=== PATIENT | female | born 1950 | race Caucasian/White ===

== ENCOUNTER → 2016-07-12 | Outpatient (CLI) | payer MEDICARE ==
[2016-07-12 12:37] LABS: ALT 36 U/L (9-52); AST 19 U/L (14-36); Alkaline Phosphatase 87 U/L (38-126); Anion Gap 11 mmol/L; Blood Urea Nitrogen 24 mg/dL (7-17); Calcium 9.7 mg/dL (8.4-10.2); Carbon Dioxide 28 mmol/L (22-30); Chloride 102 mmol/L (98-107); Cholesterol 119 mg/dL (<200); Glucose 227 mg/dL (74-99); HDL Cholesterol 49 mg/dL (40-60); Non-African American GFR(MDRD) >60 (>60 ml/min/1.73 sqM); Potassium 4.7 mmol/L (3.5-5.1); Sodium 141 mmol/L (137-145); Total Bilirubin 0.7 mg/dL (0.2-1.3); Total Protein 6.7 g/dL (6.3-8.2); Triglycerides 141 mg/dL (<150)
== END | disposition home or self-care (01) ==
LOC: LABWHC1 11:48
PROVIDERS: ATTEND Internal Medicine Endocrinology, Diabetes & Metabolism
DX: E11.65 Type 2 diabetes mellitus with hyperglycemia (principal)
CPT/HCPCS: 36415; 80053; 80061; 82043

== ENCOUNTER → 2016-10-17 | Outpatient (CLI) | payer MEDICARE ==
[2016-10-17 11:10] LABS: ALT 31 U/L (9-52); AST 18 U/L (14-36); Alkaline Phosphatase 76 U/L (38-126); Anion Gap 9 mmol/L; Blood Urea Nitrogen 26 mg/dL (7-17); Calcium 9.3 mg/dL (8.4-10.2); Carbon Dioxide 26 mmol/L (22-30); Chloride 108 mmol/L (98-107); Cholesterol 110 mg/dL (<200); Glucose 103 mg/dL (74-99); HDL Cholesterol 51 mg/dL (40-60); Non-African American GFR(MDRD) >60 (>60 ml/min/1.73 sqM); Potassium 4.4 mmol/L (3.5-5.1); Sodium 143 mmol/L (137-145); Total Bilirubin 0.5 mg/dL (0.2-1.3); Triglycerides 74 mg/dL (<150)
== END | disposition home or self-care (01) ==
LOC: LABWHC1 08:30
PROVIDERS: ATTEND Internal Medicine Endocrinology, Diabetes & Metabolism
DX: E11.65 Type 2 diabetes mellitus with hyperglycemia (principal); I10 Essential (primary) hypertension; E04.2 Nontoxic multinodular goiter
CPT/HCPCS: 36415; 80053; 80061; 82043; 84443

== ENCOUNTER → 2017-08-21 | Outpatient (CLI) | payer MEDICARE ==
[2017-08-21 10:21] LABS: Albumin 3.9 g/dL (3.5-5.0); Calcium 9.8 mg/dL (8.4-10.2); Potassium 4.4 mmol/L (3.5-5.1); Total Bilirubin 0.4 mg/dL (0.2-1.3); Total Protein 6.7 g/dL (6.3-8.2)
--- NOTE | 2017-08-21 11:06 | US ---
EXAMINATION TYPE: US thyroid st tissue head/neck DATE OF EXAM: 08/21/2017 COMPARISON: NONE CLINICAL HISTORY: E04.2 MULTINODULAR GOITER. Large body habitus GLAND SIZE: Right Lobe: 5.4 x 1.7 x 2.1 cm Overall Parenchyma: heterogenous Left Lobe: 5.1 x 1.5 x 2.2 cm Overall Parenchyma: heterogeneous Isthmus Thickness: 0.5 cm NODULES RIGHT: # of nodules measured on right: 1 1. 1.8 X 0.8 x 1.3 cm echogenic solid nodule at the lower pole with well-defined margins. This nod ule is wider than tall and shows intranodular vascularity. Prior size: not available LEFT: # of nodules measured on left: 2 1. 1.2 X 0.8 x 0.6 cm echogenic solid nodule at the lower pole with poorly defined margins. This n odule is wider than tall and shows intranodular vascularity. Prior size: not available 2. 0.8 X 0.6 x 0.5 cm echogenic solid nodule at the upper/isthmus pole with well-defined margins. T his nodule is wider than tall and shows no intranodular vascularity. Prior size: not available ISTHMUS: # of nodules measured in the isthmus: 0 Bilateral neck scanned, no evidence of lymphadenopathy. IMPRESSION: Bilateral thyroid lobe nodules. This could be correlated with nuclear medicine scan.
== END | disposition home or self-care (01) ==
LOC: RADUSWWP 09:27
PROVIDERS: ATTEND Internal Medicine Endocrinology, Diabetes & Metabolism
DX: E04.2 Nontoxic multinodular goiter (principal); E11.65 Type 2 diabetes mellitus with hyperglycemia
CPT/HCPCS: 36415; 76536; 80053; 80061; 82043; 82570; 83036

== ENCOUNTER → 2017-09-03 | Outpatient (CLI) | payer MEDICARE ==
[2017-09-03 13:41] LABS: T4, Free (Free Thyroxine) 0.84 ng/dL (0.78-2.19)
== END | disposition home or self-care (01) ==
LOC: LABWHC1 12:32
PROVIDERS: ATTEND Internal Medicine Endocrinology, Diabetes & Metabolism
DX: E11.65 Type 2 diabetes mellitus with hyperglycemia (principal)
CPT/HCPCS: 36415; 82533; 82607; 84439; 84443

== ENCOUNTER → 2017-11-17 | Outpatient (CLI) | payer MEDICARE ==
[2017-11-17 14:34] LABS: Calcium 9.4 mg/dL (8.4-10.2); Magnesium 1.9 mg/dL (1.6-2.3); Potassium 4.9 mmol/L (3.5-5.1)
== END | disposition home or self-care (01) ==
LOC: LABWHC1 13:43
PROVIDERS: ATTEND Nurse Practitioner Adult Health
DX: I10 Essential (primary) hypertension (principal)
CPT/HCPCS: 36415; 80048; 83735

== ENCOUNTER → 2018-04-20 | Outpatient (CLI) | payer MEDICARE ==
[2018-04-20 18:09] LABS: Albumin 4.1 g/dL (3.80-4.90); Albumin/Globulin Ratio 2.05 (1.20-2.10); Anion Gap 7.6 mmol/L (4.00-12.00); Calcium 9.9 mg/dL (8.7-10.3); Carbon Dioxide 26.4 mmol/L (21.6-31.8); LDL Cholesterol,Calculated 46.4 mg/dL (0.0-131.0); Potassium 5.2 mmol/L (3.5-5.5); Total Bilirubin 0.5 mg/dL (0.3-1.2); Total Protein 6.1 g/dL (6.2-8.2); VLDL Calculation 21.6 mg/dL (5.00-40.00)
[2018-04-20 18:57] LABS: Hemoglobin A1C 7.2 % (4.0-6.0)
== END ==
LOC: LABWHC1 10:21
PROVIDERS: ATTEND Internal Medicine Endocrinology, Diabetes & Metabolism
DX: E11.65 Type 2 diabetes mellitus with hyperglycemia (principal)
CPT/HCPCS: 36415; 80053; 80061; 83036; 84443

== ENCOUNTER → 2018-05-06 | Outpatient (CLI) | payer MEDICARE ==
[2018-05-06 09:15] VITALS: BP 138/61; PULSE 94; TEMP 97.2; BMI 41.4
--- NOTE | 2018-05-06 10:47 | P.HPOB ---
History of Present Illness H&P Date: 05/06/18 Chief Complaint: The patient is here for her routine gynecologic exam. This is a 67-year-old G0 with an LMP of 1993 who is status post endometrial ablation in 1993. She is here to establish with this office. She believes she went through the menopausal change at approximately age 50 when she had hot flashes. She has been amenorrheic since her endometrial ablation. She has been experiencing soreness in the area of the perineum. There is also some pruritus , but is not very severe. This is been going on for a long time. She states it has also made sexual intercourse very uncomfortable, so she has not been sexually active for quite some time. She had a pelvic exam about 13 months ago , but she does not believe the Pap smear was done. She is otherwise without gynecologic complaints. She denies any postmenopausal bleeding. Review of Systems She has lost about 10 pounds over the last year and this has been intentional. She denies respiratory or G.I. problems. Cardiac: she has occasional palpitations. She is seen by Dr. Owens for any regular heartbeat. She denies maltreatment or problems with falling. : she denies any significant problems with urinary leakage. Past Medical History Past Medical History: Cancer (Left breast cancer 2017 status post lumpectomy and radiation.), Diabetes Mellitus (Type I diabetes since her 20s.), Hyperlipidemia, Hypertension, Sleep Apnea/CPAP/BIPAP, Thyroid Disorder Additional Past Medical History / Comment(s): heart murmur, occasional irregular heart rate. lt breast cancer 2017, thyroid goiter, diabetic retinopathy. Ulcerative colitis. Elevated white blood cell count undergoing workup by Dr. Penaloza. 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 She had an endometrial ablation for menorrhagia. History of Any Multi-Drug Resistant Organisms: None Reported Past Surgical History: Breast Surgery (Left breast lumpectomy 2016), Uterine Ablation (1993) Additional Past Surgical History / Comment(s): 2 lt breast lumpectomies mar,apr 2017, cyst removed lt foot, vitrectomy annette cataract, ganglion cyst lt wrist. Colonoscopy 2018. Past Anesthesia/Blood Transfusion Reactions: No Reported Reaction Past Psychological History: No Psychological Hx Reported Additional Psychological History / Comment(s): claustrophobic Smoking Status: Former smoker (Quit in her 30s.) Past Alcohol Use History: Rare (One or 2 per month.) Past Drug Use History: None Reported Additional History: She has been since 1983. 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 - Past Family History Father Family Medical History: Cancer (Prostate and pancreatic cancer) Additional Family Medical History / Comment(s): She has several cousins read various types of cancer. Mother Family Medical History: Diabetes Mellitus, Myocardial Infarction ([place]) Medications and Allergies Home Medications Medication Instructions Recorded Confirmed Type Aspirin [Adult Low Dose Aspirin EC] 81 mg PO DAILY 04/20/18 05/06/18 History Benazepril HCl 40 mg PO DAILY 04/20/18 05/06/18 History Hardik-Plex 1 tab PO DAILY 04/20/18 05/06/18 History Insulin Aspart (For Pump) [NovoLOG 0.01 unit SQ-PUMP CONTINUOUS 04/20/18 History (For Pump)] L.acidoph,Paracasei, B.lactis 1 each PO DAILY 04/20/18 05/06/18 History [Probiotic] Mesalamine [Canasa] 1,000 mg RECTAL DAILY 04/20/18 05/06/18 History Simvastatin [Zocor] 20 mg PO HS 04/20/18 05/06/18 History Triamterene-Hctz 37.5-25Mg 1 tab PO DAILY 04/20/18 04/22/18 History [Maxzide 37.5-25] amLODIPine BESYLATE 5 mg PO DAILY 04/20/18 05/06/18 History hydrALAZINE HCL [Apresoline] 50 mg PO BID 04/20/18 05/06/18 History Loperamide HCl [Imodium A-D] 2 mg PO BID 05/06/18 05/06/18 History Allergies Allergy/AdvReac Type Severity Reaction Status Date / Time No Known Allergies Allergy Verified 05/06/18 09:05 Exam Vital Signs Temp Pulse BP 05/06/18 09:09 97.2 F L 94 138/61 Intake and Output 05/05/18 05/06/18 05/06/18 22:59 06:59 14:59 Other: Weight 106.141 kg Height 5'3", weight 234 pounds, BMI 41.5. This is a well-developed well-nourished obese white female who is alert and oriented times 3 in no acute distress. HEENT: Within normal limits. NECK: Supple without mass or thyromegaly. CHEST AND LUNGS: Clear to auscultation. HEART: intermittent irregular rhythm possibly consistent with PVCs. BREASTS: Left breast is consistent with the lumpectomy and radiation. The left breast is generally firmer than the right breast. There is a mass measuring approximately 5 x 5 cm at 12 o'clock position that the patient states has been there for quite some time and is known to her breast surgeon, Dr. Goldy Stevens. She states this is a fluid collection. She states she had a recent MRI on the breasts and she will continue to follow-up with Dr. Goldy Stevens for this. The right breast is without mass or discharge. AXILLARY EXAM: Negative for adenopathy. BACK: Negative for CVA tenderness. ABDOMEN: Soft, obese, nontender, without palpable masses. PELVIC EXAM: external genitalia reveals generalized pallor and mild inflammation consistent with lichen sclerosis. This extends to the perineum. There is a more discreet lesion of leukoplakia on the inner aspect of the left labia minora at the Vulvo-vaginal junction. This lesion measures approximately 1.5 x 1.0 cm and is slightly raised. This appears different than the generalized pallor with the rest of the vulva. Cervix and vagina appear normal with mild atrophy. There is no unusual discharge. There is no evidence of prolapse. The uterus is midposition, nongravid size and nontender. There are no palpable adnexal masses or tenderness. Bimanual examination is somewhat limited secondary to her size. RECTAL EXAM: rectovaginal exam is negative for mass or tenderness and is negative for occult blood. EXTREMITIES: Nontender. IMPRESSION: 1. 67-year-old menopausal female with a suspicious left vulvo-vaginal leukoplakia lesion approximate 1.5 x 1.0 cm. Differential diagnosis will include lichen sclerosis, vulvar hyperplasia, vulvar intraepithelial neoplasia and vulvar malignancy. 2. Generalized vulvar pallor and inflammation consistent with lichen sclerosis. I doubt this is secondary to candidiasis since there is no discharge in the vagina. 3. Left breast mass with history of left breast cancer status post lumpectomy and radiation therapy in 2017. She states her best surgeon is aware of the mass and has called this a fluid collection per the patient. Her breast imaging has included an MRI done recently per the patient and she is also going to have a mammogram is ordered per her breast surgeon. 4. Multiple medical problems. 5. Irregular heart rhythm which is followed by her manager it security. PLAN: 1. Pap smear was performed. 2. Self breast awareness was discussed with the patient. She will continue to follow-up with her breast surgeon regarding the breast testing and for follow- up with the left breast mass. 3. An appointment will be made for a vulvar biopsy of the suspicious area of leukoplakia in the area of the left vulvovaginal junction. 4. She did receive flu shot this fall. 5. She will follow-up with Dr. Owens, her manager it security for her irregular heartbeat. 6. She will also return in one year and PRN.
== END ==
LOC: WWCWWP 08:48
PROVIDERS: ATTEND Obstetrics & Gynecology
DX: Z53.9 Procedure and treatment not carried out, unspecified reason (principal)

== ENCOUNTER → 2018-05-20 | Day surgery (SDC) | payer MEDICARE ==
[2018-05-20 12:33] VITALS: BP 120/53; PULSE 64; TEMP 97.6; BMI 42.0
--- NOTE | 2018-05-20 13:46 | P.PCN ---
Date of Procedure: 05/20/18 Preoperative Diagnosis: Vulvar lesion with leukoplakia Postoperative Diagnosis: Same Procedure(s) Performed: Vulvar biopsy Anesthesia: local Surgeon: Gibran Pelletier Estimated Blood Loss (ml): 2 Condition: stable Disposition: same day Indications for Procedure: This was a 67-year-old menopausal female who was complaining of chronic vulvar and perineal irritation. Her exam revealed generalized vulvar and perineal pallor consistent with lichen sclerosis. There was a whiter raised area measuring approximately 1 x 1.5 cm on the inner aspect of the left labia minora that appeared different than the surrounding vulvar tissue. The patient presented for a biopsy of this lesion. Operative Findings: Generalized vulvar and perineal pallor consistent with lichen sclerosis. There is mild to moderate atrophy also noted. There is a 1.5 x 1.0 cm slightly raised area of leukoplakia on the inner aspect of the left labia minora. Description of Procedure: Preprocedure vital signs are as follows: blood pressure 120/53, height 5'3", weight 237 pounds, temperature 97.6, pulse 64. The procedure was explained to the patient and possible risks and complications were also discussed with the patient including the possibility of bleeding, infection and abscess formation. The patient was placed at the lithotomy position. Betadine was used to prep the area. Approximately 1.5 mL of 1% lidocaine was used for local anesthesia. Following determination of adequate anesthesia the left inner labia minora lesion was biopsied with a biopsy instrument. A silver nitrate stick and pressure were used to obtain hemostasis. An antibiotic ointment was applied. A piece of telfa was then placed between the labia. The patient tolerated the procedure well. The post procedure blood pressure was 122/56 with a pulse of 67. Post procedure instructions were given to the patient. She will apply a small amount of Neosporin to the area BID until the area is healed. If she notices bleeding, she is to hold pressure to the area for several minutes. She was instructed to call if she is having persistent bleeding, heavy bleeding, unusual pain or problems. She is to avoid running and all sexual activity. She will return in one week for a recheck. We will await the pathology on the vulvar biopsy specimen.
--- NOTE | 2018-05-21 10:33 | P.PN ---
Progress Note - Text Progress Note Date: 05/21/18 Post procedure Follow up call. Vulvar biopsy done yesterday. Pt states it was very sore yesterday and is feeling less sore today. She had a small amount of bleeding yesterday and is minimal today. She has been applying Neosporin as directed. Pt instructed to call if problems. Await biopsy pathology.
== END ==
LOC: WWCWWP 11:48
PROVIDERS: ATTEND Obstetrics & Gynecology
DX: N90.4 Leukoplakia of vulva (principal)
CPT/HCPCS: 88305

== ENCOUNTER → 2018-05-27 | Outpatient (CLI) | payer MEDICARE ==
[2018-05-27 12:01] VITALS: BP 119/65; PULSE 77; TEMP 97.1; BMI 41.6
--- NOTE | 2018-05-27 13:17 | P.PN ---
Progress Note - Text Progress Note Date: 05/27/18 The patient is here for follow-up on her vulvar biopsy. Vulvar biopsy was done on 05/20/2018 for leukoplakia on the inner aspect of the left labia minora. She states she is not having any bleeding and the soreness has resolved. O: blood pressure 119/65, height 5'3", weight 235 pounds, temperature 97.1, pulse 77. The patient is alert and oriented times 3 in no acute distress. External genitalia: there is generalized pallor noticed on both labia majora and minora and this extends to the perineum and minimally to the perianal area. The vulvar biopsy site is well-healed with no erythema. The biopsy pathology report reveals lichen sclerosis et atrophicus. Impression: 1. Lichen sclerosis of the vulva and perineum. 2. Dyspareunia secondary to atrophy and vulvar lichen sclerosis. 3. History of breast cancer. Plan: 1. Temovate 0.05% ointment applied nightly x4wks, then every other night x4wks , then2x/wk x 4wks. the electronic prescription will be sent to [facility] pharmacy on [address]. 2. Information on lichen sclerosis was given to the patient. 3. The patient was relieved to hear that it is not considered a cancerous condition. She does understand it can be a chronic condition. 4. We discussed how lichen sclerosis is typically seen in menopausal women and is generally considered an atrophic condition. With this condition, I would generally consider using estrogen vaginal cream to help with the atrophy and dyspareunia associated with it, however, because of her history of recent breast cancer, I do not feel she is a candidate for estrogen use. 5. She will call if she is having any problems with the prescription ointment or after 1 to 2 months for follow-up. 6. She states she is due for her mammogram on both sides and is requesting in order for this. The order for bilateral diagnostic mammogram was given to the patient. She will also follow up with her breast surgeon as directed.
== END ==
LOC: WWCWWP 11:40
PROVIDERS: ATTEND Obstetrics & Gynecology
DX: Z53.9 Procedure and treatment not carried out, unspecified reason (principal)

== ENCOUNTER 2018-06-24 19:06 | Observation (INO) | payer MEDICARE ==
[2018-06-24 21:04] LABS: Anisocytosis Slight; Basophils # (A) 0.1 k/uL (0-0.2); Basophils % (A) 1 %; Eosinophils # (A) 0.6 k/uL (0-0.7); Eosinophils % (A) 6 %; HCT 36.5 % (34.0-46.0); HGB 11.2 gm/dL (11.4-16.0); Lymphocytes # (A) 0.8 k/uL (1.0-4.8); Lymphocytes % (A) 7 %; MCH 28.4 pg (25.0-35.0); MCHC 30.6 g/dL (31.0-37.0); MCV 92.6 fL (80.0-100.0); Mean Platelet Volume 7.3; Monocytes # (A) 0.4 k/uL (0-1.0); Monocytes % (A) 4 %; Neutrophils # (A) 8.6 k/uL (1.3-7.7); Neutrophils % (A) 81 %; Platelet Count 404 k/uL (150-450); RBC 3.94 m/uL (3.80-5.40); RDW 18.1 % (11.5-15.5); WBC 10.6 k/uL (3.8-10.6)
[2018-06-24 21:15] LABS: Albumin 3.8 g/dL (3.5-5.0); Potassium 4.3 mmol/L (3.5-5.1); Total Protein 6.3 g/dL (6.3-8.2)
--- NOTE | 2018-06-24 21:15 | XR ---
EXAMINATION TYPE: XR KUB DATE OF EXAM: 06/24/2018 COMPARISON: NONE HISTORY: Abdominal pain TECHNIQUE: 2 views upright FINDINGS: There is no sign of intestinal obstruction or pneumoperitoneum. Fecal pattern is normal. Th ere is blunting of costophrenic angles. Heart appears enlarged. There are no pathologic calcification s over the kidneys. IMPRESSION: Bilateral pleural effusions. Nonacute abdomen.
[2018-06-24 21:16] LABS: Calcium 9.2 mg/dL (8.4-10.2); Magnesium 2.5 mg/dL (1.6-2.3); Total Bilirubin 1.6 mg/dL (0.2-1.3)
--- NOTE | 2018-06-24 21:16 | XR ---
EXAMINATION TYPE: XR chest 2V DATE OF EXAM: 06/24/2018 COMPARISON: NONE HISTORY: Difficulty breathing. TECHNIQUE: Frontal and lateral views of the chest are obtained. FINDINGS: Heart appears slightly enlarged. There is blunting of the costophrenic angles. There is no gross heart failure. There are chest leads. Bony thorax is intact. IMPRESSION: Small pleural effusions. Mild cardiomegaly.
[2018-06-24 21:21] LABS: D-Dimer 0.49 mg/L FEU (<0.60); Partial Thromboplastin Time 26.3 sec (22.0-30.0); Prothrombin Time 10.3 sec (9.0-12.0)
[2018-06-24 21:22] LABS: Creatine Kinase 70 U/L (30-135)
--- NOTE | 2018-06-24 21:25 | ED ---
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 Patient denies any chest pain. Patient additionally complains of some abdominal distention without any abdominal pain. Patient states that she has been having regular bowel movements, has not had a bowel movement today, however has passed flatus at baseline. Patient denies any fevers, nausea vomiting or diabetes. Patient states that the shortness of breath that she experiences is worse with exertion , this is new for patient. Patient is a patient of Dr. Shelby. Pt denies any other complaints. Systemic: Pt denies fatigue, myalgia, fever/chills, rash. Pt denies weakness, night sweats, weight loss. Neuro: Pt denies headache, visual disturbances, syncope or pre-syncope. HEENT: Pt denies ocular discharge or irritation, otalgia, rhinorrhea, pharyngitis or notable lymphadenopathy. Cardiopulmonary: Pt denies chest pain, heart palpitations, dyspnea on exertion. Abdominal/GI: Pt denies abdominal pain, n/v/d. : Pt denies dysuria, burning w/ urination, frequency/urgency. Denies new onset urinary or bowel incontinence. MSK: Pt denies myalgia, loss of strength or function in extremities. Neuro: Pt denies new onset weakness, paresthesias. - Related Data Home Medications Medication Instructions Recorded Confirmed Aspirin [Adult Low Dose Aspirin EC] 81 mg PO DAILY 04/20/18 06/25/18 Benazepril HCl 40 mg PO DAILY 04/20/18 06/25/18 Insulin Aspart (For Pump) [NovoLOG 0.01 unit SQ-PUMP CONTINUOUS 04/20/18 (For Pump)] L.acidoph,Paracasei, B.lactis 1 cap PO DAILY 04/20/18 06/24/18 [Probiotic] Mesalamine [Canasa] 1,000 mg RECTAL DAILY PRN 04/20/18 06/25/18 Simvastatin [Zocor] 20 mg PO HS 04/20/18 06/25/18 amLODIPine BESYLATE 5 mg PO DAILY 04/20/18 06/25/18 hydrALAZINE HCL [Apresoline] 50 mg PO BID 04/20/18 06/25/18 Loperamide HCl [Imodium A-D] 2 mg PO BID 05/06/18 06/24/18 Clobetasol Propionate [Temovate 1 applic TOPICAL BID 06/24/18 06/24/18 0.05% Oint] Metoprolol Tartrate [Lopressor] 12.5 mg PO BID 06/24/18 06/25/18 Nilotinib HCl [Tasigna] 300 mg PO BID 06/24/18 06/25/18 Triamterene-Hctz 37.5-25Mg 1 cap PO DAILY 06/24/18 06/25/18 [Dyazide 37.5-25 Capsule] Furosemide [Lasix] 20 mg PO DAILY PRN 06/25/18 06/25/18 Allergies Allergy/AdvReac Type Severity Reaction Status Date / Time No Known Allergies Allergy Verified 06/24/18 19:52 Review of Systems ROS Statement: Those systems with pertinent positive or pertinent negative responses have been documented in the HPI. ROS Other: All systems not noted in ROS Statement are negative. Past Medical History Past Medical History: Cancer, Hypertension, Sleep Apnea/CPAP/BIPAP, Thyroid Disorder Additional Past Medical History / Comment(s): heart murmur, occasional irregular heart rate. lt breast cancer 2017, thyroid goiter, diabetic retinopathy, leukemia History of Any Multi-Drug Resistant Organisms: None Reported Past Surgical History: Uterine Ablation Additional Past Surgical History / Comment(s): 2 lt breast lumpectomies mar,apr 2017, cyst removed lt foot, vitrectomy annette cataract, ganglion cyst lt wrist Past Anesthesia/Blood Transfusion Reactions: No Reported Reaction Past Psychological History: No Psychological Hx Reported Smoking Status: Former smoker Past Alcohol Use History: Rare Past Drug Use History: None Reported - Past Family History Father Family Medical History: Cancer Additional Family Medical History / Comment(s): prostate, pancreatic Mother Family Medical History: Diabetes Mellitus, Myocardial Infarction ([place]) General Exam - General Exam Comments Initial Comments: Constitutional: NAD, AOX3, Pt has pleasant affect. HEENT: NC/AT, trachea midline, neck supple, no lymphadenopathy. Posterior pharynx non erythematous, without exudates. External ears appear normal, without discharge. Mucous membranes moist. Eyes PERRLA, EOM intact. There is no scleral icterus. No pallor noted. Cardiopulmonary: RRR, no murmurs, rubs or gallops, no JVD noted. Lungs CTAB in anterior and posterior paul. +3 pitting edema bilaterally. Abdominal exam: Abdomen soft and non-distended. Abdomen non-tender to palpation in all 4 quadrants. Bowel sounds active in LLQ. No hepatosplenomegaly. No ecchymosis Neuro: CN II-XII grossly intact. No nuchal rigidity. MSK: No posterior calf tenderness bilaterally, homans sign negative bilaterally. Posterior tibialis and radial pulse +2 bilaterally. Sensation intact in upper and lower extremities. Full active ROM in upper and lower extremities, 5/5 stregnth. Course Vital Signs 06/24/18 06/24/18 06/24/18 19:25 21:30 22:00 Temperature 97.8 F Pulse Rate 64 64 65 Respiratory 20 12 10 L Rate Blood Pressure 131/75 145/56 158/64 O2 Sat by Pulse 98 97 96 Oximetry 06/24/18 06/24/18 06/24/18 22:30 23:00 23:30 Temperature Pulse Rate 78 Respiratory 17 45 H 22 Rate Blood Pressure 137/56 158/57 148/53 O2 Sat by Pulse 97 96 92 L Oximetry 06/25/18 06/25/18 06/25/18 00:00 00:30 01:00 Temperature Pulse Rate 63 66 63 Respiratory 20 13 15 Rate Blood Pressure 135/48 129/52 127/52 O2 Sat by Pulse 93 L 95 96 Oximetry Medical Decision Making - Medical Decision Making 67-year-old female patient with past medical history of hypertension, diabetes, breast cancer s/p lumpectomy, CML currently on Tasigna presents to ED w/ 3 days of bilateral lower extremity edema and sob with exertion. Patient denies any chest pain. Patient additionally complains of some abdominal distention without any abdominal pain. Patient states that she has been having regular bowel movements, has not had a bowel movement today, however has passed flatus at baseline. Physical exam displayed +3 pitting edema bilaterally. No other pathologic findings. Laboratory investigations revealed non-impressive CBC. Cardiac patient states the normal limits. D-dimer negative. CMP revealed mildly increased creatinine, other increased magnesium, other increased bilirubin, mildly increased ALT alk phos. CK-MB within normal limits. Troponin negative. BNP within normal limits. UA non-impressive. KUB revealed bilateral pleural effusions. Nonacute abdomen. Chest exam revealed small pleural effusions. EKG not concerning for acute ischemia. Pt to be admitted for further evaluation of dyspnea and pleural effusions. Case discussed at length with Dr. Baker. - Lab Data Result diagrams: 06/25/18 07:03 06/25/18 07:03 Lab Results 06/24/18 06/24/18 06/24/18 Range/Units 20:39 20:39 20:39 WBC 10.6 (3.8-10.6) k/uL RBC 3.94 (3.80-5.40) m/uL Hgb 11.2 L (11.4-16.0) gm/dL Hct 36.5 (34.0-46.0) % MCV 92.6 (80.0-100.0) fL MCH 28.4 (25.0-35.0) pg MCHC 30.6 L (31.0-37.0) g/dL RDW 18.1 H (11.5-15.5) % Plt Count 404 (150-450) k/uL Neutrophils % 81 % Lymphocytes % 7 % Monocytes % 4 % Eosinophils % 6 % Basophils % 1 % Neutrophils # 8.6 H (1.3-7.7) k/uL Lymphocytes # 0.8 L (1.0-4.8) k/uL Monocytes # 0.4 (0-1.0) k/uL Eosinophils # 0.6 (0-0.7) k/uL Basophils # 0.1 (0-0.2) k/uL Anisocytosis Slight PT (9.0-12.0) sec INR (<1.2) APTT (22.0-30.0) sec D-Dimer (<0.60) mg/L FEU Sodium 139 (137-145) mmol/L Potassium 4.3 (3.5-5.1) mmol/L Chloride 108 H (98-107) mmol/L Carbon Dioxide 23 (22-30) mmol/L Anion Gap 8 mmol/L BUN 31 H (7-17) mg/dL Creatinine 1.14 H (0.52-1.04) mg/dL Est GFR (CKD-EPI)AfAm 58 (>60 ml/min/1.73 sqM) Est GFR (CKD-EPI)NonAf 50 (>60 ml/min/1.73 sqM) Glucose 65 L (74-99) mg/dL Calcium 9.2 (8.4-10.2) mg/dL Magnesium 2.5 H (1.6-2.3) mg/dL Total Bilirubin 1.6 H (0.2-1.3) mg/dL AST 25 (14-36) U/L ALT 54 H (9-52) U/L Alkaline Phosphatase 133 H (38-126) U/L Total Creatine Kinase 70 (30-135) U/L CK-MB (CK-2) 0.9 (0.0-2.4) ng/mL CK-MB (CK-2) Rel Index 1.3 Troponin I <0.012 (0.000-0.034) ng/mL NT-Pro-B Natriuret Pep pg/mL Total Protein 6.3 (6.3-8.2) g/dL Albumin 3.8 (3.5-5.0) g/dL Urine Color Urine Appearance (Clear) Urine pH (5.0-8.0) Ur Specific [place] (1.001-1.035) Urine Protein (Negative) Urine Glucose (UA) (Negative) Urine Ketones (Negative) Urine Blood (Negative) Urine Nitrite (Negative) Urine Bilirubin (Negative) Urine Urobilinogen (<2.0) mg/dL Ur Leukocyte Esterase (Negative) 06/24/18 06/24/18 06/24/18 Range/Units 20:39 20:39 21:10 WBC (3.8-10.6) k/uL RBC (3.80-5.40) m/uL Hgb (11.4-16.0) gm/dL Hct (34.0-46.0) % MCV (80.0-100.0) fL MCH (25.0-35.0) pg MCHC (31.0-37.0) g/dL RDW (11.5-15.5) % Plt Count (150-450) k/uL Neutrophils % % Lymphocytes % % Monocytes % % Eosinophils % % Basophils % % Neutrophils # (1.3-7.7) k/uL Lymphocytes # (1.0-4.8) k/uL Monocytes # (0-1.0) k/uL Eosinophils # (0-0.7) k/uL Basophils # (0-0.2) k/uL Anisocytosis PT 10.3 (9.0-12.0) sec INR 1.0 (<1.2) APTT 26.3 (22.0-30.0) sec D-Dimer 0.49 (<0.60) mg/L FEU Sodium (137-145) mmol/L Potassium (3.5-5.1) mmol/L Chloride (98-107) mmol/L Carbon Dioxide (22-30) mmol/L Anion Gap mmol/L BUN (7-17) mg/dL Creatinine (0.52-1.04) mg/dL Est GFR (CKD-EPI)AfAm (>60 ml/min/1.73 sqM) Est GFR (CKD-EPI)NonAf (>60 ml/min/1.73 sqM) Glucose (74-99) mg/dL Calcium (8.4-10.2) mg/dL Magnesium (1.6-2.3) mg/dL Total Bilirubin (0.2-1.3) mg/dL AST (14-36) U/L ALT (9-52) U/L Alkaline Phosphatase (38-126) U/L Total Creatine Kinase (30-135) U/L CK-MB (CK-2) (0.0-2.4) ng/mL CK-MB (CK-2) Rel Index Troponin I (0.000-0.034) ng/mL NT-Pro-B Natriuret Pep 651 pg/mL Total Protein (6.3-8.2) g/dL Albumin (3.5-5.0) g/dL Urine Color Colorless Urine Appearance Clear (Clear) Urine pH 5.0 (5.0-8.0) Ur Specific [place] 1.002 (1.001-1.035) Urine Protein Negative (Negative) Urine Glucose (UA) Negative (Negative) Urine Ketones Negative (Negative) Urine Blood Negative (Negative) Urine Nitrite Negative (Negative) Urine Bilirubin Negative (Negative) Urine Urobilinogen <2.0 (<2.0) mg/dL Ur Leukocyte Esterase Negative (Negative) - EKG Data -: EKG Interpreted by Me (and dr baker) EKG Comments: Ventricular rate 67,. And for 142, QRS 86, QT/QTc 440/464. Sinus rhythm with premature atrial complex. Low voltage QRS. No concerns for acute ischemia. Disposition Clinical Impression: Dyspnea, Pleural effusion Disposition: ADMITTED IP TO THIS HOSP Condition: Serious Is patient prescribed a controlled substance at d/c from ED?: No
[2018-06-24 21:27] LABS: Appearance,Urine Clear (Clear); Bilirubin,Urine Negative (Negative); Blood,Urine Negative (Negative); Color,Urine Colorless; Glucose,Urine (UA) Negative (Negative); Ketones,Urine Negative (Negative); Leukocyte Esterase,Urine Negative (Negative); Nitrite,Urine Negative (Negative); Protein,Urine Negative (Negative); Specific Gravity,Urine 1.002 (1.001-1.035); Urobilinogen,Urine <2.0 mg/dL (<2.0)
[2018-06-24 21:34] LABS: Creatine Kinase MB 0.9 ng/mL (0.0-2.4); Troponin I <0.012 ng/mL (0.000-0.034)
[2018-06-24] MEDS ORDERED: SODIUM CHLORIDE 0.9% 500 ML 500 ML IV STA (21:54)
[2018-06-24] MEDS ORDERED: NALOXONE 0.4 MG/ML 1 ML VIAL IV PRN (22:39)
[2018-06-25 01:35] LABS: Glucose,Whole Blood 80 mg/dL (75-99)
[2018-06-25 02:04] VITALS: BMI 42.5
[2018-06-25 06:37] LABS: Glucose,Whole Blood 64 mg/dL (75-99)
[2018-06-25 07:01] LABS: Glucose,Whole Blood 102 mg/dL (75-99)
[2018-06-25 07:22] LABS: Anisocytosis Slight; Basophils # (A) 0.1 k/uL (0-0.2); Basophils % (A) 1 %; Eosinophils # (A) 0.8 k/uL (0-0.7); Eosinophils % (A) 8 %; HCT 35.8 % (34.0-46.0); HGB 10.6 gm/dL (11.4-16.0); Hypochromasia Slight; Lymphocytes # (A) 0.7 k/uL (1.0-4.8); Lymphocytes % (A) 7 %; MCHC 29.6 g/dL (31.0-37.0); MCV 94.5 fL (80.0-100.0); Mean Platelet Volume 7.2; Monocytes # (A) 0.4 k/uL (0-1.0); Monocytes % (A) 4 %; Neutrophils # (A) 7.8 k/uL (1.3-7.7); Neutrophils % (A) 79 %; Platelet Count 394 k/uL (150-450); RBC 3.79 m/uL (3.80-5.40); RDW 18.2 % (11.5-15.5); WBC 9.9 k/uL (3.8-10.6)
[2018-06-25 07:33] LABS: Albumin 3.4 g/dL (3.5-5.0); Magnesium 2.5 mg/dL (1.6-2.3); Phosphorus 3.5 mg/dL (2.5-4.5); Potassium 4.7 mmol/L (3.5-5.1); Total Bilirubin 1.2 mg/dL (0.2-1.3); Total Protein 5.9 g/dL (6.3-8.2)
[2018-06-25] MEDS ORDERED: MESALAMINE 1,000 MG SUPP RECTAL PRN (10:40)
[2018-06-25] MEDS ORDERED: FUROSEMIDE 20 MG TAB PO PRN (10:40)
--- NOTE | 2018-06-25 10:58 | P.HPIM ---
History of Present Illness H&P Date: 06/25/18 This is a 67-year-old female patient of Dr. Gutierrez. Patient presented to the emergency room with complaints of increased shortness of breath. Patient has a past medical history of CML in which she is currently on chemotherapy. Patient does feel that with the chemotherapy her shortness of breath does increase. Patient does follow with Dr. Penaloza. Patient does have a past medical history of diabetes mellitus which she has an insulin pump, hypertension, sleep apnea and hypothyroidism. Shortness of breath patient denies any cough or sputum production. Patient denies chest pain. Chest x-ray completed showing small pleural effusions. Mild cardiomegaly. KUB x-ray completed showing bilateral pleural effusions. Nonacute abdomen. EKG completed showing sinus rhythm with premature atrial complexes, low voltage QRS. ST abnormality, possible digitalis effect. D-dimer 0.49. Troponin negative. BNP level 651. Patient also complains of increased peripheral edema. At this time patient denies chest pain or shortness breath. Patient denies nausea vomiting or diarrhea. Patient denies any urinary burning or frequency. Review of Systems Head normocephalic Neck supple Lungs clear to auscultation bilaterally no wheezing or crackles Heart regular rate and rhythm S1-S2, no rub or gallop Abdomen is soft nontender nondistended positive bowel sounds no hepatosplenomegaly Extremities +2 pitting edema to lower extremities Neuro alert and orientated to 3 Past Medical History Past Medical History: Cancer, Diabetes Mellitus, Hypertension, Sleep Apnea/CPAP/ BIPAP, Thyroid Disorder Additional Past Medical History / Comment(s): heart murmur, PAC. occasional irregular heart rate. lt breast cancer 2017, thyroid goiter, diabetic retinopathy, leukemia, ulcerative colitis History of Any Multi-Drug Resistant Organisms: None Reported Past Surgical History: Uterine Ablation Additional Past Surgical History / Comment(s): 2 lt breast lumpectomies mar,apr 2017, cyst removed lt foot, vitrectomy annette cataract, ganglion cyst lt wrist Past Anesthesia/Blood Transfusion Reactions: No Reported Reaction Past Psychological History: No Psychological Hx Reported Additional Psychological History / Comment(s): claustrophobic Smoking Status: Former smoker Past Alcohol Use History: Rare Past Drug Use History: None Reported - Past Family History Father Family Medical History: Cancer Additional Family Medical History / Comment(s): prostate, pancreatic Mother Family Medical History: Diabetes Mellitus, Myocardial Infarction ([place]) Medications and Allergies Home Medications Medication Instructions Recorded Confirmed Type Aspirin [Adult Low Dose Aspirin EC] 81 mg PO DAILY 04/20/18 06/25/18 History Benazepril HCl 40 mg PO DAILY 04/20/18 06/25/18 History Insulin Aspart (For Pump) [NovoLOG 0.01 unit SQ-PUMP CONTINUOUS 04/20/18 History (For Pump)] L.acidoph,Paracasei, B.lactis 1 cap PO DAILY 04/20/18 06/24/18 History [Probiotic] Mesalamine [Canasa] 1,000 mg RECTAL DAILY PRN 04/20/18 06/25/18 History Simvastatin [Zocor] 20 mg PO HS 04/20/18 06/25/18 History amLODIPine BESYLATE 5 mg PO DAILY 04/20/18 06/25/18 History hydrALAZINE HCL [Apresoline] 50 mg PO BID 04/20/18 06/25/18 History Loperamide HCl [Imodium A-D] 2 mg PO BID 05/06/18 06/24/18 History Clobetasol Propionate [Temovate 1 applic TOPICAL BID 06/24/18 06/24/18 History 0.05% Oint] Metoprolol Tartrate [Lopressor] 12.5 mg PO BID 06/24/18 06/25/18 History Nilotinib HCl [Tasigna] 300 mg PO BID 06/24/18 06/25/18 History Triamterene-Hctz 37.5-25Mg 1 cap PO DAILY 06/24/18 06/25/18 History [Dyazide 37.5-25 Capsule] Furosemide [Lasix] 20 mg PO DAILY PRN 06/25/18 06/25/18 History Allergies Allergy/AdvReac Type Severity Reaction Status Date / Time No Known Allergies Allergy Verified 06/24/18 19:52 Physical Exam Vitals: Vital Signs Temp Pulse Pulse Resp BP BP Pulse Ox 06/25/18 05:00 98.3 F 64 20 128/64 96 06/25/18 01:40 97.5 F L 70 16 147/68 96 06/25/18 01:00 63 15 127/52 96 06/25/18 00:30 66 13 129/52 95 06/25/18 00:00 63 20 135/48 93 L 06/24/18 23:30 78 22 148/53 92 L 06/24/18 23:00 45 H 158/57 96 06/24/18 22:30 17 137/56 97 06/24/18 22:00 65 10 L 158/64 96 06/24/18 21:30 64 12 145/56 97 06/24/18 19:25 97.8 F 64 20 131/75 98 Intake and Output 06/24/18 06/25/18 06/25/18 22:59 06:59 14:59 Intake Total 150 Balance 150 Intake: Oral 150 Other: # Voids 2 Weight 108.862 kg 108.862 kg 108.862 kg Results CBC & Chem 7: 06/25/18 07:03 06/25/18 07:03 Labs: Abnormal Lab Results - Last 24 Hours (Table) 06/24/18 06/24/18 06/25/18 Range/Units 20:39 20:39 06:35 RBC (3.80-5.40) m/uL Hgb 11.2 L (11.4-16.0) gm/dL MCHC 30.6 L (31.0-37.0) g/dL RDW 18.1 H (11.5-15.5) % Neutrophils # 8.6 H (1.3-7.7) k/uL Lymphocytes # 0.8 L (1.0-4.8) k/uL Eosinophils # (0-0.7) k/uL Chloride 108 H (98-107) mmol/L BUN 31 H (7-17) mg/dL Creatinine 1.14 H (0.52-1.04) mg/dL Glucose 65 L (74-99) mg/dL POC Glucose (mg/dL) 64 L (75-99) mg/dL Magnesium 2.5 H (1.6-2.3) mg/dL Total Bilirubin 1.6 H (0.2-1.3) mg/dL ALT 54 H (9-52) U/L Alkaline Phosphatase 133 H (38-126) U/L Total Protein (6.3-8.2) g/dL Albumin (3.5-5.0) g/dL 06/25/18 06/25/18 06/25/18 Range/Units 07:00 07:03 07:03 RBC 3.79 L (3.80-5.40) m/uL Hgb 10.6 L (11.4-16.0) gm/dL MCHC 29.6 L (31.0-37.0) g/dL RDW 18.2 H (11.5-15.5) % Neutrophils # 7.8 H (1.3-7.7) k/uL Lymphocytes # 0.7 L (1.0-4.8) k/uL Eosinophils # 0.8 H (0-0.7) k/uL Chloride 110 H (98-107) mmol/L BUN 28 H (7-17) mg/dL Creatinine 1.07 H (0.52-1.04) mg/dL Glucose 100 H (74-99) mg/dL POC Glucose (mg/dL) 102 H (75-99) mg/dL Magnesium 2.5 H (1.6-2.3) mg/dL Total Bilirubin (0.2-1.3) mg/dL ALT (9-52) U/L Alkaline Phosphatase (38-126) U/L Total Protein 5.9 L (6.3-8.2) g/dL Albumin 3.4 L (3.5-5.0) g/dL Thrombosis Risk Factor Assmnt - Choose All That Apply Any of the Below Risk Factors Present?: Yes Each Factor Represents 1 point: Obesity (BMI >25), Swollen legs (current) Other Risk Factors: Yes Each Risk Factor Represents 2 Points: Age 61-74 years, Malignancy Other congenital or acquired thrombophilia - If yes, enter type in comment: No Thrombosis Risk Factor Assessment Total Risk Factor Score: 6 Thrombosis Risk Factor Assessment Level: High Risk Assessment and Plan Assessment: 1. Dyspnea with increased lower extremity edema. BNP 651. Chest x-ray completed showing small pleural effusions. Mild cardiomegaly. Patient does follow with cardiology services and has had a recent 2-D echo completed. 2. Increased abdominal distention. KUB x-ray completed showing bilateral pleural effusions. Nonacute abdomen 3. Chronic myeloid leukemia patient is currently on chemotherapy Tasigna. Patient follows with Dr. Penaloza. Oncology services have been consulted 4. History of breast cancer 5. Diabetes mellitus patient has insulin pump is currently leaning managing blood sugars and insulin through pump 6. Essential hypertension 7. Sleep apnea 8. Ulcerative colitis 9. Acute kidney injury. Initial creatinine 1.14 and bun 31. Creatinine improving to 1.07 DVT prophylaxis Lovenox. GI prophylaxis Protonix. Time with Patient: Greater than 30 (Greater than 60% of the total time spent in counseling and coordination of care. I performed an examination of the patient and discussed their management with the Nurse Practitioner. I have reviewed the Nurse Practitioner's notes and agree with the documented findings and plan of care)
[2018-06-25 11:12] LABS: Glucose,Whole Blood 89 mg/dL (75-99)
[2018-06-25] MEDS: METOPROLOL TARTRATE 12.5 MG TAB PO SCH ×2 (12:48→22:47)
[2018-06-25] MEDS: TRIAMTERENE-HCTZ 37.5-25MG 1 EACH CAP PO SCH (12:48)
[2018-06-25] MEDS: Insulin Aspart (For Pump) 100 UNIT/ML VIAL SQ-PUMP SCH (12:49)
--- NOTE | 2018-06-25 14:31 | P.CRDCN ---
History of Present Illness History of present illness: This is a pleasant 67-year-old female past medical history significant for chronic myelocytic leukemia diagnosed Fall 2017, hypertension, diabetes mellitus, obstructive sleep apnea, dyslipidemia and frequent palpitations. She follows in the office with Dr. Owens. We have been asked to see her in consultation secondary to shortness of breath and lower extremity edema. Her shortness of breath has been going on since approximately mid May since she started Tasigna per oncology. 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 She saw Dr. Owens in the office earlier this month and underwent an echocardiogram that revealed preserved LV systolic function with EF 55%, mild mitral regurgitation and pulmonary hypertension with RVSP 60 mmHg. Echo obtained the year prior shows RVSP of 36. She states she has not been wearing her CPAP due to claustrophobia. She also wore a Holter monitor which indicated primarily sinus mechanism with less than 1% incidence of ectopy. In the previous 3 days she feels as though her breathing has been worse as well as the swelling. EKG reveals sinus mechanism with PACs and nonspecific ST abnormalities. No acute changes. QTC is 464. Chest x-ray reveals small pleural effusions, mild cardiomegaly with no gross heart failure. X-ray of the abdomen reveals no obstruction or pneumoperitoneum. Laboratory data reviewed, WBC 9.9, hemoglobin 10.6, platelets 394, sodium 140, potassium 4.7, creatinine 1.07, magnesium 2.5, cardiac enzymes negative 1, NT proBNP 651. Current cardiac medications include Lopressor 12.5 mg twice a day, hydralazine 50 mg twice a day, aspirin 81 mg daily, benazepril 40 mg daily, simvastatin 20 mg daily, Dyazide 37.5/25 mg daily, amlodipine 5 mg daily and Lasix 20 mg daily when necessary. Most recent stress test performed in the office January 2017 was a Lexiscan stress test negative for reversible cardiac ischemia. At the time of my exam: CONSTITUTIONAL: Denies fever. Denies chills. EYES: Denies blurred vision. Denies vision changes. Denies eye pain. EARS, NOSE, MOUTH & THROAT: Denies headache. Denies sore throat. Denies ear pain. CARDIOVASCULAR: Denies chest pain. Denies shortness of breath. Denies orthopnea. Denies PND. Denies palpitations. RESPIRATORY: Denies cough. GASTROINTESTINAL: Denies abdominal pain. Denies diarrhea. Denies constipation. Denies nausea. Denies vomiting. MUSCULOSKELETAL: Denies myalgias. INTEGUMENTARY: Denies pruitis. Denies rash. NEUROLOGIC: Denies numbness. Denies tingling. Denies weakness. PSYCHIATRIC: Denies anxiety. Denies depression. ENDOCRINE: Denies fatigue. Denies weight change. Denies polydipsia. Denies polyurina. GENITOURINARY: Denies burning, hematuria or urgency with micturation. HEMATOLOGIC: Denies history of anemia. Denies bleeding. Blood pressure 128/64 heart rate 64 afebrile maintaining oxygen saturation on room air GENERAL: This is a 67-year-old occasion female in no apparent distress at the time of my examination. HEENT: Head is atraumatic, normocephalic. Pupils are equal, round. Sclerae anicteric. Conjunctivae are clear. Mucous membranes of the mouth are moist. Neck is supple. There is no jugular venous distention. No carotid bruit is heard. LUNGS: Clear to auscultation no wheezes, rales or rhonchi. No chest wall tenderness is noted on palpation or with deep breathing. HEART: Regular rate and rhythm with systolic ejection murmur at the left sternal border, no rubs or gallops. S1 and S2 heard. ABDOMEN: Soft, nontender. Bowel sounds are heard. No organomegaly noted. EXTREMITIES: 2+ pitting bilateral lower extremity edema, left greater than right and no calf tenderness noted. VASCULAR: Radial and dorsalis pedis pulses palpated, no evidence of clubbing. NEUROLOGIC: Patient is awake, alert and oriented x3. ASSESSMENT Fluid overload, component of right sided heart failure Chronic myelocytic leukemia on Tasigna Hypertension Dyslipidemia Pulmonary hypertension, RVSP 60 mmHg. Mitral regurgitation Diabetes mellitus Sleep apnea, non-compliant with CPAP History of breast cancer PLAN Discontinue amlodipine for the possibility of causing some of her lower extremity swelling. Increase hydralazine to 50 mg TID. Initiate on small dose of lasix IV 20 mg BID to decrease lower extremity swelling. Thank you kindly for this consultation. Nurse Practitioner note has been reviewed, I agree with a documented findings and plan of care. Patient was seen and examined. Past Medical History Past Medical History: Cancer, Diabetes Mellitus, Hypertension, Sleep Apnea/CPAP/ BIPAP, Thyroid Disorder Additional Past Medical History / Comment(s): heart murmur, PAC. occasional irregular heart rate. lt breast cancer 2017, thyroid goiter, diabetic retinopathy, leukemia, ulcerative colitis History of Any Multi-Drug Resistant Organisms: None Reported Past Surgical History: Uterine Ablation Additional Past Surgical History / Comment(s): 2 lt breast lumpectomies mar,apr 2017, cyst removed lt foot, vitrectomy annette cataract, ganglion cyst lt wrist Past Anesthesia/Blood Transfusion Reactions: No Reported Reaction Past Psychological History: No Psychological Hx Reported Additional Psychological History / Comment(s): claustrophobic Smoking Status: Former smoker Past Alcohol Use History: Rare Past Drug Use History: None Reported - Past Family History Father Family Medical History: Cancer Additional Family Medical History / Comment(s): prostate, pancreatic Mother Family Medical History: Diabetes Mellitus, Myocardial Infarction ([place]) Medications and Allergies Home Medications Medication Instructions Recorded Confirmed Type Aspirin [Adult Low Dose Aspirin EC] 81 mg PO DAILY 04/20/18 06/25/18 History Benazepril HCl 40 mg PO DAILY 04/20/18 06/25/18 History Insulin Aspart (For Pump) [NovoLOG 0.01 unit SQ-PUMP CONTINUOUS 04/20/18 History (For Pump)] L.acidoph,Paracasei, B.lactis 1 cap PO DAILY 04/20/18 06/24/18 History [Probiotic] Mesalamine [Canasa] 1,000 mg RECTAL DAILY PRN 04/20/18 06/25/18 History Simvastatin [Zocor] 20 mg PO HS 04/20/18 06/25/18 History amLODIPine BESYLATE 5 mg PO DAILY 04/20/18 06/25/18 History hydrALAZINE HCL [Apresoline] 50 mg PO BID 04/20/18 06/25/18 History Loperamide HCl [Imodium A-D] 2 mg PO BID 05/06/18 06/24/18 History Clobetasol Propionate [Temovate 1 applic TOPICAL BID 06/24/18 06/24/18 History 0.05% Oint] Metoprolol Tartrate [Lopressor] 12.5 mg PO BID 06/24/18 06/25/18 History Nilotinib HCl [Tasigna] 300 mg PO BID 06/24/18 06/25/18 History Triamterene-Hctz 37.5-25Mg 1 cap PO DAILY 06/24/18 06/25/18 History [Dyazide 37.5-25 Capsule] Furosemide [Lasix] 20 mg PO DAILY PRN 06/25/18 06/25/18 History Allergies Allergy/AdvReac Type Severity Reaction Status Date / Time No Known Allergies Allergy Verified 06/24/18 19:52 Physical Exam Vitals: Vital Signs Temp Pulse Pulse Resp BP BP Pulse Ox 06/25/18 05:00 98.3 F 64 20 128/64 96 06/25/18 01:40 97.5 F L 70 16 147/68 96 06/25/18 01:00 63 15 127/52 96 06/25/18 00:30 66 13 129/52 95 06/25/18 00:00 63 20 135/48 93 L 06/24/18 23:30 78 22 148/53 92 L 06/24/18 23:00 45 H 158/57 96 06/24/18 22:30 17 137/56 97 06/24/18 22:00 65 10 L 158/64 96 06/24/18 21:30 64 12 145/56 97 06/24/18 19:25 97.8 F 64 20 131/75 98 Intake and Output 06/24/18 06/25/18 06/25/18 22:59 06:59 14:59 Intake Total 150 Balance 150 Intake: Oral 150 Other: # Voids 2 Weight 108.862 kg 108.862 kg 108.862 kg Results 06/25/18 07:03 06/25/18 07:03 Cardiac Enzymes 06/24/18 06/24/18 06/25/18 Range/Units 20:39 20:39 07:03 AST 25 21 (14-36) U/L CK-MB (CK-2) 0.9 (0.0-2.4) ng/mL Troponin I <0.012 (0.000-0.034) ng/mL Coagulation 06/24/18 Range/Units 20:39 PT 10.3 (9.0-12.0) sec APTT 26.3 (22.0-30.0) sec CBC 01/16/19 01/17/19 Range/Units 20:39 07:03 WBC 10.6 9.9 (3.8-10.6) k/uL RBC 3.94 3.79 L (3.80-5.40) m/uL Hgb 11.2 L 10.6 L (11.4-16.0) gm/dL Hct 36.5 35.8 (34.0-46.0) % Plt Count 404 394 (150-450) k/uL Comprehensive Metabolic Panel 06/24/18 06/25/18 Range/Units 20:39 07:03 Sodium 139 140 (137-145) mmol/L Potassium 4.3 4.7 (3.5-5.1) mmol/L Chloride 108 H 110 H (98-107) mmol/L Carbon Dioxide 23 22 (22-30) mmol/L BUN 31 H 28 H (7-17) mg/dL Creatinine 1.14 H 1.07 H (0.52-1.04) mg/dL Glucose 65 L 100 H (74-99) mg/dL Calcium 9.2 9.0 (8.4-10.2) mg/dL AST 25 21 (14-36) U/L ALT 54 H 44 (9-52) U/L Alkaline Phosphatase 133 H 114 (38-126) U/L Total Protein 6.3 5.9 L (6.3-8.2) g/dL Albumin 3.8 3.4 L (3.5-5.0) g/dL Current Medications Generic Name Dose Route Start Last Admin Trade Name Freq PRN Reason Stop Dose Admin Amlodipine Besylate 5 mg 06/26/18 09:00 Norvasc PO DAILY [facility] Aspirin 81 mg 06/26/18 09:00 Aspirin PO DAILY [facility] Atorvastatin Calcium 10 mg 06/25/18 21:00 Lipitor PO HS [facility] Clobetasol Propionate 1 applic 06/25/18 21:00 Temovate TOPICAL BID [facility] Enoxaparin Sodium 40 mg 06/26/18 09:00 Lovenox SQ DAILY [facility] Furosemide 20 mg 06/25/18 10:40 Lasix PO DAILY PRN fluid Hydralazine HCl 50 mg 06/25/18 21:00 Apresoline PO BID [facility] Insulin Aspart 0.01 unit 06/25/18 10:45 Novolog (For Pump) SQ-PUMP CONTINUOUS [facility] Lactobacillus Acidoph/Bulgaricus 1 each 06/26/18 09:00 Lactinex PO DAILY [facility] Lisinopril 40 mg 06/26/18 09:00 Zestril PO DAILY [facility] Loperamide HCl 2 mg 06/25/18 21:00 Imodium PO BID [facility] Mesalamine 1,000 mg 06/25/18 10:40 Canasa RECTAL DAILY PRN ulcerative colitis Metoprolol Tartrate 12.5 mg 06/25/18 10:45 Lopressor PO BID [facility] Naloxone HCl 0.2 mg 06/24/18 22:39 Narcan IV Q2M PRN Opioid Reversal Non-Formulary Medication 300 mg 06/25/18 21:00 Nilotinib Hcl [Tasigna] PO BID [facility] Pantoprazole Sodium 40 mg 06/26/18 07:30 Protonix PO AC-BRKFST [facility] Triamterene/HCTZ 1 each 06/25/18 10:45 Dyazide PO DAILY [facility] Intake and Output 06/24/18 06/25/18 06/25/18 22:59 06:59 14:59 Intake Total 150 Balance 150 Intake: Oral 150 Other: # Voids 2 Weight 108.862 kg 108.862 kg 108.862 kg Patient Weight 06/26/18 06:59 Weight 108.862 kg 06/25/18 07:03 06/25/18 07:03
[2018-06-25] MEDS: FUROSEMIDE 10 MG/ML 2 ML VIAL IV SCH ×2 (16:22→21:14)
[2018-06-25] MEDS: hydrALAZINE HCL 50 MG TAB PO SCH ×2 (16:26→22:47)
--- NOTE | 2018-06-25 17:11 | P.CONS ---
History of Present Illness - Reason for Consult Consult date: 06/25/18 CML Requesting physician: Angelica Narayan - Chief Complaint Swelling - History of Present Illness Roxanna is a pleasant female recently diagnosed with CML, primary oncologist Dr. Penaloza. She has recently started Tasigna for CML. She has other co- morbities including obesity and diabetes. She has been tolerating medication well although the past three days she has been having increased swelling despite lasix, and associated SOB and advised to be further evaluated in Emergency. Review of Systems A 14 point review of systems assessed and completed and all negative except HPI Past Medical History Past Medical History: Cancer, Diabetes Mellitus, Hypertension, Sleep Apnea/CPAP/ BIPAP, Thyroid Disorder Additional Past Medical History / Comment(s): heart murmur, PAC. occasional irregular heart rate. lt breast cancer 2017, thyroid goiter, diabetic retinopathy, leukemia, ulcerative colitis History of Any Multi-Drug Resistant Organisms: None Reported Past Surgical History: Uterine Ablation Additional Past Surgical History / Comment(s): 2 lt breast lumpectomies mar,apr 2017, cyst removed lt foot, vitrectomy annette cataract, ganglion cyst lt wrist Past Anesthesia/Blood Transfusion Reactions: No Reported Reaction Past Psychological History: No Psychological Hx Reported Additional Psychological History / Comment(s): claustrophobic Smoking Status: Former smoker Past Alcohol Use History: Rare Past Drug Use History: None Reported - Past Family History Father Family Medical History: Cancer Additional Family Medical History / Comment(s): prostate, pancreatic Mother Family Medical History: Diabetes Mellitus, Myocardial Infarction ([place]) Medications and Allergies Home Medications Medication Instructions Recorded Confirmed Type Aspirin [Adult Low Dose Aspirin EC] 81 mg PO DAILY 04/20/18 06/25/18 History Benazepril HCl 40 mg PO DAILY 04/20/18 06/25/18 History Insulin Aspart (For Pump) [NovoLOG 0.01 unit SQ-PUMP CONTINUOUS 04/20/18 History (For Pump)] L.acidoph,Paracasei, B.lactis 1 cap PO DAILY 04/20/18 06/24/18 History [Probiotic] Mesalamine [Canasa] 1,000 mg RECTAL DAILY PRN 04/20/18 06/25/18 History Simvastatin [Zocor] 20 mg PO HS 04/20/18 06/25/18 History amLODIPine BESYLATE 5 mg PO DAILY 04/20/18 06/25/18 History hydrALAZINE HCL [Apresoline] 50 mg PO BID 04/20/18 06/25/18 History Loperamide HCl [Imodium A-D] 2 mg PO BID 05/06/18 06/24/18 History Clobetasol Propionate [Temovate 1 applic TOPICAL BID 06/24/18 06/24/18 History 0.05% Oint] Metoprolol Tartrate [Lopressor] 12.5 mg PO BID 06/24/18 06/25/18 History Nilotinib HCl [Tasigna] 300 mg PO BID 06/24/18 06/25/18 History Triamterene-Hctz 37.5-25Mg 1 cap PO DAILY 06/24/18 06/25/18 History [Dyazide 37.5-25 Capsule] Furosemide [Lasix] 20 mg PO DAILY PRN 06/25/18 06/25/18 History Allergies Allergy/AdvReac Type Severity Reaction Status Date / Time No Known Allergies Allergy Verified 06/24/18 19:52 Physical Exam Vitals: Vital Signs Temp Pulse Pulse Resp BP BP Pulse Ox 06/25/18 12:37 98.1 F 65 16 137/64 96 06/25/18 08:00 65 16 06/25/18 05:00 98.3 F 64 20 128/64 96 06/25/18 01:40 97.5 F L 70 16 147/68 96 06/25/18 01:00 63 15 127/52 96 06/25/18 00:30 66 13 129/52 95 06/25/18 00:00 63 20 135/48 93 L 06/24/18 23:30 78 22 148/53 92 L 06/24/18 23:00 45 H 158/57 96 06/24/18 22:30 17 137/56 97 06/24/18 22:00 65 10 L 158/64 96 06/24/18 21:30 64 12 145/56 97 06/24/18 19:25 97.8 F 64 20 131/75 98 Intake and Output 06/25/18 06/25/18 06/25/18 06:59 14:59 22:59 Intake Total 150 Balance 150 Intake: Oral 150 Other: Voiding Method Toilet Toilet # Voids 2 3 Weight 108.862 kg 108.862 kg - Constitutional General appearance: cooperative, morbidly obese - EENT Eyes: EOMI, PERRLA, dentition normal ENT: NA/AT, normal oropharynx - Neck Neck: normal ROM - Respiratory Respiratory: bilateral: CTA (no increased effort) - Cardiovascular Rhythm: regular Heart sounds: normal: S1, S2 leg Peripheral Edema: bilateral: 2+ - Gastrointestinal General gastrointestinal: distended, soft, tenderness - Integumentary Integumentary: pale - Neurologic Neurologic: CNII-XII intact - Musculoskeletal Musculoskeletal: gait normal, generalized weakness, strength equal bilaterally - Psychiatric Psychiatric: A&O x's 3, appropriate affect, intact judgment & insight Results CBC & Chem 7: 06/25/18 07:03 06/25/18 07:03 Labs: Abnormal Lab Results - Last 24 Hours (Table) 06/24/18 06/24/18 06/25/18 Range/Units 20:39 20:39 06:35 RBC (3.80-5.40) m/uL Hgb 11.2 L (11.4-16.0) gm/dL MCHC 30.6 L (31.0-37.0) g/dL RDW 18.1 H (11.5-15.5) % Neutrophils # 8.6 H (1.3-7.7) k/uL Lymphocytes # 0.8 L (1.0-4.8) k/uL Eosinophils # (0-0.7) k/uL Chloride 108 H (98-107) mmol/L BUN 31 H (7-17) mg/dL Creatinine 1.14 H (0.52-1.04) mg/dL Glucose 65 L (74-99) mg/dL POC Glucose (mg/dL) 64 L (75-99) mg/dL Magnesium 2.5 H (1.6-2.3) mg/dL Total Bilirubin 1.6 H (0.2-1.3) mg/dL ALT 54 H (9-52) U/L Alkaline Phosphatase 133 H (38-126) U/L Total Protein (6.3-8.2) g/dL Albumin (3.5-5.0) g/dL 06/25/18 06/25/18 06/25/18 Range/Units 07:00 07:03 07:03 RBC 3.79 L (3.80-5.40) m/uL Hgb 10.6 L (11.4-16.0) gm/dL MCHC 29.6 L (31.0-37.0) g/dL RDW 18.2 H (11.5-15.5) % Neutrophils # 7.8 H (1.3-7.7) k/uL Lymphocytes # 0.7 L (1.0-4.8) k/uL Eosinophils # 0.8 H (0-0.7) k/uL Chloride 110 H (98-107) mmol/L BUN 28 H (7-17) mg/dL Creatinine 1.07 H (0.52-1.04) mg/dL Glucose 100 H (74-99) mg/dL POC Glucose (mg/dL) 102 H (75-99) mg/dL Magnesium 2.5 H (1.6-2.3) mg/dL Total Bilirubin (0.2-1.3) mg/dL ALT (9-52) U/L Alkaline Phosphatase (38-126) U/L Total Protein 5.9 L (6.3-8.2) g/dL Albumin 3.4 L (3.5-5.0) g/dL Assessment and Plan Plan: Assessment and recommendations: 1. CML: She was recently started on Tasigna, because the complete etiology of her presentation is not fully known we will hold this until after Echo and cardiology consult. - Tasigna can be associated with underlying cardiovascular issues, although she has other known o-morbidities that may also. 2. Increased Shortness of breath, worse exertion: - Cardiology following 3. BLE Edema: Diuresis and monitoring - Repeat Echo 4. Morbid Obesity 5. Diabetes 6. SLeep Apnea. Physician Attestation: I have completed the full history and physical of this patient and agree with above dictation, dictated as a scribe
[2018-06-25 17:34] LABS: Glucose,Whole Blood 130 mg/dL (75-99)
[2018-06-25] MEDS ORDERED: hydrALAZINE HCL 50 MG TAB PO SCH (21:00)
[2018-06-25] MEDS ORDERED: ATORVASTATIN 10 MG TAB PO SCH (21:00)
[2018-06-25 21:07] LABS: Glucose,Whole Blood 70 mg/dL (75-99)
[2018-06-25] MEDS: NILOTINIB HCL 300 MG PO SCH (21:12)
[2018-06-25] MEDS: CLOBETASOL PROP 0.05% OINT 15GM TOPICAL SCH (21:13)
[2018-06-25] MEDS: LOPERAMIDE 2 MG CAP PO SCH (21:14)
[2018-06-26 01:31] LABS: Glucose,Whole Blood 96 mg/dL (75-99)
[2018-06-26 06:01] LABS: Glucose,Whole Blood 55 mg/dL (75-99)
[2018-06-26 06:19] LABS: Glucose,Whole Blood 68 mg/dL (75-99)
[2018-06-26 07:02] LABS: Glucose,Whole Blood 117 mg/dL (75-99)
[2018-06-26] MEDS ORDERED: PANTOPRAZOLE 40 MG TABLET PO SCH (07:30)
[2018-06-26] MEDS: NILOTINIB HCL 300 MG PO SCH (08:25)
[2018-06-26] MEDS: CLOBETASOL PROP 0.05% OINT 15GM TOPICAL SCH (08:27)
[2018-06-26] MEDS: hydrALAZINE HCL 50 MG TAB PO SCH (08:28)
[2018-06-26] MEDS: METOPROLOL TARTRATE 12.5 MG TAB PO SCH (08:31)
[2018-06-26] MEDS: FUROSEMIDE 10 MG/ML 2 ML VIAL IV SCH (08:31)
[2018-06-26] MEDS: LOPERAMIDE 2 MG CAP PO SCH ×2 (08:32→09:14)
[2018-06-26] MEDS: TRIAMTERENE-HCTZ 37.5-25MG 1 EACH CAP PO SCH (08:32)
[2018-06-26] MEDS ORDERED: ASPIRIN 81 MG PO SCH (09:00)
[2018-06-26] MEDS ORDERED: LACTOBACILLUS ACIDOPH & BULGAR 1 EACH PACKET PO SCH (09:00)
[2018-06-26] MEDS ORDERED: amLODIPine 5 MG TAB PO SCH (09:00)
[2018-06-26] MEDS ORDERED: ENOXAPARIN 40 MG/0.4 ML SYRINGE SQ SCH (09:00)
[2018-06-26] MEDS ORDERED: LISINOPRIL 20 MG TAB PO SCH (09:00)
[2018-06-26 09:14] LABS: Anisocytosis Slight; Basophils # (A) 0.1 k/uL (0-0.2); Basophils % (A) 1 %; Eosinophils # (A) 0.7 k/uL (0-0.7); Eosinophils % (A) 7 %; HCT 37.6 % (34.0-46.0); HGB 11.8 gm/dL (11.4-16.0); Hypochromasia Slight; Lymphocytes # (A) 0.7 k/uL (1.0-4.8); Lymphocytes % (A) 8 %; MCH 29.6 pg (25.0-35.0); MCHC 31.3 g/dL (31.0-37.0); MCV 94.6 fL (80.0-100.0); Monocytes # (A) 0.4 k/uL (0-1.0); Monocytes % (A) 5 %; Neutrophils # (A) 7.2 k/uL (1.3-7.7); Neutrophils % (A) 78 %; Platelet Count 381 k/uL (150-450); RBC 3.98 m/uL (3.80-5.40); RDW 17.7 % (11.5-15.5); WBC 9.3 k/uL (3.8-10.6)
[2018-06-26 09:51] LABS: Albumin 3.7 g/dL (3.5-5.0); Calcium 9.6 mg/dL (8.4-10.2); Potassium 4.7 mmol/L (3.5-5.1); Total Bilirubin 1.2 mg/dL (0.2-1.3); Total Protein 6.3 g/dL (6.3-8.2)
--- NOTE | 2018-06-26 11:26 | ECHOF ---
Referral Reason:re-eval ef after two weeks on tasigna MEASUREMENTS -------- HEIGHT: 160.0 cm WEIGHT: 108.9 kg BP: 115/51 RVIDd: 3.3 cm (< 3.3) IVSd: 1.1 cm (0.6 - 1.1) LVIDd: 4.6 cm (3.9 - 5.3) LVPWd: 1.2 cm (0.6 - 1.1) IVSs: 1.7 cm LVIDs: 3.1 cm LVPWs: 1.6 cm LA Diam: 3.4 cm (2.7 - 3.8) LAESV Index (A-L): 20.98 ml/m Ao Diam: 3.0 cm (2.0 - 3.7) AV Cusp: 2.1 cm (1.5 - 2.6) MV EXCURSION: 13.883 mm (> 18.000) MV EF SLOPE: 146 mm/s (70 - 150) EPSS: 0.8 cm MV E Roel: 1.35 m/s MV DecT: 323 ms MV A Roel: 1.11 m/s MV E/A Ratio: 1.21 RAP: 5.00 mmHg RVSP: 27.27 mmHg FINDINGS -------- Sinus rhythm. This was a technically adequate study. The left ventricular size is normal. There is borderline concentric left ventricular hypertrophy. Overall left ventricular systolic function is normal with, an EF between 55 - 60 %. The right ventricle is mildly enlarged. Normal LA size by volume 22+/-6 ml/m2. The right atrium is normal in size. The aortic valve is trileaflet, and appears structurally normal. No aortic stenosis or regurgitation. Mild mitral annular calcification present. There is trace mitral regurgitation. Mild tricuspid regurgitation present. Right ventricular systolic pressure is normal at < 35 mmHg. The right ventricular systolic pressure, as measured by Doppler, is 27.27mmHg. Trace/mild (physiologic) pulmonic regurgitation. The aortic root size is normal. Normal inferior vena cava with normal inspiratory collapse consistent with estimated right atrial pre ssure of 5 mmHg. The inferior vena cava is mildly dilated. There is no pericardial effusion. CONCLUSIONS -------- 1. Sinus rhythm. 2. This was a technically adequate study. 3. The left ventricular size is normal. 4. There is borderline concentric left ventricular hypertrophy. 5. Overall left ventricular systolic function is normal with, an EF between 55 - 60 %. 6. The right ventricle is mildly enlarged. 7. Normal LA size by volume 22+/-6 ml/m2. 8. The aortic valve is trileaflet, and appears structurally normal. No aortic stenosis or regurgitati on. 9. Mild mitral annular calcification present. 10. There is trace mitral regurgitation. 11. Mild tricuspid regurgitation present. 12. Right ventricular systolic pressure is normal at < 35 mmHg. 13. Trace/mild (physiologic) pulmonic regurgitation. 14. The aortic root size is normal. 15. Normal inferior vena cava with normal inspiratory collapse consistent with estimated right atrial pressure of 5 mmHg. 16. The inferior vena cava is mildly dilated. 17. There is no pericardial effusion. MAG[employer]IC [employer]ONANCE TECHNOLOGIST: Aissatou Giles RDCS
[2018-06-26 11:27] LABS: Glucose,Whole Blood 88 mg/dL (75-99)
[2018-06-26] MEDS: Insulin Aspart (For Pump) 100 UNIT/ML VIAL SQ-PUMP SCH (12:27)
[2018-06-26 12:43] VITALS: BP 124/72; PULSE 63; RESP 15; TEMP 97.9
--- NOTE | 2018-06-26 12:44 | P.PN ---
Subjective This is a pleasant 67-year-old female past medical history significant for chronic myelocytic leukemia diagnosed Fall 2017, hypertension, diabetes mellitus, obstructive sleep apnea, dyslipidemia and frequent palpitations. She follows in the office with Dr. Owens. We are following her during this hospitalization for shortness of breath and lower extremity edema. We started her on IV lasix yesterday and her edema has improved. She states her breathing has improved as well. She denies chest pain, palpitations or dizziness. Blood pressure 115/51 heart rate 67 afebrile and maintaining oxygen saturation on room. Laboratory data reviewed, WBC 9.3, hgb 11.8, plt 381, sodium 140, potassium 4.7, creatinine 1.11. GENERAL: This is a 67-year-old occasion female in no apparent distress at the time of my examination. HEENT: Head is atraumatic, normocephalic. Pupils are equal, round. Sclerae anicteric. Conjunctivae are clear. Mucous membranes of the mouth are moist. Neck is supple. There is no jugular venous distention. No carotid bruit is heard. LUNGS: Clear to auscultation no wheezes, rales or rhonchi. No chest wall tenderness is noted on palpation or with deep breathing. HEART: Regular rate and rhythm with systolic ejection murmur at the left sternal border, no rubs or gallops. S1 and S2 heard. EXTREMITIES: 1+ pitting bilateral lower extremity edema, left greater than right and no calf tenderness noted. ASSESSMENT Fluid overload, component of right sided heart failure Chronic myelocytic leukemia on Tasigna Hypertension Dyslipidemia Pulmonary hypertension, RVSP 60 mmHg. Mitral regurgitation Diabetes mellitus Sleep apnea, non-compliant with CPAP History of breast cancer PLAN Edema improved with IV diuresis. Transition to PO lasix 20 mg daily for the next 7 days, then she can go back to her PRN dosing. We will continue to follow as needed, please feel free to call with questions or concerns. Follow up with Dr. Owens upon discharge. Nurse Practitioner note has been reviewed, I agree with a documented findings and plan of care. Patient was seen and examined. Objective - Vital Signs Vital signs: Vital Signs Temp 98.4 F 06/26/18 04:42 Pulse 67 06/26/18 04:42 Resp 18 06/26/18 04:42 BP 115/51 01/18/19 04:42 Pulse Ox 94 L 06/26/18 04:42 Intake & Output 06/25/18 06/26/18 06/26/18 18:59 06:59 18:59 Intake Total 150 Balance 150 Weight 108.862 kg Intake: Oral 150 Other: Voiding Method Toilet Toilet # Voids 3 2 - Labs CBC & Chem 7: 06/26/18 08:50 06/26/18 08:50 Labs: Abnormal Lab Results - Last 24 Hours (Table) 06/25/18 06/25/18 06/26/18 Range/Units 17:33 21:06 05:57 RDW (11.5-15.5) % Lymphocytes # (1.0-4.8) k/uL Chloride (98-107) mmol/L BUN (7-17) mg/dL Creatinine (0.52-1.04) mg/dL POC Glucose (mg/dL) 130 H 70 L 55 L (75-99) mg/dL 06/26/18 06/26/18 06/26/18 Range/Units 06:18 07:01 08:50 RDW 17.7 H (11.5-15.5) % Lymphocytes # 0.7 L (1.0-4.8) k/uL Chloride (98-107) mmol/L BUN (7-17) mg/dL Creatinine (0.52-1.04) mg/dL POC Glucose (mg/dL) 68 L 117 H (75-99) mg/dL 06/26/18 Range/Units 08:50 RDW (11.5-15.5) % Lymphocytes # (1.0-4.8) k/uL Chloride 108 H (98-107) mmol/L BUN 32 H (7-17) mg/dL Creatinine 1.11 H (0.52-1.04) mg/dL POC Glucose (mg/dL) (75-99) mg/dL
[2018-06-26] MEDS ORDERED: guaiFENesin 600 MG TABLET.ER PO SCH (13:00)
--- NOTE | 2018-06-26 13:58 | P.DS ---
Providers Date of admission: 06/25/18 00:41 Expected date of discharge: 06/26/18 Attending physician: Navdeep Fields Consults: 06/24/18 22:39 Consult Physician Stat Consulting Provider: Adam Penaloza Consult Reason/Comments: CML on chemotherapy, dyspnea, bilateral pleural effusions Do you want consulting provider notified?: Yes 06/25/18 10:56 Consult Physician Routine Consulting Provider: Gordy Owens Consult Reason/Comments: recent 2decho. increased peripheral edema Do you want consulting provider notified?: Yes Primary care physician: Tila Gutierrez Hospital Course: Discharge diagnosis 1. Acute diastolic CHF exacerbation with right-sided heart failure. Dyspnea with increased lower extremity edema present on admission. BNP 651. Chest x- ray completed showing small pleural effusions. Mild cardiomegaly. 2-D echo showed an EF of 55-60%. Improved with IV Lasix. Cardiology recommending Lasix 20 mg by mouth daily for 7 days and then she can go back to taking it as needed 2. Increased abdominal distention. Likely related to fluid overload has improved. KUB x-ray completed showing bilateral pleural effusions. Nonacute abdomen 3. Chronic myeloid leukemia patient is currently on chemotherapy Tasigna. Patient follows with Dr. Penaloza. Seen by oncology. 4. History of breast cancer 5. Diabetes mellitus patient has insulin pump is currently leaning managing blood sugars and insulin through pump 6. Essential hypertension 7. Sleep apnea 8. Ulcerative colitis 9. Acute kidney injury. Initial creatinine 1.14 and bun 31. Creatinine at discharge 1.11 Hospital course This is a 67-year-old female patient of Dr. Gutierrez. Patient presented to the emergency room with complaints of increased shortness of breath. Patient has a past medical history of CML in which she is currently on chemotherapy. Patient does feel that with the chemotherapy her shortness of breath does increase. Patient does follow with Dr. Penaloza. Patient does have a past medical history of diabetes mellitus which she has an insulin pump, hypertension, sleep apnea and hypothyroidism. Shortness of breath patient denies any cough or sputum production. Patient denies chest pain. Chest x-ray completed showing small pleural effusions. Mild cardiomegaly. KUB x-ray completed showing bilateral pleural effusions. Nonacute abdomen. EKG completed showing sinus rhythm with premature atrial complexes, low voltage QRS. ST abnormality, possible digitalis effect. D-dimer 0.49. Troponin negative. BNP level 651. Patient also complains of increased peripheral edema. At this time patient denies chest pain or shortness breath. Patient denies nausea vomiting or diarrhea. Patient denies any urinary burning or frequency. Patient shortness of breath improved with the IV Lasix. She was treated as CHF exacerbation right-sided heart failure. Seen evaluated by cardiology. He has switched her IV Lasix to oral Lasix 20 mg by mouth daily. The recommending to continue this for 7 days and then to switch back to her Lasix 20 mg daily as needed for fluid retention. Patient's creatinine at discharge is 1.11 possibly related to the diuretics. Recommend repeating a BMP in 3 days to monitor kidney functions closely. Norvasc was also discontinued during this admission due to its side effect of lower extremity edema. They've increased the hydralazine 50 mg 3 times a day to help with blood pressure control. Patient will follow-up with both cardiology in 1 week and oncology in 1 week. Over follow up with Dr. Gutierrez in 3 days to check on BMP and monitor blood pressures. Patient is medically stable for discharge. Please refer to chart for any further details I performed an examination of the patient and discussed their management with the physician Registration Scheduling Specialist. I have reviewed the Physician Registration Scheduling Specialist's notes and agree with the documented findings and plan of care Patient Condition at Discharge: Stable Plan - Discharge Summary New Discharge Prescriptions: New Furosemide [Lasix] 20 mg PO DAILY #30 tab hydrALAZINE HCL [Apresoline] 50 mg PO TID #90 tab Continue L.acidoph,Paracasei, B.lactis [Probiotic] 1 cap PO DAILY Simvastatin [Zocor] 20 mg PO HS Insulin Aspart (For Pump) [NovoLOG (For Pump)] 0.01 unit SQ-PUMP CONTINUOUS Benazepril HCl 40 mg PO DAILY Mesalamine [Canasa] 1,000 mg RECTAL DAILY PRN PRN Reason: ulcerative colitis Aspirin [Adult Low Dose Aspirin EC] 81 mg PO DAILY Loperamide HCl [Imodium A-D] 2 mg PO BID Nilotinib HCl [Tasigna] 300 mg PO BID Clobetasol Propionate [Temovate 0.05% Oint] 1 applic TOPICAL BID Triamterene-Hctz 37.5-25Mg [Dyazide 37.5-25 Capsule] 1 cap PO DAILY Metoprolol Tartrate [Lopressor] 12.5 mg PO BID Discontinued amLODIPine BESYLATE 5 mg PO DAILY hydrALAZINE HCL [Apresoline] 50 mg PO BID Furosemide [Lasix] 20 mg PO DAILY PRN PRN Reason: fluid Discharge Medication List Aspirin [Adult Low Dose Aspirin EC] 81 mg PO DAILY 04/20/18 [History] Benazepril HCl 40 mg PO DAILY 04/20/18 [History] Insulin Aspart (For Pump) [NovoLOG (For Pump)] 0.01 unit SQ-PUMP CONTINUOUS 05/26 [History] L.acidoph,Paracasei, B.lactis [Probiotic] 1 cap PO DAILY 04/20/18 [History] Mesalamine [Canasa] 1,000 mg RECTAL DAILY PRN 04/20/18 [History] Simvastatin [Zocor] 20 mg PO HS 04/20/18 [History] Loperamide HCl [Imodium A-D] 2 mg PO BID 05/06/18 [History] Clobetasol Propionate [Temovate 0.05% Oint] 1 applic TOPICAL BID 06/24/18 [ History] Metoprolol Tartrate [Lopressor] 12.5 mg PO BID 06/24/18 [History] Nilotinib HCl [Tasigna] 300 mg PO BID 06/24/18 [History] Triamterene-Hctz 37.5-25Mg [Dyazide 37.5-25 Capsule] 1 cap PO DAILY 06/24/18 [ History] Furosemide [Lasix] 20 mg PO DAILY #30 tab 06/26/18 [Rx] hydrALAZINE HCL [Apresoline] 50 mg PO TID #90 tab 06/26/18 [Rx] Follow up Appointment(s)/Referral(s): Gordy Owens MD [STAFF PHYSICIAN] - 2 Weeks Adam Penaloza MD [STAFF PHYSICIAN] - 1 Week Tila Gutierrez MD [Primary Care Provider] - 3 Days Ambulatory/Diagnostic Orders: Basic Metabolic Panel [LAB.AMB] Time Frame: 3 Days, Location: None Selected Activity/Diet/Wound Care/Special Instructions: Diet: cardiac, diabetic Activity: as tolerated Discharge Disposition: HOME SELF-CARE
[2018-06-27] MEDS ORDERED: FUROSEMIDE 20 MG TAB PO SCH (09:00)
== END 2018-06-26 15:15 | disposition home or self-care (01) ==
LOC: EC 19:06 → 3NMEDONC 06-25 00:41
PROVIDERS: ADMIT Internal Medicine; ATTEND Internal Medicine
DX: I11.0 Hypertensive heart disease with heart failure (principal); I50.31 Acute diastolic (congestive) heart failure; K31.9 Disease of stomach and duodenum, unspecified; C92.10 Chronic myeloid leukemia, BCR/ABL-positive, not having achieved remission; N17.9 Acute kidney failure, unspecified; E11.319 Type 2 diabetes mellitus with unspecified diabetic retinopathy without macular edema; E78.5 Hyperlipidemia, unspecified; G47.33 Obstructive sleep apnea (adult) (pediatric); K51.90 Ulcerative colitis, unspecified, without complications; E04.9 Nontoxic goiter, unspecified; E66.01 Morbid (severe) obesity due to excess calories; I27.20 Pulmonary hypertension, unspecified; E03.9 Hypothyroidism, unspecified; I34.0 Nonrheumatic mitral (valve) insufficiency; F40.240 Claustrophobia; Z68.41 Body mass index [BMI] 40.0-44.9, adult; Z96.41 Presence of insulin pump (external) (internal); Z79.82 Long term (current) use of aspirin; Z79.899 Other long term (current) drug therapy; Z79.4 Long term (current) use of insulin; Z85.3 Personal history of malignant neoplasm of breast; Z87.891 Personal history of nicotine dependence; Z91.19 Patient's noncompliance with other medical treatment and regimen; Z92.21 Personal history of antineoplastic chemotherapy; Z80.0 Family history of malignant neoplasm of digestive organs; Z80.42 Family history of malignant neoplasm of prostate
CPT/HCPCS: 96376 ×2; 96372; 96374; 99285; 36415; 93005; 93306; 85379; 83880; 80053 ×3; 82550; 82553; 83735 ×2; 84100; 84484; 85025 ×3; 85610; 85730; 81003; 71046; 74018; G0378 ×2; J1940 ×2; J1650

== ENCOUNTER → 2018-07-29 | Outpatient (CLI) | payer MEDICARE ==
--- NOTE | 2018-07-29 11:19 | MM ---
Reason for exam: additional evaluation requested from prior study. Last mammogram was performed 1 year and 5 months ago. History: Patient has history of other cancer at age 67, has history of breast cancer at age 66, and is nulliparous. Family history of breast cancer in paternal cousin at age 40. Lumpectomy of the left breast, 2017. Radiation therapy of the left breast, 2017. Physical Findings: Nurse Summary: 13cm nodule in the left breast at 12 o'clock, patient states has had lump since lumpectomy, Dr. Saavedra and Rodney told her it was fluid (nurse mj). MG 3D Diag Mammo W/Cad OSVALDO Bilateral CC and MLO view(s) were taken. Prior study comparison: February 27, 2017, mammogram. February 01, 2016, mammogram. The breast tissue is heterogeneously dense. This may lower the sensitivity of mammography. Post lumpectomy changes in the left breast. No significant new findings when compared with previous films. These results were verbally communicated with the patient and result sheet given to the patient on 07/29/18. ASSESSMENT: Benign, BI-RAD 2 RECOMMENDATION: Follow-up diagnostic mammogram of both breasts in 1 year. Manage on a clinical basis with regard to post therapy changes in the left breast.
== END | disposition home or self-care (01) ==
LOC: RADMAMWWP 09:55
PROVIDERS: ATTEND Obstetrics & Gynecology
DX: Z08 Encounter for follow-up examination after completed treatment for malignant neoplasm (principal); Z85.3 Personal history of malignant neoplasm of breast
CPT/HCPCS: 77066; G0279; 77062

== ENCOUNTER → 2018-10-02 | Outpatient (CLI) | payer MEDICARE ==
[2018-10-02 16:47] LABS: Albumin 4.1 g/dL (3.80-4.90); Albumin/Globulin Ratio 2.05 (1.60-3.17); Anion Gap 8.6 mmol/L (4.00-12.00); Calcium 9.6 mg/dL (8.7-10.3); Carbon Dioxide 26.4 mmol/L (21.6-31.8); LDL Cholesterol,Calculated 80.2 mg/dL (0.0-131.0); Potassium 4.6 mmol/L (3.5-5.5); Total Protein 6.1 g/dL (6.2-8.2); VLDL Calculation 21.8 mg/dL (5.00-40.00)
[2018-10-02 18:21] LABS: Hemoglobin A1C 9.2 % (4.0-6.0)
== END | disposition home or self-care (01) ==
LOC: LABWHC1 09:10
PROVIDERS: ATTEND Internal Medicine Endocrinology, Diabetes & Metabolism
DX: E11.65 Type 2 diabetes mellitus with hyperglycemia (principal)
CPT/HCPCS: 36415; 80053; 80061; 82043; 82570; 83036; 84443

== ENCOUNTER → 2018-12-24 | Outpatient (CLI) | payer MEDICARE | END | disposition home or self-care (01) | LOC: LABWHC1 11:33 | PROVIDERS: ATTEND Orthopaedic Surgery | DX: Z01.812 Encounter for preprocedural laboratory examination (principal); M16.12 Unilateral primary osteoarthritis, left hip | CPT/HCPCS: 87070 ==

== ENCOUNTER 2019-01-04 08:46 | Inpatient (IN) | payer MEDICARE ==
--- NOTE | 2019-01-03 12:12 | HP ---
HISTORY AND PHYSICAL REASON FOR ADMISSION: Surgery is scheduled for 01/04/2019 Roxanna Ortiz is a 68-year-old patient seen with symptomatic left hip osteoarthritis. We discussed treatment options with her. She elected to proceed with direct anterior left total hip arthroplasty. Consent was obtained. Preoperative clearance was provided by Dr. Gutierrez and cardiac clearance was provided by Dr. Owens. PAST MEDICAL HISTORY: Breast cancer, hyperlipidemia, hypertension. PAST SURGICAL HISTORY: Breast biopsy, cataract surgery, wrist surgery. MEDICATIONS: Benazepril, aspirin, alprazolam, NovoLog, simvastatin. ALLERGIES: None. SOCIAL HISTORY: She denies current tobacco use. PHYSICAL EXAMINATION: Evaluation of her left hip: There is a diffuse tenderness, very limited range of motion with significant pain. Positive hip impingement sign. Straight leg raise negative. Distal neurovascular exam is intact. RADIOGRAPHS: Radiographs of the left hip revealed moderate to severe osteoarthritic changes. IMPRESSION: 1. Symptomatic left hip osteoarthritis. 2. Hypertension. 3. Hyperlipidemia. 4. Insulin-dependent diabetes. PLAN: Direct anterior left total hip arthroplasty. Surgery scheduled for 01/04/2019. MMODL / IJN: [id number] /
[~2019-01-04 08:46] MED LIST: DEXAMETHASONE SOD PHOSPHATE 10 MG/ML 1 ML VIAL IV ONE; LIDOCAINE 1% 20 ML VIAL (10MG/ML) FOR IV START INTRADERMA PRN; MIDAZOLAM 2 MG/2 ML VIAL IV PRN; TRANEXAMIC ACID 1,000 MG in SODIUM CHLORIDE 0.9% 100 ML IVPB ONE; fentaNYL (PF) 50 MCG/ML 2 ML AMP IV PRN
[2019-01-04] MEDS: LACTATED RINGERS 1,000 ML IV SCH ×6 (09:28→23:11)
[2019-01-04 09:31] LABS: Glucose,Whole Blood 153 mg/dL (75-99)
[2019-01-04] MEDS ORDERED: ROPIVACAINE 246.25 MG, EPINEPHrine 0.5 MG, KETOROLAC 30 MG, cloNIDine HCL/PF 80 MCG, WA... MISCELLANE ONE ×5 (09:33)
[2019-01-04] MEDS: ACETAMINOPHEN TAB 500 MG TAB PO ONE ×2 (09:36→13:48)
[2019-01-04] MEDS: MELOXICAM 7.5 MG TAB PO ONE ×2 (09:36→13:49)
[2019-01-04] MEDS ORDERED: ONDANSETRON 4 MG/2 ML VIAL IVP ONE (09:37)
[2019-01-04] MEDS ORDERED: DEXAMETHASONE SOD PHOSPHATE 10 MG/ML 1 ML VIAL IV ONE (09:37)
[2019-01-04] MEDS ORDERED: PROPOFOL 10 MG/ML 20 ML VIAL IV ONE (09:59)
[2019-01-04] MEDS ORDERED: MIDAZOLAM 2 MG/2 ML VIAL ONE (09:59)
[2019-01-04] MEDS ORDERED: fentaNYL (PF) 50 MCG/ML 2 ML AMP ONE (09:59)
[2019-01-04] MEDS ORDERED: SODIUM CHLORIDE 0.9% 100 ML BAG ONE (09:59)
[2019-01-04] MEDS ORDERED: HYDROmorphone (PF) 1 MG/ML ONE (09:59)
[2019-01-04] MEDS ORDERED: TRANEXAMIC ACID 1,000 MG/10 ML VIAL ONE (09:59)
[2019-01-04] MEDS ORDERED: ceFAZolin 3,000 MG in SODIUM CHLORIDE 0.9% IRRIGATIO 3,000 ML IRRIGATION ONE (10:02)
[2019-01-04] MEDS ORDERED: LACTATED RINGERS 1,000 ML IV ONE (12:00)
--- NOTE | 2019-01-04 12:04 | P.OP ---
Date of Procedure: 01/04/19 Preoperative Diagnosis: Left hip osteoarthritis Postoperative Diagnosis: Left hip osteoarthritis Procedure(s) Performed: Direct anterior left total hip arthroplasty Implants: 1. Depuy Corail KA size 12 standard collar press-fit femoral stem 2. Depuy pinnacle 52 mm multi hole press-fit acetabular shell 3. Depuy pinnacle polyethylene acetabular liner neutral 36 mm ID 52 mm OD 4. Depuy metallic femoral head 36 mm -2 Anesthesia: local, spinal Surgeon: Demar Richards Teacher Selection Specialist #1: Fabian Morin Estimated Blood Loss (ml): 350 Pathology: other (Femoral head) Condition: stable Disposition: PACU Indications for Procedure: 68-year-old patient seen with symptomatic left hip osteoarthritis. After treatment options were discussed with her, she elected to proceed with total hip arthroplasty. Operative Findings: see description of procedure Description of Procedure: The patient was taken to the operative suite. Patient underwent a spinal anesthetic by the department of anesthesia. Patient was then transferred to the [place] table. Patient was given preoperative IV antibiotics and TXA. Both lower extremities were placed in standard leg spars. The hip was then prepped and draped in the normal sterile orthopedic fashion. A standard anterior incision was made beginning 3 cm lateral and 1 cm distal to the ASIS extending 10 cm. Dissection was then carried down through the subcutaneous soft tissues down to the fascia overlying the tensor fascia caty. An incision was now made through the fascia. Careful dissection was taken down exposing the tensor fascia caty muscle. A Cobra retractor was now placed along the medial femoral neck and a second one along the lateral femoral neck. The venous circumflex vessels were now identified, cauterized and clipped. We identified the anterior hip capsule. An incision was made through the hip capsule along the lateral border. I performed a partial anterior capsulectomy. Retractors were now placed around the femoral neck itself. A femoral neck cut was now made with a sagittal saw. It was completed with an osteotome at the lateral neck area. The femoral head was now removed without difficulty. The extremity was now rotated to 45 of external rotation. It was locked in position. Residual labrum was now debrided out. Serial reaming was performed of the acetabulum while Haris PAUL assisted holding an anterior retractor for exposure. Once we reached the appropriate size and a trial was position and fit nicely. The appropriate size was now chosen opened and made available. It was introduced into the acetabulum without difficulty. The C-arm/fluoroscopy was now brought into the operative field. We made sure we had a true AP pelvic view. We now under direct C- arm/fluoroscopy introduced into the acetabular component with appropriate version and inclination. I held the cup in appropriate position well Haris PAUL used a mallet to seat the acetabular component. I noted the component now to be well seated and stable. Acetabular cup introduce her was removed. The C-arm was pulled back. An appropriate liner was introduced and clicked into position. It was felt to be stable. At this point retractors were removed. The extremity was now placed into 120 external rotation with no traction. The leg was now dropped to the ground and adducted. Appropriate retractors were now positioned along the proximal femur. We also placed our femoral look into position. Additional capsular releasing was performed to gain access to the proximal femur. We now used a box osteotome. A canal finder was now utilized. Serial broaching was now performed with the assistance of Haris PAUL tapping the broaches down with a mallet while held the broach in appropriate rotation and position. This was done until we reached the appropriate size with good overall rotational stability. Appropriate calcar planing was performed. A trial head/neck was placed into position. The hip was now reduced. The C- arm/fluoroscopy was brought back into the operative field. A spot film was obtained of the nonoperative hip. A spot film was obtained of the trial components. Overlays were performed, we noted good overall alignment and positioning for determining leg length. The C-arm/fluoroscopy was pulled back. Retractors were repositioned and the hip was dislocated. The leg was again taken down to the ground and adducted. Appropriate retractors were repositioned as well as the femoral hook. All trial components were removed. The femoral implant was opened along with the femoral head. The femoral implant was introduced on the appropriate handle into our pre-broached area. I held the component position well Haris PAUL used a mallet to seat the femoral component. The femoral component was now noted to be well seated and stable.. The femoral head was introduced with good positioning and fixation noted. Retractors were now removed. The hip was now reduced. There appeared be good positioning of the hip confirmed on intraoperative fluoroscopy. Spot films were obtained to document this. A second gram of TXA was given. The deep and superficial soft tissues were infiltrated with local analgesic. Bipolar cautery had been utilized intermittently through the procedure for hemostasis. The wound was irrigated copiously with pulse lavage mechanical irrigation. The fascia was repaired with Vicryl suture. The subcutaneous soft tissues were repaired in layers with Vicryl suture. The skin was approximated with pernio/Dermabond. Sterile dressings were applied. Patient was then awakened, transferred to a bed and taken to recovery in stable condition. Haris PAUL assisted with the complex procedure.
[2019-01-04] MEDS ORDERED: ONDANSETRON 4 MG/2 ML VIAL IVP PRN (12:05)
[2019-01-04] MEDS ORDERED: NALOXONE 0.4 MG/ML 1 ML VIAL IV PRN (12:05)
[2019-01-04] MEDS ORDERED: HYDROmorphone 0.5 MG/0.5 ML SYRINGE IVP PRN ×3 (12:05)
[2019-01-04] MEDS: HYDROmorphone 1 MG/ML 1 ML SYRINGE IVP ONE ×2 (12:34→12:54)
[2019-01-04] MEDS ORDERED: diphenhydrAMINE 50 MG/ML 1 ML VIAL IVP ONE (12:35)
[2019-01-04 12:43] LABS: Glucose,Whole Blood 151 mg/dL (75-99)
--- NOTE | 2019-01-04 13:41 | FL ---
EXAMINATION TYPE: FL guidance operating room, XR Hip Limited LT DATE OF EXAM: 01/04/2019 COMPARISON: NONE HISTORY: 68-year-old female injured left hip replacement FINDINGS: Flipped image during left hip total arthroplasty. Only one fluoroscopic image is submitted. There is limitation due to overlying artifact. FLUOROSCOPY Fluoroscopy time of 25 seconds was used during left hip replacement. 1 image/s document/s the proced ure. IMPRESSION: Intraoperative fluoroscopy as above.
[2019-01-04] MEDS: traMADol 50 MG TAB PO PRN (13:52)
[2019-01-04 14:01] VITALS: BMI 38.9
[2019-01-04] MEDS ORDERED: ALPRAZolam 0.25 MG TAB PO PRN (14:08)
[2019-01-04] MEDS ORDERED: FUROSEMIDE 20 MG TAB PO PRN (14:08)
--- NOTE | 2019-01-04 14:23 | P.CONS ---
History of Present Illness - Reason for Consult Consult date: 01/04/19 Medical management Requesting physician: Demar Richards - Chief Complaint Status post left total hip arthroplasty - History of Present Illness This is a 68-year-old female, patient of Dr. Gutierrez . She has a known past medical history of insulin-dependent diabetes mellitus requiring insulin pump, hypertension, hyperlipidemia, breast cancer status post lumpectomy, chronic myeloid leukemia, SVT, ulcerative colitis and a remote history of smoking. Patient presented to the hospital for her left hip arthritis and underwent left total hip arthroplasty with Dr. Richards. Patient tolerated surgery well medications estimated blood loss 350 mL. We've been consulted for medical management. At this time patient denies any chest pain or shortness of breath, nausea or vomiting, Nana changes or urinary symptoms. Denies any fever, chills or sweats. She is complaining of hip pain and just received Ultram. Review of Systems Please refer to HPI otherwise unremarkable Past Medical History Past Medical History: Cancer, Diabetes Mellitus, Hypertension, Sleep Apnea/CPAP/BIPAP, Thyroid Disorder Additional Past Medical History / Comment(s): heart murmur, PAC. occasional irregular heart rate. lt breast cancer 2017, thyroid goiter, diabetic retinopathy, leukemia, ulcerative colitis History of Any Multi-Drug Resistant Organisms: None Reported Past Surgical History: Uterine Ablation Additional Past Surgical History / Comment(s): 2 lt breast lumpectomies mar,apr 2017, cyst removed lt foot, vitrectomy annette cataract, ganglion cyst lt wrist Past Anesthesia/Blood Transfusion Reactions: No Reported Reaction Past Psychological History: No Psychological Hx Reported Additional Psychological History / Comment(s): claustrophobic Smoking Status: Former smoker Past Alcohol Use History: Rare Additional Past Alcohol Use History / Comment(s): quit smoking 1981, smoked in college Past Drug Use History: None Reported - Past Family History Father Family Medical History: Cancer Additional Family Medical History / Comment(s): prostate, pancreatic Mother Family Medical History: Diabetes Mellitus, Myocardial Infarction ([place]) Medications and Allergies Home Medications Medication Instructions Recorded Confirmed Type Aspirin [Adult Low Dose Aspirin EC] 81 mg PO DAILY 04/20/18 01/04/19 History Benazepril HCl 40 mg PO DAILY 04/20/18 01/04/19 History Insulin Aspart (For Pump) [NovoLOG 0.01 unit SQ-PUMP CONTINUOUS 04/20/18 01/04/19 History (For Pump)] Simvastatin [Zocor] 20 mg PO HS 04/20/18 01/04/19 History Metoprolol Tartrate [Lopressor] 12.5 mg PO BID 06/24/18 01/04/19 History Nilotinib HCl [Tasigna] 300 mg PO BID 06/24/18 01/04/19 History Triamterene-Hctz 37.5-25Mg 1 cap PO DAILY 06/24/18 01/04/19 History [Dyazide 37.5-25 Capsule] hydrALAZINE HCL [Apresoline] 50 mg PO TID #90 tab 06/26/18 01/04/19 Rx ALPRAZolam [Xanax] 0.25 mg PO BID PRN 12/29/18 01/04/19 History Furosemide [Lasix] 20 mg PO DAILY PRN 12/29/18 01/04/19 History Vit C/E/Zn/Coppr/Lutein/Zeaxan 1 each PO DAILY 12/29/18 01/04/19 History [Preservision Areds 2 Softgel] traMADol HCL [Ultram] 50 mg PO Q6HR PRN 12/29/18 01/04/19 History Allergies Allergy/AdvReac Type Severity Reaction Status Date / Time hydrocodone [From [place]] AdvReac affects Verified 01/04/19 13:05 breathing Physical Exam Vitals: Vital Signs Temp Pulse Resp BP Pulse Ox 01/04/19 13:01 57 L 14 156/67 100 01/04/19 12:51 141/60 01/04/19 12:47 67 16 155/111 100 01/04/19 12:30 65 16 148/66 96 01/04/19 12:21 96.9 F L 63 18 155/67 97 01/04/19 09:30 98.8 F 65 158/69 97 Intake and Output 01/03/19 01/04/19 01/04/19 22:59 06:59 14:59 Intake Total 1651 Output Total 350 Balance 1301 Intake: IV 1651 Output: Estimated Blood Loss 350 Head normocephalic Neck supple Lungs clear to auscultation bilaterally no wheezing or crackles Heart regular rate and rhythm S1-S2, no rub or gallop Abdomen is soft nontender nondistended positive bowel sounds no hepatosplenomegaly Extremities no edema. Left hip dressing clean dry and intact in place Neuro alert and orientated to 3 Results Labs: Abnormal Lab Results - Last 24 Hours (Table) 01/04/19 01/04/19 Range/Units 09:19 12:38 POC Glucose (mg/dL) 153 H 151 H (75-99) mg/dL Assessment and Plan Assessment: 1. Left hip osteoarthritis: status post direct anterior left total hip arthroplasty, postoperative day #0. Continue with pain control per orthopedic protocol. Continue with the Lovenox for DVT prophylaxis 2. Insulin dependent diabetes mellitus: Patient on insulin pump. Followed by accountant certified public, Dr. Irvin. We'll continue to monitor blood sugars, check a hemoglobin A1c. Okay for patient to use insulin pump during hospitalization 3. Essential hypertension: Continue Dyazide, hydralazine and metoprolol 4. Hyperlipidemia continue statin 5. History of SVT and PACs. Stable. Was seen by cardiology for clearance prior to surgery. Continue metoprolol 6. History of breast cancer status post lumpectomy 7. Chronic myeloid leukemia: On Tasigna. Follows with Dr. Penaloza. Next appt 01/26 8. Prior history of smoking GI prophylaxis Pepcid and DVT prophylaxis Lovenox Thank you for this consultation. We will continue to follow along with patient during her hospitalization. Time with Patient: Greater than 30 (Greater than 50% of the total time spent in counseling and coordination of care.I performed an examination of the patient and discussed their management with the physician Solar Consultant. I have reviewed the Physician Solar Consultant's notes and agree with the documented findings and plan of care)
[2019-01-04] MEDS: Insulin Aspart (For Pump) 100 UNIT/ML VIAL SQ-PUMP SCH (15:58)
[2019-01-04] MEDS: hydrALAZINE HCL 50 MG TAB PO SCH ×2 (15:59→20:12)
[2019-01-04] MEDS: Acetaminophen-Codeine 300-30mg TAB PO PRN ×2 (16:05→23:55)
[2019-01-04] MEDS: hydrOXYzine PAMOATE 25 MG CAP PO PRN (16:05)
[2019-01-04 16:54] LABS: Glucose,Whole Blood 187 mg/dL (75-99)
[2019-01-04 20:10] LABS: Glucose,Whole Blood 168 mg/dL (75-99)
[2019-01-04] MEDS: METOPROLOL TARTRATE 12.5 MG TAB PO SCH (20:12)
[2019-01-04] MEDS: ATORVASTATIN 10 MG TAB PO SCH (20:12)
[2019-01-04] MEDS: SENNOSIDES-DOCUSATE SODIUM 1 EACH TAB PO SCH (20:12)
[2019-01-04] MEDS: NILOTINIB HCL PO SCH (20:17)
[2019-01-05] MEDS: Acetaminophen-Codeine 300-30mg TAB PO PRN ×4 (06:01→21:53)
[2019-01-05] MEDS: INSULIN PUMP MEAL BOLUS 1 UNIT MISC MISCELLANE SCH ×4 (07:05→22:00)
[2019-01-05] MEDS: hydrOXYzine PAMOATE 25 MG CAP PO PRN (07:11)
[2019-01-05] MEDS: METOPROLOL TARTRATE 12.5 MG TAB PO SCH ×2 (07:11→21:36)
[2019-01-05] MEDS: traMADol 50 MG TAB PO PRN (07:11)
[2019-01-05] MEDS: LISINOPRIL 20 MG TAB PO SCH (07:11)
[2019-01-05] MEDS: VIT A,C & E-LUTEIN-MINERALS 1 EACH TAB PO SCH (07:12)
[2019-01-05] MEDS: hydrALAZINE HCL 50 MG TAB PO SCH ×3 (07:12→21:41)
[2019-01-05] MEDS: FAMOTIDINE 20 MG TAB PO SCH (07:12)
[2019-01-05] MEDS: ENOXAPARIN 40 MG/0.4 ML SYRINGE SQ SCH (07:13)
[2019-01-05] MEDS: NILOTINIB HCL PO SCH ×2 (07:13→21:59)
[2019-01-05 07:17] LABS: Glucose,Whole Blood 207 mg/dL (75-99)
[2019-01-05 08:50] LABS: Albumin 3.5 g/dL (3.5-5.0); Calcium 9.3 mg/dL (8.4-10.2); Potassium 4.9 mmol/L (3.5-5.1); Total Bilirubin 0.5 mg/dL (0.2-1.3)
[2019-01-05 08:57] LABS: Basophils % (A) 0 %; Eosinophils % (A) 0 %; HCT 34.6 % (34.0-46.0); HGB 10.8 gm/dL (11.4-16.0); Hypochromasia Slight; Lymphocytes % (A) 4 %; MCH 28.8 pg (25.0-35.0); MCHC 31.1 g/dL (31.0-37.0); MCV 92.5 fL (80.0-100.0); Mean Platelet Volume 9.8; Monocytes # (A) 1.2 k/uL (0-1.0); Monocytes % (A) 5 %; Neutrophils # (A) 21.2 k/uL (1.3-7.7); Neutrophils % (A) 90 %; Platelet Count 254 k/uL (150-450); RBC 3.74 m/uL (3.80-5.40); RDW 15.5 % (11.5-15.5); WBC 23.6 k/uL (3.8-10.6)
[2019-01-05] MEDS ORDERED: MELOXICAM 7.5 MG TAB PO SCH (09:00)
[2019-01-05] MEDS ORDERED: TRIAMTERENE-HCTZ 37.5-25MG 1 EACH CAP PO SCH (09:00)
[2019-01-05] MEDS: LACTATED RINGERS 1,000 ML IV SCH (11:41)
[2019-01-05] MEDS: Insulin Aspart (For Pump) 100 UNIT/ML VIAL SQ-PUMP SCH (11:42)
[2019-01-05 11:47] LABS: Glucose,Whole Blood 187 mg/dL (75-99)
[2019-01-05] MEDS ORDERED: INSULIN PUMP TARGET GLUCOSE 1 EACH MISC MISCELLANE PRN (12:12)
[2019-01-05] MEDS ORDERED: INSPUCOR MISCELLANE PRN (12:12)
[2019-01-05] MEDS ORDERED: INSULIN PUMP ACTIVE INSULIN 1 EACH MISC MISCELLANE PRN (12:12)
[2019-01-05] MEDS ORDERED: INSULIN ASPART (NovoLOG) 100 UNIT/ML VIAL SQ PRN (12:12)
[2019-01-05] MEDS ORDERED: INSULIN PUMP BASAL RATES 1 EACH MISC MISCELLANE PRN (12:12)
--- NOTE | 2019-01-05 12:41 | P.PN ---
Subjective Progress Note Date: 01/05/19 This is a 68-year-old female, patient of Dr. Gutierrez . She has a known past medical history of insulin-dependent diabetes mellitus requiring insulin pump, hypertension, hyperlipidemia, breast cancer status post lumpectomy, chronic myeloid leukemia, SVT, ulcerative colitis and a remote history of smoking. Patient presented to the hospital for her left hip arthritis and underwent left total hip arthroplasty with Dr. Richards. Patient tolerated surgery well medications estimated blood loss 350 mL. We've been consulted for medical management. At this time patient denies any chest pain or shortness of breath, nausea or vomiting, Anna changes or urinary symptoms. Denies any fever, chills or sweats. She is complaining of hip pain and just received Ultram. 01/05/19 patient sitting up in bedside chair. She is reporting that the pain to her left hip is tolerable. She denies any chest pain or shortness of breath. She is passing gas no bowel movement yet. Denies any burning with urination. White count is up at 23.6. She does have a history of chronic myeloid leukemia she sees Dr. Ginny Patterson the office and earlier in December she had a white count of 11. She did receive Decadron in the OR and that may be also contributing to her elevated white count. We will still check urinalysis. Encourage patient to use incentive spirometer. Creatinine is 1.16 we'll discontinue the Dyazide. Hem oglobin 10.8 start patient on ferrous sulfate 325 twice a day Objective - Vital Signs Vital signs: Vital Signs Temp 98.1 F 01/05/19 07:00 Pulse 65 01/05/19 07:00 Resp 12 01/05/19 07:00 BP 114/57 01/05/19 07:00 Pulse Ox 96 01/05/19 07:00 Intake & Output 01/04/19 01/05/19 01/05/19 18:59 06:59 18:59 Intake Total 1811 1580 Output Total 350 Balance 1461 1580 Intake: IV 1651 Intake, IV Titration 160 800 Amount Lactated Ringers 1,000 ml 160 800 @ 80 mls/hr IV .[id number] MICHELE Rx#:[id number] Oral 780 Output: Estimated Blood Loss 350 Other: # Voids 2 - Exam Head normocephalic Neck supple Lungs clear to auscultation bilaterally no wheezing or crackles Heart regular rate and rhythm S1-S2, no rub or gallop Abdomen is soft nontender nondistended positive bowel sounds no hep atosplenomegaly Extremities no edema. Left hip incision site clean dry and intact Neuro alert and orientated to 3 - Labs CBC & Chem 7: 01/05/19 07:54 01/05/19 07:54 Labs: Abnormal Lab Results - Last 24 Hours (Table) 01/04/19 01/04/19 01/04/19 Range/Units 12:38 16:52 20:05 WBC (3.8-10.6) k/uL RBC (3.80-5.40) m/uL Hgb (11.4-16.0) gm/dL Neutrophils # (1.3-7.7) k/uL Monocytes # (0-1.0) k/uL BUN (7-17) mg/dL Creatinine (0.52-1.04) mg/dL Glucose (74-99) mg/dL POC Glucose (mg/dL) 151 H 187 H 168 H (75-99) mg/dL AST (14-36) U/L Total Protein (6.3-8.2) g/dL 01/05/19 01/05/19 01/05/19 Range/Units 07:04 07:54 07:54 WBC 23.6 H (3.8-10.6) k/uL RBC 3.74 L (3.80-5.40) m/uL Hgb 10.8 L (11.4-16.0) gm/dL Neutrophils # 21.2 H (1.3-7.7) k/uL Monocytes # 1.2 H (0-1.0) k/uL BUN 30 H (7-17) mg/dL Creatinine 1.16 H (0.52-1.04) mg/dL Glucose 164 H (74-99) mg/dL POC Glucose (mg/dL) 207 H (75-99) mg/dL AST 37 H (14-36) U/L Total Protein 6.0 L (6.3-8.2) g/dL 01/05/19 Range/Units 11:40 WBC (3.8-10.6) k/uL RBC (3.80-5.40) m/uL Hgb (11.4-16.0) gm/dL Neutrophils # (1.3-7.7) k/uL Monocytes # (0-1.0) k/uL BUN (7-17) mg/dL Creatinine (0.52-1.04) mg/dL Glucose (74-99) mg/dL POC Glucose (mg/dL) 187 H (75-99) mg/dL AST (14-36) U/L Total Protein (6.3-8.2) g/dL Assessment and Plan Assessment: 1. Left hip osteoarthritis: status post direct anterior left total hip arthroplasty, postoperative day #1. Continue with pain control per orthopedic protocol. Continue with the Lovenox for DVT prophylaxis 2. Insulin dependent diabetes mellitus: Patient on insulin pump. Followed by network support specialist, Dr. Irvin. We'll continue to monitor blood sugars, check a hemoglobin A1c. Okay for patient to use insulin pump during hospitalization 3. Essential hypertension: Blood pressures have been on the lower side. Last blood pressure was 114/57. We'll place parameters around the hydralazine and lisinopril. Dyazide discontinued 4. Hyperlipidemia continue statin 5. History of SVT and PACs. Stable. Was seen by cardiology for clearance prior to surgery. Continue metoprolol 6. History of breast cancer status post lumpectomy 7. Chronic myeloid leukemia: On Tasigna at home. This medication will be on hold during her hospitalization. Follows with Dr. Penaloza. Next appt 01/26 8. Prior history of smoking 9. Acute kidney injury. Creatinine 1.16 we'll discontinue the Dyazide and Mobic. Encourage patient to drink fluids. Kidney factors continue to worsen will need to discontinue the MAKEDA inhibitor 10. Leukocytosis likely related to patient's leukemia as well as the Decadron. We'll check urinalysis with culture. Encourage incentive spirometer use 11. Expected acute blood loss anemia secondary to surgery. hemoglobin 10.8. Start ferrous sulfate 325 mg twice a day 12. History of chronic diastolic CHF. No evidence of exacerbation. EF 55-60 noted on last echo June 2018 GI prophylaxis Pepcid and DVT prophylaxis Lovenox I performed an examination of the patient and discussed their management with the physician Sports Photographer. I have reviewed the Physician Sports Photographer's notes and agree with the documented findings and plan of care
--- NOTE | 2019-01-05 13:09 | P.PN ---
Subjective Progress Note Date: 01/05/19 Principal diagnosis: Status post right anterior total hip arthroplasty Patient evaluated at bedside today, she is resting in her hospital chair. She admits to pain when ambulating. Denies any chest pain or shortness of breath at this time. Objective - Vital Signs Vital signs: Vital Signs Temp 98.1 F 01/05/19 07:00 Pulse 65 01/05/19 07:00 Resp 12 01/05/19 07:00 BP 114/57 01/05/19 07:00 Pulse Ox 96 01/05/19 07:00 Intake & Output 01/04/19 01/05/19 01/05/19 18:59 06:59 18:59 Intake Total 1811 1580 Output Total 350 Balance 1461 1580 Intake: IV 1651 Intake, IV Titration 160 800 Amount Lactated Ringers 1,000 ml 160 800 @ 80 mls/hr IV .[id number] MICHELE Rx#:[id number] Oral 780 Output: Estimated Blood Loss 350 Other: # Voids 2 - Exam Left lower extremity: Incision is clean, dry, and intact. The exofin fusion tape is in good condition. There is minimal soft tissue swelling and ecchymosis surrounding the medial and lateral aspects of the incision. Calf is soft, no tenderness with palpation. Plantar flexion, dorsiflexion, EHL, FHL are intact. Sensory exam to light touch throughout the extremity is intact, dorsal pedis pulses 2+. - Labs CBC & Chem 7: 01/05/19 07:54 01/05/19 07:54 Labs: Abnormal Lab Results - Last 24 Hours (Table) 01/04/19 01/04/19 01/05/19 Range/Units 16:52 20:05 07:04 WBC (3.8-10.6) k/uL RBC (3.80-5.40) m/uL Hgb (11.4-16.0) gm/dL Neutrophils # (1.3-7.7) k/uL Monocytes # (0-1.0) k/uL BUN (7-17) mg/dL Creatinine (0.52-1.04) mg/dL Glucose (74-99) mg/dL POC Glucose (mg/dL) 187 H 168 H 207 H (75-99) mg/dL AST (14-36) U/L Total Protein (6.3-8.2) g/dL 01/05/19 01/05/19 01/05/19 Range/Units 07:54 07:54 11:40 WBC 23.6 H (3.8-10.6) k/uL RBC 3.74 L (3.80-5.40) m/uL Hgb 10.8 L (11.4-16.0) gm/dL Neutrophils # 21.2 H (1.3-7.7) k/uL Monocytes # 1.2 H (0-1.0) k/uL BUN 30 H (7-17) mg/dL Creatinine 1.16 H (0.52-1.04) mg/dL Glucose 164 H (74-99) mg/dL POC Glucose (mg/dL) 187 H (75-99) mg/dL AST 37 H (14-36) U/L Total Protein 6.0 L (6.3-8.2) g/dL Assessment and Plan Plan: Assessment: 1. Postop day #1 status post direct anterior left total hip arthroplasty 2. Acute blood loss anemia, expected surgical outcome Plan: Pain control, continue current medication GI and DVT prophylaxis, continue current medication Encourage incentive spirometer Daily dressing changes/ice and elevate Continue work physical therapy Medical recommendations Discharge planning: Hopeful discharged home tomorrow Time with Patient: Less than 30
[2019-01-05 17:09] LABS: Glucose,Whole Blood 171 mg/dL (75-99)
[2019-01-05 18:56] LABS: Appearance,Urine Clear (Clear); Bilirubin,Urine Negative (Negative); Blood,Urine Negative (Negative); Color,Urine Yellow; Glucose,Urine (UA) Negative (Negative); Ketones,Urine Negative (Negative); Leukocyte Esterase,Urine Negative (Negative); Nitrite,Urine Negative (Negative); PH, Urine 5.5 (5.0-8.0); Protein,Urine Negative (Negative); Specific Gravity,Urine 1.016 (1.001-1.035); Urobilinogen,Urine <2.0 mg/dL (<2.0)
[2019-01-05 18:59] LABS: Hemoglobin A1C 7.5 % (4.0-6.0)
[2019-01-05 20:21] LABS: Glucose,Whole Blood 129 mg/dL (75-99)
[2019-01-05] MEDS: FERROUS SULFATE 325 MG TAB PO SCH (21:36)
[2019-01-05] MEDS: SENNOSIDES-DOCUSATE SODIUM 1 EACH TAB PO SCH (21:36)
[2019-01-05] MEDS: ATORVASTATIN 10 MG TAB PO SCH (21:36)
[2019-01-06] MEDS: LACTATED RINGERS 1,000 ML IV SCH (03:08)
[2019-01-06] MEDS: Acetaminophen-Codeine 300-30mg TAB PO PRN ×3 (04:21→12:09)
[2019-01-06 07:04] LABS: Glucose,Whole Blood 106 mg/dL (75-99)
[2019-01-06 07:14] VITALS: BP 115/66; PULSE 66; RESP 16; TEMP 98.4
[2019-01-06] MEDS: INSULIN PUMP MEAL BOLUS 1 UNIT MISC MISCELLANE SCH (07:31)
[2019-01-06] MEDS: FAMOTIDINE 20 MG TAB PO SCH (07:32)
[2019-01-06] MEDS: ENOXAPARIN 40 MG/0.4 ML SYRINGE SQ SCH (07:32)
[2019-01-06] MEDS: FERROUS SULFATE 325 MG TAB PO SCH (07:32)
[2019-01-06] MEDS: hydrALAZINE HCL 50 MG TAB PO SCH (07:32)
[2019-01-06] MEDS: VIT A,C & E-LUTEIN-MINERALS 1 EACH TAB PO SCH (07:33)
[2019-01-06] MEDS: LISINOPRIL 20 MG TAB PO SCH (07:33)
[2019-01-06] MEDS: METOPROLOL TARTRATE 12.5 MG TAB PO SCH (07:33)
[2019-01-06 08:34] LABS: Basophils % (A) 0 %; Eosinophils # (A) 0.1 k/uL (0-0.7); Eosinophils % (A) 1 %; HCT 29.5 % (34.0-46.0); HGB 9.4 gm/dL (11.4-16.0); Lymphocytes # (A) 1.2 k/uL (1.0-4.8); Lymphocytes % (A) 12 %; MCH 28.5 pg (25.0-35.0); MCHC 31.9 g/dL (31.0-37.0); MCV 89.2 fL (80.0-100.0); Mean Platelet Volume 8.8; Monocytes # (A) 0.6 k/uL (0-1.0); Monocytes % (A) 6 %; Neutrophils # (A) 8.1 k/uL (1.3-7.7); Neutrophils % (A) 80 %; Platelet Count 172 k/uL (150-450); RDW 15.2 % (11.5-15.5); WBC 10.2 k/uL (3.8-10.6)
[2019-01-06 08:40] LABS: Albumin 3.4 g/dL (3.5-5.0); Calcium 9.4 mg/dL (8.4-10.2); Potassium 4.7 mmol/L (3.5-5.1); Total Bilirubin 0.4 mg/dL (0.2-1.3)
--- NOTE | 2019-01-06 10:25 | P.PN ---
Subjective Progress Note Date: 01/06/19 Principal diagnosis: Status post right anterior total hip arthroplasty Patient evaluated at bedside today, she is resting in her hospital chair. She admits to pain when ambulating. Denies any chest pain or shortness of breath at this time. Objective - Vital Signs Vital signs: Vital Signs Temp 98.4 F 01/06/19 07:00 Pulse 66 01/06/19 08:00 Resp 16 01/06/19 08:00 BP 115/66 01/06/19 07:00 Pulse Ox 99 01/06/19 07:00 Intake & Output 01/05/19 01/06/19 01/06/19 18:59 06:59 18:59 Intake Total 160 10 Output Total 450 Balance 160 -440 Intake: Intake, IV Titration 160 Amount Lactated Ringers 1,000 ml 160 @ 80 mls/hr IV .[id number] MICHELE Rx#:[id number] Oral 10 Output: Urine 450 Other: # Voids 3 - Exam Left lower extremity: Incision is clean, dry, and intact. The exofin fusion tape is in good condition. There is minimal soft tissue swelling and ecchymosis surrounding the medial and lateral aspects of the incision. Calf is soft, no tenderness with palpation. Plantar flexion, dorsiflexion, EHL, FHL are intact. Sensory exam to light touch throughout the extremity is intact, dorsal pedis pulses 2+. - Labs CBC & Chem 7: 01/06/19 07:41 01/06/19 07:41 Labs: Abnormal Lab Results - Last 24 Hours (Table) 01/05/19 01/05/19 01/05/19 Range/Units 07:54 11:40 17:07 RBC (3.80-5.40) m/uL Hgb (11.4-16.0) gm/dL Hct (34.0-46.0) % Neutrophils # (1.3-7.7) k/uL BUN (7-17) mg/dL Creatinine (0.52-1.04) mg/dL POC Glucose (mg/dL) 187 H 171 H (75-99) mg/dL Hemoglobin A1c 7.5 H (4.0-6.0) % Total Protein (6.3-8.2) g/dL Albumin (3.5-5.0) g/dL 07/01/06/19 01/06/19 Range/Units 20:19 07:00 07:41 RBC (3.80-5.40) m/uL Hgb (11.4-16.0) gm/dL Hct (34.0-46.0) % Neutrophils # (1.3-7.7) k/uL BUN 33 H (7-17) mg/dL Creatinine 1.14 H (0.52-1.04) mg/dL POC Glucose (mg/dL) 129 H 106 H (75-99) mg/dL Hemoglobin A1c (4.0-6.0) % Total Protein 6.0 L (6.3-8.2) g/dL Albumin 3.4 L (3.5-5.0) g/dL 01/06/19 Range/Units 07:41 RBC 3.30 L (3.80-5.40) m/uL Hgb 9.4 L (11.4-16.0) gm/dL Hct 29.5 L (34.0-46.0) % Neutrophils # 8.1 H (1.3-7.7) k/uL BUN (7-17) mg/dL Creatinine (0.52-1.04) mg/dL POC Glucose (mg/dL) (75-99) mg/dL Hemoglobin A1c (4.0-6.0) % Total Protein (6.3-8.2) g/dL Albumin (3.5-5.0) g/dL Assessment and Plan Plan: Assessment: 1. Postop day #2 status post direct anterior left total hip arthroplasty 2. Acute blood loss anemia, expected surgical outcome Plan: Pain control, continue current medication GI and DVT prophylaxis, continue current medication Encourage incentive spirometer Daily dressing changes/ice and elevate Continue work physical therapy Medical recommendations Discharge planning: Plan discharge home today Time with Patient: Less than 30
--- NOTE | 2019-01-06 10:51 | P.PN ---
Subjective Progress Note Date: 01/06/19 This is a 68-year-old female, patient of Dr. Gutierrez . She has a known past medical history of insulin-dependent diabetes mellitus requiring insulin pump, hypertension, hyperlipidemia, breast cancer status post lumpectomy, chronic myeloid leukemia, SVT, ulcerative colitis and a remote history of smoking. Patient presented to the hospital for her left hip arthritis and underwent left total hip arthroplasty with Dr. Richards. Patient tolerated surgery well medications estimated blood loss 350 mL. We've been consulted for medical management. At this time patient denies any chest pain or shortness of breath, nausea or vomiting, Anna changes or urinary symptoms. Denies any fever, chills or sweats. She is complaining of hip pain and just received Ultram. 01/05/19 patient sitting up in bedside chair. She is reporting that the pain to her left hip is tolerable. She denies any chest pain or shortness of breath. She is passing gas no bowel movement yet. Denies any burning with urination. White count is up at 23.6. She does have a history of chronic myeloid leukemia she sees Dr. Ginny Patterson the office and earlier in December she had a white count of 11. She did receive Decadron in the OR and that may be also contributing to her elevated white count. We will still check urinalysis. Encourage patient to use incentive spirometer. Creatinine is 1.16 we'll discontinue the Dyazide. He moglobin 10.8 start patient on ferrous sulfate 325 twice a day On 01/06/2019 patient alert and oriented 3 currently sitting up in chair appetite. Patient is reporting increased pain to left hip. Blood cell count has normalized. Patient denies chest pain or shortness of breath. Patient denies nausea vomiting or diarrhea. Patient denies any urinary burning or frequency. Possible discharge home later today per orthopedic services Objective - Vital Signs Vital signs: Vital Signs Temp 98.4 F 01/06/19 07:00 Pulse 66 01/06/19 08:00 Resp 16 01/06/19 08:00 BP 115/66 01/06/19 07:00 Pulse Ox 99 01/06/19 07:00 Intake & Output 01/05/19 01/06/19 01/06/19 18:59 06:59 18:59 Intake Total 160 10 Output Total 450 Balance 160 -440 Intake: Intake, IV Titration 160 Amount Lactated Ringers 1,000 ml 160 @ 80 mls/hr IV .[id number] MICHELE Rx#:[id number] Oral 10 Output: Urine 450 Other: # Voids 3 - Exam Head normocephalic Neck supple Lungs clear to auscultation bilaterally no wheezing or crackles Heart regular rate and rhythm S1-S2, no rub or gallop Abdomen is soft nontender nondistended positive bowel sounds no hepatosplenomegaly Extremities no edema. Left hip incision site clean dry and intact Neuro alert and orientated to 3 - Labs CBC & Chem 7: 01/06/19 07:41 01/06/19 07:41 Labs: Abnormal Lab Results - Last 24 Hours (Table) 01/05/19 01/05/19 01/05/19 Range/Units 07:54 11:40 17:07 RBC (3.80-5.40) m/uL Hgb (11.4-16.0) gm/dL Hct (34.0-46.0) % Neutrophils # (1.3-7.7) k/uL BUN (7-17) mg/dL Creatinine (0.52-1.04) mg/dL POC Glucose (mg/dL) 187 H 171 H (75-99) mg/dL Hemoglobin A1c 7.5 H (4.0-6.0) % Total Protein (6.3-8.2) g/dL Albumin (3.5-5.0) g/dL 01/05/19 01/06/19 01/06/19 Range/Units 20:19 07:00 07:41 RBC (3.80-5.40) m/uL Hgb (11.4-16.0) gm/dL Hct (34.0-46.0) % Neutrophils # (1.3-7.7) k/uL BUN 33 H (7-17) mg/dL Creatinine 1.14 H (0.52-1.04) mg/dL POC Glucose (mg/dL) 129 H 106 H (75-99) mg/dL Hemoglobin A1c (4.0-6.0) % Total Protein 6.0 L (6.3-8.2) g/dL Albumin 3.4 L (3.5-5.0) g/dL 01/06/19 Range/Units 07:41 RBC 3.30 L (3.80-5.40) m/uL Hgb 9.4 L (11.4-16.0) gm/dL Hct 29.5 L (34.0-46.0) % Neutrophils # 8.1 H (1.3-7.7) k/uL BUN (7-17) mg/dL Creatinine (0.52-1.04) mg/dL POC Glucose (mg/dL) (75-99) mg/dL Hemoglobin A1c (4.0-6.0) % Total Protein (6.3-8.2) g/dL Albumin (3.5-5.0) g/dL Assessment and Plan Assessment: 1. Left hip osteoarthritis: status post direct anterior left total hip arthroplasty, postoperative day #1. Continue with pain control per orthopedic protocol. Continue with the Lovenox for DVT prophylaxis 2. Insulin dependent diabetes mellitus: Patient on insulin pump. Followed by skull chopper, Dr. Irvin. We'll continue to monitor blood sugars, check a hemoglobin A1c. Okay for patient to use insulin pump during hospitalization. Hemoglobin A1c 7.5 3. Essential hypertension: Blood pressures have been on the lower side. Last blood pressure was 114/57. We'll place parameters around the hydralazine and lisinopril. Dyazide discontinued 4. Hyperlipidemia continue statin 5. History of SVT and PACs. Stable. Was seen by cardiology for clearance prior to surgery. Continue metoprolol 6. History of breast cancer status post lumpectomy 7. Chronic myeloid leukemia: On Tasigna at home. This medication will be on hold during her hospitalization. Follows with Dr. Penaloza. Next appt 01/26 8. Prior history of smoking 9. Acute kidney injury. Creatinine 1.16 we'll discontinue the Dyazide and Mobic. Encourage patient to drink fluids. Kidney factors continue to worsen wi ll need to discontinue the MAKEDA inhibitor. Creatinine improving to 1.14 10. Leukocytosis likely related to patient's leukemia as well as the Decadron. We'll check urinalysis with culture. Encourage incentive spirometer use. WBC improving to 10.2 11. Expected acute blood loss anemia secondary to surgery. hemoglobin 10.8. Start ferrous sulfate 325 mg twice a day 12. History of chronic diastolic CHF. No evidence of exacerbation. EF 55-60 noted on last echo June 2018 GI prophylaxis Pepcid and DVT prophylaxis Lovenox I performed an examination of the patient and discussed their management with the Nurse Practitioner. I have reviewed the Nurse Practitioner's notes and agree with the documented findings and plan of care Anticipate discharge in the next 24-48 hours
[2019-01-06] MEDS: NILOTINIB HCL PO SCH (11:28)
[2019-01-06 11:31] LABS: Glucose,Whole Blood 119 mg/dL (75-99)
--- NOTE | 2019-01-06 11:39 | P.DS ---
Providers Date of admission: 01/04/19 08:46 Expected date of discharge: 01/06/19 Attending physician: Demar Richards Primary care physician: Tila Gutierrez Hospital Course: Date of admission: 01/04/2019 Date of discharge: 01/06/2019 Admission diagnosis: Status post direct anterior left total hip arthroplasty Discharge diagnosis: Same Attending physician: Dr. Richards Surgical procedures: Direct anterior left total hip arthroplasty Brief history: Patient is a 68-year-old female with a history of with progressive primary left hip osteoarthritis. At this point patient has failed conservative treatment measures and has opted to proceed with a elective direct anterior left total hip arthroplasty. Hospital course: Details of patient's surgery can be found in operative report. Patient tolerated the procedure well and was subsequently transported to orthopedic floor. Patient's orthopeidc and medical care was provided daily. Patient had daily laboratory tests performed for evaluation of overall blood counts. Patient had daily physical therapy to include strengthening range of motion as well as education with walker ambulation. Patient was treated with Lovenox for their postoperative DVT prophylaxis during their inpatient stay. Patient was noted to have a relatively uneventful postoperative course. Patient reported satisfactory pain control with oral pain medications by postoperative day 0. Patient showed satisfactory progress with physical therapy. Patient moved steadily through the program and had no difficulty meeting the goals by postoperative day 2. Given patient's otherwise satisfactory course and having met physical therapy goals, plan is to discharge patient home on postoperative day 2. Discharge condition/disposition: Patient will be discharged home in stable condition. Discharge medications: Instructions are given on resumption of patient's normal daily medications per primary care recommendation, in addition patient will be prescribed Tylenol 3, Colace 100 mg. Discharge instructions: 1. Wound care and infection precautions, keep incision dry and covered while showering, no lotions, creams, moisturizers. No soaking, tubs, pools, hottubs. Do not scrub over the incision. 2. Weight-bear as tolerated with walker / cane until follow-up. 3. Ice and elevate when necessary. Do not exceed 20 minutes per hour with ice pack. 4. Utilize compression sleeve until seen at first follow up appointment. 5. Visiting nursing care. 6. Home physical therapy. 7. Pain meds and anticoagulants per prescription. 8. Pain medication has potential to cause constipation. Increase oral fluid and fiber intake. Contact primary care provider if you have not had a bowel movement within 48 hours after discharge 9. No anti-inflammatory medication until discussed at first post operative visit, this including Motrin, Aleve, Mobic, Diclofenac. 10. Follow up in office at 2 weeks postop with Haris Morin PA-C 11. Follow up with your primary care doctor 7-10 days after discharge. 12. Contact [facility] with any questions, . Procedures: Direct anterior left total hip arthroplasty Patient Condition at Discharge: Good Plan - Discharge Summary Discharge Rx Participant: Yes New Discharge Prescriptions: New Aspirin [Adult Low Dose Aspirin EC] 81 mg PO BID #60 tablet. Docusate [Colace] 100 mg PO DAILY #30 capsule Acetaminophen-Codeine 300-30mg [Tylenol w/codeine #3] 1 - 2 tab PO Q6H PRN #40 tablet PRN Reason: Pain No Action Simvastatin [Zocor] 20 mg PO HS Insulin Aspart (For Pump) [NovoLOG (For Pump)] 0.01 unit SQ-PUMP CONTINUOUS Benazepril HCl 40 mg PO DAILY Nilotinib HCl [Tasigna] 300 mg PO BID Triamterene-Hctz 37.5-25Mg [Dyazide 37.5-25 Capsule] 1 cap PO DAILY Metoprolol Tartrate [Lopressor] 12.5 mg PO BID hydrALAZINE HCL [Apresoline] 50 mg PO TID #90 tab Furosemide [Lasix] 20 mg PO DAILY PRN PRN Reason: Edema traMADol HCL [Ultram] 50 mg PO Q6HR PRN PRN Reason: Pain ALPRAZolam [Xanax] 0.25 mg PO BID PRN PRN Reason: Anxiety Vit C/E/Zn/Coppr/Lutein/Zeaxan [Preservision Areds 2 Softgel] 1 each PO DAILY Discharge Medication List Benazepril HCl 40 mg PO DAILY 04/20/18 [History] Insulin Aspart (For Pump) [NovoLOG (For Pump)] 0.01 unit SQ-PUMP CONTINUOUS 04/20/18 [History] Simvastatin [Zocor] 20 mg PO HS 04/20/18 [History] Metoprolol Tartrate [Lopressor] 12.5 mg PO BID 06/24/18 [History] Nilotinib HCl [Tasigna] 300 mg PO BID 06/24/18 [History] Triamterene-Hctz 37.5-25Mg [Dyazide 37.5-25 Capsule] 1 cap PO DAILY 06/24/18 [History] hydrALAZINE HCL [Apresoline] 50 mg PO TID #90 tab 06/26/18 [Rx] ALPRAZolam [Xanax] 0.25 mg PO BID PRN 12/29/18 [History] Furosemide [Lasix] 20 mg PO DAILY PRN 12/29/18 [History] Vit C/E/Zn/Coppr/Lutein/Zeaxan [Preservision Areds 2 Softgel] 1 each PO DAILY 12/29/18 [History] traMADol HCL [Ultram] 50 mg PO Q6HR PRN 12/29/18 [History] Acetaminophen-Codeine 300-30mg [Tylenol w/codeine #3] 1 - 2 tab PO Q6H PRN #40 tablet 01/06/19 [Rx] Aspirin [Adult Low Dose Aspirin EC] 81 mg PO BID #60 tablet. 01/06/19 [Rx] Docusate [Colace] 100 mg PO DAILY #30 capsule 01/06/19 [Rx] Follow up Appointment(s)/Referral(s): Tila Gutierrez MD [Primary Care Provider] - 1 Week [facility], [NON-STAFF] - As Needed Fabian Morin PAC [PHYSICIAN PROJECTION ENGINEER] - 01/20/19 1:50 pm Activity/Diet/Wound Care/Special Instructions: Orthopedic discharge instructions: 1. Wound care infection precautions [keep incision dry and covered while showering], no lotions, creams, moisturizers. No soaking, pools, hot tubs. Do not scrub over incision. 2. Weight-bear [as tolerated] with walker/cane until follow-up 3. Ice and elevate when necessary. Do not exceed 20 minutes per hour with ice pack. 4. Utilize compression sleeve until seen at first follow-up appointment. 5. Pain meds and anticoagulation per prescription. 6. Pain medication is potential to cause constipation. Increase oral fluids and fiber. Contact primary care provider. Has not had a bowel movement within 48 hours of discharge. 7. No anti-inflammatory medication and discussed at first postop visit, this includes Motrin, Aleve, Mobic, diclofenac, . 8. Follow up in office at 2 weeks postoperatively with Haris Morin PA-C 9. Follow-up with primary care doctor within 7-10 days after discharge. 10. Contact [facility] with any questions, Discharge Disposition: HOME WITH HOME HEALTH SERVICES
== END 2019-01-06 14:15 | disposition home health service (06) | DRG 470 ==
LOC: 2ORMAIN 08:46 → 4SSUR 12:18
PROVIDERS: ADMIT Orthopaedic Surgery; ATTEND Orthopaedic Surgery
PROC: 0SRB02A Replacement of Left Hip Joint with Metal on Polyethylene Synthetic Substitute, Uncemented, Open Approach (ICD-10-PCS; principal; 2019-01-04 10:10)
DX: M16.12 Unilateral primary osteoarthritis, left hip (principal); C92.10 Chronic myeloid leukemia, BCR/ABL-positive, not having achieved remission; D62 Acute posthemorrhagic anemia; I50.32 Chronic diastolic (congestive) heart failure; K51.90 Ulcerative colitis, unspecified, without complications; N17.9 Acute kidney failure, unspecified; I47.1 Supraventricular tachycardia; I11.0 Hypertensive heart disease with heart failure; I27.20 Pulmonary hypertension, unspecified; E11.319 Type 2 diabetes mellitus with unspecified diabetic retinopathy without macular edema; E78.5 Hyperlipidemia, unspecified; F40.240 Claustrophobia; E04.9 Nontoxic goiter, unspecified; R01.1 Cardiac murmur, unspecified; I49.1 Atrial premature depolarization; G47.33 Obstructive sleep apnea (adult) (pediatric); F41.9 Anxiety disorder, unspecified; G47.00 Insomnia, unspecified; K21.9 Gastro-esophageal reflux disease without esophagitis; E78.00 Pure hypercholesterolemia, unspecified; E66.3 Overweight; Z68.38 Body mass index [BMI] 38.0-38.9, adult; Z79.4 Long term (current) use of insulin; Z79.82 Long term (current) use of aspirin; Z79.899 Other long term (current) drug therapy; Z96.41 Presence of insulin pump (external) (internal); Z87.891 Personal history of nicotine dependence; Z85.3 Personal history of malignant neoplasm of breast; Z98.42 Cataract extraction status, left eye; Z98.41 Cataract extraction status, right eye; Z96.1 Presence of intraocular lens; Z82.49 Family history of ischemic heart disease and other diseases of the circulatory system; Z83.3 Family history of diabetes mellitus
CPT/HCPCS: 73501; 80053; 81003; 83036; 85025; 86850; 86900; 86901; 88300

== ENCOUNTER → 2019-04-21 | Outpatient (CLI) | payer MEDICARE ==
[2019-04-21 18:13] LABS: African American GFR (CKD) 59.7 (60.0-200.0); Albumin 4.1 g/dL (3.80-4.90); Albumin/Globulin Ratio 1.95 (1.60-3.17); Anion Gap 8.4 mmol/L (4.00-12.00); BUN/Creat Ratio 17.27 Ratio (12.00-20.00); Calcium 8.7 mg/dL (8.7-10.3); Carbon Dioxide 23.6 mmol/L (21.6-31.8); Chol/HDL Ratio 2.53; Globulin 2.1 g/dL (1.6-3.3); LDL Cholesterol,Calculated 48.4 mg/dL (0.0-131.0); Potassium 4.3 mmol/L (3.5-5.5); Total Bilirubin 1.1 mg/dL (0.3-1.2); Total Protein 6.2 g/dL (6.2-8.2); VLDL Calculation 17.6 mg/dL (5.00-40.00)
[2019-04-21 18:21] LABS: Hemoglobin A1C 7.4 % (4.0-6.0)
== END | disposition home or self-care (01) ==
LOC: LABWHC1 08:59
PROVIDERS: ATTEND Internal Medicine Endocrinology, Diabetes & Metabolism
DX: E11.65 Type 2 diabetes mellitus with hyperglycemia (principal)
CPT/HCPCS: 36415; 80053; 80061; 82043; 82570; 83036; 84443

== ENCOUNTER → 2019-05-04 | Outpatient (CLI) | payer MEDICARE ==
--- NOTE | 2019-05-04 10:29 | XR ---
EXAMINATION TYPE: XR chest 2V DATE OF EXAM: 05/04/2019 COMPARISON: 06/24/2018 HISTORY: 68-year-old female R07.1, N64.4. Right breast pain since . TECHNIQUE: Frontal and lateral views FINDINGS: Heart mildly enlarged. Persistent or recurrent small bilateral pleural effusions and bibasilar opacit y. Stable bone island right humeral head. IMPRESSION: 1. Stable mild cardiomegaly. 2. Persistent versus recurrent small bilateral pleural effusions with adjacent atelectasis and/or con solidation. Clinically correlate.
== END | disposition home or self-care (01) ==
LOC: LABWHC1 09:02
PROVIDERS: ATTEND Nurse Practitioner
DX: I51.7 Cardiomegaly (principal); N64.4 Mastodynia; R07.1 Chest pain on breathing
CPT/HCPCS: 71046

== ENCOUNTER → 2019-06-16 | Outpatient (CLI) | payer MEDICARE ==
--- NOTE | 2019-06-16 16:15 | XR ---
EXAMINATION TYPE: XR chest 2V DATE OF EXAM: 06/16/2019 COMPARISON: 05/04/2019 HISTORY: 68-year-old female C92.10, D05.12, D47.3, Z71.3. Sleep apnea and breast cancer. TECHNIQUE: Frontal and lateral views FINDINGS: Heart remains borderline enlarged. Increasing now small to moderate right pleural effusion. Stable sc lerotic focus right humeral head may represent a bone island. IMPRESSION: 1. Stable borderline heart size. 2. Increasing, now small to moderate right pleural effusion with adjacent atelectasis and/or consolid ation.
== END | disposition home or self-care (01) ==
LOC: RADXRMAIN 15:53
PROVIDERS: ATTEND Internal Medicine Hematology & Oncology
DX: J90 Pleural effusion, not elsewhere classified (principal); C92.10 Chronic myeloid leukemia, BCR/ABL-positive, not having achieved remission; D05.12 Intraductal carcinoma in situ of left breast; Z71.3 Dietary counseling and surveillance
CPT/HCPCS: 71046

== ENCOUNTER → 2019-08-05 | Outpatient (CLI) | payer MEDICARE ==
--- NOTE | 2019-08-06 09:04 | MM ---
Reason for exam: additional evaluation requested from prior study. Last mammogram was performed 1 year ago. History: Patient has history of other cancer at age 67, has history of breast cancer at age 66, and is nulliparous. Family history of breast cancer in paternal uncle at age 27 and breast cancer in paternal cousin at age 40. Lumpectomy of the left breast, 2017. Radiation therapy of the left breast, 2017. Physical Findings: Nurse Summary: 2.5cm nodule in the left breast at 1 o'clock (nurse dw). MG 3D Diag Mammo W/Cad OSVALDO Bilateral CC and MLO view(s) were taken. XCCL view(s) were taken of the left breast. Prior study comparison: July 29, 2018, bilateral MG 3d diag mammo w/cad OSVALDO. February 27, 2017, mammogram. The breast tissue is heterogeneously dense. This may lower the sensitivity of mammography. Finding: There are new fine, round, grouped/clustered calcifications in the upper outer quadrant, middle position of the right breast, 5 cm from the nipple. New finding since July 29, 2018 and February 27, 2017. These results were verbally communicated with the patient and result sheet given to the patient on 08/05/19. ASSESSMENT: Suspicious, BI-RAD 4 RECOMMENDATION: Stereotactic core biopsy of the right breast. Called Dr. Stevens's office with mammographic findings. Biopsy scheduled for 08/20/19 at 9:20. PRELIMINARY REPORT CALLED AND FAXED TO DR. STEVENS ON 08/05/19.
== END | disposition home or self-care (01) ==
LOC: RADMAMWWP 10:21
PROVIDERS: ATTEND Surgery
DX: Z08 Encounter for follow-up examination after completed treatment for malignant neoplasm (principal); Z85.3 Personal history of malignant neoplasm of breast; Z98.890 Other specified postprocedural states
CPT/HCPCS: 77066; G0279; 77062

== ENCOUNTER → 2019-08-20 | Day surgery (SDC) | payer MEDICARE ==
[2019-08-20 09:28] VITALS: RESP 16
[2019-08-20 11:15] VITALS: BP 138/67; PULSE 71; TEMP 97.9
--- NOTE | 2019-08-20 12:03 | MM ---
EXAMINATION TYPE: MG stereo VAD BX RT DATE OF EXAM: 08/20/2019 COMPARISON: Right breast mammogram dated 08/05/2019 CLINICAL HISTORY: 1.5 cm group of calcifications in the upper outer quadrant of the right breast for which dedicated guided biopsy was recommended. TECHNIQUE: Stereotactic guided core biopsy of right breast. FINDINGS: The procedure of stereotactic guided core biopsy was explained to the patient. Benefits, alternatives, and risks were discussed. An informed consent was then obtained. Preprocedural timeout was performed. The shortness pathway for biopsy was chosen. Shortness pathway was CC from above approach. Preprocedural localization images were obtained and a 1.5 cm group of calcifications in the upper outer quadrant of the right breast was demonstrated. Coordinates were calculated. Subsequently 10 cc of lidocaine without epinephrine was utilized to anesthetize the skin and deeper subcutaneous soft tissues. The needle was advanced to the appropriate depth. Prefire images were obtained ensuring appropriate location. Postfire injection of 10 cc of lidocaine with epinephrine was utilized to anesthetize the site of biopsy. A vacuum assisted biopsy gun was used to obtain 8 core samples. The patient tolerated the procedure well without any immediate complication. The patient was kept in the radiology department for short stay after the procedure and then discharged home in stable condition. Targeted calcifications are identified in specimen mammogram. Post biopsy mammogram shows the T-shaped biopsy marker to appear in satisfactory position relative to the targeted area of concern on the preprocedure images without migration. IMPRESSION: SUCCESSFUL, UNCOMPLICATED STEREOTACTIC GUIDED CORE BIOPSY OF A NEW INTERMEDIATE SUSPICION A 1.5 CM GROUP OF CALCIFICATIONS IN THE UPPER OUTER QUADRANT OF THE RIGHT BREAST, FULL PATHOLOGY RESULTS TO FOLLOW. 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 See note. Appropriately controlled immunohistochemical studies for Calponin, p63 and [facility] document myoepithelial cells adjacent to or surrounding in situ carcinoma Recommendation Surgical consult of the right breast. EJD
== END ==
LOC: RADMAMWWP 09:07
PROVIDERS: ATTEND Surgery
DX: D05.11 Intraductal carcinoma in situ of right breast (principal)
CPT/HCPCS: 88305; 88342; 88341; 19081; A4648; J2001

== ENCOUNTER → 2020-02-24 | Outpatient (CLI) | payer MEDICARE ==
[2020-02-24 16:47] LABS: African American GFR (CKD) 66.6 (60.0-200.0); Albumin 4.1 g/dL (3.80-4.90); Albumin/Globulin Ratio 2.16 (1.60-3.17); Anion Gap 8.3 mmol/L (4.00-12.00); Calcium 9.3 mg/dL (8.7-10.3); Carbon Dioxide 23.7 mmol/L (21.6-31.8); Chol/HDL Ratio 2.75; Globulin 1.9 g/dL (1.6-3.3); LDL Cholesterol,Calculated 67.6 mg/dL (0.0-131.0); Non-African American GFR(CKD) 57.4 (60.0-200.0); Potassium 4.3 mmol/L (3.5-5.5); Total Bilirubin 0.8 mg/dL (0.2-1.2); VLDL Calculation 16.4 mg/dL (5.00-40.00)
[2020-02-24 18:22] LABS: Urine Creatinine 45.2 mg/dL
== END | disposition home or self-care (01) ==
LOC: LABWHC1 08:07
PROVIDERS: ATTEND Internal Medicine Endocrinology, Diabetes & Metabolism
DX: E11.65 Type 2 diabetes mellitus with hyperglycemia (principal); E78.2 Mixed hyperlipidemia; E04.2 Nontoxic multinodular goiter; I10 Essential (primary) hypertension
CPT/HCPCS: 36415; 80053; 80061; 82043; 82570; 83036; 84443; 86850; 86900; 86901

== ENCOUNTER → 2020-02-29 | Outpatient (CLI) | payer MEDICARE ==
[2020-02-29 14:44] VITALS: BP 137/63; PULSE 66; RESP 20; TEMP 98.3
--- NOTE | 2020-02-29 16:52 | P.HPOB ---
History of Present Illness H&P Date: 02/29/20 Chief Complaint: The patient is here for her routine gynecologic exam. This is a 69-year-old G0 with an LMP of 1993. She is status post endometrial ablation in 1993 and has been amenorrheic since then. She went through a menopausal change around 2000. She has a history of lichen sclerosus of the vulva confirmed by vulvar biopsy. She continues to have intermittent pruritus and has used Temovate ointment for this as needed. The patient is otherwise without gynecologic complaints. Review of Systems She has lost about 6 pounds over the past year. She denies respiratory, cardiac and G.I. problems. She denies maltreatment or problems with falling. : Occasional urinary leakage when she coughs. Past Medical History Past Medical History: Cancer, Diabetes Mellitus, Hypertension, Thyroid Disorder Additional Past Medical History / Comment(s): heart murmur, Intermittent PAC. 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 History of Any Multi-Drug Resistant Organisms: None Reported Past Surgical History: Ablation, Orthopedic Surgery, Uterine Ablation Additional Past Surgical History / Comment(s): 2 lt breast lumpectomies mar,apr 2017, right breast lumpectomy 2019, cyst removed from toe lt foot 1997, bilat eye vitrectomy and annette cataract 1991, ganglion cyst lt wrist 1968, endometrial ablation 1993, Left hip replacement 2018. Colonoscopy 2017. Past Anesthesia/Blood Transfusion Reactions: No Reported Reaction Past Psychological History: No Psychological Hx Reported Additional Psychological History / Comment(s): claustrophobic Smoking Status: Former smoker Past Alcohol Use History: Rare (1 every 2 months.) Additional Past Alcohol Use History / Comment(s): quit smoking 1981, smoked in college Past Drug Use History: None Reported Additional History: She has been since 1983 and is not sexually active. 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 - Past Family History Father Family Medical History: Cancer Additional Family Medical History / Comment(s): prostate, pancreatic Mother Family Medical History: Diabetes Mellitus, Myocardial Infarction (CA) Medications and Allergies Home Medications Medication Instructions Recorded Confirmed Type Benazepril HCl 40 mg PO DAILY 04/20/18 02/29/20 History Simvastatin [Zocor] 20 mg PO HS 04/20/18 02/29/20 History Metoprolol Tartrate [Lopressor] 12.5 mg PO BID 06/24/18 02/29/20 History Nilotinib HCl [Tasigna] 300 mg PO BID 06/24/18 02/29/20 History Triamterene-Hctz 37.5-25Mg 1 cap PO DAILY 06/24/18 02/29/20 History [Dyazide 37.5-25 Capsule] hydrALAZINE HCL [Apresoline] 50 mg PO TID #90 tab 06/26/18 02/29/20 Rx ALPRAZolam [Xanax] 0.25 mg PO BID PRN 12/29/18 02/29/20 History Furosemide [Lasix] 20 mg PO DAILY PRN 12/29/18 02/29/20 History Aspirin [Adult Low Dose Aspirin EC] 81 mg PO BID #60 tablet. 01/06/19 02/29/20 Rx Ascorbic Acid [Vitamin C] 500 mg PO DAILY 02/29/20 02/29/20 History Cholecalciferol [Vitamin D3 (25 2,000 unit PO DAILY 02/29/20 02/29/20 History Mcg = 1000 Iu)] Insulin Aspart (For Pump) [NovoLOG 0.01 unit SQ-PUMP CONTINUOUS 02/29/20 02/29/20 History (For Pump)] Letrozole 2.5 mg PO DAILY 02/29/20 02/29/20 History Vitamin E 400 unit PO DAILY 02/29/20 02/29/20 History Zinc 50 mg PO DAILY 02/29/20 02/29/20 History Allergies Allergy/AdvReac Type Severity Reaction Status Date / Time hydrocodone [From [facility]] AdvReac affects Verified 02/29/20 14:36 breathing Exam Vital Signs Temp Pulse Resp BP Pulse Ox 02/29/20 14:38 98.3 F 66 20 137/63 97 Intake and Output 02/29/20 02/29/20 02/29/20 06:59 14:59 22:59 Other: Weight 103.419 kg Height 5 feet 3-1/2 inches, weight 228 pounds, BMI 39.8. This is a well-developed well-nourished heavyset white female who is alert and oriented times 3 in no acute distress. HEENT: Within normal limits. NECK: Supple without mass or thyromegaly. CHEST AND LUNGS: Clear to auscultation. HEART: Regular rate and rhythm. BREASTS: Are consistent with bilateral lumpectomies. Each breast has a scar from approximately the 10:00 to 1 o'clock position with firmness surrounding the scar. There are no discrete masses. There is no nipple discharge. AXILLARY EXAM: Negative for adenopathy. BACK: Negative for CVA tenderness. ABDOMEN: Soft, nontender, without palpable masses. PELVIC EXAM: External genitalia reveals mild to moderate atrophy with pallor noticed most in the periclitoral area, posterior fourchette and along the 3 o'clock position of the inner labia majora where she previously had a biopsy. This is consistent with lichen sclerosus. Cervix and vagina appear normal with mild to moderate atrophy. There is no unusual discharge. There is no evidence of prolapse. The uterus is midposition, nongravid size and nontender. There are no palpable adnexal masses or tenderness. Bimanual examination is somewhat limited secondary to her size. RECTAL EXAM: Rectovaginal exam is negative for mass or tenderness and is negative for occult blood. EXTREMITIES: Nontender. IMPRESSION: 1. 69-year-old menopausal female with lichen sclerosus of the vulva 2. History of bilateral breast cancer status post lumpectomy is at separate occasions with no evidence of recurrence at this time. PLAN: 1. Pap smear was deferred since she had a normal one on 04/28/2018. 2. Self breast awareness was discussed with the patient. 3. Mammograms will be ordered by her breast surgeon, Dr. Stevens. 4. Temovate ointment 0.05% twice a day when necessary for vulvar symptoms associated with lichen sclerosus. The electronic prescription will be sent to [facility] in [place]. 5. She was advised to return in one year for her annual well woman exam and as needed.
== END | disposition home or self-care (01) ==
LOC: WWCWWP 14:23
PROVIDERS: ATTEND Obstetrics & Gynecology
DX: Z53.9 Procedure and treatment not carried out, unspecified reason (principal)

== ENCOUNTER → 2020-03-06 | Outpatient (CLI) | payer MEDICARE ==
--- NOTE | 2020-03-06 14:22 | BD ---
EXAMINATION TYPE: Axial Bone Density DATE OF EXAM: 03/06/2020 COMPARISON: NONE CLINICAL HISTORY: 69 YR OLD FEMALE.....ICD-10 CODE: M81.0 OSTEOPOROSIS Height: 62.4 Weight: 228 FRAX RISK QUESTIONS: Secondary Osteoporosis: YES 1. Type 1 Diabetes: YES 3. Menopause before 45: YES RISK FACTORS HISTORY OF: LT ARM A CHILD History of Wrist Fracture: LT, CHILD Surgery to LT HIP REPLACEMENT, 2018 Family History of Osteoporosis: YES, GRANDMOTHER WITH FX Postmenopausal woman: YES, ABLATION AT 45YRS OLD, AND MARY MAYBE FOLLOWED Take estrogen and/or progesterone medications: FOR ONLY SHORT TIME Lost more than 2 inches in height since high school: YES Hyperparathyroidism: NO Adrenal Insufficiency: NO MEDICATIONS: STEROIDAL CREAM ECZEMA Additional Medications: VIT D AND CALCIUM, FEMARA, INSULIN PUMP, HX OF RADIATION, REFLUX, CHOLESTEROL MEDS, BP MEDS, Additional History: LT BREAST CA AND LEUKEMIA, AND RT BREAST CANCER, DIABETIC, REFLUX, CHOLESTEROL, A RTHRITIS EXAM MEASUREMENTS: Bone mineral densitometry was performed using the [employer] System. Bone mineral density as measured about the Lumbar spine is: ----- L1-L4(G/cm2): 1.073 T Score Values are as follows: ----- L1: 0.1 ----- L2: -1.2 ----- L3: -0.5 ----- L4: -1.8 ----- L1-L4: -0.9 Bone mineral density THIS IS HER FIRST BONE DENSITY AT [facility] Bone mineral density about the R hip (g/cm2): 0.990 T Score values are as follows: -----R Neck: -0.9 -----R Total: -0.1 Bone mineral density FIRST AT [facility] FRAX%S: THERE IS A 12.2% CHANCE FOR A MAJOR OSTEOPOROTIC FX AND A 1.2% FOR HIP.....PROBABILITY FOR FX IN 10 YRS TIME IMPRESSION: Normal (Values between +1 and -1 indicate normal bone mass). Consider repeating this study in 5 year s or sooner if there is some new clinical indication. NOTE: T-SCORE=SD OF THE YOUNG ADULT MEAN.
== END | disposition home or self-care (01) ==
LOC: RADBDWWP 09:08
PROVIDERS: ATTEND Internal Medicine Hematology & Oncology
DX: C82.10 Follicular lymphoma grade II, unspecified site (principal); M81.0 Age-related osteoporosis without current pathological fracture; Z88.5 Allergy status to narcotic agent
CPT/HCPCS: 77080

== ENCOUNTER → 2020-03-20 | Outpatient (CLI) | payer MEDICARE ==
--- NOTE | 2020-03-20 19:04 | US ---
EXAMINATION TYPE: US thyroid st tissue head/neck DATE OF EXAM: 03/20/2020 COMPARISON: 08/21/2017 CLINICAL HISTORY: 69-year-old female E04.2 Nontoxic multinodular goiter. Goiter, F/U TECHNIQUE: Multiple sonographic images of the thyroid gland are obtained. FINDINGS: Factory Expert notes:Large pt body habitus, difficult scan GLAND SIZE: Right Lobe: 5.2 x 1.9 x 1.9 cm Overall Parenchyma: heterogenous Left Lobe: 5.2 x 1.6 x 1.7 cm Overall Parenchyma: heterogeneous Isthmus Thickness: 0.6 cm NODULES RIGHT: # of nodules measured on right: 1 1. 1.4 X 1.2 x 1.2 cm isoechoic solid nodule at the lower pole with poorly defined margins; This n odule is wider than tall and shows intranodular vascularity. Prior size: 1.8 x 0.8 x 1.3 cm LEFT: # of nodules measured on left: 2 1. 1.0 X 0.9 x 0.9 cm isoechoic solid nodule at the lower pole with poorly defined margins; This no dule is wider than tall and shows intranodular vascularity. Prior size: 1.2 x 0.8 x 0.6 cm 2. 0.7 X 0.6 x 0.6 cm hypoechoic solid nodule at the lower pole with well-defined margins; This nod ule is wider than tall and shows intranodular vascularity. Prior size: 0.8 x 0.6 x 0.5 cm Bilateral neck scanned, no evidence of lymphadenopathy. Essentially stable nodules bilaterally. IMPRESSION: Thyromegaly with stable to slightly smaller nodules measuring up to 1.4 cm on the right and 1.0 cm on the left. Findings likely reflect multinodular goiter.
== END | disposition home or self-care (01) ==
LOC: RADUSWWP 14:55
PROVIDERS: ATTEND Internal Medicine Endocrinology, Diabetes & Metabolism
DX: E01.0 Iodine-deficiency related diffuse (endemic) goiter (principal)
CPT/HCPCS: 76536

== ENCOUNTER → 2020-05-16 | Outpatient (CLI) | payer MEDICARE ==
--- NOTE | 2020-05-16 15:06 | CT ---
EXAMINATION TYPE: CT abdomen pelvis wo con DATE OF EXAM: 05/16/2020 HISTORY: Hx of breast CA, leukemia CT DLP: 1014.4 mGycm. Automated Exposure Control for Dose Reduction was Utilized. TECHNIQUE: CT scan of the abdomen and pelvis is performed with oral but without IV contrast. IV cont rast could not be given due to diminished renal function COMPARISON: NONE FINDINGS: Within the limitations of a non-contrast study, the following observations are made. LUNG BASES: Mild left basilar linear scarring. LIVER/GB: Liver normal in size. Liver diffusely low dense relative to spleen consistent with mild dif fuse fatty infiltration. PANCREAS: Moderate generalized fat replaced atrophy. SPLEEN: Spleen normal in size. Nonspecific 7 mm hypodense lesion in the periphery image 19. ADRENALS: No significant abnormality is seen. KIDNEYS: Mild nonspecific perinephric fat stranding bilaterally. BOWEL: Oral contrast reaches level of the proximal sigmoid colon. No suspicious small or large bowel dilatation. Normal contrast-filled appendix from cecum. GENITAL ORGANS: Slightly retroflexed uterus with lobulations suggesting underlying fibroids. Few scat tered bilateral tiny pelvic phleboliths. LYMPH NODES: No greater than 1cm groin, abdominal, or pelvic lymph nodes are appreciated. OSSEOUS STRUCTURES: Metallic hardware from total left hip arthroplasty causes streak artifact limitin g evaluation of pelvic structures. OTHER: Moderate-sized fat-containing umbilical hernia axial image 54. IMPRESSION: No obvious suspicious mass or adenopathy. Normal sized liver and spleen noted. Single non specific Subcentimeter splenic lesion is favored benign.
== END | disposition home or self-care (01) ==
LOC: RADCTMAIN 12:10
PROVIDERS: ATTEND Internal Medicine Hematology & Oncology
DX: Z03.89 Encounter for observation for other suspected diseases and conditions ruled out (principal); C92.10 Chronic myeloid leukemia, BCR/ABL-positive, not having achieved remission; D73.89 Other diseases of spleen; Z88.5 Allergy status to narcotic agent
CPT/HCPCS: 36415; 74176; 82565; 84520

== ENCOUNTER → 2020-08-25 | Outpatient (CLI) | payer MEDICARE ==
--- NOTE | 2020-08-28 14:16 | MM ---
Reason for exam: additional evaluation requested from prior study. Last mammogram was performed 1 year and 1 month ago. History: Patient has history of breast cancer at age 68, has history of other cancer at age 67, and is nulliparous. Family history of breast cancer in paternal uncle at age 27 and breast cancer in paternal cousin at age 40. Malignant MG stereo VAD BX RT of the right breast, August 20, 2019. Lumpectomy of the left breast, 2017. Radiation therapy of the left breast, 2017. Taking antineoplastic beginning at age 68. Physical Findings: Nurse Summary: 3cm nodule in the right breast at 12 o'clock and a 2cm nodule in the left breast at 1 o'clock (nurse dw). MG 3D Diag Mammo W/Cad OSVALDO Bilateral CC and MLO view(s) were taken. Prior study comparison: August 05, 2019, bilateral MG 3d diag mammo w/cad OSVALDO. July 29, 2018, bilateral MG 3d diag mammo w/cad OSVALDO. The breast tissue is heterogeneously dense. This may lower the sensitivity of mammography. Finding: There is skin thickening and benign oil cyst architectural distortion in the anterior position of both breasts, old post treament changes stable. Right vascular calcification cips and distortion changes centrally presumed recent treament changes. These results were verbally communicated with the patient and result sheet given to the patient on 08/25/20. ASSESSMENT: Benign, BI-RAD 2 RECOMMENDATION: Follow-up diagnostic mammogram of both breasts in 1 year.
== END | disposition home or self-care (01) ==
LOC: RADMAMWWP 14:53
PROVIDERS: ATTEND Surgery
DX: R92.1 Mammographic calcification found on diagnostic imaging of breast (principal); N60.01 Solitary cyst of right breast; N60.02 Solitary cyst of left breast; Z85.3 Personal history of malignant neoplasm of breast; Z80.3 Family history of malignant neoplasm of breast
CPT/HCPCS: 77066; G0279; 77062

== ENCOUNTER → 2020-09-28 | Outpatient (CLI) | payer MEDICARE ==
[2020-09-28 22:57] LABS: African American GFR (CKD) 37.7 (60.0-200.0); Albumin 4.7 g/dL (3.80-4.90); Albumin/Globulin Ratio 2.14 (1.60-3.17); Anion Gap 11.8 mmol/L (4.00-12.00); BUN/Creat Ratio 26.25 Ratio (12.00-20.00); Calcium 10.3 mg/dL (8.7-10.3); Carbon Dioxide 20.2 mmol/L (21.6-31.8); Chol/HDL Ratio 3.08; Globulin 2.2 g/dL (1.6-3.3); LDL Cholesterol,Calculated 72.6 mg/dL (0.0-131.0); Non-African American GFR(CKD) 32.5 (60.0-200.0); Potassium 4.6 mmol/L (3.5-5.5); Total Bilirubin 1.1 mg/dL (0.3-1.2); Total Protein 6.9 g/dL (6.2-8.2); VLDL Calculation 27.4 mg/dL (5.00-40.00)
[2020-09-29 22:19] LABS: Urine Creatinine 72.1 mg/dL
== END | disposition home or self-care (01) ==
LOC: LABWHC1 08:47
PROVIDERS: ATTEND Internal Medicine Endocrinology, Diabetes & Metabolism
DX: E11.65 Type 2 diabetes mellitus with hyperglycemia (principal); E03.8 Other specified hypothyroidism
CPT/HCPCS: 36415; 80053; 80061; 82043; 82570; 83036; 84443

== ENCOUNTER → 2020-10-12 | Outpatient (CLI) | payer MEDICARE ==
--- NOTE | 2020-10-12 19:09 | CT ---
EXAMINATION TYPE: CT chest wo con DATE OF EXAM: 10/12/2020 COMPARISON: None HISTORY: SOB CT DLP: 477.80 mGycm Automated exposure control for dose reduction was used. Images were obtained from the thoracic inlet to the diaphragm without contrast. The lungs are clear of consolidation. There is no evidence of a pulmonary mass. There is no mediastin al adenopathy. There are no hilar masses. There is small pericardial effusion. Heart appears slightly enlarged. There is no pleural effusion. Upper abdominal soft tissues are intact. There is oval-shape d mass in the left breast that measures 4.5 x 2.7 cm. This has density also solid component. Solid co mponent measures 2.7 cm. There are surgical clips around the mass. Thoracic vertebra appear intact. There is no compression fracture. Sternum is intact. IMPRESSION: Small pericardial effusion. This appears increased compared to 05/16/2020 CT scan of the abdomen. No suspicious pulmonary mass. Left breast mass also evident on the mammogram of 08/05/2019.
== END | disposition home or self-care (01) ==
LOC: RADCTMAIN 16:01
PROVIDERS: ATTEND Internal Medicine Hematology & Oncology
DX: I31.3 Pericardial effusion (noninflammatory) (principal); N63.20 Unspecified lump in the left breast, unspecified quadrant
CPT/HCPCS: 36415; 71250; 82565; 84520

== ENCOUNTER 2021-02-12 10:31 | Emergency (ER) | payer MEDICARE ==
[2021-02-12 10:35] VITALS: TEMP 98.4
[2021-02-12] MEDS ORDERED: ONDANSETRON 4 MG/2 ML VIAL IVP STA (10:51)
[2021-02-12] MEDS ORDERED: MORPHINE SULFATE 4 MG/ML SYRINGE IVP STA (10:51)
[2021-02-12] MEDS ORDERED: SODIUM CHLORIDE 0.9% 500 ML 500 ML IV STA (10:51)
--- NOTE | 2021-02-12 10:54 | ED ---
General Adult HPI - General Chief complaint: Abdominal Pain Stated complaint: Abd Pain Time Seen by Provider: 02/12/21 10:36 Source: patient, RN notes reviewed Mode of arrival: ambulatory Limitations: no limitations - History of Present Illness Initial comments: 70-year-old female with a past medical history of leukemia on oral chemo, diabetes mellitus, hypertension presents to the emergency room for a chief complaint of abdominal pain. Patient states for the past 3 days she has had left lower quadrant abdominal pain. Patient initially thought it was a kidney stone he was trying to drink a lot of fluids to flush it through but kept vomiting up the fluid. Patient states it now feels different than a kidney stone. Patient states she has not had a bowel movement in about 3 days.Patient has no other complaints at this time including shortness of breath, chest pain, headache, or visual changes. - Related Data Home Medications Medication Instructions Recorded Confirmed Benazepril HCl 40 mg PO DAILY 04/20/18 02/12/21 Simvastatin [Zocor] 20 mg PO HS 04/20/18 02/12/21 Metoprolol Tartrate [Lopressor] 12.5 mg PO BID 06/24/18 02/12/21 Nilotinib HCl [Tasigna] 300 mg PO BID 06/24/18 02/12/21 Triamterene-Hctz 37.5-25Mg 1 cap PO DAILY 06/24/18 02/12/21 [Dyazide 37.5-25 Capsule] ALPRAZolam [Xanax] 0.25 mg PO BID PRN 12/29/18 02/12/21 Furosemide [Lasix] 20 mg PO DAILY PRN 12/29/18 02/12/21 Ascorbic Acid [Vitamin C] 500 mg PO DAILY 02/29/20 02/12/21 Cholecalciferol [Vitamin D3 (25 1,000 unit PO DAILY 02/29/20 02/12/21 Mcg = 1000 Iu)] Insulin Aspart (For Pump) [NovoLOG 0.01 unit SQ-PUMP CONTINUOUS 02/29/20 02/12/21 (For Pump)] Letrozole 2.5 mg PO DAILY 02/29/20 02/12/21 Vitamin E 400 unit PO DAILY 02/29/20 02/12/21 Aspirin [Adult Low Dose Aspirin EC] 81 mg PO DAILY 02/12/21 02/12/21 Biotin 5 mg PO DAILY 02/12/21 02/12/21 Folic Acid 0.4 mg PO DAILY 02/12/21 02/12/21 hydrALAZINE HCL [Apresoline] 50 mg PO BID 02/12/21 02/12/21 Previous Rx's Medication Instructions Recorded Dicyclomine [Bentyl] 20 mg PO TID PRN #20 tablet 02/12/21 Ondansetron [Zofran ODT] 4 mg PO Q8HR PRN #15 tab 02/12/21 Allergies Allergy/AdvReac Type Severity Reaction Status Date / Time hydrocodone [From [facility]] AdvReac affects Verified 02/12/21 12:10 breathing Review of Systems ROS Statement: Those systems with pertinent positive or pertinent negative responses have been documented in the HPI. ROS Other: All systems not noted in ROS Statement are negative. Past Medical History Past Medical History: Cancer, Diabetes Mellitus, Hypertension, Thyroid Disorder Additional Past Medical History / Comment(s): heart murmur, Intermittent PAC. 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 History of Any Multi-Drug Resistant Organisms: None Reported Past Surgical History: Ablation, Orthopedic Surgery, Uterine Ablation Additional Past Surgical History / Comment(s): 2 lt breast lumpectomies mar,apr 2017, right breast lumpectomy 2019, cyst removed from toe lt foot 1997, bilat eye vitrectomy and annette cataract 1991, ganglion cyst lt wrist 1968, endometrial ablation 1993, Left hip replacement 2018. Colonoscopy 2017. Past Anesthesia/Blood Transfusion Reactions: No Reported Reaction Past Psychological History: No Psychological Hx Reported Smoking Status: Former smoker Past Alcohol Use History: Rare Past Drug Use History: None Reported - Past Family History Father Family Medical History: Cancer Additional Family Medical History / Comment(s): prostate, pancreatic Mother Family Medical History: Diabetes Mellitus, Myocardial Infarction ([place]) General Exam Limitations: no limitations General appearance: alert, in no apparent distress Head exam: Present: atraumatic Eye exam: Present: normal appearance, PERRL, EOMI. Absent: scleral icterus, conjunctival injection ENT exam: Present: normal exam, mucous membranes moist Neck exam: Present: normal inspection, full ROM. Absent: tenderness Respiratory exam: Present: normal lung sounds bilaterally. Absent: respiratory distress, wheezes Cardiovascular Exam: Present: regular rate, normal rhythm, normal heart sounds GI/Abdominal exam: Present: soft, tenderness (Left lower quadrant tenderness), normal bowel sounds. Absent: distended Neurological exam: Present: alert Course Vital Signs 02/12/21 10:33 Temperature 98.4 F Pulse Rate 68 Respiratory 20 Rate Blood Pressure 152/66 O2 Sat by Pulse 96 Oximetry Medical Decision Making - Medical Decision Making Vitals are stable. Mild left-sided abdominal tenderness is noted on physical exam. Laboratory evaluation reveals a mild cytosis at 13.8. CMP is unremarkable. Creatinine of 1.[address] abdomen and pelvis shows no acute process to account for patient's symptoms. Patient was given pain medication. She did have improvement in pain. At this time there is not an emergent cause of abdominal pain identified. Patient is stable for discharge home. However I did discuss strict return parameters and close follow-up with her doctor. She has an appointment with her oncologist in 2 days that she will review the CAT scan results with. She will return here for worsening symptoms. - Lab Data Result diagrams: 02/12/21 11:01 02/12/21 11:01 Lab Results 02/12/21 02/12/21 02/12/21 Range/Units 11:01 11:01 11:01 WBC 13.8 H (3.8-10.6) k/uL RBC 4.54 (3.80-5.40) m/uL Hgb 13.4 (11.4-16.0) gm/dL Hct 41.3 (34.0-46.0) % MCV 91.1 (80.0-100.0) fL MCH 29.6 (25.0-35.0) pg MCHC 32.5 (31.0-37.0) g/dL RDW 14.4 (11.5-15.5) % Plt Count 241 (150-450) k/uL MPV 8.4 Neutrophils % 88 % Lymphocytes % 6 % Monocytes % 4 % Eosinophils % 1 % Basophils % 0 % Neutrophils # 12.1 H (1.3-7.7) k/uL Lymphocytes # 0.9 L (1.0-4.8) k/uL Monocytes # 0.5 (0-1.0) k/uL Eosinophils # 0.1 (0-0.7) k/uL Basophils # 0.0 (0-0.2) k/uL Sodium 134 L (137-145) mmol/L Potassium 5.0 (3.5-5.1) mmol/L Chloride 105 (98-107) mmol/L Carbon Dioxide 19 L (22-30) mmol/L Anion Gap 10 mmol/L BUN 27 H (7-17) mg/dL Creatinine 1.22 H (0.52-1.04) mg/dL Est GFR (CKD-EPI)AfAm 52 (>60 ml/min/1.73 sqM) Est GFR (CKD-EPI)NonAf 45 (>60 ml/min/1.73 sqM) Glucose 191 H (74-99) mg/dL Plasma Lactic Acid Farhan (0.7-2.0) mmol/L Calcium 9.8 (8.4-10.2) mg/dL Total Bilirubin 1.7 H (0.2-1.3) mg/dL AST 33 (14-36) U/L ALT 26 (4-34) U/L Alkaline Phosphatase 92 (38-126) U/L Total Protein 7.1 (6.3-8.2) g/dL Albumin 4.3 (3.5-5.0) g/dL Amylase 32 (30-110) U/L Lipase 11 L (23-300) U/L Urine Color Yellow Urine Appearance Cloudy H (Clear) Urine pH 5.0 (5.0-8.0) Ur Specific [place] 1.017 (1.001-1.035) Urine Protein Negative (Negative) Urine Glucose (UA) Negative (Negative) Urine Ketones Negative (Negative) Urine Blood Negative (Negative) Urine Nitrite Negative (Negative) Urine Bilirubin Negative (Negative) Urine Urobilinogen <2.0 (<2.0) mg/dL Ur Leukocyte Esterase Trace H (Negative) Urine RBC <1 (0-5) /hpf Urine WBC 5 (0-5) /hpf Ur Squamous Epith Cells 2 (0-4) /hpf Urine Bacteria Many H (None) /hpf Hyaline Casts 1 (0-2) /lpf Urine Mucus Rare H (None) /hpf 02/12/21 Range/Units 11:01 WBC (3.8-10.6) k/uL RBC (3.80-5.40) m/uL Hgb (11.4-16.0) gm/dL Hct (34.0-46.0) % MCV (80.0-100.0) fL MCH (25.0-35.0) pg MCHC (31.0-37.0) g/dL RDW (11.5-15.5) % Plt Count (150-450) k/uL MPV Neutrophils % % Lymphocytes % % Monocytes % % Eosinophils % % Basophils % % Neutrophils # (1.3-7.7) k/uL Lymphocytes # (1.0-4.8) k/uL Monocytes # (0-1.0) k/uL Eosinophils # (0-0.7) k/uL Basophils # (0-0.2) k/uL Sodium (137-145) mmol/L Potassium (3.5-5.1) mmol/L Chloride (98-107) mmol/L Carbon Dioxide (22-30) mmol/L Anion Gap mmol/L BUN (7-17) mg/dL Creatinine (0.52-1.04) mg/dL Est GFR (CKD-EPI)AfAm (>60 ml/min/1.73 sqM) Est GFR (CKD-EPI)NonAf (>60 ml/min/1.73 sqM) Glucose (74-99) mg/dL Plasma Lactic Acid Farhan 1.4 (0.7-2.0) mmol/L Calcium (8.4-10.2) mg/dL Total Bilirubin (0.2-1.3) mg/dL AST (14-36) U/L ALT (4-34) U/L Alkaline Phosphatase (38-126) U/L Total Protein (6.3-8.2) g/dL Albumin (3.5-5.0) g/dL Amylase (30-110) U/L Lipase (23-300) U/L Urine Color Urine Appearance (Clear) Urine pH (5.0-8.0) Ur Specific [place] (1.001-1.035) Urine Protein (Negative) Urine Glucose (UA) (Negative) Urine Ketones (Negative) Urine Blood (Negative) Urine Nitrite (Negative) Urine Bilirubin (Negative) Urine Urobilinogen (<2.0) mg/dL Ur Leukocyte Esterase (Negative) Urine RBC (0-5) /hpf Urine WBC (0-5) /hpf Ur Squamous Epith Cells (0-4) /hpf Urine Bacteria (None) /hpf Hyaline Casts (0-2) /lpf Urine Mucus (None) /hpf Disposition Clinical Impression: Abdominal pain Disposition: HOME SELF-CARE Condition: Good Instructions (If sedation given, give patient instructions): Abdominal Pain (ED) Additional Instructions: Please take Tylenol for pain. Take Bentyl as directed. Take Zofran for nausea. Follow-up with your doctor in one to 2 days. Return to the emergency room for any worsening symptoms. Prescriptions: Dicyclomine [Bentyl] 20 mg PO TID PRN #20 tablet PRN Reason: abdominal pain Ondansetron [Zofran ODT] 4 mg PO Q8HR PRN #15 tab PRN Reason: Nausea Is patient prescribed a controlled substance at d/c from ED?: No Referrals: Tila Gutierrez MD [Primary Care Provider] - 1-2 days Time of Disposition: 13:23
[2021-02-12 11:14] LABS: Basophils % (A) 0 %; Eosinophils # (A) 0.1 k/uL (0-0.7); Eosinophils % (A) 1 %; HCT 41.3 % (34.0-46.0); HGB 13.4 gm/dL (11.4-16.0); Lymphocytes # (A) 0.9 k/uL (1.0-4.8); Lymphocytes % (A) 6 %; MCH 29.6 pg (25.0-35.0); MCHC 32.5 g/dL (31.0-37.0); MCV 91.1 fL (80.0-100.0); Mean Platelet Volume 8.4; Monocytes # (A) 0.5 k/uL (0-1.0); Monocytes % (A) 4 %; Neutrophils # (A) 12.1 k/uL (1.3-7.7); Neutrophils % (A) 88 %; Platelet Count 241 k/uL (150-450); RBC 4.54 m/uL (3.80-5.40); RDW 14.4 % (11.5-15.5); WBC 13.8 k/uL (3.8-10.6)
[2021-02-12 11:23] LABS: Albumin 4.3 g/dL (3.5-5.0); Calcium 9.8 mg/dL (8.4-10.2); Total Bilirubin 1.7 mg/dL (0.2-1.3); Total Protein 7.1 g/dL (6.3-8.2)
[2021-02-12 11:33] LABS: Appearance,Urine Cloudy (Clear); Bacteria,Urine Many /hpf; Bilirubin,Urine Negative (Negative); Blood,Urine Negative (Negative); Color,Urine Yellow; Glucose,Urine (UA) Negative (Negative); Hyaline Casts,Urine 1 /lpf (0-2); Ketones,Urine Negative (Negative); Leukocyte Esterase,Urine Trace (Negative); Mucus,Urine Rare /hpf; Nitrite,Urine Negative (Negative); Protein,Urine Negative (Negative); RBC,Urine <1 /hpf (0-5); Specific Gravity,Urine 1.017 (1.001-1.035); Squamous Epithelial Cell,Urine 2 /hpf (0-4); Urobilinogen,Urine <2.0 mg/dL (<2.0); WBC,Urine 5 /hpf (0-5)
[2021-02-12] MEDS ORDERED: METOCLOPRAMIDE 5 MG/ML 2 ML VIAL IVP STA (11:51)
[2021-02-12] MEDS ORDERED: HYDROmorphone 0.5 MG/0.5 ML SYRINGE IVP STA (11:51)
--- NOTE | 2021-02-12 12:31 | CT ---
EXAMINATION TYPE: CT abdomen pelvis wo con DATE OF EXAM: 02/12/2021 COMPARISON: 05/16/2020 HISTORY: LLQ Pain CT DLP: 1114.4 mGycm Examination of the solid and hollow viscera is limited given the lack of contrast. FINDINGS: LUNG BASES: No evidence for nodule. No evidence for infiltrate. Small left pericardial effusion. LIVER/GB: The gallbladder is unremarkable. No space-occupying hepatic lesion. PANCREAS: Small pancreatic hypoattenuating lesion redemonstrated without significant change. No infla mmatory process seen. SPLEEN: No evidence for splenomegaly. No intrasplenic lesions seen. ADRENALS: No adrenal nodules identified. No evidence for thickening. KIDNEYS: No evidence for renal mass. No nephrolithiasis. No hydronephrosis. BOWEL: Appendix has a normal appearance. No evidence of bowel obstruction. No inflammatory process. Lymph nodes: No evidence for adenopathy greater than 1 cm. Abdominal aorta: Atheromatous changes seen. No evidence for aneurysm. Genital organs: Small uterine calcifications may reflect small leiomyomatous change. No uterine mass is identified. Other: Small umbilical hernia noted. Left hip prosthesis. IMPRESSION: 1. No acute process identified to account for the patient's symptoms. 2. Additional findings as noted above.
[2021-02-12] MEDS ORDERED: KETOROLAC 15 MG/ML 1 ML VIAL IVP STA (13:03)
[2021-02-12] MEDS ORDERED: DICYCLOMINE 10 MG/ML 2 ML AMP IM STA (13:03)
[2021-02-12 14:06] VITALS: BP 178/69; PULSE 55; RESP 18
== END 2021-02-12 14:05 | disposition home or self-care (01) ==
LOC: EC 10:31
DX: R10.32 Left lower quadrant pain (principal); I10 Essential (primary) hypertension; E11.319 Type 2 diabetes mellitus with unspecified diabetic retinopathy without macular edema; E11.36 Type 2 diabetes mellitus with diabetic cataract; E07.9 Disorder of thyroid, unspecified; Z79.4 Long term (current) use of insulin; Z85.3 Personal history of malignant neoplasm of breast; Z87.891 Personal history of nicotine dependence; Z79.82 Long term (current) use of aspirin; Z88.5 Allergy status to narcotic agent; Z96.642 Presence of left artificial hip joint
CPT/HCPCS: 99284; 96374; 96375 ×4; 96372; 36415; 80053; 82150; 83605; 83690; 85025; 81001; 74176; J2270; J0500; J2765; J2405; J1885; J1170

== ENCOUNTER 2021-02-17 13:47 | Inpatient (IN) | payer MEDICARE ==
[2021-02-17] MEDS ORDERED: MORPHINE SULFATE 4 MG/ML SYRINGE IM STA (13:51)
[2021-02-17 14:02] LABS: Glucose,Whole Blood 92 mg/dL (75-99)
[2021-02-17] MEDS ORDERED: HALOPERIDOL LACTATE 5 MG/ML 1 ML VIAL IVP STA (14:17)
[2021-02-17 14:22] LABS: Glucose,Whole Blood 77 mg/dL (75-99)
[2021-02-17 14:23] LABS: Basophils % (A) 0 %; Eosinophils # (A) 0.1 k/uL (0-0.7); Eosinophils % (A) 0 %; HCT 41.5 % (34.0-46.0); HGB 13.8 gm/dL (11.4-16.0); Lymphocytes # (A) 0.6 k/uL (1.0-4.8); Lymphocytes % (A) 4 %; MCH 29.7 pg (25.0-35.0); MCHC 33.3 g/dL (31.0-37.0); MCV 89.3 fL (80.0-100.0); Mean Platelet Volume 8.5; Monocytes # (A) 0.8 k/uL (0-1.0); Monocytes % (A) 5 %; Neutrophils # (A) 15.2 k/uL (1.3-7.7); Neutrophils % (A) 90 %; Platelet Count 237 k/uL (150-450); RBC 4.65 m/uL (3.80-5.40); WBC 16.8 k/uL (3.8-10.6)
[2021-02-17] MEDS ORDERED: DEXTROSE 50% SYRINGE 50 ML IVP STA (14:23)
[2021-02-17 14:40] LABS: Lactic Acid, Venous 1.2 mmol/L (0.7-2.0)
[2021-02-17 14:41] LABS: Prothrombin Time 10.4 sec (9.0-12.0)
[2021-02-17] MEDS ORDERED: MIDAZOLAM 1 MG/ML 5 ML VIAL IV STA ×2 (14:41→14:45)
[2021-02-17 14:45] LABS: African American GFR (CKD) 63 (>60 ml/min/1.73 sqM); Albumin 3.9 g/dL (3.5-5.0); Anion Gap 10 mmol/L; Blood Urea Nitrogen 27 mg/dL (7-17); Calcium 10.1 mg/dL (8.4-10.2); Carbon Dioxide 22 mmol/L (22-30); Chloride 107 mmol/L (98-107); Glucose 96 mg/dL (74-99); Non-African American GFR(CKD) 55 (>60 ml/min/1.73 sqM); Potassium 4.2 mmol/L (3.5-5.1); Sodium 139 mmol/L (137-145); Total Protein 6.8 g/dL (6.3-8.2)
[2021-02-17 14:46] LABS: ALT 28 U/L (4-34); AST 28 U/L (14-36); Acetaminophen <10.0 ug/mL; Alcohol <10 mg/dL; Alkaline Phosphatase 99 U/L (38-126); Creatine Kinase 80 U/L (30-135); Salicylate <1.0 mg/dL; Total Bilirubin 0.7 mg/dL (0.2-1.3)
[2021-02-17 14:49] LABS: Appearance,Urine Cloudy (Clear); Bacteria,Urine Moderate /hpf; Bilirubin,Urine Negative (Negative); Blood,Urine Negative (Negative); Color,Urine Yellow; Glucose,Urine (UA) Negative (Negative); Ketones,Urine Negative (Negative); Leukocyte Esterase,Urine Negative (Negative); Mucus,Urine Rare /hpf; Nitrite,Urine Negative (Negative); Protein,Urine Negative (Negative); Specific Gravity,Urine 1.013 (1.001-1.035); Urobilinogen,Urine <2.0 mg/dL (<2.0); WBC,Urine <1 /hpf (0-5)
[2021-02-17 14:51] LABS: Partial Thromboplastin Time 20.1 sec (22.0-30.0)
[2021-02-17 14:55] LABS: Amphetamine Screen,Urine Not Detected (NotDetected); Barbiturate Screen,Urine Not Detected (NotDetected); Benzodiazepines Screen,Urine Not Detected (NotDetected); Cocaine Screen,Urine Not Detected (NotDetected); Methadone Screen, Urine Not Detected (NotDetected); Opiate Screen,Urine Not Detected (NotDetected); Oxycodone Screen, Urine Not Detected (NotDetected); Phencyclidine Screen,Urine Not Detected (NotDetected); Tricyclic Antidepressant,Urine Not Detected (NotDetected); Urn Cannabinoid Scrn Not Detected (NotDetected)
--- NOTE | 2021-02-17 15:13 | XR ---
EXAMINATION TYPE: XR chest 2V DATE OF EXAM: 02/17/2021 CLINICAL HISTORY: Fall with mid back pain. COMPARISON: Chest radiograph 06/16/2019 TECHNIQUE: Frontal and lateral views of the chest FINDINGS: Cardiomediastinal silhouette appears within normal limits. Subluxation, pleural effusion, or pneumoth orax. Visualized osseous structures appear intact. Limited views of the upper abdomen appear unremark able. IMPRESSION: No acute cardiopulmonary process.
--- NOTE | 2021-02-17 15:16 | CT ---
EXAMINATION TYPE: CT brain wo con DATE OF EXAM: 02/17/2021 COMPARISON: None available HISTORY: altered mental status CT DLP: 1099.4 mGycm. Automated Exposure Control for Dose Reduction was Utilized. TECHNIQUE: Multiple contiguous axial CT images of the head were performed from the skull base through the vertex without the administration of intravenous contrast. 2-D sagittal and coronal reformats we re obtained. FINDINGS: No acute intracranial hemorrhage, mass effect, or midline shift. The ventricles and sulci are within normal limits in size. Andrade-white differentiation is preserved. Mild burden of decreased attenuation within the periventricular white matter likely chronic small vessel ischemic change. No C T evidence of acute large vessel territorial ischemia. Calvarium appears intact. The globes are intac t and the visualized sinuses are clear. IMPRESSION: No acute intracranial process.
[2021-02-17 15:29] LABS: Glucose,Whole Blood 187 mg/dL (75-99)
[2021-02-17] MEDS ORDERED: LORazepam 2 MG/ML INJ IV STA (15:44)
[2021-02-17] MEDS ORDERED: NALOXONE 0.4 MG/ML 1 ML VIAL IV PRN (16:28)
--- NOTE | 2021-02-17 16:28 | ED ---
Altered Mental Status HPI - General Chief Complaint: Altered Mental Status Stated Complaint: UNRESPONSIVE Time Seen by Provider: 02/17/21 13:50 Source: EMS Mode of arrival: EMS Limitations: altered mental status - History of Present Illness Initial Comments: Patient is a 70-year-old female with past history of diabetes mellitus with an insulin pump, leukemia, thyroid disorder who presents emergency Department with altered mental status. EMS and provide the history. states the patient was having some weakness generalized last night for which she had to assist her to the bathroom. He laid her down in her recliner which is where she occasionally sleeps at night. He went to bed around midnight. He woke up this morning at 7. kept saying that she was cold. He covered her with a couple of blankets and she fell back asleep. He states that around noon he tried to arouse the patient couldn't. He attempted to check her glucose and said that it read "s2". He stated that she would open her eyes however he was nonverbal. He called EMS at this time and they did arrive to the scene and found the patient's glucose to be 29. They inserted an IV and gave her an amp of dextrose. She became arousable in the ambulance however was anxious and yelling. She arrives to our facility and is able to answer questions appropriately. She denies having any pain. She keeps repeating that "she is cold". denies any recent illnesses. States her glucoses normally well-controlled. She denies any chest pain or shortness of breath. No abdominal pain. No recent medication changes. Denies previous history of cardiac disease. No other alleviating, precipitating or modifying factors - Related Data Home Medications Medication Instructions Recorded Confirmed Benazepril HCl 40 mg PO DAILY 04/20/18 02/17/21 Simvastatin [Zocor] 20 mg PO HS 04/20/18 02/17/21 Metoprolol Tartrate [Lopressor] 12.5 mg PO BID 06/24/18 02/17/21 Nilotinib HCl [Tasigna] 300 mg PO BID 06/24/18 02/17/21 Triamterene-Hctz 37.5-25Mg 1 cap PO DAILY 06/24/18 02/17/21 [Dyazide 37.5-25 Capsule] ALPRAZolam [Xanax] 0.25 mg PO BID PRN 12/29/18 02/17/21 Furosemide [Lasix] 20 mg PO DAILY PRN 12/29/18 02/17/21 Ascorbic Acid [Vitamin C] 500 mg PO DAILY 02/29/20 02/17/21 Insulin Aspart (For Pump) [NovoLOG 0.01 unit SQ-PUMP CONTINUOUS 02/29/20 02/17/21 (For Pump)] Letrozole 2.5 mg PO DAILY 02/29/20 02/17/21 Vitamin E 400 unit PO DAILY 02/29/20 02/17/21 Aspirin [Adult Low Dose Aspirin EC] 81 mg PO DAILY 02/12/21 02/17/21 Biotin 5 mg PO DAILY 02/12/21 02/17/21 Folic Acid 0.4 mg PO DAILY 02/12/21 02/17/21 hydrALAZINE HCL [Apresoline] 50 mg PO BID 02/12/21 02/17/21 Cholecalciferol [Vitamin D3 (25 25 mcg PO DAILY 02/17/21 02/17/21 Mcg = 1000 Iu)] Ondansetron HCl [Zofran] 4 mg PO Q8H PRN 02/17/21 02/17/21 traMADol HCL 50 mg PO BID PRN 02/17/21 02/17/21 Previous Rx's Medication Instructions Recorded Dicyclomine [Bentyl] 20 mg PO TID PRN #20 tablet 02/12/21 Prochlorperazine [Compazine] 10 mg PO Q8H PRN #20 tab 02/12/21 Allergies Allergy/AdvReac Type Severity Reaction Status Date / Time hydrocodone [From [place]] AdvReac affects Verified 02/12/21 12:10 breathing Review of Systems ROS Statement: Those systems with pertinent positive or pertinent negative responses have been documented in the HPI. ROS Other: All systems not noted in ROS Statement are negative. Past Medical History Past Medical History: Cancer, Diabetes Mellitus, Hypertension, Thyroid Disorder Additional Past Medical History / Comment(s): heart murmur, Intermittent PAC. 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 Past [employer]TI[employer] F[employer]ITURE [employer]ER history: Genital HSV. History of Any Multi-Drug Resistant Organisms: None Reported Past Surgical History: Ablation, Orthopedic Surgery, Uterine Ablation Additional Past Surgical History / Comment(s): 2 lt breast lumpectomies mar,apr 2017, right breast lumpectomy 2019, cyst removed from toe lt foot 1997, bilat eye vitrectomy and annette cataract 1991, ganglion cyst lt wrist 1968, endometrial ablation 1993, Left hip replacement 2018. Colonoscopy 2017. Past Anesthesia/Blood Transfusion Reactions: No Reported Reaction Past Psychological History: No Psychological Hx Reported Smoking Status: Former smoker Past Alcohol Use History: Rare Past Drug Use History: None Reported - Past Family History Father Family Medical History: Cancer Additional Family Medical History / Comment(s): prostate, pancreatic Mother Family Medical History: Diabetes Mellitus, Myocardial Infarction ([place]) General Exam Limitations: altered mental status Course Vital Signs 02/17/21 13:51 Temperature 98.2 F Pulse Rate 79 Respiratory 20 Rate Blood Pressure 158/65 O2 Sat by Pulse 96 Oximetry Medical Decision Making - Medical Decision Making Upon arrival patient is placed into room 6. A thorough history and physical exam was performed. Patient is anxious and wailing in the room. We did recheck the patient's glucose and it is 92. She is given a dose of pain medications as she does appear to be uncomfortable. Laboratory studies are obtained. White blood cell count is 16.8. She does have a history of leukemia and therefore WBCs are usually high. Repeat glucose is 77 there for the patient is given a set an amp of dextrose. Insulin pump had been removed by EMS and remains off. Troponin is mildly elevated at 0.057. She is not having any chest pain or short of breath. Urine demonstrates moderate bacteria. This is a cath specimen therefore I do cover the patient with some antibiotics after obtain blood cultures. Due to the elevated troponin I did recommend trending them as well as the patient's glucose every 2 hours. I did call and speak with Dr. Fields who agreed to admit the patient. She was in agreement. Plan and is awaiting a bed on the floor - Lab Data Result diagrams: 02/17/21 13:57 02/17/21 13:57 Lab Results 02/17/21 02/17/21 02/17/21 Range/Units 13:51 13:57 13:57 WBC 16.8 H (3.8-10.6) k/uL RBC 4.65 (3.80-5.40) m/uL Hgb 13.8 (11.4-16.0) gm/dL Hct 41.5 (34.0-46.0) % MCV 89.3 (80.0-100.0) fL MCH 29.7 (25.0-35.0) pg MCHC 33.3 (31.0-37.0) g/dL RDW 14.0 (11.5-15.5) % Plt Count 237 (150-450) k/uL MPV 8.5 Neutrophils % 90 % Lymphocytes % 4 % Monocytes % 5 % Eosinophils % 0 % Basophils % 0 % Neutrophils # 15.2 H (1.3-7.7) k/uL Lymphocytes # 0.6 L (1.0-4.8) k/uL Monocytes # 0.8 (0-1.0) k/uL Eosinophils # 0.1 (0-0.7) k/uL Basophils # 0.0 (0-0.2) k/uL PT 10.4 (9.0-12.0) sec INR 1.0 (<1.2) APTT 20.1 L (22.0-30.0) sec Sodium (137-145) mmol/L Potassium (3.5-5.1) mmol/L Chloride (98-107) mmol/L Carbon Dioxide (22-30) mmol/L Anion Gap mmol/L BUN (7-17) mg/dL Creatinine (0.52-1.04) mg/dL Est GFR (CKD-EPI)AfAm (>60 ml/min/1.73 sqM) Est GFR (CKD-EPI)NonAf (>60 ml/min/1.73 sqM) Glucose (74-99) mg/dL POC Glucose (mg/dL) 92 (75-99) mg/dL POC Glu New Home Sales Consultant ID Kat Wood Plasma Lactic Acid Farhan (0.7-2.0) mmol/L Calcium (8.4-10.2) mg/dL Total Bilirubin (0.2-1.3) mg/dL AST (14-36) U/L ALT (4-34) U/L Alkaline Phosphatase (38-126) U/L Ammonia (<30) umol/L Creatine Kinase (30-135) U/L Troponin I (0.000-0.034) ng/mL Total Protein (6.3-8.2) g/dL Albumin (3.5-5.0) g/dL Urine Color Urine Appearance (Clear) Urine pH (5.0-8.0) Ur Specific [place] (1.001-1.035) Urine Protein (Negative) Urine Glucose (UA) (Negative) Urine Ketones (Negative) Urine Blood (Negative) Urine Nitrite (Negative) Urine Bilirubin (Negative) Urine Urobilinogen (<2.0) mg/dL Ur Leukocyte Esterase (Negative) Urine WBC (0-5) /hpf Urine Bacteria (None) /hpf Urine Mucus (None) /hpf Salicylates mg/dL Urine Opiates Screen (NotDetected) Ur Oxycodone Screen (NotDetected) Urine Methadone Screen (NotDetected) Ur Propoxyphene Screen (NotDetected) Acetaminophen ug/mL Ur Barbiturates Screen (NotDetected) U Tricyclic Antidepress (NotDetected) Ur Phencyclidine Scrn (NotDetected) Ur Amphetamines Screen (NotDetected) U Methamphetamines Scrn (NotDetected) U Benzodiazepines Scrn (NotDetected) Urine Cocaine Screen (NotDetected) U Marijuana (THC) Screen (NotDetected) Serum Alcohol mg/dL 02/17/21 02/17/21 02/17/21 Range/Units 13:57 13:57 13:57 WBC (3.8-10.6) k/uL RBC (3.80-5.40) m/uL Hgb (11.4-16.0) gm/dL Hct (34.0-46.0) % MCV (80.0-100.0) fL MCH (25.0-35.0) pg MCHC (31.0-37.0) g/dL RDW (11.5-15.5) % Plt Count (150-450) k/uL MPV Neutrophils % % Lymphocytes % % Monocytes % % Eosinophils % % Basophils % % Neutrophils # (1.3-7.7) k/uL Lymphocytes # (1.0-4.8) k/uL Monocytes # (0-1.0) k/uL Eosinophils # (0-0.7) k/uL Basophils # (0-0.2) k/uL PT (9.0-12.0) sec INR (<1.2) APTT (22.0-30.0) sec Sodium 139 (137-145) mmol/L Potassium 4.2 (3.5-5.1) mmol/L Chloride 107 (98-107) mmol/L Carbon Dioxide 22 (22-30) mmol/L Anion Gap 10 mmol/L BUN 27 H (7-17) mg/dL Creatinine 1.04 (0.52-1.04) mg/dL Est GFR (CKD-EPI)AfAm 63 (>60 ml/min/1.73 sqM) Est GFR (CKD-EPI)NonAf 55 (>60 ml/min/1.73 sqM) Glucose 96 (74-99) mg/dL POC Glucose (mg/dL) (75-99) mg/dL POC Glu New Home Sales Consultant ID Plasma Lactic Acid Farhan 1.2 (0.7-2.0) mmol/L Calcium 10.1 (8.4-10.2) mg/dL Total Bilirubin 0.7 (0.2-1.3) mg/dL AST 28 (14-36) U/L ALT 28 (4-34) U/L Alkaline Phosphatase 99 (38-126) U/L Ammonia 10 (<30) umol/L Creatine Kinase 80 (30-135) U/L Troponin I (0.000-0.034) ng/mL Total Protein 6.8 (6.3-8.2) g/dL Albumin 3.9 (3.5-5.0) g/dL Urine Color Yellow Urine Appearance Cloudy H (Clear) Urine pH 6.0 (5.0-8.0) Ur Specific [place] 1.013 (1.001-1.035) Urine Protein Negative (Negative) Urine Glucose (UA) Negative (Negative) Urine Ketones Negative (Negative) Urine Blood Negative (Negative) Urine Nitrite Negative (Negative) Urine Bilirubin Negative (Negative) Urine Urobilinogen <2.0 (<2.0) mg/dL Ur Leukocyte Esterase Negative (Negative) Urine WBC <1 (0-5) /hpf Urine Bacteria Moderate H (None) /hpf Urine Mucus Rare H (None) /hpf Salicylates <1.0 mg/dL Urine Opiates Screen Not Detected (NotDetected) Ur Oxycodone Screen Not Detected (NotDetected) Urine Methadone Screen Not Detected (NotDetected) Ur Propoxyphene Screen Not Detected (NotDetected) Acetaminophen <10.0 ug/mL Ur Barbiturates Screen Not Detected (NotDetected) U Tricyclic Antidepress Not Detected (NotDetected) Ur Phencyclidine Scrn Not Detected (NotDetected) Ur Amphetamines Screen Not Detected (NotDetected) U Methamphetamines Scrn Not Detected (NotDetected) U Benzodiazepines Scrn Not Detected (NotDetected) Urine Cocaine Screen Not Detected (NotDetected) U Marijuana (THC) Screen Not Detected (NotDetected) Serum Alcohol <10 mg/dL 02/17/21 02/17/21 02/17/21 Range/Units 13:57 14:20 15:27 WBC (3.8-10.6) k/uL RBC (3.80-5.40) m/uL Hgb (11.4-16.0) gm/dL Hct (34.0-46.0) % MCV (80.0-100.0) fL MCH (25.0-35.0) pg MCHC (31.0-37.0) g/dL RDW (11.5-15.5) % Plt Count (150-450) k/uL MPV Neutrophils % % Lymphocytes % % Monocytes % % Eosinophils % % Basophils % % Neutrophils # (1.3-7.7) k/uL Lymphocytes # (1.0-4.8) k/uL Monocytes # (0-1.0) k/uL Eosinophils # (0-0.7) k/uL Basophils # (0-0.2) k/uL PT (9.0-12.0) sec INR (<1.2) APTT (22.0-30.0) sec Sodium (137-145) mmol/L Potassium (3.5-5.1) mmol/L Chloride (98-107) mmol/L Carbon Dioxide (22-30) mmol/L Anion Gap mmol/L BUN (7-17) mg/dL Creatinine (0.52-1.04) mg/dL Est GFR (CKD-EPI)AfAm (>60 ml/min/1.73 sqM) Est GFR (CKD-EPI)NonAf (>60 ml/min/1.73 sqM) Glucose (74-99) mg/dL POC Glucose (mg/dL) 77 187 H (75-99) mg/dL POC Glu New Home Sales Consultant Delma Cisneros Teresita Plasma Lactic Acid Farhan (0.7-2.0) mmol/L Calcium (8.4-10.2) mg/dL Total Bilirubin (0.2-1.3) mg/dL AST (14-36) U/L ALT (4-34) U/L Alkaline Phosphatase (38-126) U/L Ammonia (<30) umol/L Creatine Kinase (30-135) U/L Troponin I 0.057 H* (0.000-0.034) ng/mL Total Protein (6.3-8.2) g/dL Albumin (3.5-5.0) g/dL Urine Color Urine Appearance (Clear) Urine pH (5.0-8.0) Ur Specific [place] (1.001-1.035) Urine Protein (Negative) Urine Glucose (UA) (Negative) Urine Ketones (Negative) Urine Blood (Negative) Urine Nitrite (Negative) Urine Bilirubin (Negative) Urine Urobilinogen (<2.0) mg/dL Ur Leukocyte Esterase (Negative) Urine WBC (0-5) /hpf Urine Bacteria (None) /hpf Urine Mucus (None) /hpf Salicylates mg/dL Urine Opiates Screen (NotDetected) Ur Oxycodone Screen (NotDetected) Urine Methadone Screen (NotDetected) Ur Propoxyphene Screen (NotDetected) Acetaminophen ug/mL Ur Barbiturates Screen (NotDetected) U Tricyclic Antidepress (NotDetected) Ur Phencyclidine Scrn (NotDetected) Ur Amphetamines Screen (NotDetected) U Methamphetamines Scrn (NotDetected) U Benzodiazepines Scrn (NotDetected) Urine Cocaine Screen (NotDetected) U Marijuana (THC) Screen (NotDetected) Serum Alcohol mg/dL - EKG Data EKG Comments: EKG demonstrates a normal sinus rhythm with a ventricular rate of 78. MT interval 146. QRS 80. QTC of 481. No acute ST segment elevations or depressions concerning for ischemic changes Disposition Clinical Impression: Acute metabolic encephalopathy due to hypoglycemia, Elevated troponin Disposition: ADMITTED IP TO THIS HOSP Condition: Stable Is patient prescribed a controlled substance at d/c from ED?: No Decision to Admit Reason: Admit from EC Decision Date: 02/17/21 Decision Time: 16:28
[2021-02-17] MEDS ORDERED: cefTRIAXone IN SWFI 1,000 MG/10 ML SYRINGE IVP STA (17:02)
[2021-02-17 17:46] LABS: Glucose,Whole Blood 223 mg/dL (75-99)
[2021-02-17 20:05] LABS: Glucose,Whole Blood 272 mg/dL (75-99)
[2021-02-17 22:15] LABS: Glucose,Whole Blood 315 mg/dL (75-99)
[2021-02-17] MEDS: INSULIN ASPART (NovoLOG) 100 UNIT/ML VIAL SQ SCH (22:19)
[2021-02-18 00:08] LABS: Glucose,Whole Blood 236 mg/dL (75-99)
[2021-02-18 02:10] LABS: Glucose,Whole Blood 227 mg/dL (75-99)
[2021-02-18 04:18] LABS: Glucose,Whole Blood 275 mg/dL (75-99)
[2021-02-18 06:10] LABS: Glucose,Whole Blood 284 mg/dL (75-99)
[2021-02-18] MEDS: INSULIN ASPART (NovoLOG) 100 UNIT/ML VIAL SQ SCH ×4 (06:23→20:43)
[2021-02-18 08:05] LABS: Glucose,Whole Blood 270 mg/dL (75-99)
[2021-02-18 10:06] LABS: Glucose,Whole Blood 250 mg/dL (75-99)
[2021-02-18 10:14] LABS: Basophils % (A) 0 %; Eosinophils % (A) 0 %; HCT 39.8 % (34.0-46.0); HGB 13.4 gm/dL (11.4-16.0); Lymphocytes # (A) 0.8 k/uL (1.0-4.8); Lymphocytes % (A) 7 %; MCH 30.1 pg (25.0-35.0); MCHC 33.6 g/dL (31.0-37.0); MCV 89.7 fL (80.0-100.0); Mean Platelet Volume 8.8; Monocytes # (A) 0.7 k/uL (0-1.0); Monocytes % (A) 6 %; Neutrophils % (A) 87 %; Platelet Count 224 k/uL (150-450); RBC 4.44 m/uL (3.80-5.40); RDW 14.1 % (11.5-15.5); WBC 12.7 k/uL (3.8-10.6)
[2021-02-18 10:23] LABS: Potassium 4.2 mmol/L (3.5-5.1)
[2021-02-18 11:47] LABS: Glucose,Whole Blood 286 mg/dL (75-99)
[2021-02-18] MEDS: lisinopriL 20 MG TAB PO SCH (11:50)
[2021-02-18] MEDS: METOPROLOL TARTRATE 12.5 MG TAB PO SCH ×2 (11:50→20:42)
[2021-02-18] MEDS: hydrALAZINE HCL 50 MG TAB PO SCH ×2 (11:50→20:42)
[2021-02-18] MEDS: ATORVASTATIN 10 MG TAB PO SCH (11:50)
[2021-02-18] MEDS: TRIAMTERENE-HCTZ 37.5-25MG 1 EACH CAP PO SCH (12:02)
[2021-02-18] MEDS ORDERED: SODIUM CHLORIDE 0.9% 1,000 ML IV STA (12:28)
[2021-02-18] MEDS ORDERED: DICYCLOMINE 20 MG TAB PO PRN (12:38)
[2021-02-18] MEDS ORDERED: FUROSEMIDE 20 MG TAB PO PRN (12:38)
[2021-02-18] MEDS ORDERED: ALPRAZolam 0.25 MG TAB PO PRN (12:38)
--- NOTE | 2021-02-18 12:38 | CONS ---
CONSULTATION Mrs. Ortiz is a 70-year-old female who presented to the emergency room with unresponsiveness. She was noted to be severely hypoglycemic and was treated. She is awake, alert at this time, kind of feeling tired. She is followed by Dr. Owens on a regular basis and apparently had a prior history of atrial fibrillation, but she is in sinus mechanism at this time. She also has a history of chronic myelocytic leukemia, hypertension, diabetes mellitus and hyperlipidemia. According to her, she has no documented history of obstructive coronary artery disease. In the past her echocardiogram showed a preserved left ventricular systolic function. She is feeling better today, anxious to go home. She denies any chest pain. She denies any dizziness. She is not quite sure what happened yesterday. Her was available and apparently she was unresponsive. He checked her blood sugar; it was very low. In the emergency room that was documented as well. She had mild troponin elevation after admission. Her coronary risk factors are positive for history of hyperlipidemia, diabetes and hypertension. She is a nonsmoker. MEDICATIONS: Her medications include benazepril 40 mg daily, biotin, folic acid, furosemide as needed, insulin, metoprolol tartrate 12.5 mg twice a day, triamterene hydrochlorothiazide once a day, hydralazine 50 mg twice a day, simvastatin 20 mg daily, tramadol as needed, vitamin D. REVIEW OF SYSTEMS: RESPIRATORY SYSTEM: She has no recent wheezing or cough. No history of documented obstructive lung disease. GI SYSTEM: No recent GI bleeding. No peptic ulcer disease. SYSTEM: No dysuria or hematuria. NERVOUS SYSTEM: No history of stroke or seizure. PHYSICAL EXAMINATION: This is a 70-year-old female, alert, with some issues remembering some of the answers. Blood pressure running in the 170s to 150s with a heart rate in the 80s. HEAD: Normocephalic. Eyes: Sclerae anicteric. NECK: Good carotid upstroke. No bruit. No jugular venous distention. LUNGS: Clear to auscultation. HEART: Regular rate and rhythm. S1, S2. No S3, with systolic murmur 2/6 heard at the base. No diastolic murmur. No rub. ABDOMEN: Soft, nontender. Positive bowel sounds. No organomegaly. EXTREMITIES: No edema. LAB DATA: Lab data revealed BUN and creatinine of 27 and 1.04, hemoglobin of 13.8. Her troponin is 0.057, 0.091 and 0.075. COVID-19 PCR is negative. Her EKG showed a sinus mechanism, rate of 78, normal axis and intervals with nonspecific ST-T wave changes. Her chest x-ray shows no acute infiltrate. Her brain CT shows no acute changes. IMPRESSION: 1. Unresponsiveness related to hypoglycemia. 2. Mild troponin elevation, most likely related to hypoglycemia and type 2 event. There is no evidence suggesting acute ischemic event. 3. Questionable history of atrial fibrillation, according to the patient, although no documentation of atrial fibrillation since admission. 4. History of hypertension. 5. Hyperlipidemia. RECOMMENDATIONS: From the cardiac standpoint, I will re-initiate her home regimen. Will obtain echocardiogram with Doppler and, depending on that, if there is no evidence of significant segmental wall motion abnormality, then no further cardiac workup will be needed. Thank you for this consult. Will follow with you. SHAKIRA / RONNY: [id number] / MILLER
--- NOTE | 2021-02-18 12:44 | P.HPIM ---
History of Present Illness H&P Date: 02/18/21 Roxanna Ortiz, is a 70-year-old female who presented to [facility] emergency room with a chief complaint of generalized weakness, chills, and mental status changes. She was evaluated in the emergency room vital examination on presentation revealed a temperature of 98.2 pulse 79 respiration 20 blood pressure 158/65 pulse ox 96% on room air Laboratory data revealed a white blood count of 16.8 hemoglobin 13.8 platelet count 237 sodium 139 potassium 4.2 chloride 107 CO2 22 BUN 27 creatinine 1.04 troponin level was elevated at 0.075 urine was cloudy with moderate bacteria, ot herwise no signs of infection, urine toxicology screen was negative, Walker virus PCR was negative. Patient had low glucose level, at home and in the EMS, she has a known history of insulin-dependent diabetes mellitus and has an insulin pump, her insulin pump was disconnected in the EMS, and patient was given an amp of dextrose. Testing in the emergency room chest x-ray done in the emergency room revealed no acute cardiopulmonary abnormality, computed tomography scan of the brain without contrast done in the emergency room revealed no acute intracranial process, due to leukocytosis patient was given 1 dose of IV Rocephin in the emergency room. Patient was admitted to telemetry floor for further evaluation and treatment, cardiology consult was requested due to elevated troponin level. Past medical history is significant for chronic myelocytic leukemia followed by Dr. Penaloza, patient stated that she has not had any chemotherapy in the past, she also has a history of left breast cancer treated with lumpectomy and radiation therapy in 2016, and the right breast cancer treated with lumpectomy in 2019, patient also has a history of insulin-dependent diabetes mellitus maintained on insulin pump, history of thyroid goiter, history of diabetic retinopathy, history of morbid obesity, history of hypertension, and history of hyperlipidemia. On review of systems at this time patient is alert and oriented 3, she is still feeling weak and cold, otherwise she denies any specific complaints there is no fever or chills no headache or dizziness no chest pain no shortness of breath no cough no nausea or vomiting no abdominal pain no diarrhea no blood in the stools no burning with urination no frequency or urgency and no hematuria. Past Medical History Past Medical History: Cancer, Diabetes Mellitus, Hypertension, Thyroid Disorder Additional Past Medical History / Comment(s): heart murmur, Intermittent PAC. 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 History of Any Multi-Drug Resistant Organisms: None Reported Past Surgical History: Ablation, Orthopedic Surgery, Uterine Ablation Additional Past Surgical History / Comment(s): 2 lt breast lumpectomies mar,apr 2017, right breast lumpectomy 2019, cyst removed from toe lt foot 1997, bilat eye vitrectomy and annette cataract 1991, ganglion cyst lt wrist 1968, endometrial ablation 1993, Left hip replacement 2018. Colonoscopy 2017. Past Anesthesia/Blood Transfusion Reactions: No Reported Reaction Past Psychological History: No Psychological Hx Reported Additional Psychological History / Comment(s): claustrophobic Smoking Status: Former smoker, Never smoker Past Alcohol Use History: Rare Additional Past Alcohol Use History / Comment(s): quit smoking 1981, smoked in college Past Drug Use History: None Reported - Past Family History Father Family Medical History: Cancer Additional Family Medical History / Comment(s): prostate, pancreatic Mother Family Medical History: Diabetes Mellitus, Myocardial Infarction ([place]) Medications and Allergies Home Medications Medication Instructions Recorded Confirmed Type Benazepril HCl 40 mg PO DAILY 04/20/18 02/17/21 History Simvastatin [Zocor] 20 mg PO HS 04/20/18 02/17/21 History Metoprolol Tartrate [Lopressor] 12.5 mg PO BID 06/24/18 02/17/21 History Nilotinib HCl [Tasigna] 300 mg PO BID 06/24/18 02/17/21 History Triamterene-Hctz 37.5-25Mg 1 cap PO DAILY 06/24/18 02/17/21 History [Dyazide 37.5-25 Capsule] ALPRAZolam [Xanax] 0.25 mg PO BID PRN 12/29/18 02/17/21 History Furosemide [Lasix] 20 mg PO DAILY PRN 12/29/18 02/17/21 History Ascorbic Acid [Vitamin C] 500 mg PO DAILY 02/29/20 02/17/21 History Insulin Aspart (For Pump) [NovoLOG 0.01 unit SQ-PUMP CONTINUOUS 02/29/20 02/17/21 History (For Pump)] Letrozole 2.5 mg PO DAILY 02/29/20 02/17/21 History Vitamin E 400 unit PO DAILY 02/29/20 02/17/21 History Aspirin [Adult Low Dose Aspirin EC] 81 mg PO DAILY 02/12/21 02/17/21 History Biotin 5 mg PO DAILY 02/12/21 02/17/21 History Dicyclomine [Bentyl] 20 mg PO TID PRN #20 tablet 02/12/21 02/17/21 Rx Folic Acid 0.4 mg PO DAILY 02/12/21 02/17/21 History Prochlorperazine [Compazine] 10 mg PO Q8H PRN #20 tab 02/12/21 02/17/21 Rx hydrALAZINE HCL [Apresoline] 50 mg PO BID 02/12/21 02/17/21 History Cholecalciferol [Vitamin D3 (25 25 mcg PO DAILY 02/17/21 02/17/21 History Mcg = 1000 Iu)] Ondansetron HCl [Zofran] 4 mg PO Q8H PRN 02/17/21 02/17/21 History traMADol HCL 50 mg PO BID PRN 02/17/21 02/17/21 History Allergies Allergy/AdvReac Type Severity Reaction Status Date / Time hydrocodone [From [place]] AdvReac affects Verified 02/12/21 12:10 breathing Physical Exam Vitals: Vital Signs Temp Pulse Pulse Resp BP BP Pulse Ox 02/18/21 07:30 98.1 F 78 16 172/77 96 02/18/21 04:00 98.4 F 80 16 154/64 02/17/21 23:45 98.1 F 85 18 159/66 95 02/17/21 20:00 98.3 F 82 18 176/69 95 02/17/21 18:51 98.1 F 68 18 142/61 97 02/17/21 13:51 98.2 F 79 20 158/65 96 Intake and Output 02/17/21 02/18/21 02/18/21 22:59 06:59 14:59 Intake Total 10 10 Balance 10 10 Intake: IV 10 10 Invasive Line 1 10 10 Other: # Voids 2 1 Weight 95.254 kg 98.5 kg In general patient is alert and oriented x 3 in no distress HEENT head normocephalic and atraumatic Neck is supple no JVD no goiter no lymphadenopathy no carotid bruit Chest examination is clear to auscultation no crackles no wheezing Cardiac exam reveals regular heart sounds S1 and S2 no gallops no murmurs Abdomen is soft nontender no organomegaly with normal bowel sounds Extremity exam reveals no edema no cyanosis or clubbing, there is extensive onychomycosis on all 10 toenails, no open ulcers or evidence of infection Neurological examination reveals no gross focal deficits Results CBC & Chem 7: 02/18/21 09:12 02/18/21 09:12 Labs: Abnormal Lab Results - Last 24 Hours (Table) 02/17/21 02/17/21 02/17/21 Range/Units 13:57 13:57 13:57 WBC 16.8 H (3.8-10.6) k/uL Neutrophils # 15.2 H (1.3-7.7) k/uL Lymphocytes # 0.6 L (1.0-4.8) k/uL APTT 20.1 L (22.0-30.0) sec Carbon Dioxide (22-30) mmol/L BUN (7-17) mg/dL Creatinine (0.52-1.04) mg/dL Glucose (74-99) mg/dL POC Glucose (mg/dL) (75-99) mg/dL Troponin I (0.000-0.034) ng/mL Urine Appearance Cloudy H (Clear) Urine Bacteria Moderate H (None) /hpf Urine Mucus Rare H (None) /hpf 02/17/21 02/17/21 02/17/21 Range/Units 13:57 13:57 15:27 WBC (3.8-10.6) k/uL Neutrophils # (1.3-7.7) k/uL Lymphocytes # (1.0-4.8) k/uL APTT (22.0-30.0) sec Carbon Dioxide (22-30) mmol/L BUN 27 H (7-17) mg/dL Creatinine (0.52-1.04) mg/dL Glucose (74-99) mg/dL POC Glucose (mg/dL) 187 H (75-99) mg/dL Troponin I 0.057 H* (0.000-0.034) ng/mL Urine Appearance (Clear) Urine Bacteria (None) /hpf Urine Mucus (None) /hpf 02/17/21 02/17/21 02/17/21 Range/Units 17:44 19:51 20:04 WBC (3.8-10.6) k/uL Neutrophils # (1.3-7.7) k/uL Lymphocytes # (1.0-4.8) k/uL APTT (22.0-30.0) sec Carbon Dioxide (22-30) mmol/L BUN (7-17) mg/dL Creatinine (0.52-1.04) mg/dL Glucose (74-99) mg/dL POC Glucose (mg/dL) 223 H 272 H (75-99) mg/dL Troponin I 0.091 H* (0.000-0.034) ng/mL Urine Appearance (Clear) Urine Bacteria (None) /hpf Urine Mucus (None) /hpf 02/17/21 02/17/21 02/18/21 Range/Units 22:13 22:23 00:06 WBC (3.8-10.6) k/uL Neutrophils # (1.3-7.7) k/uL Lymphocytes # (1.0-4.8) k/uL APTT (22.0-30.0) sec Carbon Dioxide (22-30) mmol/L BUN (7-17) mg/dL Creatinine (0.52-1.04) mg/dL Glucose (74-99) mg/dL POC Glucose (mg/dL) 315 H 236 H (75-99) mg/dL Troponin I 0.075 H* (0.000-0.034) ng/mL Urine Appearance (Clear) Urine Bacteria (None) /hpf Urine Mucus (None) /hpf 02/18/21 02/18/21 02/18/21 Range/Units 02:05 04:16 06:08 WBC (3.8-10.6) k/uL Neutrophils # (1.3-7.7) k/uL Lymphocytes # (1.0-4.8) k/uL APTT (22.0-30.0) sec Carbon Dioxide (22-30) mmol/L BUN (7-17) mg/dL Creatinine (0.52-1.04) mg/dL Glucose (74-99) mg/dL POC Glucose (mg/dL) 227 H 275 H 284 H (75-99) mg/dL Troponin I (0.000-0.034) ng/mL Urine Appearance (Clear) Urine Bacteria (None) /hpf Urine Mucus (None) /hpf 02/18/21 02/18/21 02/18/21 Range/Units 08:03 09:12 09:12 WBC 12.7 H (3.8-10.6) k/uL Neutrophils # 11.0 H (1.3-7.7) k/uL Lymphocytes # 0.8 L (1.0-4.8) k/uL APTT (22.0-30.0) sec Carbon Dioxide 21 L (22-30) mmol/L BUN 34 H (7-17) mg/dL Creatinine 1.29 H (0.52-1.04) mg/dL Glucose 271 H (74-99) mg/dL POC Glucose (mg/dL) 270 H (75-99) mg/dL Troponin I (0.000-0.034) ng/mL Urine Appearance (Clear) Urine Bacteria (None) /hpf Urine Mucus (None) /hpf 02/18/21 Range/Units 10:03 WBC (3.8-10.6) k/uL Neutrophils # (1.3-7.7) k/uL Lymphocytes # (1.0-4.8) k/uL APTT (22.0-30.0) sec Carbon Dioxide (22-30) mmol/L BUN (7-17) mg/dL Creatinine (0.52-1.04) mg/dL Glucose (74-99) mg/dL POC Glucose (mg/dL) 250 H (75-99) mg/dL Troponin I (0.000-0.034) ng/mL Urine Appearance (Clear) Urine Bacteria (None) /hpf Urine Mucus (None) /hpf Thrombosis Risk Factor Assmnt - Choose All That Apply Each Factor Represents 1 point: Obesity (BMI >25) Each Risk Factor Represents 2 Points: Age 61-74 years Thrombosis Risk Factor Assessment Total Risk Factor Score: 3 Thrombosis Risk Factor Assessment Level: Moderate Risk Assessment and Plan Plan: 1. Hypoglycemia, at this time, insulin pump has been disconnected, patient is receiving insulin per sliding scale 2. Leukocytosis, cause is unclear, white blood count was 16.8 in the emergency room, patient received 1 g of IV Rocephin, today white blood count is 12.7, there is no clear site of infection, urine is cloudy and has many bacteria however, leukocyte esterase and nitrates are negative, chest x-ray is negative, and there is no evidence of any skin infection on exam, no open ulcers on bilateral lower extremities, at this time blood culture are still pending, will continue with IV Rocephin and monitor closely. 3. Generalized weakness, could be related to hypoglycemia, however patient is feeling cold and having some chills, she improved since admission, we are awaiting blood culture results, will check TSH 4. Mental status changes, improved significantly since admission 5. Underlying history of leukemia, patient has chronic myelocytic leukemia, followed by Dr. Penaloza no treatment has been given in the past. Patient is maintained on Tasigna 300 mg by mouth twice a day, will consult oncology for follow-up 6. Underlying history of breast cancer, as above 7. Underlying history of insulin-dependent diabetes mellitus, maintained on insulin pump at home for many years now, and followed by Dr. Briseida Irvin, at this time insulin pump is disconnected and patient is receiving insulin per sliding scale. Will check hemoglobin A1c to assess glucose control. 8. Dehydration was elevated BUN at 34 and creatinine 1.29, patient started on IV fluid normal saline at 50 mL/h 9. Mild elevation in troponin level, cardiology consultation was requested 10. Underlying history of hyperlipidemia 11. Underlying history of hypertension 12. For DVT prophylaxis will give Lovenox 13. Patient is feeling cold, she has a history of goiter, will check TSH level Will recheck labs and follow-up in a.m.
[2021-02-18] MEDS ORDERED: NON FORMULARY DRUG (Nilotinib Hcl [Tasigna] 150 MG Capsule) PO SCH (12:45)
--- NOTE | 2021-02-18 14:58 | P.CONS ---
History of Present Illness - Reason for Consult Consult date: 02/18/21 CML, and breast cancer currently on treatment. Mental status changes - History of Present Illness The patient is a 70-year-old white female with multiple medical problems well known to our service. She is followed by Dr. kam in the outpatient setting. The patient was diagnosed with CML in 04/26. She has since been on Tasigna, with ongoing remission. The patient was also diagnosed with right-sided breast cancer with pathology available in the EMR showing DCIS, ER positive. She had lumpectomy, and is currently on Femara. Additional details of her treatment are not available at the time of initial consult. The patient had come into the emergency room because of mental status changes specifically confusion. She was found to have evidence of hypoglycemia. She is improving though she still has some memory deficits. Her CBC showed some mild leukocytosis with predominant neutrophilia. Hemoglobin and platelets were normal. Consult was therefore placed for further evaluation and recommendations Review of Systems Constitutional: Reports weakness Eyes: denies blurred vision, denies pain Ears: deny: decreased hearing, ear discharge, earache, tinnitus Ears, nose, mouth and throat: Denies headache, Denies sore throat Cardiovascular: Denies chest pain, Denies shortness of breath Respiratory: Denies cough Gastrointestinal: Denies abdominal pain, Denies diarrhea, Denies nausea, Denies vomiting Genitourinary: Denies dysuria, Denies hematuria Menstruation: Reports postmenopausal Musculoskeletal: Reports muscle weakness Integumentary: Denies pruritus, Denies rash Neurological: Reports change in mentation, Reports confusion Psychiatric: Reports confusion Endocrine: Reports fatigue, Reports low blood sugars Hematologic/Lymphatic: Reports as per HPI Past Medical History Past Medical History: Cancer, Diabetes Mellitus, Hypertension, Thyroid Disorder Additional Past Medical History / Comment(s): heart murmur, Intermittent PAC. 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 History of Any Multi-Drug Resistant Organisms: None Reported Past Surgical History: Ablation, Orthopedic Surgery, Uterine Ablation Additional Past Surgical History / Comment(s): 2 lt breast lumpectomies mar,apr 2017, right breast lumpectomy 2019, cyst removed from toe lt foot 1997, bilat eye vitrectomy and annette cataract 1991, ganglion cyst lt wrist 1968, endometrial ablation 1993, Left hip replacement 2018. Colonoscopy 2018. Past Anesthesia/Blood Transfusion Reactions: No Reported Reaction Past Psychological History: No Psychological Hx Reported Additional Psychological History / Comment(s): claustrophobic Smoking Status: Former smoker, Never smoker Past Alcohol Use History: Rare Additional Past Alcohol Use History / Comment(s): quit smoking 1981, smoked in college Past Drug Use History: None Reported - Past Family History Father Family Medical History: Cancer Additional Family Medical History / Comment(s): prostate, pancreatic Mother Family Medical History: Diabetes Mellitus, Myocardial Infarction ([place]) Medications and Allergies Home Medications Medication Instructions Recorded Confirmed Type Benazepril HCl 40 mg PO DAILY 04/20/18 02/17/21 History Simvastatin [Zocor] 20 mg PO HS 04/20/18 02/17/21 History Metoprolol Tartrate [Lopressor] 12.5 mg PO BID 06/24/18 02/17/21 History Nilotinib HCl [Tasigna] 300 mg PO BID 06/24/18 02/17/21 History Triamterene-Hctz 37.5-25Mg 1 cap PO DAILY 06/24/18 02/17/21 History [Dyazide 37.5-25 Capsule] ALPRAZolam [Xanax] 0.25 mg PO BID PRN 12/29/18 02/17/21 History Furosemide [Lasix] 20 mg PO DAILY PRN 12/29/18 02/17/21 History Ascorbic Acid [Vitamin C] 500 mg PO DAILY 02/29/20 02/17/21 History Insulin Aspart (For Pump) [NovoLOG 0.01 unit SQ-PUMP CONTINUOUS 02/29/20 02/17/21 History (For Pump)] Letrozole 2.5 mg PO DAILY 02/29/20 02/17/21 History Vitamin E 400 unit PO DAILY 02/29/20 02/17/21 History Aspirin [Adult Low Dose Aspirin EC] 81 mg PO DAILY 02/12/21 02/17/21 History Biotin 5 mg PO DAILY 02/12/21 02/17/21 History Dicyclomine [Bentyl] 20 mg PO TID PRN #20 tablet 02/12/21 02/17/21 Rx Folic Acid 0.4 mg PO DAILY 02/12/21 02/17/21 History Prochlorperazine [Compazine] 10 mg PO Q8H PRN #20 tab 02/12/21 02/17/21 Rx hydrALAZINE HCL [Apresoline] 50 mg PO BID 02/12/21 02/17/21 History Cholecalciferol [Vitamin D3 (25 25 mcg PO DAILY 02/17/21 02/17/21 History Mcg = 1000 Iu)] Ondansetron HCl [Zofran] 4 mg PO Q8H PRN 02/17/21 02/17/21 History traMADol HCL 50 mg PO BID PRN 02/17/21 02/17/21 History Allergies Allergy/AdvReac Type Severity Reaction Status Date / Time hydrocodone [From [place]] AdvReac affects Verified 02/12/21 12:10 breathing Physical Exam Vitals: Vital Signs Temp Pulse Pulse Resp BP BP Pulse Ox 02/18/21 11:52 98.2 F 82 16 159/102 98 02/18/21 07:30 98.1 F 78 16 172/77 96 02/18/21 04:00 98.4 F 80 16 154/64 02/17/21 23:45 98.1 F 85 18 159/66 95 02/17/21 20:00 98.3 F 82 18 176/69 95 02/17/21 18:51 98.1 F 68 18 142/61 97 Intake and Output 02/17/21 02/18/21 02/18/21 22:59 06:59 14:59 Intake Total 10 10 280 Balance 10 10 280 Intake: IV 10 10 20 Invasive Line 1 10 10 20 Oral 260 Other: # Voids 2 1 Weight 95.254 kg 98.5 kg - Constitutional General appearance: no acute distress - EENT Eyes: EOMI, PERRLA ENT: hearing grossly normal, normal oropharynx - Neck Neck: no lymphadenopathy Thyroid: bilateral: normal size - Respiratory Respiratory: bilateral: CTA - Cardiovascular Rhythm: regular Heart sounds: normal: S1, S2 - Gastrointestinal General gastrointestinal: normal bowel sounds, soft - Integumentary Integumentary: normal - Neurologic Neurologic: CNII-XII intact - Musculoskeletal Musculoskeletal: generalized weakness, strength equal bilaterally - Psychiatric The patient was oriented to place, and to person with some effort. She could not give me the exact date. She was not definite as to which day she came into the hospital though she felt it was the last couple of days. Results CBC & Chem 7: 02/18/21 09:12 02/18/21 09:12 Labs: Abnormal Lab Results - Last 24 Hours (Table) 02/17/21 02/17/21 02/17/21 Range/Units 13:57 13:57 13:57 WBC (3.8-10.6) k/uL Neutrophils # (1.3-7.7) k/uL Lymphocytes # (1.0-4.8) k/uL APTT 20.1 L (22.0-30.0) sec Carbon Dioxide (22-30) mmol/L BUN (7-17) mg/dL Creatinine (0.52-1.04) mg/dL Glucose (74-99) mg/dL POC Glucose (mg/dL) (75-99) mg/dL Troponin I 0.057 H* (0.000-0.034) ng/mL Urine Appearance Cloudy H (Clear) Urine Bacteria Moderate H (None) /hpf Urine Mucus Rare H (None) /hpf 02/17/21 02/17/21 02/17/21 Range/Units 15:27 17:44 19:51 WBC (3.8-10.6) k/uL Neutrophils # (1.3-7.7) k/uL Lymphocytes # (1.0-4.8) k/uL APTT (22.0-30.0) sec Carbon Dioxide (22-30) mmol/L BUN (7-17) mg/dL Creatinine (0.52-1.04) mg/dL Glucose (74-99) mg/dL POC Glucose (mg/dL) 187 H 223 H (75-99) mg/dL Troponin I 0.091 H* (0.000-0.034) ng/mL Urine Appearance (Clear) Urine Bacteria (None) /hpf Urine Mucus (None) /hpf 02/17/21 02/17/21 02/17/21 Range/Units 20:04 22:13 22:23 WBC (3.8-10.6) k/uL Neutrophils # (1.3-7.7) k/uL Lymphocytes # (1.0-4.8) k/uL APTT (22.0-30.0) sec Carbon Dioxide (22-30) mmol/L BUN (7-17) mg/dL Creatinine (0.52-1.04) mg/dL Glucose (74-99) mg/dL POC Glucose (mg/dL) 272 H 315 H (75-99) mg/dL Troponin I 0.075 H* (0.000-0.034) ng/mL Urine Appearance (Clear) Urine Bacteria (None) /hpf Urine Mucus (None) /hpf 02/18/21 02/18/21 02/18/21 Range/Units 00:06 02:05 04:16 WBC (3.8-10.6) k/uL Neutrophils # (1.3-7.7) k/uL Lymphocytes # (1.0-4.8) k/uL APTT (22.0-30.0) sec Carbon Dioxide (22-30) mmol/L BUN (7-17) mg/dL Creatinine (0.52-1.04) mg/dL Glucose (74-99) mg/dL POC Glucose (mg/dL) 236 H 227 H 275 H (75-99) mg/dL Troponin I (0.000-0.034) ng/mL Urine Appearance (Clear) Urine Bacteria (None) /hpf Urine Mucus (None) /hpf 02/18/21 02/18/21 02/18/21 Range/Units 06:08 08:03 09:12 WBC 12.7 H (3.8-10.6) k/uL Neutrophils # 11.0 H (1.3-7.7) k/uL Lymphocytes # 0.8 L (1.0-4.8) k/uL APTT (22.0-30.0) sec Carbon Dioxide (22-30) mmol/L BUN (7-17) mg/dL Creatinine (0.52-1.04) mg/dL Glucose (74-99) mg/dL POC Glucose (mg/dL) 284 H 270 H (75-99) mg/dL Troponin I (0.000-0.034) ng/mL Urine Appearance (Clear) Urine Bacteria (None) /hpf Urine Mucus (None) /hpf 02/18/21 02/18/21 02/18/21 Range/Units 09:12 10:03 11:45 WBC (3.8-10.6) k/uL Neutrophils # (1.3-7.7) k/uL Lymphocytes # (1.0-4.8) k/uL APTT (22.0-30.0) sec Carbon Dioxide 21 L (22-30) mmol/L BUN 34 H (7-17) mg/dL Creatinine 1.29 H (0.52-1.04) mg/dL Glucose 271 H (74-99) mg/dL POC Glucose (mg/dL) 250 H 286 H (75-99) mg/dL Troponin I (0.000-0.034) ng/mL Urine Appearance (Clear) Urine Bacteria (None) /hpf Urine Mucus (None) /hpf Comments: EKG image and report reviewed Chest x-ray: report reviewed CT scan - abdomen: report reviewed CT scan - chest: report reviewed CT scan - pelvis: report reviewed Assessment and Plan (1) Acute metabolic encephalopathy due to hypoglycemia Narrative/Plan: The patient represented with altered mentation especially confusion. This appears to be due to hypoglycemia. With treatment for the same, including adjustment of her insulin dosing per the primary service, the patient is improved though not back to her baseline yet. - Her acute presentation does not appear to be related to her malignancy history. Neither letrozole, nor Tasigna are associated with mental status changes. In addition the patient has been on them for a fairly good duration of time. - Progression of malignancy as a possible cause is not suspected either, given that her CBC is indicative of continued hematologic remission in case of her CML. In addition her mental status is improving with treatment of her blood sugar issues Current Visit: Yes Status: Acute Code(s): G93.41 - METABOLIC ENCEPHALOPATHY; E16.2 - HYPOGLYCEMIA, UNSPECIFIED SNOMED Code(s): 89479336 (2) Chronic myelocytic leukemia in remission Narrative/Plan: Diagnostic and therapeutic circumstances as described. The patient confirmed to me that she had been taking her medication, as prescribed at home. She was unable to remember which gave her last dose was. She was however quite sure that she has medication at home. - I reassured the patient that if she misses a few days of Tasigna, it is highly unlikely to have any adverse effect. Therefore he can start back on it after discharge. If for any reason, she has a longer hospitalization, then she can resume taking the medication from home Current Visit: Yes Status: Acute Code(s): C92.91 - MYELOID LEUKEMIA, UNSPECIFIED IN REMISSION SNOMED Code(s): 40173606 (3) HX: breast cancer Narrative/Plan: Clinically there is no suspicion for progression. The patient has been taking letrozole at home. If discharge in the short-term is anticipated she canresume that at home in case of any prolonged hospitalization, she can can be resumed on the same while inpatient Current Visit: Yes Status: Acute Code(s): Z85.3 - PERSONAL HISTORY OF MALIGNANT NEOPLASM OF BREAST SNOMED Code(s): 693970687 Plan: Defer to the admitting service for management of her other medical problems
[2021-02-18 16:05] LABS: Glucose,Whole Blood 387 mg/dL (75-99)
[2021-02-18] MEDS ORDERED: INSULIN ASPART (NovoLOG) 100 UNIT/ML VIAL SQ ONE (16:13)
[2021-02-18 17:17] LABS: Glucose,Whole Blood 389 mg/dL (75-99)
[2021-02-18 20:26] LABS: Glucose,Whole Blood 359 mg/dL (75-99)
[2021-02-18] MEDS: Nilotinib Hcl [Tasigna] 150 MG Capsule PO SCH (20:50)
[2021-02-18] MEDS ORDERED: INSULIN DETEMIR (LEVEMIR) 100 UNIT/ML SYR SQ SCH (21:00)
[2021-02-18 22:04] LABS: Hemoglobin A1C 6.9 % (4.0-6.0)
--- NOTE | 2021-02-18 22:52 | P.CONS ---
History of Present Illness - Reason for Consult Consult date: 02/18/21 Leukocytosis Requesting physician: Navdeep Fields - Chief Complaint weaknessand low blood sugar x 1 day - History of Present Illness Patient is a 70-year female with a past medical history significant for CML currently in remission in this patient was brought into the ER at [facility] yesterday for evaluation of mental status changes and weakness apparently the patient did have generalized weakness last night for the patient required assistance to go to the bathroom subsequently the next morning the patient complaining of feeling cold and was covered, and a blanket and has her daughter is a poor patient next morning patient was awake not waking up and was noticed to have low blood sugar EMS was called and on arrival to the EMS patient does have blood sugar of 29 she was given a dose of IV dextrose and was subsequently brought to the hospital patient on arrival to the ER was afebrile and no fever has been recorded patient noticed to have a white count of 16 repeat is 12.7 did have elevated BUN and creatinine troponin was mildly elevated liver enzymes are normal urine did shows moderate bacteria but no WBC patient did have a chest x-ray no acute cardiopulmonary process patient has been treated empirically with Rocephin infectious was consulted for further management patient at time of elevation know that she is at [facility] denies having any headache or photophobia no chest pain shortness of breath or cough no nausea vomiting abdominal pain or diarrhea some urinary frequency but no burning suprapubic or flank pain. Review of Systems Positive point has been mentioned in the HPI rest of the systems are negative Past Medical History Past Medical History: Cancer, Diabetes Mellitus, Hypertension, Thyroid Disorder Additional Past Medical History / Comment(s): heart murmur, Intermittent PAC. 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 Past CALKER history: Genital HSV. History of Any Multi-Drug Resistant Organisms: None Reported Past Surgical History: Ablation, Orthopedic Surgery, Uterine Ablation Additional Past Surgical History / Comment(s): 2 lt breast lumpectomies mar,apr 2017, right breast lumpectomy 2019, cyst removed from toe lt foot 1997, bilat eye vitrectomy and annette cataract 1991, ganglion cyst lt wrist 1968, endometrial ablation 1993, Left hip replacement 2018. Colonoscopy 2018. Past Anesthesia/Blood Transfusion Reactions: No Reported Reaction Past Psychological History: No Psychological Hx Reported Additional Psychological History / Comment(s): claustrophobic Smoking Status: Former smoker, Never smoker Past Alcohol Use History: Rare Additional Past Alcohol Use History / Comment(s): quit smoking 1981, smoked in college Past Drug Use History: None Reported - Past Family History Father Family Medical History: Cancer Additional Family Medical History / Comment(s): prostate, pancreatic Mother Family Medical History: Diabetes Mellitus, Myocardial Infarction (OR) Medications and Allergies Home Medications Medication Instructions Recorded Confirmed Type Benazepril HCl 40 mg PO DAILY 04/20/18 02/17/21 History Simvastatin [Zocor] 20 mg PO HS 04/20/18 02/17/21 History Metoprolol Tartrate [Lopressor] 12.5 mg PO BID 06/24/18 02/17/21 History Nilotinib HCl [Tasigna] 300 mg PO BID 06/24/18 02/17/21 History Triamterene-Hctz 37.5-25Mg 1 cap PO DAILY 06/24/18 02/17/21 History [Dyazide 37.5-25 Capsule] ALPRAZolam [Xanax] 0.25 mg PO BID PRN 12/29/18 02/17/21 History Furosemide [Lasix] 20 mg PO DAILY PRN 12/29/18 02/17/21 History Ascorbic Acid [Vitamin C] 500 mg PO DAILY 02/29/20 02/17/21 History Insulin Aspart (For Pump) [NovoLOG 0.01 unit SQ-PUMP CONTINUOUS 02/29/20 02/17/21 History (For Pump)] Letrozole 2.5 mg PO DAILY 02/29/20 02/17/21 History Vitamin E 400 unit PO DAILY 02/29/20 02/17/21 History Aspirin [Adult Low Dose Aspirin EC] 81 mg PO DAILY 02/12/21 02/17/21 History Biotin 5 mg PO DAILY 02/12/21 02/17/21 History Dicyclomine [Bentyl] 20 mg PO TID PRN #20 tablet 02/12/21 02/17/21 Rx Folic Acid 0.4 mg PO DAILY 02/12/21 02/17/21 History Prochlorperazine [Compazine] 10 mg PO Q8H PRN #20 tab 02/12/21 02/17/21 Rx hydrALAZINE HCL [Apresoline] 50 mg PO BID 02/12/21 02/17/21 History Cholecalciferol [Vitamin D3 (25 25 mcg PO DAILY 02/17/21 02/17/21 History Mcg = 1000 Iu)] Ondansetron HCl [Zofran] 4 mg PO Q8H PRN 02/17/21 02/17/21 History traMADol HCL 50 mg PO BID PRN 02/17/21 02/17/21 History Allergies Allergy/AdvReac Type Severity Reaction Status Date / Time hydrocodone [From [place]] AdvReac affects Verified 02/12/21 12:10 breathing Physical Exam Vitals: Vital Signs Temp Pulse Pulse Resp BP BP Pulse Ox 02/18/21 11:52 98.2 F 82 16 159/102 98 02/18/21 07:30 98.1 F 78 16 172/77 96 02/18/21 04:00 98.4 F 80 16 154/64 02/17/21 23:45 98.1 F 85 18 159/66 95 02/17/21 20:00 98.3 F 82 18 176/69 95 02/17/21 18:51 98.1 F 68 18 142/61 97 02/17/21 13:51 98.2 F 79 20 158/65 96 Intake and Output 02/17/21 02/18/21 02/18/21 22:59 06:59 14:59 Intake Total 10 10 20 Balance 10 10 20 Intake: IV 10 10 20 Invasive Line 1 10 10 20 Other: # Voids 2 1 Weight 95.254 kg 98.5 kg GENERAL DESCRIPTION: An elderly female lying in bed, no distress. No tachypnea or accessory muscle of respiration use. HEENT: Shows Pallor , no scleral icterus. Oral mucous membrane is dry. No pharyngeal erythema or thrush NECK: Trachea central, no thyromegaly. LUNGS: Unlabored breathing. Clear to auscultation anteriorly. No wheeze or crackle. HEART: S1, S2, regular rate and rhythm. No loud murmur ABDOMEN: Soft, no tenderness , guarding or rigidity, no organomegaly EXTREMITIES: No edema of feet. SKIN: No rash, no masses palpable. NEUROLOGICAL: The patient is awake, alert, oriented x3, mood and affect normal. Results CBC & Chem 7: 02/18/21 09:12 02/18/21 09:12 Labs: Abnormal Lab Results - Last 24 Hours (Table) 02/17/21 02/17/21 02/17/21 Range/Units 13:57 13:57 13:57 WBC 16.8 H (3.8-10.6) k/uL Neutrophils # 15.2 H (1.3-7.7) k/uL Lymphocytes # 0.6 L (1.0-4.8) k/uL APTT 20.1 L (22.0-30.0) sec Carbon Dioxide (22-30) mmol/L BUN (7-17) mg/dL Creatinine (0.52-1.04) mg/dL Glucose (74-99) mg/dL POC Glucose (mg/dL) (75-99) mg/dL Troponin I (0.000-0.034) ng/mL Urine Appearance Cloudy H (Clear) Urine Bacteria Moderate H (None) /hpf Urine Mucus Rare H (None) /hpf 02/17/21 02/17/21 02/17/21 Range/Units 13:57 13:57 15:27 WBC (3.8-10.6) k/uL Neutrophils # (1.3-7.7) k/uL Lymphocytes # (1.0-4.8) k/uL APTT (22.0-30.0) sec Carbon Dioxide (22-30) mmol/L BUN 27 H (7-17) mg/dL Creatinine (0.52-1.04) mg/dL Glucose (74-99) mg/dL POC Glucose (mg/dL) 187 H (75-99) mg/dL Troponin I 0.057 H* (0.000-0.034) ng/mL Urine Appearance (Clear) Urine Bacteria (None) /hpf Urine Mucus (None) /hpf 02/17/21 02/17/21 02/17/21 Range/Units 17:44 19:51 20:04 WBC (3.8-10.6) k/uL Neutrophils # (1.3-7.7) k/uL Lymphocytes # (1.0-4.8) k/uL APTT (22.0-30.0) sec Carbon Dioxide (22-30) mmol/L BUN (7-17) mg/dL Creatinine (0.52-1.04) mg/dL Glucose (74-99) mg/dL POC Glucose (mg/dL) 223 H 272 H (75-99) mg/dL Troponin I 0.091 H* (0.000-0.034) ng/mL Urine Appearance (Clear) Urine Bacteria (None) /hpf Urine Mucus (None) /hpf 02/17/21 02/17/21 02/18/21 Range/Units 22:13 22:23 00:06 WBC (3.8-10.6) k/uL Neutrophils # (1.3-7.7) k/uL Lymphocytes # (1.0-4.8) k/uL APTT (22.0-30.0) sec Carbon Dioxide (22-30) mmol/L BUN (7-17) mg/dL Creatinine (0.52-1.04) mg/dL Glucose (74-99) mg/dL POC Glucose (mg/dL) 315 H 236 H (75-99) mg/dL Troponin I 0.075 H* (0.000-0.034) ng/mL Urine Appearance (Clear) Urine Bacteria (None) /hpf Urine Mucus (None) /hpf 02/18/21 02/18/21 02/18/21 Range/Units 02:05 04:16 06:08 WBC (3.8-10.6) k/uL Neutrophils # (1.3-7.7) k/uL Lymphocytes # (1.0-4.8) k/uL APTT (22.0-30.0) sec Carbon Dioxide (22-30) mmol/L BUN (7-17) mg/dL Creatinine (0.52-1.04) mg/dL Glucose (74-99) mg/dL POC Glucose (mg/dL) 227 H 275 H 284 H (75-99) mg/dL Troponin I (0.000-0.034) ng/mL Urine Appearance (Clear) Urine Bacteria (None) /hpf Urine Mucus (None) /hpf 02/18/21 02/18/21 02/18/21 Range/Units 08:03 09:12 09:12 WBC 12.7 H (3.8-10.6) k/uL Neutrophils # 11.0 H (1.3-7.7) k/uL Lymphocytes # 0.8 L (1.0-4.8) k/uL APTT (22.0-30.0) sec Carbon Dioxide 21 L (22-30) mmol/L BUN 34 H (7-17) mg/dL Creatinine 1.29 H (0.52-1.04) mg/dL Glucose 271 H (74-99) mg/dL POC Glucose (mg/dL) 270 H (75-99) mg/dL Troponin I (0.000-0.034) ng/mL Urine Appearance (Clear) Urine Bacteria (None) /hpf Urine Mucus (None) /hpf 02/18/21 02/18/21 Range/Units 10:03 11:45 WBC (3.8-10.6) k/uL Neutrophils # (1.3-7.7) k/uL Lymphocytes # (1.0-4.8) k/uL APTT (22.0-30.0) sec Carbon Dioxide (22-30) mmol/L BUN (7-17) mg/dL Creatinine (0.52-1.04) mg/dL Glucose (74-99) mg/dL POC Glucose (mg/dL) 250 H 286 H (75-99) mg/dL Troponin I (0.000-0.034) ng/mL Urine Appearance (Clear) Urine Bacteria (None) /hpf Urine Mucus (None) /hpf Assessment and Plan Assessment: 1-patient with a leukocytosis in this patient presented to hospital with weakness feeling very cold shivering concern for possible her urinary tract infection as the patient do not have any headache or mental status changes anymore no respiratory symptoms and abdominal soft on clinic examination no evidence of any cellulitis (1) Leukocytosis Current Visit: Yes Status: Acute Code(s): D72.829 - ELEVATED WHITE BLOOD CELL COUNT, UNSPECIFIED SNOMED Code(s): 088754933 Plan: 1-we will repeat her urine culture 2-Rocephin 1 g daily to continue 3-gentle IV fluid We will follow on clinical condition and cultures to further adjust medication if needed Thank you for this consultation we will follow the patient along with you Time with Patient: Greater than 30
[2021-02-19 01:12] LABS: Appearance,Urine Clear (Clear); Bacteria,Urine Occasional /hpf; Bilirubin,Urine Negative (Negative); Blood,Urine Negative (Negative); Color,Urine Yellow; Glucose,Urine (UA) 4+ (Negative); Ketones,Urine Negative (Negative); Leukocyte Esterase,Urine Moderate (Negative); Mucus,Urine Rare /hpf; Nitrite,Urine Negative (Negative); PH, Urine 5.5 (5.0-8.0); Protein,Urine Negative (Negative); RBC,Urine <1 /hpf (0-5); Squamous Epithelial Cell,Urine 3 /hpf (0-4); Urobilinogen,Urine <2.0 mg/dL (<2.0); WBC,Urine 17 /hpf (0-5)
[2021-02-19 02:03] LABS: Glucose,Whole Blood 357 mg/dL (75-99)
[2021-02-19 06:13] LABS: Glucose,Whole Blood 377 mg/dL (75-99)
[2021-02-19] MEDS: INSULIN ASPART (NovoLOG) 100 UNIT/ML VIAL SQ SCH ×5 (06:31→20:21)
[2021-02-19] MEDS: ONDANSETRON 4 MG TAB PO PRN ×2 (07:27→23:42)
[2021-02-19] MEDS: VITAMIN E (DL,TOCOPHERYL ACET) 400 UNIT (180 MG) CAP PO SCH (07:38)
[2021-02-19] MEDS: CHOLECALCIFEROL 25 MCG (1000 IU) TABLET PO SCH (07:38)
[2021-02-19] MEDS: TRIAMTERENE-HCTZ 37.5-25MG 1 EACH CAP PO SCH (07:38)
[2021-02-19] MEDS: hydrALAZINE HCL 50 MG TAB PO SCH ×2 (07:38→20:21)
[2021-02-19] MEDS: lisinopriL 20 MG TAB PO SCH (07:38)
[2021-02-19] MEDS: ATORVASTATIN 10 MG TAB PO SCH (07:38)
[2021-02-19] MEDS: ASPIRIN 81 MG PO SCH (07:38)
[2021-02-19] MEDS: ENOXAPARIN 40 MG/0.4 ML SYRINGE SQ SCH (07:38)
[2021-02-19] MEDS: Nilotinib Hcl [Tasigna] 150 MG Capsule PO SCH ×2 (07:39→20:21)
[2021-02-19] MEDS: LETROZOLE 2.5 MG TAB PO SCH (07:39)
[2021-02-19] MEDS: METOPROLOL TARTRATE 12.5 MG TAB PO SCH ×2 (07:39→20:21)
[2021-02-19] MEDS: ASCORBIC ACID 500 MG TAB PO SCH (07:39)
[2021-02-19] MEDS: NON FORMULARY DRUG (Folic Acid [Folic Acid] 0.4 MG Tablet) PO SCH (07:40)
[2021-02-19 08:18] LABS: Basophils % (A) 0 %; Eosinophils # (A) 0.1 k/uL (0-0.7); Eosinophils % (A) 1 %; HCT 41.1 % (34.0-46.0); HGB 13.4 gm/dL (11.4-16.0); Lymphocytes # (A) 0.9 k/uL (1.0-4.8); Lymphocytes % (A) 9 %; MCH 29.8 pg (25.0-35.0); MCHC 32.7 g/dL (31.0-37.0); MCV 91.4 fL (80.0-100.0); Monocytes # (A) 0.4 k/uL (0-1.0); Monocytes % (A) 5 %; Neutrophils # (A) 8.1 k/uL (1.3-7.7); Neutrophils % (A) 84 %; Platelet Count 232 k/uL (150-450); RDW 14.4 % (11.5-15.5); WBC 9.6 k/uL (3.8-10.6)
[2021-02-19 08:47] LABS: Albumin 3.9 g/dL (3.5-5.0); Calcium 9.5 mg/dL (8.4-10.2); Potassium 4.6 mmol/L (3.5-5.1); Total Bilirubin 1.3 mg/dL (0.2-1.3); Total Protein 6.5 g/dL (6.3-8.2)
[2021-02-19] MEDS ORDERED: NON FORMULARY DRUG (Biotin [Biotin] 5 MG Capsule) PO SCH (09:00)
[2021-02-19] MEDS ORDERED: SODIUM CHLORIDE 0.9% 1,000 ML IV SCH (09:30)
--- NOTE | 2021-02-19 10:19 | ECHOF ---
Referral Reason:htn MEASUREMENTS -------- HEIGHT: 160.0 cm WEIGHT: 96.2 kg BP: IVSd: 1.7 cm (0.6 - 1.1) LVIDd: 3.8 cm (3.9 - 5.3) LVPWd: 1.8 cm (0.6 - 1.1) IVSs: 1.6 cm LVIDs: 3.7 cm LVPWs: 1.8 cm Ao Diam: 3.0 cm (2.0 - 3.7) AV Cusp: 1.9 cm (1.5 - 2.6) MV EXCURSION: 14.447 mm (> 18.000) MV EF SLOPE: 61 mm/s (70 - 150) EPSS: 0.7 cm RAP: 5.00 mmHg RVSP: 13.93 mmHg FINDINGS -------- Sinus rhythm. This was a techncally difficult study with suboptimal views, , Lumason utilized for enhancement of im ages. The left ventricular size is normal. There is moderate concentric left ventricular hypertrophy. O verall left ventricular systolic function is low-normal with, an EF between 50 - 55 %. The right ventricle is normal in size. The left atrial size is normal. The right atrial size is normal. There is mild aortic valve sclerosis. There is no evidence of aortic regurgitation. Mild mitral regurgitation is present. The tricuspid valve was not well visualized. Mild tricuspid regurgitation present. Right ventricu lar systolic pressure is normal at < 35 mmHg. The pulmonic valve was not well visualized. There is a small, generalized pericardial effusion present. CONCLUSIONS -------- 1. This was a techncally difficult study with suboptimal views, , Lumason utilized for enhancement of images. 2. The left ventricular size is normal. 3. There is moderate concentric left ventricular hypertrophy. 4. Overall left ventricular systolic function is low-normal with, an EF between 50 - 55 %. 5. The right ventricle is normal in size. 6. The left atrial size is normal. 7. The right atrial size is normal. 8. There is mild aortic valve sclerosis. 9. Mild mitral regurgitation is present. 10. The tricuspid valve was not well visualized. 11. Mild tricuspid regurgitation present. 12. The pulmonic valve was not well visualized. 13. There is a small, generalized pericardial effusion present. CASTING TECHNICIAN: Candy Chen RD
--- NOTE | 2021-02-19 11:17 | P.CNNES ---
History of Present Illness Consult date: 02/19/21 Requesting physician: Navdeep Fields Reason for Consult: delayed speech. Rule out stroke History of Present Illness: This is a 70-year-old woman with medical history of diabetes mellitus on insulin pump, chronic myelocytic leukemia, left breast cancer status post lumpectomy and radiation therapy in 2016 and right breast cancer status post lobectomy in 2019, thyroid goiter, diabetic retinopathy, hypertension, hyperlipidemia, who presented to the emergency department on 02/17/2021 for altered mental status. Neurology is consulted for delayed speech and concern for stroke. Some of the history is obtained from medical record and patient's who is at bedside. It seems the patient the per the ED team stated that she was cold and the she got a couple blankets and she fell back asleep. Per the the glucose monitor at home mention "S3" which he did not what it meant and so he called EMS. EMS arrived the patient's glucose was 29 as a result the patient was given IV dextrose. Per the patient's her mentation is back to baseline and speech is back to baseline. She denies of any focal deficits. Denies of visual disturbance. Per the nurse she is doing drastically better. Summary the patient on medications folic acid 0.4 mg daily, biotin, aspirin 81 mg daily, vitamin E, Compazine, metoprolol, insulin, simvastatin 20 mg daily at bedtime, hydralazine, tramadol, Lasix Some of the workup in the hospital consisted of: Initial vital signs his blood pressure of 158/55, heart rate is 79, respiratory of 20, temperature of 98.2 Fahrenheit oral and pulse ox of 96% room air. initial white blood cells 16.8 and was current white blood cell is 9.6 thousand which is within normal limits. Initial POC glucose is 92 and the repeat was 77 most current sugar is in the 300s. Patient hemoglobin A1c 6.9 which is slightly elevated. Creatinine most recent is 1.20 and on presentation is 1.04 which is trending up. Sodium on presentation is 139 and the most current one is 136 which is minimally low but seems unremarkable. AST of 28 ALT of 28 and the ammonia level is a 10 which is within normal limits. TSH is 1.10 which is within normal limits. Calcium is 10.1 which is within normal limits. On initial presentation the urinalysis seems negative for unit tract infection and the repeated seems positive with the leukocyte esterase was moderate urine white blood cells 17 Urine drug screen is nondetected, seizure and alcohol was less than 10, seen within less than 10, salicylate is less than 1.0. CT of the head is reported as no acute intracranial process. The echo was reported as left ventricular size is normal. Ejection fraction of 50-55%. Left atrial size is normal. Review of Systems Review of system: The 12 point system was reviewed and apparent positive and negative per HPI. Past Medical History Past Medical History: Cancer, Diabetes Mellitus, Hypertension, Thyroid Disorder Additional Past Medical History / Comment(s): heart murmur, Intermittent PAC. 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 History of Any Multi-Drug Resistant Organisms: None Reported Past Surgical History: Ablation, Orthopedic Surgery, Uterine Ablation Additional Past Surgical History / Comment(s): 2 lt breast lumpectomies mar,apr 2017, right breast lumpectomy 2019, cyst removed from toe lt foot 1997, bilat eye vitrectomy and annette cataract 1991, ganglion cyst lt wrist 1968, endometrial ablation 1993, Left hip replacement 2018. Colonoscopy 2017. Past Anesthesia/Blood Transfusion Reactions: No Reported Reaction Past Psychological History: No Psychological Hx Reported Additional Psychological History / Comment(s): claustrophobic Smoking Status: Former smoker, Never smoker Past Alcohol Use History: Rare Additional Past Alcohol Use History / Comment(s): quit smoking 1981, smoked in college Past Drug Use History: None Reported - Past Family History Father Family Medical History: Cancer Additional Family Medical History / Comment(s): prostate, pancreatic Mother Family Medical History: Diabetes Mellitus, Myocardial Infarction (MD) Medications and Allergies Home Medications Medication Instructions Recorded Confirmed Type Benazepril HCl 40 mg PO DAILY 04/20/18 02/17/21 History Simvastatin [Zocor] 20 mg PO HS 04/20/18 02/17/21 History Metoprolol Tartrate [Lopressor] 12.5 mg PO BID 06/24/18 02/17/21 History Nilotinib HCl [Tasigna] 300 mg PO BID 06/24/18 02/17/21 History Triamterene-Hctz 37.5-25Mg 1 cap PO DAILY 06/24/18 02/17/21 History [Dyazide 37.5-25 Capsule] ALPRAZolam [Xanax] 0.25 mg PO BID PRN 12/29/18 02/17/21 History Furosemide [Lasix] 20 mg PO DAILY PRN 12/29/18 02/17/21 History Ascorbic Acid [Vitamin C] 500 mg PO DAILY 02/29/20 02/17/21 History Insulin Aspart (For Pump) [NovoLOG 0.01 unit SQ-PUMP CONTINUOUS 02/29/20 02/17/21 History (For Pump)] Letrozole 2.5 mg PO DAILY 02/29/20 02/17/21 History Vitamin E 400 unit PO DAILY 02/29/20 02/17/21 History Aspirin [Adult Low Dose Aspirin EC] 81 mg PO DAILY 02/12/21 02/17/21 History Biotin 5 mg PO DAILY 02/12/21 02/17/21 History Dicyclomine [Bentyl] 20 mg PO TID PRN #20 tablet 02/12/21 02/17/21 Rx Folic Acid 0.4 mg PO DAILY 02/12/21 02/17/21 History Prochlorperazine [Compazine] 10 mg PO Q8H PRN #20 tab 02/12/21 02/17/21 Rx hydrALAZINE HCL [Apresoline] 50 mg PO BID 02/12/21 02/17/21 History Cholecalciferol [Vitamin D3 (25 25 mcg PO DAILY 02/17/21 02/17/21 History Mcg = 1000 Iu)] Ondansetron HCl [Zofran] 4 mg PO Q8H PRN 02/17/21 02/17/21 History traMADol HCL 50 mg PO BID PRN 02/17/21 02/17/21 History Allergies Allergy/AdvReac Type Severity Reaction Status Date / Time hydrocodone [From [place]] AdvReac affects Verified 02/12/21 12:10 breathing Physical Examination - Vital Signs Vital Signs: Vital Signs Temp Pulse Resp BP Pulse Ox 02/19/21 07:25 98.1 F 69 18 142/78 92 L 02/19/21 03:20 98.0 F 67 18 162/77 95 02/18/21 23:50 98.1 F 78 18 151/66 97 02/18/21 20:00 98.0 F 75 18 159/80 98 02/18/21 15:09 98.0 F 81 16 145/68 98 02/18/21 11:52 98.2 F 82 16 159/102 98 Intake and Output 02/18/21 02/19/21 02/19/21 22:59 06:59 14:59 Intake Total 200 696 Balance 200 696 Intake: IV 20 460 Invasive Line 2 20 10 Sodium Chloride 0.9% 1, 400 000 ml @ 50 mls/hr IV . Q20H [facility] Rx#:[id number] cefTRIAXone 1 gm In 50 Sodium Chloride 0.9% 50 ml @ 100 mls/hr IVPB Q24HR [facility] Rx#:[id number] Oral 180 236 Other: # Voids 1 1 1 Weight 96.3 kg GENERAL: The patient is lying in bed and is not in acute distress. CHEST: The heart rate is regular rate rhythm. No murmurs to auscultation. LUNG: Clear to auscultation bilaterally no wheezing noted throughout. Not labored breathing. ABDOMEN/GI: Bowel sounds present in all 4 quadrants. No tenderness to palpation throughout. NEUROLOGICAL: Higher mental function: The patient is awake, alert, oriented to self, place and time. She is able to name objects (pen, watch, glasses). Patient is following commands. No aphasia and no neglect. Cranial nerves: The pupils are round, equal and reactive to light and accommodation. Visual paul are full to confrontation throughout. Extraocular movement is intact no nystagmus is noted. Facial sensation is normal to touch throughout. The facial strength is normal throughout. Hearing is normal bilaterally to hand rub. Tongue is midline and moved [id number] without any difficulty. No dysarthria is noted. Shoulder shrug is normal bilaterally. Motor: Gait is deferred. The strength is 5 over 5 throughout. Normal tone and bulk. Cerebellum: Normal finger to nose bilaterally. Sensation: Sensation is normal to touch throughout. Reflexes (right/left): 2+ throughout. Plantars are mute bilaterally. Results - Laboratory Findings CBC and BMP: 02/19/21 07:37 02/19/21 07:37 Abnormal Lab Findings: Abnormal Labs 02/17/21 02/17/21 02/17/21 13:57 13:57 13:57 WBC 16.8 H Neutrophils # 15.2 H Lymphocytes # 0.6 L APTT 20.1 L Sodium Carbon Dioxide BUN Creatinine Glucose POC Glucose (mg/dL) Hemoglobin A1c Troponin I Urine Appearance Cloudy H Urine Glucose (UA) Ur Leukocyte Esterase Urine WBC Urine Bacteria Moderate H Urine Mucus Rare H 02/17/21 02/17/21 02/17/21 13:57 13:57 15:27 WBC Neutrophils # Lymphocytes # APTT Sodium Carbon Dioxide BUN 27 H Creatinine Glucose POC Glucose (mg/dL) 187 H Hemoglobin A1c Troponin I 0.057 H* Urine Appearance Urine Glucose (UA) Ur Leukocyte Esterase Urine WBC Urine Bacteria Urine Mucus 02/17/21 02/17/21 02/17/21 17:44 19:51 20:04 WBC Neutrophils # Lymphocytes # APTT Sodium Carbon Dioxide BUN Creatinine Glucose POC Glucose (mg/dL) 223 H 272 H Hemoglobin A1c Troponin I 0.091 H* Urine Appearance Urine Glucose (UA) Ur Leukocyte Esterase Urine WBC Urine Bacteria Urine Mucus 02/17/21 02/17/21 02/18/21 22:13 22:23 00:06 WBC Neutrophils # Lymphocytes # APTT Sodium Carbon Dioxide BUN Creatinine Glucose POC Glucose (mg/dL) 315 H 236 H Hemoglobin A1c Troponin I 0.075 H* Urine Appearance Urine Glucose (UA) Ur Leukocyte Esterase Urine WBC Urine Bacteria Urine Mucus 02/18/21 02/18/21 02/18/21 02:05 04:16 06:08 WBC Neutrophils # Lymphocytes # APTT Sodium Carbon Dioxide BUN Creatinine Glucose POC Glucose (mg/dL) 227 H 275 H 284 H Hemoglobin A1c Troponin I Urine Appearance Urine Glucose (UA) Ur Leukocyte Esterase Urine WBC Urine Bacteria Urine Mucus 02/18/21 02/18/21 02/18/21 08:03 09:12 09:12 WBC 12.7 H Neutrophils # 11.0 H Lymphocytes # 0.8 L APTT Sodium Carbon Dioxide 21 L BUN 34 H Creatinine 1.29 H Glucose 271 H POC Glucose (mg/dL) 270 H Hemoglobin A1c Troponin I Urine Appearance Urine Glucose (UA) Ur Leukocyte Esterase Urine WBC Urine Bacteria Urine Mucus 02/18/21 02/18/21 02/18/21 09:12 10:03 11:45 WBC Neutrophils # Lymphocytes # APTT Sodium Carbon Dioxide BUN Creatinine Glucose POC Glucose (mg/dL) 250 H 286 H Hemoglobin A1c 6.9 H Troponin I Urine Appearance Urine Glucose (UA) Ur Leukocyte Esterase Urine WBC Urine Bacteria Urine Mucus 02/18/21 02/18/21 02/18/21 16:03 17:15 20:24 WBC Neutrophils # Lymphocytes # APTT Sodium Carbon Dioxide BUN Creatinine Glucose POC Glucose (mg/dL) 387 H 389 H 359 H Hemoglobin A1c Troponin I Urine Appearance Urine Glucose (UA) Ur Leukocyte Esterase Urine WBC Urine Bacteria Urine Mucus 02/19/21 02/19/21 02/19/21 00:45 02:02 06:12 WBC Neutrophils # Lymphocytes # APTT Sodium Carbon Dioxide BUN Creatinine Glucose POC Glucose (mg/dL) 357 H 377 H Hemoglobin A1c Troponin I Urine Appearance Urine Glucose (UA) 4+ H Ur Leukocyte Esterase Moderate H Urine WBC 17 H Urine Bacteria Occasional H Urine Mucus Rare H 02/19/21 02/19/21 07:37 07:37 WBC Neutrophils # 8.1 H Lymphocytes # 0.9 L APTT Sodium 136 L Carbon Dioxide 20 L BUN 36 H Creatinine 1.20 H Glucose 425 H POC Glucose (mg/dL) Hemoglobin A1c Troponin I Urine Appearance Urine Glucose (UA) Ur Leukocyte Esterase Urine WBC Urine Bacteria Urine Mucus Assessment and Plan Assessment: Transient Delayed speech. Seems due to underlying hypoglycemia/metabolic encephalopathy and underlying UTI. TIA seems low on differential but cannot be cannot be rule out. Episode of altered mental status likely due to hypoglycemia (her sugar per EMS was 29). Metabolic encephalopathy due to sugars aren't 300 and has a acute kidney insufficiency and underlying UTI. History of diabetes mellitus on insulin pump currently her sugars are in the 300 chronic myelocytic leukemia, History of left breast cancer status post lumpectomy and radiation 2017 History of right breast cancer status post lumpectomy 2019 History of thyroid goiter History of diabetic retinopathy Hypertension Hyperlipidemia Plan: Currently the patient is restarted on her home medication of aspirin 81 mg and the was started on Lipitor 10 mg daily by cardiology team Patient and her do not want to pursue with any further investigation (carotid duplex or imaging since patient condition improved). PT, OT and [employer] are consulted Every 4 hours neuro checks. Cardiology is consulted Infection disease is also on board. Oncology team is also on board. We'll defer the rest of the medical management to the primary team. For DVT prophylaxis on Enoxaparin. Thank you for the consultation. There is no further neurological work-up. Neurology will sign off. Please reconsult neurology if any concerns. Mehrdad Diaz M.D. Neuro-hospitalist Time with Patient: Greater than 30
[2021-02-19 11:53] LABS: Glucose,Whole Blood 341 mg/dL (75-99)
[2021-02-19 13:52] LABS: Glucose,Whole Blood 368 mg/dL (75-99)
[2021-02-19] MEDS ORDERED: SODIUM CHLORIDE 0.9% 1,000 ML IV STA (13:56)
--- NOTE | 2021-02-19 14:01 | P.PN ---
Subjective Progress Note Date: 02/19/21 Roxanna Ortiz, is a 70-year-old female who presented to [facility] emergency room with a chief complaint of generalized weakness, chills, and mental status changes. She was evaluated in the emergency room vital examination on presentation revealed a temperature of 98.2 pulse 79 respiration 20 blood pressure 158/65 pulse ox 96% on room air Laboratory data revealed a white blood count of 16.8 hemoglobin 13.8 platelet count 237 sodium 139 potassium 4.2 chloride 107 CO2 22 BUN 27 creatinine 1.04 troponin level was elevated at 0.075 urine was cloudy with moderate bacteria, otherwise no signs of infection, urine toxicology screen was negative, Walker virus PCR was negative. Patient had low glucose level, at home and in the EMS, she has a known history of insulin-dependent diabetes mellitus and has an insulin pump, her insulin pump was disconnected in the EMS, and patient was given an amp of dextrose. Testing in the emergency room chest x-ray done in the emergency room revealed no acute cardiopulmonary abnormality, computed tomography scan of the brain without contrast done in the emergency room revealed no acute intracranial process, due to leukocytosis patient was given 1 dose of IV Rocephin in the emergency room. Patient was admitted to telemetry floor for further evaluation and treatment, cardiology consult was requested due to elevated troponin level. Past medical history is significant for chronic myelocytic leukemia followed by Dr. Penaloza, patient stated that she has not had any chemotherapy in the past, she also has a history of left breast cancer treated with lumpectomy and radiation therapy in 2016, and the right breast cancer treated with lumpectomy in 2019, patient also has a history of insulin-dependent diabetes mellitus maintained on insulin pump, history of thyroid goiter, history of diabetic retinopathy, history of morbid obesity, history of hypertension, and history of hyperlipidemia. On review of systems at this time patient is alert and oriented 3, she is still feeling weak and cold, otherwise she denies any specific complaints there is no fever or chills no headache or dizziness no chest pain no shortness of breath no cough no nausea or vomiting no abdominal pain no diarrhea no blood in the stools no burning with urination no frequency or urgency and no hematuria. On 02/19/2021 Patient was seen and examined on the medical floor, she is alert and oriented x 3 in no distress, she is still complaining of feeling weak and feeling cold otherwise she denies any complaints there is no fever or chills no headache or dizziness no chest pain no shortness of breath no palpitation no cough no nausea or vomiting no abdominal pain no diarrhea no blood in the stools no burning with urination no frequency or urgency and no hematuria, there is no weakness or numbness in any of the extremities no change in vision speech or gait. Repeat urine analysis reveals evidence of urinary tract infection shouldn't is maintained on IV Rocephin, in addition patient has evidence of acute kidney injury with elevated BUN at 36 and creatinine at 1.2 at this time will increase IV fluid to 80 mL per hour normal saline and continue to monitor Objective - Vital Signs Vital signs: Vital Signs Temp 98.2 F 02/19/21 12:07 Pulse 62 02/19/21 12:07 Resp 18 02/19/21 12:07 BP 134/61 02/19/21 12:07 Pulse Ox 96 02/19/21 12:07 Intake & Output 02/18/21 02/19/21 02/19/21 18:59 06:59 18:59 Intake Total 460 20 943 Balance 460 20 943 Weight 96.3 kg Intake: IV 20 20 470 Invasive Line 1 20 Invasive Line 2 20 20 Sodium Chloride 0.9% 1, 400 000 ml @ 50 mls/hr IV . Q20H [facility] Rx#:[id number] cefTRIAXone 1 gm In 50 Sodium Chloride 0.9% 50 ml @ 100 mls/hr IVPB Q24HR [facility] Rx#:[id number] Oral 440 473 Other: # Voids 1 1 1 - Exam In general patient is alert and oriented x 3 in no distress HEENT head normocephalic and atraumatic Neck is supple no JVD no goiter no lymphadenopathy no carotid bruit Chest examination is clear to auscultation no crackles no wheezing Cardiac exam reveals regular heart sounds S1 and S2 no gallops no murmurs Abdomen is soft nontender no organomegaly with normal bowel sounds Extremity exam reveals no edema no cyanosis or clubbing Neurological examination reveals no gross focal deficits - Labs CBC & Chem 7: 02/19/21 07:37 02/19/21 07:37 Labs: Abnormal Lab Results - Last 24 Hours (Table) 09/12/21 09/12/21 09/12/21 Range/Units 09:12 16:03 17:15 Neutrophils # (1.3-7.7) k/uL Lymphocytes # (1.0-4.8) k/uL Sodium (137-145) mmol/L Carbon Dioxide (22-30) mmol/L BUN (7-17) mg/dL Creatinine (0.52-1.04) mg/dL Glucose (74-99) mg/dL POC Glucose (mg/dL) 387 H 389 H (75-99) mg/dL Hemoglobin A1c 6.9 H (4.0-6.0) % Urine Glucose (UA) (Negative) Ur Leukocyte Esterase (Negative) Urine WBC (0-5) /hpf Urine Bacteria (None) /hpf Urine Mucus (None) /hpf 02/18/21 02/19/21 02/19/21 Range/Units 20:24 00:45 02:02 Neutrophils # (1.3-7.7) k/uL Lymphocytes # (1.0-4.8) k/uL Sodium (137-145) mmol/L Carbon Dioxide (22-30) mmol/L BUN (7-17) mg/dL Creatinine (0.52-1.04) mg/dL Glucose (74-99) mg/dL POC Glucose (mg/dL) 359 H 357 H (75-99) mg/dL Hemoglobin A1c (4.0-6.0) % Urine Glucose (UA) 4+ H (Negative) Ur Leukocyte Esterase Moderate H (Negative) Urine WBC 17 H (0-5) /hpf Urine Bacteria Occasional H (None) /hpf Urine Mucus Rare H (None) /hpf 02/19/21 02/19/21 02/19/21 Range/Units 06:12 07:37 07:37 Neutrophils # 8.1 H (1.3-7.7) k/uL Lymphocytes # 0.9 L (1.0-4.8) k/uL Sodium 136 L (137-145) mmol/L Carbon Dioxide 20 L (22-30) mmol/L BUN 36 H (7-17) mg/dL Creatinine 1.20 H (0.52-1.04) mg/dL Glucose 425 H (74-99) mg/dL POC Glucose (mg/dL) 377 H (75-99) mg/dL Hemoglobin A1c (4.0-6.0) % Urine Glucose (UA) (Negative) Ur Leukocyte Esterase (Negative) Urine WBC (0-5) /hpf Urine Bacteria (None) /hpf Urine Mucus (None) /hpf 02/19/21 02/19/21 Range/Units 11:48 13:50 Neutrophils # (1.3-7.7) k/uL Lymphocytes # (1.0-4.8) k/uL Sodium (137-145) mmol/L Carbon Dioxide (22-30) mmol/L BUN (7-17) mg/dL Creatinine (0.52-1.04) mg/dL Glucose (74-99) mg/dL POC Glucose (mg/dL) 341 H 368 H (75-99) mg/dL Hemoglobin A1c (4.0-6.0) % Urine Glucose (UA) (Negative) Ur Leukocyte Esterase (Negative) Urine WBC (0-5) /hpf Urine Bacteria (None) /hpf Urine Mucus (None) /hpf Assessment and Plan Plan: 1. Hypoglycemia, at this time, insulin pump has been disconnected, patient is receiving insulin per sliding scale 2. Leukocytosis, cause is unclear, white blood count was 16.8 in the emergency room, patient received 1 g of IV Rocephin, today white blood count is 12.7, there is no clear site of infection, urine is cloudy and has many bacteria however, leukocyte esterase and nitrates are negative, chest x-ray is negative, and there is no evidence of any skin infection on exam, no open ulcers on bilateral lower extremities, at this time blood culture are still pending, will continue with IV Rocephin and monitor closely. 3. Generalized weakness, could be related to hypoglycemia, however patient is feeling cold and having some chills, she improved since admission, we are awaiting blood culture results, will check TSH 4. Mental status changes, improved significantly since admission 5. Underlying history of leukemia, patient has chronic myelocytic leukemia, followed by Dr. Penaloza no treatment has been given in the past. Patient is maintained on Tasigna 300 mg by mouth twice a day, will consult oncology for follow-up 6. Underlying history of breast cancer, as above 7. Underlying history of insulin-dependent diabetes mellitus, maintained on insulin pump at home for many years now, and followed by Dr. Briseida Irvin, at this time insulin pump is disconnected and patient is receiving insulin per sliding scale. Will check hemoglobin A1c to assess glucose control. 8. Dehydration was elevated BUN at 34 and creatinine 1.29, patient started on IV fluid normal saline at 50 mL/h 9. Mild elevation in troponin level, cardiology consultation was requested 10. Underlying history of hyperlipidemia 11. Underlying history of hypertension 12. For DVT prophylaxis will give Lovenox 13. Patient is feeling cold, she has a history of goiter, will check TSH level 14. Dehydration with acute kidney injury BUN up to 36 and creatinine 1.2 Will increase IV fluid to normal saline at 80 mL/h and continue to monitor Will recheck labs and follow-up in a.m.
[2021-02-19 16:46] LABS: Glucose,Whole Blood 386 mg/dL (75-99)
--- NOTE | 2021-02-19 19:07 | PN ---
PROGRESS NOTE DATE OF SERVICE: 02/19/2021 REASON FOR FOLLOWUP: Leukocytosis; possible UTI. INTERVAL HISTORY: The patient is afebrile. The patient is feeling better. The patient denies having any chest pain, shortness of breath or cough. No nausea, no vomiting. No abdominal pain or diarrhea. PHYSICAL EXAMINATION: Blood pressure 134/61 with a pulse of 62, temperature 98.2. She is 96% on room air. GENERAL DESCRIPTION: General description is an elderly female up in the bed in no distress. RESPIRATORY SYSTEM: Unlabored breathing. Clear to auscultation anteriorly. HEART: S1, S2. Regular rate and rhythm. ABDOMEN: Soft. No tenderness. LABS: Repeat urine is positive. White count normalized to 9.6. Cultures are currently pending. DIAGNOSTIC IMPRESSION AND PLAN: Patient with leukocytosis, weakness. Source is likely urinary tract infection exam negative. Patient is currently covered with Rocephin; to continue while waiting for the culture to finalize and monitor clinical course closely. MMODL / IJN: [id number] /
[2021-02-19 19:51] LABS: Glucose,Whole Blood 338 mg/dL (75-99)
[2021-02-19] MEDS ORDERED: INSULIN DETEMIR (LEVEMIR) 100 UNIT/ML SYR SQ SCH (21:00)
[2021-02-20 01:58] LABS: Glucose,Whole Blood 215 mg/dL (75-99)
[2021-02-20 06:58] LABS: Glucose,Whole Blood 385 mg/dL (75-99)
[2021-02-20] MEDS: INSULIN ASPART (NovoLOG) 100 UNIT/ML VIAL SQ SCH ×4 (06:58→11:50)
[2021-02-20] MEDS: ASPIRIN 81 MG PO SCH (08:35)
[2021-02-20] MEDS: METOPROLOL TARTRATE 12.5 MG TAB PO SCH (08:35)
[2021-02-20] MEDS: lisinopriL 20 MG TAB PO SCH (08:35)
[2021-02-20] MEDS: ASCORBIC ACID 500 MG TAB PO SCH (08:36)
[2021-02-20] MEDS: NON FORMULARY DRUG (Folic Acid [Folic Acid] 0.4 MG Tablet) PO SCH (08:36)
[2021-02-20] MEDS: CHOLECALCIFEROL 25 MCG (1000 IU) TABLET PO SCH (08:36)
[2021-02-20] MEDS: hydrALAZINE HCL 50 MG TAB PO SCH (08:36)
[2021-02-20] MEDS: ENOXAPARIN 40 MG/0.4 ML SYRINGE SQ SCH (08:36)
[2021-02-20] MEDS: ATORVASTATIN 10 MG TAB PO SCH (08:36)
[2021-02-20] MEDS: VITAMIN E (DL,TOCOPHERYL ACET) 400 UNIT (180 MG) CAP PO SCH (08:37)
[2021-02-20] MEDS: Nilotinib Hcl [Tasigna] 150 MG Capsule PO SCH (08:37)
[2021-02-20] MEDS: LETROZOLE 2.5 MG TAB PO SCH (08:37)
[2021-02-20] MEDS: TRIAMTERENE-HCTZ 37.5-25MG 1 EACH CAP PO SCH (08:37)
[2021-02-20 11:49] LABS: Glucose,Whole Blood 329 mg/dL (75-99)
[2021-02-20 12:24] VITALS: BP 169/69; PULSE 63; RESP 18; TEMP 98.7
--- NOTE | 2021-02-20 12:43 | P.PN ---
Subjective This is a pleasant 70-year-old female brought to the hospital secondary to hypoglycemia and unresponsiveness. We're following secondary to elevated troponin. Echocardiogram obtained reveals preserved LV systolic function with ejection fraction 50-55%, mild MR, mild TR and small generalized pericardial effusion. Blood pressure 169/69 heart rate 63 afebrile maintaining oxygen saturation on room air. She is seen and examined sitting up in a recliner with her at the bedside. She continues to complain of feeling weak and tired. She has no symptoms of chest pain, shortness of breath, dizziness or palpitations. Review of office records indicate there is no prior history of documented atrial fibrillation. She has worn monitors in the past that have been unremarkable. Echocardiogram appears similar to previous echo obtained in the office in October of this year. GENERAL: Well-appearing, well-nourished and in no acute distress. NECK: Supple without JVD or thyromegaly. LUNGS: Breath sounds clear to auscultation bilaterally. Respiration equal and unlabored. No wheezes, rales or rhonchi. HEART: Regular rate and rhythm with systolic ejection murmur at the base no, rubs or gallops. S1 and S2 heard. EXTREMITIES: Normal range of motion, no edema. No clubbing or cyanosis. Peripheral pulses intact. ASSESSMENT Hypoglycemia Unresponsiveness secondary to hypoglycemia Mild troponin elevation related to hypoglycemia no evidence of ischemia Hypertension Dyslipidemia PLAN Stable from a cardiac perspective, follow-up with Dr. Owens upon discharge. Nurse Practitioner note has been reviewed, I agree with a documented findings and plan of care. Patient was seen and examined. Objective - Vital Signs Vital signs: Vital Signs Temp 98.7 F 02/20/21 12:00 Pulse 63 02/20/21 12:00 Resp 18 02/20/21 12:00 BP 169/69 02/20/21 12:00 Pulse Ox 95 02/20/21 12:00 Intake & Output 02/19/21 02/20/21 02/20/21 18:59 06:59 18:59 Intake Total 1483 255 Balance 1483 255 Weight 96.5 kg Intake: IV 470 Invasive Line 2 20 Sodium Chloride 0.9% 1, 400 000 ml @ 50 mls/hr IV . Q20H STA Rx#:[id number] cefTRIAXone 1 gm In 50 Sodium Chloride 0.9% 50 ml @ 100 mls/hr IVPB Q24HR MICHELE Rx#:[id number] Intake, IV Titration 75 Amount Sodium Chloride 0.9% 1, 75 000 ml @ 50 mls/hr IV . Q20H MICHELE Rx#:[id number] Oral 1013 180 Other: # Voids 1 2 - Labs CBC & Chem 7: 02/19/21 07:37 02/19/21 07:37 Labs: Abnormal Lab Results - Last 24 Hours (Table) 02/19/21 02/19/21 02/19/21 Range/Units 13:50 16:39 19:47 POC Glucose (mg/dL) 368 H 386 H 338 H (75-99) mg/dL 02/20/21 02/20/21 02/20/21 Range/Units 01:56 06:56 11:47 POC Glucose (mg/dL) 215 H 385 H 329 H (75-99) mg/dL Microbiology - Last 24 Hours (Table) 02/18/21 12:02 Blood Culture - Preliminary Blood No Growth after 24 hours
[2021-02-20 14:07] VITALS: BMI 37.7
[2021-02-20 15:00] LABS: Albumin 3.9 g/dL (3.5-5.0); Calcium 10.1 mg/dL (8.4-10.2); Potassium 4.6 mmol/L (3.5-5.1); Total Protein 6.9 g/dL (6.3-8.2)
--- NOTE | 2021-02-20 17:08 | P.DS ---
Providers Date of admission: 02/19/21 14:00 Expected date of discharge: 02/20/21 Attending physician: Navdeep Fields Consults: 02/17/21 16:30 Consult Physician Urgent Consulting Provider: [facility] Consult Reason/Comments: elevated trop Do you want consulting provider notified?: Yes 02/18/21 12:44 Consult Physician Routine Consulting Provider: Penny Shelton Consult Reason/Comments: leukocytosis Do you want consulting provider notified?: Yes 02/18/21 12:45 Consult Physician Routine Consulting Provider: Adam Penaloza Consult Reason/Comments: chronic leukemia Do you want consulting provider notified?: Yes 02/18/21 16:11 Consult Physician Routine Consulting Provider: Mehrdad Diaz Consult Reason/Comments: r/o cva delayed speech Do you want consulting provider notified?: Yes, Notify in am 02/19/21 15:37 Consult Physician Routine Consulting Provider: Cecille Garcia Consult Reason/Comments: Pericardial effusion Do you want consulting provider notified?: Yes Primary care physician: Tila Gutierrez Hospital Course: Diagnoses on discharge: 1. Hypoglycemia, at this time, insulin pump has been disconnected, patient is receiving insulin per sliding scale 2. Leukocytosis, cause is unclear, white blood count was 16.8 in the emergency room, patient received 1 g of IV Rocephin, today white blood count is 12.7, the re is no clear site of infection, urine is cloudy and has many bacteria however, leukocyte esterase and nitrates are negative, chest x-ray is negative, and there is no evidence of any skin infection on exam, no open ulcers on bilateral lower extremities, at this time blood culture are still pending, will continue with IV Rocephin and monitor closely. 3. Generalized weakness, could be related to hypoglycemia, however patient is feeling cold and having some chills, she improved since admission, we are awaiting blood culture results, will check TSH 4. Mental status changes, improved significantly since admission 5. Underlying history of leukemia, patient has chronic myelocytic leukemia, followed by Dr. Penaloza no treatment has been given in the past. Patient is maintained on Tasigna 300 mg by mouth twice a day, will consult oncology for follow-up 6. Underlying history of breast cancer, as above 7. Underlying history of insulin-dependent diabetes mellitus, maintained on insulin pump at home for many years now, and followed by Dr. Briseida Irvin, at this time insulin pump is disconnected and patient is receiving insulin per sliding scale. Will check hemoglobin A1c to assess glucose control. 8. Dehydration was elevated BUN at 34 and creatinine 1.29, patient started on IV fluid normal saline at 50 mL/h 9. Mild elevation in troponin level, cardiology consultation was requested 10. Underlying history of hyperlipidemia 11. Underlying history of hypertension 12. For DVT prophylaxis will give Lovenox 13. Patient is feeling cold, she has a history of goiter, will check TSH level 14. Dehydration with acute kidney injury BUN up to 36 and creatinine 1.2 Will increase IV fluid to normal saline at 80 mL/h and continue to monitor Hospital course: Roxanna Ortiz, is a 70-year-old female who presented to [facility] emergency room with a chief complaint of generalized weakness, chills, and mental status changes. She was evaluated in the emergency room vital examination on presentation revealed a temperature of 98.2 pulse 79 respiration 20 blood pressure 158/65 pulse ox 96% on room air Laboratory data revealed a white blood count of 16.8 hemoglobin 13.8 platelet count 237 sodium 139 potassium 4.2 chloride 107 CO2 22 BUN 27 creatinine 1.04 troponin level was elevated at 0.075 urine was cloudy with moderate bacteria, otherwise no signs of infection, urine toxicology screen was negative, Walker virus PCR was negative. Patient had low glucose level, at home and in the EMS, she has a known history of insulin-dependent diabetes mellitus and has an insulin pump, her insulin pump was disconnected in the EMS, and patient was given an amp of dextrose. Testing in the emergency room chest x-ray done in the emergency room revealed no acute cardiopulmonary abnormality, computed tomography scan of the brain without contrast done in the emergency room revealed no acute intracranial process, due to leukocytosis patient was given 1 dose of IV Rocephin in the emergency room. Patient was admitted to telemetry floor for further evaluation and treatment, cardiology consult was requested due to elevated troponin level. Past medical history is significant for chronic myelocytic leukemia followed by Dr. Penaloza, patient stated that she has not had any chemotherapy in the past, she also has a history of left breast cancer treated with lumpectomy and radiation therapy in 2016, and the right breast cancer treated with lumpectomy in 2019, patient also has a history of insulin-dependent diabetes mellitus maintained on insulin pump, history of thyroid goiter, history of diabetic retinopathy, history of morbid obesity, history of hypertension, and history of hyperlipidemia. On review of systems at this time patient is alert and oriented 3, she is still feeling weak and cold, otherwise she denies any specific complaints there is no fever or chills no headache or dizziness no chest pain no shortness of breath no cough no nausea or vomiting no abdominal pain no diarrhea no blood in the stools no burning with urination no frequency or urgency and no hematuria. On 02/19/2021 Patient was seen and examined on the medical floor, she is alert and oriented x 3 in no distress, she is still complaining of feeling weak and feeling cold otherwise she denies any complaints there is no fever or chills no headache or dizziness no chest pain no shortness of breath no palpitation no cough no nausea or vomiting no abdominal pain no diarrhea no blood in the stools no burning with urination no frequency or urgency and no hematuria, there is no weakness or numbness in any of the extremities no change in vision speech or gait. Repeat urine analysis reveals evidence of urinary tract infection shouldn't is maintained on IV Rocephin, in addition patient has evidence of acute kidney injury with elevated BUN at 36 and creatinine at 1.2 at this time will increase IV fluid to 80 mL per hour normal saline and continue to monitor On 02/20/2021 Patient is alert and oriented x 3 in no distress, she is feeling better, she denies any complaints there is no fever or chills no headache or dizziness no chest pain no shortness of breath no palpitation no cough no nausea or vomiting no abdominal pain no diarrhea no blood in the stools no burning with urination no frequency or urgency and no hematuria, there is no weakness or numbness in any of the extremities no change in vision speech or gait. Repeat urine analysis reveals evidence of urinary tract infection shouldn't is maintained on IV Rocephin, in addition patient has evidence of acute kidney injury with elevated BUN at 36 and creatinine at 1.2 at this time will increase IV fluid to 80 mL per hour normal saline, UN is down today to 28 and creatinine 1.09 patient is very eager to go home she will be discharged home today she will receive a course of Ceftin 500 mg twice a day for 7 days, patient is not sure on how to use her insulin pump, she was given a prescription for Levemir 20 units once daily at bedtime, and NovoLog 5 units before each meal plus NovoLog sliding scale before each meal, patient should follow-up with 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 Briseida Irvin as soon as possible. Patient Condition at Discharge: Stable Plan - Discharge Summary Discharge Rx Participant: No New Discharge Prescriptions: New Cefuroxime Axetil [Ceftin] 500 mg PO BID 7 Days #14 tab INSULIN ASPART (NovoLOG) [NovoLOG (formulary)] 5 unit SQ AC-TID ml INSULIN ASPART (NovoLOG) [NovoLOG (formulary)] 0 unit SQ ACHS ml Insulin Detemir (Levemir) [Levemir] 20 unit SQ HS 30 Days #3 ml Continue Simvastatin [Zocor] 20 mg PO HS Benazepril HCl 40 mg PO DAILY Nilotinib HCl [Tasigna] 300 mg PO BID Triamterene-Hctz 37.5-25Mg [Dyazide 37.5-25 Capsule] 1 cap PO DAILY Metoprolol Tartrate [Lopressor] 12.5 mg PO BID Furosemide [Lasix] 20 mg PO DAILY PRN PRN Reason: Edema ALPRAZolam [Xanax] 0.25 mg PO BID PRN PRN Reason: Anxiety Letrozole 2.5 mg PO DAILY hydrALAZINE HCL [Apresoline] 50 mg PO BID Dicyclomine [Bentyl] 20 mg PO TID PRN #20 tablet PRN Reason: abdominal pain Prochlorperazine [Compazine] 10 mg PO Q8H PRN #20 tab PRN Reason: Nausea Ondansetron HCl [Zofran] 4 mg PO Q8H PRN PRN Reason: Nausea And Vomiting traMADol HCL 50 mg PO BID PRN PRN Reason: Pain Aspirin [Adult Low Dose Aspirin EC] 81 mg PO DAILY Discontinued Insulin Aspart (For Pump) [NovoLOG (For Pump)] 0.01 unit SQ-PUMP CONTINUOUS No Action Vitamin E 400 unit PO DAILY Ascorbic Acid [Vitamin C] 500 mg PO DAILY Biotin 5 mg PO DAILY Folic Acid 0.4 mg PO DAILY Cholecalciferol [Vitamin D3 (25 Mcg = 1000 Iu)] 25 mcg PO DAILY Discharge Medication List Benazepril HCl 40 mg PO DAILY 04/20/18 [History] Simvastatin [Zocor] 20 mg PO HS 04/20/18 [History] Metoprolol Tartrate [Lopressor] 12.5 mg PO BID 06/24/18 [History] Nilotinib HCl [Tasigna] 300 mg PO BID 06/24/18 [History] Triamterene-Hctz 37.5-25Mg [Dyazide 37.5-25 Capsule] 1 cap PO DAILY 06/24/18 [History] ALPRAZolam [Xanax] 0.25 mg PO BID PRN 12/29/18 [History] Furosemide [Lasix] 20 mg PO DAILY PRN 12/29/18 [History] Ascorbic Acid [Vitamin C] 500 mg PO DAILY 02/29/20 [History] Letrozole 2.5 mg PO DAILY 02/29/20 [History] Vitamin E 400 unit PO DAILY 02/29/20 [History] Aspirin [Adult Low Dose Aspirin EC] 81 mg PO DAILY 02/12/21 [History] Biotin 5 mg PO DAILY 02/12/21 [History] Dicyclomine [Bentyl] 20 mg PO TID PRN #20 tablet 02/12/21 [Rx] Folic Acid 0.4 mg PO DAILY 02/12/21 [History] Prochlorperazine [Compazine] 10 mg PO Q8H PRN #20 tab 02/12/21 [Rx] hydrALAZINE HCL [Apresoline] 50 mg PO BID 02/12/21 [History] Cholecalciferol [Vitamin D3 (25 Mcg = 1000 Iu)] 25 mcg PO DAILY 02/17/21 [History] Ondansetron HCl [Zofran] 4 mg PO Q8H PRN 02/17/21 [History] traMADol HCL 50 mg PO BID PRN 02/17/21 [History] Cefuroxime Axetil [Ceftin] 500 mg PO BID 7 Days #14 tab 02/20/21 [Rx] INSULIN ASPART (NovoLOG) [NovoLOG (formulary)] 0 unit SQ ACHS ml 02/20/21 [Rx] INSULIN ASPART (NovoLOG) [NovoLOG (formulary)] 5 unit SQ AC-TID ml 02/20/21 [Rx] Insulin Detemir (Levemir) [Levemir] 20 unit SQ HS 30 Days #3 ml 02/20/21 [Rx] Follow up Appointment(s)/Referral(s): Tila Gutierrez MD [Primary Care Provider] - 02/26/21 11:15 am Gordy Owens MD [STAFF PHYSICIAN] - 2 Weeks (OFFICE WILL CALL YOU WITH APPOINTMENT DATE AND TIME.) [facility], [NON-STAFF] - Adam Penaloza MD [STAFF PHYSICIAN] - 04/13/21 8:30 am Patient Instructions/Handouts: Urinary Tract Infection in Women (ED), Hypoglycemia in a Person with Diabetes (DC), Basic Carbohydrate Counting (DC), Managing Diabetes During Sick Days (ED), Diabetes and Your Skin (ED), Hemoglobin A1c (GEN), What to Do if Your Blood Sugar is Low (ED), Diabetes and Nutrition (ED), Diabetes and Exercise (ED) Activity/Diet/Wound Care/Special Instructions: Ok to resume Tasigna and Femara on discharge Discharge Disposition: HOME SELF-CARE
== END 2021-02-20 16:12 | disposition home or self-care (01) | DRG 637 ==
LOC: EC 13:47 → 3SCARD 16:28 → OBSVTOIN 02-19 14:00
PROVIDERS: ADMIT Internal Medicine; ATTEND Internal Medicine
DX: E11.649 Type 2 diabetes mellitus with hypoglycemia without coma (principal); G93.41 Metabolic encephalopathy; N39.0 Urinary tract infection, site not specified; I31.3 Pericardial effusion (noninflammatory); C92.11 Chronic myeloid leukemia, BCR/ABL-positive, in remission; C92.10 Chronic myeloid leukemia, BCR/ABL-positive, not having achieved remission; Z20.822 Contact with and (suspected) exposure to COVID-19; E11.319 Type 2 diabetes mellitus with unspecified diabetic retinopathy without macular edema; E78.5 Hyperlipidemia, unspecified; R79.89 Other specified abnormal findings of blood chemistry; N17.9 Acute kidney failure, unspecified; E86.0 Dehydration; I08.1 Rheumatic disorders of both mitral and tricuspid valves; F40.240 Claustrophobia; F80.9 Developmental disorder of speech and language, unspecified; I10 Essential (primary) hypertension; I48.91 Unspecified atrial fibrillation; R56.9 Unspecified convulsions; Z79.4 Long term (current) use of insulin; Z79.811 Long term (current) use of aromatase inhibitors; Z79.82 Long term (current) use of aspirin; Z79.899 Other long term (current) drug therapy; Z85.3 Personal history of malignant neoplasm of breast; Z87.891 Personal history of nicotine dependence; Z90.2 Acquired absence of lung [part of]; Z92.3 Personal history of irradiation; Z96.41 Presence of insulin pump (external) (internal); Z96.642 Presence of left artificial hip joint; Z88.5 Allergy status to narcotic agent
CPT/HCPCS: 36415; 70450; 71046; 80048; 80053; 80143; 80179; 80306; 80320; 81001; 82140; 82550; 83036; 83605; 84443; 84484; 85025; 85610; 85730; 87040; 87086; 87635; 93005; 93306; 96372; 96374; 96375; 99285

== ENCOUNTER → 2021-06-12 | Outpatient (CLI) | payer MEDICARE ==
[2021-06-12 11:41] VITALS: BP 143/76; PULSE 61; RESP 18; TEMP 98.1
--- NOTE | 2021-06-12 12:50 | P.HPOB ---
History of Present Illness H&P Date: 06/12/21 Chief Complaint: The patient is here for her routine gynecologic exam. This is a 70-year-old G0 with an LMP of 1993. The patient is status post endometrial ablation in 1993 and has been amenorrheic since then. She is believed to have gone through a menopausal change around 2000. She has a history of lichen sclerosus of the vulva confirmed by a vulvar biopsy. She states she has been having much more pruritus on the labia minora of the left side. She has not been using the Temovate ointment for quite some time since her prescription had run out. She also has noticed a lump on the right labia majora for about 1 month. This is not pruritic or painful. Review of Systems The patient has lost 14 pounds over the last year. She denies respiratory, cardiac, or G.I. problems. Past Medical History Past Medical History: Cancer, Diabetes Mellitus, Hypertension, Thyroid Disorder Additional Past Medical History / Comment(s): heart murmur, Intermittent PAC. 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 Lichen sclerosus of the vulva confirmed with biopsy in 2018. History of Any Multi-Drug Resistant Organisms: None Reported Past Surgical History: Ablation, Orthopedic Surgery, Uterine Ablation Additional Past Surgical History / Comment(s): 2 lt breast lumpectomies mar,apr 2017, right breast lumpectomy 2019, cyst removed from toe lt foot 1997, bilat eye vitrectomy and annette cataract 1991, ganglion cyst lt wrist 1968, endometrial ablation 1993, Left hip replacement 2018. Colonoscopy 2017. Past Anesthesia/Blood Transfusion Reactions: No Reported Reaction Past Psychological History: No Psychological Hx Reported Additional Psychological History / Comment(s): claustrophobic Smoking Status: Former smoker Past Alcohol Use History: Rare (3 per year) Additional Past Alcohol Use History / Comment(s): quit smoking 1981, smoked in college Past Drug Use History: None Reported Additional History: She has been since 1983 and is not sexually active. 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 - Past Family History Father Family Medical History: Cancer Additional Family Medical History / Comment(s): prostate, pancreatic Mother Family Medical History: Diabetes Mellitus, Myocardial Infarction ([place]) Medications and Allergies Home Medications Medication Instructions Recorded Confirmed Type Benazepril HCl 40 mg PO DAILY 04/20/18 06/12/21 History Simvastatin [Zocor] 20 mg PO HS 04/20/18 06/12/21 History Metoprolol Tartrate [Lopressor] 12.5 mg PO BID 06/24/18 06/12/21 History Nilotinib HCl [Tasigna] 300 mg PO BID 06/24/18 06/12/21 History Triamterene-Hctz 37.5-25Mg 1 cap PO DAILY 06/24/18 06/12/21 History [Dyazide 37.5-25 Capsule] ALPRAZolam [Xanax] 0.25 mg PO BID PRN 12/29/18 06/12/21 History Furosemide [Lasix] 20 mg PO DAILY PRN 12/29/18 06/12/21 History Ascorbic Acid [Vitamin C] 500 mg PO DAILY 02/29/20 06/12/21 History Letrozole 2.5 mg PO DAILY 02/29/20 06/12/21 History Vitamin E 400 unit PO DAILY 02/29/20 06/12/21 History Aspirin [Adult Low Dose Aspirin EC] 81 mg PO DAILY 02/12/21 06/12/21 History Biotin 5 mg PO DAILY 02/12/21 06/12/21 History Folic Acid 0.4 mg PO DAILY 02/12/21 06/12/21 History hydrALAZINE HCL [Apresoline] 50 mg PO BID 02/12/21 06/12/21 History Cholecalciferol [Vitamin D3 (25 25 mcg PO DAILY 02/17/21 06/12/21 History Mcg = 1000 Iu)] INSULIN ASPART (NovoLOG) [NovoLOG 5 unit SQ AC-TID ml 02/20/21 06/12/21 Rx (formulary)] Allergies Allergy/AdvReac Type Severity Reaction Status Date / Time hydrocodone [From [place]] AdvReac affects Verified 06/12/21 11:32 breathing Exam Vital Signs Temp Pulse Resp BP Pulse Ox 06/12/21 11:32 98.1 F 61 18 143/76 98 Intake and Output 06/11/21 06/12/21 06/12/21 22:59 06:59 14:59 Other: Weight 97.069 kg Height 5 feet 3-1/2 inches, weight 214 pounds, BMI 37.3. This is a well-developed well-nourished heavyset white female who is alert and oriented times 3 in no acute distress. HEENT: Within normal limits. NECK: Supple without mass or thyromegaly. CHEST AND LUNGS: Clear to auscultation. HEART: Regular rate and rhythm. BREASTS: The right breast has a firm area measuring approximately 3 cm at the 10 o'clock position near the area of her previous lumpectomy. The patient has been followed for bilateral seromas by her breast surgeon. There are no other right- sided breast masses. The left breast also has a firm area measuring approximately 3 cm at the 11 o'clock position. There are no other masses noted on the left side. There is no nipple discharge. AXILLARY EXAM: Negative for adenopathy. BACK: Negative for CVA tenderness. ABDOMEN: Soft, nontender, without palpable masses. PELVIC EXAM: External genitalia reveals mild to moderate atrophy. There is a right labia majora boil measuring approximate 12 x 10 mm which appears benign and has a white head without drainage. This is nontender and minimally erythematous. On the inner aspect of the left labia majora at the 3 o'clock position of the introitus, her previous biopsy site is noted with an area of pallor surrounding in approximately 1.8 x 0.8 cm. This is where the patient has been having significant pruritus. There is otherwise minimal generalized pallor noted on the external genitalia. Cervix and vagina appear normal with mild to moderate atrophy. There is no unusual discharge. There is no evidence of prolapse. The uterus is midposition, nongravid size and nontender. There are no palpable adnexal masses or tenderness. Bimanual examination is somewhat limited secondary to her size. RECTAL EXAM: Rectovaginal exam is negative for mass or tenderness and is negative for occult blood. EXTREMITIES: Nontender. IMPRESSION: 1. 70-year-old menopausal female with benign-appearing right labia majora boil measuring approximately 10 x 12 mm. 2. History of lichen sclerosus of the vulva confirmed with vulvar biopsy in 2018. The area of the vulvar biopsy at the 3 o'clock position on the inner aspect of the left labia minora has increased pallor and focal leukoplakia. This is the area that she has been having significant pruritus and has not been using her Temovate ointment since her prescription ran out. 3. History of bilateral breast cancer with bilateral seromas that have been followed conservatively by her breast surgeon and oncologist. PLAN: 1. Pap smear was performed. Her last one was negative in 2018. If this one is negative we will plan on repeating it in 2-3 years. At that time we'll consider discontinuing Pap smears. 2. Self breast awareness was discussed with the patient. We have also discussed symptoms associated with inflammatory breast cancer. 3. Mammogram will be due in August 2021. She states she has an order for this and does this through her breast surgeon at [facility] in [place]. 4. She will use warm shot compresses to the right labia majora boil. She will do this twice a day to see if she can get it to drain. She is to avoid inserting anything into the boil. 5. She will restart using Temovate ointment 0.05% twice a day 2 weeks and then she will use it once a day for 2 weeks. She is to make an appointment for 4 weeks so I can reevaluate this and the right vulvar boil. Depending on the appearance of the previous biopsy site, we will consider re-biopsying the area at that time. The electronic prescription for the Temovate ointment will be sent to [facility] pharmacy in [place]. 6. Recheck in 4 weeks.
== END ==
LOC: WWCWWP 11:04
PROVIDERS: ATTEND Obstetrics & Gynecology
DX: N90.4 Leukoplakia of vulva (principal); I10 Essential (primary) hypertension; E11.319 Type 2 diabetes mellitus with unspecified diabetic retinopathy without macular edema; E66.9 Obesity, unspecified; Z87.891 Personal history of nicotine dependence; Z85.3 Personal history of malignant neoplasm of breast; Z79.4 Long term (current) use of insulin; Z79.899 Other long term (current) drug therapy; Z88.5 Allergy status to narcotic agent; Z68.37 Body mass index [BMI] 37.0-37.9, adult

== ENCOUNTER → 2021-08-09 | Outpatient (CLI) | payer MEDICARE ==
[2021-08-09 15:23] LABS: ALT 31 U/L (8-44); AST 20 U/L (13-35); Albumin 4.3 g/dL (3.8-4.9); Albumin/Globulin Ratio 1.59 (1.60-3.17); Alkaline Phosphatase 107 U/L (41-126); Blood Urea Nitrogen 30.6 mg/dL (9.0-27.0); Calcium 9.9 mg/dL (8.7-10.3); Chloride 108 mmol/L (96-109); Chol/HDL Ratio 3.06 Ratio; Globulin 2.7 g/dL (1.6-3.3); Glucose 74 mg/dL (70-110); LDL Cholesterol,Calculated 71.2 mg/dL (0.0-131.0); Non-African American GFR(CKD) 45.8 (60.0-200.0); Potassium 4.2 mmol/L (3.5-5.5); Sodium 140 mmol/L (135-145)
== END | disposition home or self-care (01) ==
LOC: LABWHC1 09:56
PROVIDERS: ATTEND Internal Medicine Endocrinology, Diabetes & Metabolism
DX: E11.65 Type 2 diabetes mellitus with hyperglycemia (principal); E03.8 Other specified hypothyroidism
CPT/HCPCS: 36415; 80053; 80061; 83036; 84443

== ENCOUNTER → 2021-08-21 | Outpatient (CLI) | payer MEDICARE ==
[2021-08-21 11:31] VITALS: BP 148/67; PULSE 68; RESP 17; TEMP 98.3
--- NOTE | 2021-08-21 12:18 | P.PN ---
Progress Note - Text Progress Note Date: 08/21/21 Chief Complaint: Recheck on vulvar pruritus. HPI: This is a 70-year-old G0 with an LMP of 1993. The patient was seen on 06/12/2021 and had an area of leukoplakia on the inner left labia at the area of her previous vulvar biopsy in 2018. The vulvar biopsy at that time showed lichen sclerosus. She has been having significant itching in that area. She was restarted on Temovate ointment, but she states it caused significant burning so she discontinued it right away. She has been using petroleum jelly alone which seems to help with the pruritus and burning. She was also found to have a boil on the right labia majora and she did notice slight drainage at one poin PE: Blood pressure: 148/67, Height: 5 feet 3 inches, Weight: 214 pounds, Temperature: 98.3, Pulse: 68. Pulse oximeter 95%. This is a well developed, well nourished, heavyset white female who is alert and orientedx3, in no acute distress. External genitalia reveals a right labia majora boil measuring 10 x 12 mm which is unchanged from her exam 2 months ago. There is a small stubbs didn't which is draining a small amount of whitish pus. There is mild erythema in this is minimally tender. On the inner aspect of the left labia minora, it continues to be a whitish area in a horse shoe shape which surrounds the area of her previous 2018 biopsy. This is very similar to her exam on 06/12/2021. Impression: 1. 70-year-old menopausal female with area of lichen sclerosus of the vulva at the inner aspect of the left labia minora. She has not been using the Temovate ointment because of burning associated with the ointment. 2. Right labia majora boil which is unchanged. This has a benign appearance. Plan: 1. We have discussed the option of using a lower potency steroid cream such as Kenalog cream. She would like to try diluting the Temovate ointment with petroleum jelly. She will do this in a one-to-one ratio to see if this is more tolerable and to see if her symptoms improve with this. If she continues to have some burning, she can try diluting it with 2 parts petroleum jelly to 1 part Temovate ointment. If it still is burning, she will call and we can try a lower potency steroid cream or ointment. 2. She will use warm compresses to the right vulvar boil in the pisiform amount of Neosporin ointment after she does this. She'll try to get it to drain more without poking it. 3. She will return in 1-2 months for reevaluation. We will again considered biopsying the whitish area if it is not improving. Other options is to consider would be referral for excision of the area and possible drainage of the boil. Time spent with the patient: 20 minutes
== END ==
LOC: WWCWWP 11:09
PROVIDERS: ATTEND Obstetrics & Gynecology
DX: N90.4 Leukoplakia of vulva (principal); Z78.0 Asymptomatic menopausal state; Z87.891 Personal history of nicotine dependence; Z88.5 Allergy status to narcotic agent

== ENCOUNTER → 2021-08-27 | Outpatient (CLI) | payer MEDICARE ==
--- NOTE | 2021-08-29 09:15 | MM ---
Reason for exam: screening (asymptomatic). Last mammogram was performed 1 year ago. History: Patient has history of breast cancer at age 68, has history of other cancer at age 67, and is nulliparous. Family history of breast cancer in paternal uncle at age 27 and breast cancer in paternal cousin at age 40. Malignant MG stereo VAD BX RT of the right breast, August 20, 2019. Lumpectomy of the right breast, 2019. Lumpectomy of the left breast, 2016. Radiation therapy of the left breast, 2017. Taking antineoplastic beginning at age 68. Physical Findings: A clinical breast exam by your physician is recommended on an annual basis and results should be correlated with mammographic findings. MG 3D Screening Mammo W/Cad Bilateral CC and MLO view(s) were taken. Prior study comparison: August 25, 2020, bilateral MG 3d diag mammo w/cad OSVALDO. August 05, 2019, bilateral MG 3d diag mammo w/cad OSVALDO. There are scattered fibroglandular densities. Finding: There are typically benign diffuse/scattered coarse calcifications in the right breast. Focal asymmetry in the left breast, stable. No significant changes in finding since August 25, 2020 and August 05, 2019. ASSESSMENT: Benign, BI-RAD 2 RECOMMENDATION: Routine screening mammogram of both breasts in 1 year.
== END | disposition home or self-care (01) ==
LOC: RADMAMWWP 10:01
PROVIDERS: ATTEND Internal Medicine Hematology & Oncology
DX: Z12.31 Encounter for screening mammogram for malignant neoplasm of breast (principal); Z85.3 Personal history of malignant neoplasm of breast; Z80.3 Family history of malignant neoplasm of breast
CPT/HCPCS: 77063; 77067

== ENCOUNTER 2021-09-17 01:29 | Emergency (ER) | payer MEDICARE ==
[2021-09-17] MEDS ORDERED: SODIUM CHLORIDE 0.9% 500 ML 500 ML IV STA (02:41)
[2021-09-17 02:42] VITALS: RESP 18
[2021-09-17] MEDS ORDERED: IPRATROPIUM-ALBUTEROL 3 ML NEB INHALATION STA (02:42)
--- NOTE | 2021-09-17 02:48 | ED ---
URI HPI - General Chief Complaint: Upper Respiratory Infection Stated Complaint: Cough, Shortness of Breath Time Seen by Provider: 09/17/21 02:16 Source: patient, RN notes reviewed Mode of arrival: ambulatory Limitations: no limitations - History of Present Illness Initial Comments: This is a pleasant 70-year-old female with a history of breast cancer and leukemia. Patient presents today with ongoing cough which is worsening over the past several days. Patient was seen by her oncologist, stoker mechanic, and urgent care. Patient was given cough medicines which are not helping. Patient states it feels like her lungs are filling up. Patient does take furosemide at home. She denies any fever. No known fever. He should also has similar symptomology. She states that she has had symptoms for over one week. No headache, no fever or chills, no changes in vision or hearing, no sore throat or difficulty with speech, no neck pain, no chest pain, no abdominal pain, no nausea or vomiting, no changes in urination or bowel movements, no numbness or tingling, no extremity pain, no skin rashes or lesions. MD Complaint: cough, rhinorrhea, nasal congestion - Related Data Home Medications Medication Instructions Recorded Confirmed Benazepril HCl 40 mg PO DAILY 04/20/18 08/21/21 Simvastatin [Zocor] 20 mg PO HS 04/20/18 08/21/21 Metoprolol Tartrate [Lopressor] 12.5 mg PO BID 06/24/18 08/21/21 Nilotinib HCl [Tasigna] 300 mg PO BID 06/24/18 08/21/21 Triamterene-Hctz 37.5-25Mg 1 cap PO DAILY 06/24/18 08/21/21 [Dyazide 37.5-25 Capsule] ALPRAZolam [Xanax] 0.25 mg PO BID PRN 12/29/18 08/21/21 Furosemide [Lasix] 20 mg PO DAILY PRN 12/29/18 08/21/21 Ascorbic Acid [Vitamin C] 500 mg PO DAILY 02/29/20 08/21/21 Letrozole 2.5 mg PO DAILY 02/29/20 08/21/21 Vitamin E 400 unit PO DAILY 02/29/20 08/21/21 Aspirin [Adult Low Dose Aspirin EC] 81 mg PO DAILY 02/12/21 08/21/21 Biotin 5 mg PO DAILY 02/12/21 08/21/21 Folic Acid 0.4 mg PO DAILY 02/12/21 08/21/21 hydrALAZINE HCL [Apresoline] 50 mg PO BID 02/12/21 08/21/21 Cholecalciferol [Vitamin D3 (25 25 mcg PO DAILY 02/17/21 08/21/21 Mcg = 1000 Iu)] Previous Rx's Medication Instructions Recorded INSULIN ASPART (NovoLOG) [NovoLOG 5 unit SQ AC-TID ml 02/20/21 (formulary)] Clobetasol Propionate [Temovate] 30 gm TP BID PRN #30 g 06/12/21 Albuterol Nebulized [Ventolin 2.5 mg INHALATION Q4H #50 ml 09/17/21 Nebulized] guaiFENesin [Mucinex] 1,200 mg PO BID #24 tab 09/17/21 Allergies Allergy/AdvReac Type Severity Reaction Status Date / Time hydrocodone [From [place]] AdvReac affects Verified 09/17/21 01:35 breathing Review of Systems ROS Statement: Those systems with pertinent positive or pertinent negative responses have been documented in the HPI. ROS Other: All systems not noted in ROS Statement are negative. Past Medical History Past Medical History: Cancer, Diabetes Mellitus, Hypertension, Thyroid Disorder Additional Past Medical History / Comment(s): heart murmur, Intermittent PAC. 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 Lichen sclerosus of the vulva confirmed with biopsy in 2018. History of Any Multi-Drug Resistant Organisms: None Reported Past Surgical History: Ablation, Orthopedic Surgery, Uterine Ablation Additional Past Surgical History / Comment(s): 2 lt breast lumpectomies mar,apr 2017, right breast lumpectomy 2019, cyst removed from toe lt foot 1997, bilat eye vitrectomy and annette cataract 1991, ganglion cyst lt wrist 1968, endometrial ablation 1993, Left hip replacement 2018. Colonoscopy 2017. Past Anesthesia/Blood Transfusion Reactions: No Reported Reaction Past Psychological History: No Psychological Hx Reported Smoking Status: Former smoker Past Alcohol Use History: Rare Past Drug Use History: None Reported - Past Family History Father Family Medical History: Cancer Additional Family Medical History / Comment(s): prostate, pancreatic Mother Family Medical History: Diabetes Mellitus, Myocardial Infarction ([place]) General Exam - General Exam Comments Initial Comments: Vital signs reviewed. Patient in no distress at the time I'm in the room. Appears to be adequately hydrated. Limitations: no limitations General appearance: alert, in no apparent distress Head exam: Present: atraumatic, normocephalic, normal inspection Eye exam: Present: normal appearance, PERRL, EOMI. Absent: scleral icterus, conjunctival injection, periorbital swelling ENT exam: Present: normal exam, normal oropharynx, mucous membranes dry, mucous membranes moist, TM's normal bilaterally, normal external ear exam Neck exam: Present: normal inspection, full ROM. Absent: tenderness, meningismus, lymphadenopathy Respiratory exam: Present: normal lung sounds bilaterally. Absent: respiratory distress, wheezes, rales, rhonchi, stridor Cardiovascular Exam: Present: regular rate, normal rhythm, normal heart sounds. Absent: systolic murmur, diastolic murmur, rubs, gallop, clicks GI/Abdominal exam: Present: soft, normal bowel sounds. Absent: distended, tenderness, guarding, rebound, rigid Extremities exam: Present: normal inspection, full ROM, normal capillary refill. Absent: tenderness, pedal edema, joint swelling, calf tenderness Back exam: Present: normal inspection Neurological exam: Present: alert, oriented X3, CN II-XII intact Psychiatric exam: Present: normal affect, normal mood Skin exam: Present: warm, dry, intact, normal color. Absent: rash Course Vital Signs 09/17/21 09/17/21 09/17/21 01:31 02:31 03:05 Temperature 97.6 F Pulse Rate 64 65 66 Respiratory 20 18 Rate Blood Pressure 129/55 155/62 O2 Sat by Pulse 96 98 Oximetry 09/17/21 09/17/21 03:10 03:49 Temperature 97.5 F L Pulse Rate 69 64 Respiratory 18 Rate Blood Pressure 134/48 O2 Sat by Pulse 96 Oximetry Medical Decision Making - Medical Decision Making Patient symptomology most consistent with a common cold. However we will order other viral testing such as influenza and COVID-19. This is patient's third visit to a healthcare provider for orthopedic counseled to follow consultation with her oncologist. Order blood work, chest x-ray, will also add on an EKG and a BNP. Patient Positive for influenza A. Patient remained hemodynamically stable here in the emergency department. No tachypnea. SpO2 is 98% on room air. Patient did have a dry cough. No fever. No respiratory distress. I had a lengthy discussion with the patient regarding etiology and disease course. Of course with having symptoms greater than one week patient is outside the window for antiviral medication. Patient states the Phenergan given to her by her stoker mechanic sedates her. Patient also has Tavia Keyes she received from the urgent care. We'll try Mucinex and albuterol. Patient's does have a nebulizer at home. We'll have her do a treatment every 4 hours. She is to call her stoker mechanic tomorrow without fail. Patient concurs with this treatment plan. The case was discussed in detail with ED attending physician. Presentation, findings, treatment plan discussed in detail. Follow-up with your regular physician as directed. Return to the ER immediately if any symptoms worsen, new symptoms arise, or any other problems develop. - Lab Data Lab Results 09/17/21 09/17/21 Range/Units 01:38 03:43 POC Glucose (mg/dL) 89 (75-99) mg/dL POC Glu Client Relations Representative ID Edwardo Hartman Influenza Type A (PCR) Detected A (Not Detectd) Influenza Type B (PCR) Not Detected (Not Detectd) RSV (PCR) Not Detected (Not Detectd) SARS-CoV-2 (PCR) Not Detected (Not Detectd) - EKG Data EKG Comments: EKG done at 2:51 AM reveals sinus rhythm with a rate of 60. Intervals are normal. Normal axis. No evidence of acute ST or T-wave changes. Normal QRS morphology. Patient does have poor R-wave progression. When compared to the previous EKG from February 2021 there no significant changes. Disposition Clinical Impression: Influenza A Disposition: HOME SELF-CARE Condition: Stable Instructions (If sedation given, give patient instructions): Influenza (ED) Additional Instructions: cough medication as directed. Albuterol nebulizer every 4 hours as needed for cough or wheezing. Follow-up with your regular physician as directed. Return to the ER immediately if any symptoms worsen, new symptoms arise, or any other problems develop. Prescriptions: guaiFENesin [Mucinex] 1,200 mg PO BID #24 tab Albuterol Nebulized [Ventolin Nebulized] 2.5 mg INHALATION Q4H #50 ml Is patient prescribed a controlled substance at d/c from ED?: No Referrals: Tila Gutierrez MD [Primary Care Provider] - 1-2 days Time of Disposition: 04:13
[2021-09-17] MEDS ORDERED: guaiFENesin 600 MG TABLET.ER PO STA (03:04)
--- NOTE | 2021-09-17 03:11 | XR ---
EXAMINATION TYPE: XR chest 2V DATE OF EXAM: 09/17/2021 COMPARISON: 09/06/2021 HISTORY: Cough TECHNIQUE: 2 views FINDINGS: Heart is enlarged. There is no heart failure. There are no hilar masses. Costophrenic angle s are clear. Bony thorax is intact. IMPRESSION: No active cardiopulmonary disease. Cardiomegaly. No change.
[2021-09-17 03:45] LABS: Glucose,Whole Blood 89 mg/dL (75-99)
[2021-09-17 03:51] VITALS: BP 134/48; PULSE 64; TEMP 97.5
== END 2021-09-17 03:54 | disposition home or self-care (01) ==
LOC: EC 01:29
DX: J10.1 Influenza due to other identified influenza virus with other respiratory manifestations (principal); Z20.822 Contact with and (suspected) exposure to COVID-19; E11.319 Type 2 diabetes mellitus with unspecified diabetic retinopathy without macular edema; I10 Essential (primary) hypertension; Z87.891 Personal history of nicotine dependence; Z79.4 Long term (current) use of insulin; Z79.82 Long term (current) use of aspirin; Z79.899 Other long term (current) drug therapy
CPT/HCPCS: 36415; 71046; 87636; 93005; 94640; 99284

== ENCOUNTER 2021-11-26 14:12 | Emergency (ER) | payer MEDICARE ==
[2021-11-26 14:18] VITALS: BP 158/69; PULSE 70; RESP 18; TEMP 98.4
--- NOTE | 2021-11-26 17:29 | ED ---
General Adult HPI - General Chief complaint: Skin/Abscess/Foreign Body Stated complaint: Blood Clot in Right Leg Time Seen by Provider: 11/26/21 17:20 Source: patient, RN notes reviewed, old records reviewed Mode of arrival: ambulatory Limitations: no limitations - History of Present Illness Initial comments: 71-year-old female, alert and oriented 4, presents ambulatory with complaints of a red bump on her lower right leg since Friday. Patient denies any injury. It has been progressively more tender and red and seems to be getting larger. She does have a history of diabetes, CML and breast cancer. She did see her oncologist but did not mention the lesion to him. She did go to urgent care today and they stated that she may have a blood clot and requested her to come to the emergency room for ultrasound. She denies any fevers, no nausea vomiting or diarrhea, no chest pain or difficulty in breathing. -: days(s) (4) Location: right (1cm circular area of erythema proximal lower leg), lower extremity Severity scale (1-10): 0 Quality: other (sore with palpation) Consistency: constant Improves with: none Worsens with: other (palpation) Associated Symptoms: denies other symptoms Treatments Prior to Arrival: none - Related Data Home Medications Medication Instructions Recorded Confirmed Benazepril HCl 40 mg PO DAILY 04/20/18 11/26/21 Simvastatin [Zocor] 20 mg PO HS 04/20/18 11/26/21 Metoprolol Tartrate [Lopressor] 12.5 mg PO BID 06/24/18 11/26/21 Nilotinib HCl [Tasigna] 300 mg PO BID 06/24/18 11/26/21 ALPRAZolam [Xanax] 0.25 mg PO BID PRN 12/29/18 11/26/21 Furosemide [Lasix] 20 mg PO DAILY PRN 12/29/18 11/26/21 Ascorbic Acid [Vitamin C] 500 mg PO HS 02/29/20 11/26/21 Letrozole 2.5 mg PO HS 02/29/20 11/26/21 Vitamin E 400 unit PO HS 02/29/20 11/26/21 Aspirin [Adult Low Dose Aspirin EC] 81 mg PO HS 02/12/21 11/26/21 Biotin 5 mg PO HS 02/12/21 11/26/21 Folic Acid 0.4 mg PO HS 02/12/21 11/26/21 hydrALAZINE HCL [Apresoline] 50 mg PO BID 02/12/21 11/26/21 Cholecalciferol [Vitamin D3 (25 25 mcg PO DAILY 02/17/21 11/26/21 Mcg = 1000 Iu)] INSULIN ASPART (NovoLOG) [NovoLOG 0.01 unit SQ-PUMP CONTINUOUS MDD 11/26/21 11/26/21 (formulary)] 160 UNITS Triamterene/Hydrochlorothiazid 1 tab PO DAILY 11/26/21 11/26/21 [Triamterene-Hctz 37.5-25 mg Tb] Previous Rx's Medication Instructions Recorded Cephalexin [Keflex] 500 mg PO Q6HR 7 Days #28 cap 11/26/21 Allergies Allergy/AdvReac Type Severity Reaction Status Date / Time hydrocodone [From [place]] AdvReac affects Verified 11/26/21 18:31 breathing Review of Systems ROS Statement: Those systems with pertinent positive or pertinent negative responses have been documented in the HPI. ROS Other: All systems not noted in ROS Statement are negative. Past Medical History Past Medical History: Cancer, Diabetes Mellitus, Hypertension, Thyroid Disorder Additional Past Medical History / Comment(s): heart murmur, Intermittent PAC. 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 Lichen sclerosus of the vulva confirmed with biopsy in 2018. History of Any Multi-Drug Resistant Organisms: None Reported Past Surgical History: Ablation, Orthopedic Surgery, Uterine Ablation Additional Past Surgical History / Comment(s): 2 lt breast lumpectomies mar,apr 2017, right breast lumpectomy 2019, cyst removed from toe lt foot 1997, bilat eye vitrectomy and annette cataract 1991, ganglion cyst lt wrist 1968, endometrial ablation 1993, Left hip replacement 2018. Colonoscopy 2017. Past Anesthesia/Blood Transfusion Reactions: No Reported Reaction Past Psychological History: No Psychological Hx Reported Smoking Status: Former smoker Past Alcohol Use History: Rare Past Drug Use History: None Reported - Past Family History Father Family Medical History: Cancer Additional Family Medical History / Comment(s): prostate, pancreatic Mother Family Medical History: Diabetes Mellitus, Myocardial Infarction ([place]) General Exam Limitations: no limitations General appearance: alert, in no apparent distress Eye exam: Absent: scleral icterus, conjunctival injection, periorbital swelling Respiratory exam: Absent: respiratory distress, accessory muscle use Cardiovascular Exam: Present: regular rate Extremities exam: Present: normal capillary refill, other (Bilateral lower extremities with thickened hyperpigmented skin). Absent: pedal edema Right Lower Leg exam: Present: full ROM, tenderness, erythema (Garage Door Hanger 1 cm e rythematous lesion with underlying induration 2 cm x 3 cm). Absent: swelling, ecchymosis, deformity, Homans' sign Ankle exam: Present: full ROM. Absent: tenderness, swelling Foot/Toe exam: Present: full ROM. Absent: tenderness, swelling Neurovascular tendon exam: Present: no vascular compromise. Absent: abnormal cap refill, extremity cold to touch, pallor, foot drop Neurological exam: Present: alert, oriented X3 Psychiatric exam: Present: normal affect, normal mood Skin exam: Present: warm, dry. Absent: cyanosis, diaphoretic, petechiae, pallor Course Vital Signs 11/26/21 14:16 Temperature 98.4 F Pulse Rate 70 Respiratory 18 Rate Blood Pressure 158/69 O2 Sat by Pulse 98 Oximetry Medical Decision Making - Medical Decision Making Patient complains of an area of erythema to her right leg, denies any fevers. She did go to urgent care and recommended ultrasound for DVT. Ultrasound negative for DVT. Patient has no swelling to the right leg, no calf pain. Circular area of erythema is likely cellulitis, patient was prescribed Keflex and directed to follow-up with primary care doctor, return to the emergency room with any new or concerning symptoms including increasing pain, swelling or fevers. She is agreeable to this plan of care. Patient was offered a dose of antibiotics and pain medication in the emergency room and declined. Case discussed with Dr. Contreras. Disposition Clinical Impression: Cellulitis Disposition: HOME SELF-CARE Condition: Good Instructions (If sedation given, give patient instructions): Cellulitis (ED) Additional Instructions: Take antibiotics as prescribed. Return to the emergency room with any new or concerning symptoms including fevers, increased pain or redness. Follow-up with the primary care doctor next week. Prescriptions: Cephalexin [Keflex] 500 mg PO Q6HR 7 Days #28 cap Is patient prescribed a controlled substance at d/c from ED?: No Referrals: Tila Gutierrez MD [Primary Care Provider] - 1-2 days Time of Disposition: 18:34
--- NOTE | 2021-11-26 18:26 | US ---
EXAMINATION TYPE: US venous doppler duplex LE RT DATE OF EXAM: 11/26/2021 5:52 PM COMPARISON: NONE CLINICAL HISTORY: pain. Patient is concerned for a blood clot due to red bump on calf. SIDE PERFORMED: Right TECHNIQUE: The lower extremity deep venous system is examined utilizing real time linear array sonog ricardo with graded compression, doppler sonography and color-flow sonography. VESSELS IMAGED: Common Femoral Vein Deep Femoral Vein Greater Saphenous Vein * Femoral Vein Popliteal Vein Small Saphenous Vein * Proximal Calf Veins (* superficial vessels) PTV Peroneal V Right Leg: Negative for DVT IMPRESSION: No evidence of deep vein thrombosis in the right leg.
== END 2021-11-26 18:49 | disposition home or self-care (01) ==
LOC: EC 14:12
DX: L03.90 Cellulitis, unspecified (principal); E11.9 Type 2 diabetes mellitus without complications; E07.9 Disorder of thyroid, unspecified; Z79.899 Other long term (current) drug therapy; I10 Essential (primary) hypertension; Z87.891 Personal history of nicotine dependence; Z88.8 Allergy status to other drugs, medicaments and biological substances

== ENCOUNTER → 2021-12-04 | Outpatient (CLI) | payer MEDICARE ==
[2021-12-04 14:13] VITALS: BP 186/66; PULSE 62; RESP 17; TEMP 97.9
--- NOTE | 2021-12-04 19:09 | P.PN ---
Progress Note - Text Progress Note Date: 12/04/21 Chief Complaint: She is here for a recheck for her vulvar lichen sclerosis and vulvar cyst. HPI: This is a 78 year old G0 with an LMP of 1993. She has a history of lichen sclerosus of the vulva confirmed by vulvar biopsy. When she was seen on 06/12/2021, she was having more pruritus especially on the labia minora. She was not using Temovate ointment at that time because her prescription ran out. She did use the Temovate ointment on a regular basis after she was seen in June. The vulvar pruritus has significantly improved. More recently she has stopped using the Temovate ointment because of the improvement. She states once a day she does have some itching that stopped after she rubs it. This cyst on the right labia is not bothersome for her. ROS: She denies respiratory or cardiac problems. GI: Occasional constipation which can alternate with loose stools. PE: Blood pressure: 186/66, Height: 5 feet 3 inches, Weight: 217 pounds, Temperature: In 0.9, Pulse: 62. Pulse oximeter 98%. This is a well developed, well nourished, white female who is alert and orientedx3, in no acute distress. The external genitalia reveals mild pallor along the edges of the labia minora and inner aspects of the labia majora. The place of biopsy on the inner aspect of the left labia minora has a small amount of pallor surrounding the biopsy site. The pallor seems less than exam in June. On the right labia majora there is a cyst measuring 11 x 13 mm. This is a soft benign-appearing cyst which is non-erythematous and there is no significant pallor. The cyst is nontender. Impression: 1. 71-year-old menopausal female with improvement in her Lichen sclerosis of the vulva symptoms. 2. Benign-appearing right vulvar cyst without significant change from her exam in June. Plan: 1. I have recommended that she use the Temovate cream when she is having itching and she should avoid rubbing and scratching. 2. She will continue to keep an eye on the right vulvar cyst and let me know if she thinks there is significant change with the cyst. 3. She will return in approximate 7 months for her annual examination and as needed. Time spent with the patient: 15 minutes
== END ==
LOC: WWCWWP 13:54
PROVIDERS: ATTEND Obstetrics & Gynecology
DX: N90.4 Leukoplakia of vulva (principal); N90.7 Vulvar cyst; Z78.0 Asymptomatic menopausal state; Z88.5 Allergy status to narcotic agent; Z87.891 Personal history of nicotine dependence

== ENCOUNTER 2021-12-06 11:59 | Emergency (ER) | payer MEDICARE ==
[2021-12-06 12:33] VITALS: BP 152/69; PULSE 63; RESP 18; TEMP 97.8
--- NOTE | 2021-12-06 12:36 | ED ---
Upper Extremity HPI - General Chief Complaint: Extremity Injury, Upper Stated Complaint: Fall/shoulder injury Source: patient, family Mode of arrival: wheelchair Limitations: no limitations - History of Present Illness Initial Comments: Dictation was produced using [employer] dictation software. please excuse any grammatical, word or spelling errors. Chief Complaint: 71-year-old female presents after fall with right shoulder pain History of Present Illness: 71-year-old female multiple comorbidities presents to the emergency department for right shoulder pain. Patient states this morning she tripped on an uneven part of the cement. She fell obliquely landing on her right side on her shoulder. Patient states that after the accident she had severe right shoulder pain. Patient states that she has exquisite tenderness. Denies any numbness, tingling or paresthesias to the right upper extremity. patient denies any head injury. She does not take any a nticoagulation medications. The ROS documented in this emergency department record has been reviewed and confirmed by me. Those systems with pertinent positive or negative responses have been documented in the HPI. All other systems are other negative and/or noncontributory. PHYSICAL EXAM: General Impression: Alert and oriented x3, acute distress secondary to pain HEENT: Normocephalic atraumatic, extra-ocular movements intact, pupils equal and reactive to light bilaterally, mucous membranes moist. Cardiovascular: Heart regular rate and rhythm Chest: Able to complete full sentences, no retractions, no tachypnea Abdomen: abdomen soft, non-tender, non-distended, no organomegaly Musculoskeletal: Pulses present and equal in all extremities, no peripheral edema Right shoulder: Severe palpatory tenderness along the right shoulder Motor: no focal deficits noted Neurological: CN II-XII grossly intact, no focal motor or sensory deficits noted Skin: Intact with no visualized rashes Psych: Anxious ED course: 71-year-old female presents to the emergency department right shoulder injury. Patient is in exquisite pain. Vital signs upon arrival are within acceptable limits. Shoulder x-ray shows greater tuberosity humerus fracture. Patient given multiple rounds of IV analgesics Patient placed in a coapt splint. Patient given referral to orthopedic surgery. - Related Data Home Medications Medication Instructions Recorded Confirmed Benazepril HCl 40 mg PO DAILY 04/20/18 12/06/21 Simvastatin [Zocor] 20 mg PO HS 04/20/18 12/06/21 Metoprolol Tartrate [Lopressor] 12.5 mg PO BID 06/24/18 12/06/21 Nilotinib HCl [Tasigna] 300 mg PO BID 06/24/18 12/06/21 ALPRAZolam [Xanax] 0.25 mg PO BID PRN 12/29/18 12/06/21 Furosemide [Lasix] 20 mg PO DAILY PRN 12/29/18 12/06/21 Ascorbic Acid [Vitamin C] 500 mg PO HS 02/29/20 12/06/21 Letrozole 2.5 mg PO HS 02/29/20 12/06/21 Vitamin E 400 unit PO HS 02/29/20 12/06/21 Aspirin [Adult Low Dose Aspirin EC] 81 mg PO HS 02/12/21 12/06/21 Biotin 5 mg PO HS 02/12/21 12/06/21 Folic Acid 0.4 mg PO HS 02/12/21 12/06/21 hydrALAZINE HCL [Apresoline] 50 mg PO BID 02/12/21 12/06/21 Cholecalciferol [Vitamin D3 (25 25 mcg PO DAILY 02/17/21 12/06/21 Mcg = 1000 Iu)] INSULIN ASPART (NovoLOG) [NovoLOG 0.01 unit SQ-PUMP CONTINUOUS MDD 11/26/21 12/06/21 (formulary)] 160 UNITS Triamterene/Hydrochlorothiazid 1 tab PO DAILY 11/26/21 12/06/21 [Triamterene-Hctz 37.5-25 mg Tb] Previous Rx's Medication Instructions Recorded Morphine Sulfate Ir [MSIR] 15 mg PO Q6HR PRN 3 Days #6 tab 12/06/21 traMADol HCL 50 mg PO Q6H PRN 3 Days #12 tablet 12/06/21 Allergies Allergy/AdvReac Type Severity Reaction Status Date / Time hydrocodone [From [place]] AdvReac affects Verified 12/06/21 12:34 breathing Review of Systems ROS Statement: Those systems with pertinent positive or pertinent negative responses have been documented in the HPI. ROS Other: All systems not noted in ROS Statement are negative. Past Medical History Past Medical History: Cancer, Diabetes Mellitus, Hypertension, Thyroid Disorder Additional Past Medical History / Comment(s): heart murmur, Intermittent PAC. 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 Lichen sclerosus of the vulva confirmed with biopsy in 2018. History of Any Multi-Drug Resistant Organisms: None Reported Past Surgical History: Ablation, Orthopedic Surgery, Uterine Ablation Additional Past Surgical History / Comment(s): 2 lt breast lumpectomies mar,apr 2017, right breast lumpectomy 2019, cyst removed from toe lt foot 1997, bilat eye vitrectomy and annette cataract 1991, ganglion cyst lt wrist 1968, endometrial ablation 1993, Left hip replacement 2018. Colonoscopy 2017. Past Anesthesia/Blood Transfusion Reactions: No Reported Reaction Past Psychological History: No Psychological Hx Reported Smoking Status: Former smoker Past Alcohol Use History: Rare Past Drug Use History: None Reported - Past Family History Father Family Medical History: Cancer Additional Family Medical History / Comment(s): prostate, pancreatic Mother Family Medical History: Diabetes Mellitus, Myocardial Infarction ([place]) General Exam Limitations: no limitations Course Vital Signs 12/06/21 12:28 Temperature 97.8 F Pulse Rate 63 Respiratory 18 Rate Blood Pressure 152/69 O2 Sat by Pulse 98 Oximetry Procedures - Orthopedic Splinting/Casting Injury #1 Side: right Upper Extremity Injury Location: shoulder (coapt splint) Upper Extremity Immobilizer: sling/shoulder immobilizer (coapt splint) Disposition Clinical Impression: Humerus fracture Disposition: HOME SELF-CARE Condition: Good Instructions (If sedation given, give patient instructions): Arm Fracture in Adults (ED) Prescriptions: Morphine Sulfate Ir [MSIR] 15 mg PO Q6HR PRN 3 Days #6 tab PRN Reason: severe pain traMADol HCL 50 mg PO Q6H PRN 3 Days #12 tablet PRN Reason: Pain Is patient prescribed a controlled substance at d/c from ED?: Yes If prescribed controlled substance>3 days was MAPS reviewed?: Prescribed <3 Days Referrals: Tila Gutierrez MD [Primary Care Provider] - 1-2 days Dhruv Thompson MD [STAFF PHYSICIAN] - 1-2 days Time of Disposition: 15:55
--- NOTE | 2021-12-06 13:26 | XR ---
EXAMINATION TYPE: XR shoulder complete RT DATE OF EXAM: 12/06/2021 COMPARISON: NONE HISTORY: Pain TECHNIQUE: Three views are submitted. FINDINGS: Diffuse osteopenia with AC joint arthropathy. Sclerotic lesion overlying the humeral head in the base s bone island. There appears to be a linear lucency through the greater tuberosity cyst fracture. IMPRESSION: 1. Findings are suspicious for greater tuberosity laterally displaced fracture correlate with point t enderness. 2. AC joint arthropathy.
[2021-12-06] MEDS ORDERED: MORPHINE SULFATE 4 MG/ML SYRINGE IV STA (13:36)
[2021-12-06] MEDS ORDERED: MORPHINE SULFATE 4 MG/ML SYRINGE IM STA ×3 (14:12→15:20)
[2021-12-06] MEDS ORDERED: traMADol 50 MG STARTER PACK 3 TAB BTL PO STA (15:55)
== END 2021-12-06 16:06 | disposition home or self-care (01) ==
LOC: EC 11:59
DX: S42.301A Unspecified fracture of shaft of humerus, right arm, initial encounter for closed fracture (principal); E11.9 Type 2 diabetes mellitus without complications; I10 Essential (primary) hypertension; E07.9 Disorder of thyroid, unspecified; Z79.899 Other long term (current) drug therapy; Z87.891 Personal history of nicotine dependence; Z82.49 Family history of ischemic heart disease and other diseases of the circulatory system; W01.0XXA Fall on same level from slipping, tripping and stumbling without subsequent striking against object, initial encounter
CPT/HCPCS: 73030; 29105; 99284; 96372; J2270

== ENCOUNTER → 2022-03-26 | Outpatient (CLI) | payer MEDICARE ==
--- NOTE | 2022-03-27 07:39 | US ---
EXAMINATION TYPE: US thyroid st tissue head/neck DATE OF EXAM: 03/26/2022 COMPARISON: Thyroid ultrasound 03/20/2020. CLINICAL HISTORY: E04.2 Multinodular goiter. Follow up nodules GLAND SIZE: Right Lobe: 5.2 x 2.2 x 2.1 cm Overall Parenchyma: heterogenous Left Lobe: 5.5 x 2.2 x 2.3 cm Overall Parenchyma: heterogeneous Isthmus Thickness: 0.7 cm NODULES RIGHT: # of nodules measured on right: 1 1. 1.1 X 1.1 x 1.1 cm, lower mid, solid or almost completely solid, isoechoic nodule, which is wide r than tall, with ill-defined margins, without echogenic foci. TR-3. Prior size: 1.4 x 1.2 x 1.2 cm LEFT: # of nodules measured on left: 1 1. 1.1 X 1.1 x 1.0 cm, lower medial, solid or almost completely solid, isoechoic nodule, which is w ider than tall, with ill-defined margins, without echogenic foci.TR-3. Prior size: 1.0 x 0.9 x 0.9 cm ISTHMUS: # of nodules measured in the isthmus: 1 1. 0.5 X 0.6 x 0.5 cm left lateral solid or almost completely solid, hypoechoic nodule, which is wi satnam than tall, with ill-defined margins, without echogenic foci. TR-4. Prior size: No prior Bilateral neck scanned, no evidence of lymphadenopathy. IMPRESSION: Thyromegaly with stable bilateral thyroid nodules and more defined 0.6 cm Isthmus nodule. Findings li henrique reflect multinodular goiter. 2017 ACR TI-RADS LEVEL: TR-RADS 4 - Moderately Suspicious: Follow if > 1 cm, FNA if > 1.5 cm *Highest TI-RADS level nodule reported
== END | disposition home or self-care (01) ==
LOC: RADUSWWP 15:24
PROVIDERS: ATTEND Internal Medicine Endocrinology, Diabetes & Metabolism
DX: E04.2 Nontoxic multinodular goiter (principal)
CPT/HCPCS: 76536

== ENCOUNTER → 2022-04-10 | Outpatient (CLI) | payer MEDICARE ==
--- NOTE | 2022-04-10 14:27 | CT ---
EXAMINATION TYPE: CT iac w con DATE OF EXAM: 04/10/2022 COMPARISON: none HISTORY: left side hearing loss, ringing in left ear CT DLP: 142.7 mGycm Automated exposure control for dose reduction was used. CONTRAST: CT scan of the IACs is performed with IV Contrast, patient injected with 70 mL of Isovue 300. FINDINGS: The external auditory canals are patent bilaterally. Mastoid air cells show no evidence of abnormal opacification bilaterally. The middle ear ossicles are symmetric and unremarkable. There is no evidence of suspicious surrounding soft tissue density to suggest cholesteatoma. The scutum is preserved bilaterally. The cochlea and the semicircular canals are symmetric and unremarkable. Ves tibular aqueduct and internal carotid canal appear unremarkable. Temporomandibular joints are mainta ined bilaterally. Complete opacification left maxillary sinus. IMPRESSION: No significant abnormality seen to account for patient's symptoms.
== END | disposition home or self-care (01) ==
LOC: RADCTMAIN 12:16
PROVIDERS: ATTEND Otolaryngology
DX: H91.92 Unspecified hearing loss, left ear (principal)
CPT/HCPCS: 82565; 84520; 70481; 36415; Q9967

== ENCOUNTER 2022-04-18 06:35 | Day surgery (SDC) | payer MEDICARE ==
[2022-04-16 09:35] VITALS: BMI 36.4
[2022-04-18] MEDS ORDERED: LIDOCAINE 1% (10MG/ML) FOR IV START INTRADERMA PRN (07:18)
[2022-04-18] MEDS ORDERED: LACTATED RINGERS 1,000 ML IV SCH (07:18)
[2022-04-18 07:34] VITALS: TEMP 97.6
[2022-04-18] MEDS ORDERED: PROPOFOL 10 MG/ML 20 ML VIAL IV ONE (07:34)
[2022-04-18 07:38] LABS: Glucose,Whole Blood 148 mg/dL (70-110)
--- NOTE | 2022-04-18 07:41 | P.GSHP ---
History of Present Illness H&P Date: 04/18/22 CHIEF COMPLAINT: Colon screen HISTORY OF PRESENT ILLNESS: The patient is a 71-year-old female who presents for colon screen. Lower endoscopy was offered for further evaluation and management. PAST MEDICAL HISTORY: Please see list. PAST SURGICAL HISTORY: Please see list. MEDICATIONS: Please see list. ALLERGIES: Please see list. SOCIAL HISTORY: No illicit drug use FAMILY HISTORY: No reports of Crohn disease or ulcerative colitis. REVIEW OF ORGAN SYSTEMS: CONSTITUTIONAL: No reports of fevers or chills. PHYSICAL EXAM: VITAL SIGNS: Stable GENERAL: Well-developed pleasant in no acute distress. HEENT: No scleral icterus. Extraocular movements grossly intact. Moist buccal mucosa. NECK: Supple without lymphadenopathy. CHEST: Unlabored respirations. Equal bilateral excursions. CARDIOVASCULAR: Regular rate and rhythm. Distal 2+ pulses. ABDOMEN: Soft, nontender, nondistended. MUSCULOSKELETAL: No clubbing, cyanosis, or edema. ASSESSMENT: 1. Colon screen. PLAN: 1. Recommend proceeding with a lower endoscopy Past Medical History Past Medical History: Cancer, Diabetes Mellitus, Hypertension, Sleep Apnea/CPAP/BIPAP, Thyroid Disorder Additional Past Medical History / Comment(s): previous polyp hidden near appendix,heart murmur, Intermittent PACs,Left breast cancer 2016, Right breast cancer 2019 (both DCIS), benign thyroid goiter, diabetic retinopathy, chronic myelocytic leukemia (in remission), claustrophobic. 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 Lichen sclerosus of the vulva confirmed with biopsy in 2018,uses bite guard for sleep apnea History of Any Multi-Drug Resistant Organisms: None Reported Past Surgical History: Ablation, Orthopedic Surgery, Uterine Ablation Additional Past Surgical History / Comment(s): lt breast lumpectomies ,left breast margins revision Apr 2017, right breast lumpectomy 2019, cyst removed from toe lt foot 1997, bilat eye vitrectomy and annette cataract 1991, ganglion cyst lt wrist 1968, endometrial ablation 1993, Left hip replacement 2018. Colonoscopy 2017. Past Anesthesia/Blood Transfusion Reactions: No Reported Reaction Smoking Status: Former smoker - Past Family History Father Family Medical History: Cancer Additional Family Medical History / Comment(s): prostate, pancreatic Mother Family Medical History: CVA/TIA, Diabetes Mellitus, Myocardial Infarction ([place]) Medications and Allergies Home Medications Medication Instructions Recorded Confirmed Type Benazepril HCl 40 mg PO QAM 04/20/18 04/18/22 History Simvastatin [Zocor] 20 mg PO HS 04/20/18 04/18/22 History Metoprolol Tartrate [Lopressor] 12.5 mg PO BID 06/24/18 04/18/22 History Furosemide [Lasix] 20 mg PO DAILY PRN 12/29/18 04/18/22 History Letrozole 2.5 mg PO HS 02/29/20 04/18/22 History Aspirin [Adult Low Dose Aspirin EC] 81 mg PO HS 02/12/21 04/18/22 History hydrALAZINE HCL [Apresoline] 50 mg PO BID 02/12/21 04/18/22 History Cholecalciferol [Vitamin D3 (25 25 mcg PO DAILY 02/17/21 04/18/22 History Mcg = 1000 Iu)] INSULIN ASPART (NovoLOG) [NovoLOG 0.01 unit SQ-PUMP CONTINUOUS 11/26/21 04/18/22 History (formulary)] Triamterene/Hydrochlorothiazid 1 tab PO DAILY 11/26/21 04/18/22 History [Triamterene-Hctz 37.5-25 mg Tb] Nilotinib HCl [Tasigna] 300 mg PO BID 04/16/22 04/18/22 History Allergies Allergy/AdvReac Type Severity Reaction Status Date / Time hydrocodone [From [place]] AdvReac irreg and Verified 04/18/22 07:18 difficult breathing Surgical - Exam Vital Signs Temp Pulse Resp BP Pulse Ox 97.6 F 66 16 177/73 95 04/18/22 07:28 04/18/22 07:28 04/18/22 07:28 04/18/22 07:28 04/18/22 07:28 Results - Labs Abnormal Lab Results - Last 24 Hours (Table) 04/18/22 Range/Units 07:31 POC Glucose (mg/dL) 148 H (70-110) mg/dL
[2022-04-18 08:38] VITALS: BP 160/73; PULSE 65; RESP 16
--- NOTE | 2022-04-18 08:47 | P.PCN ---
Date of Procedure: 04/18/22 Description of Procedure: PREOPERATIVE DIAGNOSIS: Personal history of colon polyps Family history malignant colon cancer, mother History of leukemia Colonoscopy screening POSTOPERATIVE DIAGNOSIS: Tubular adenoma cecum/appendiceal orifice Tubular adenoma ascending colon Tubular adenoma descending colon Tubular adenoma rectum [place] diverticulosis, scattered Sigmoid diverticulosis Internal hemorrhoids, grade 2 OPERATION: Colonoscopy to the ileocecal valve and appendiceal orifice, cecum Colonoscopy with hot snare polypectomy SURGEON: Claudia Styles MD. ANESTHESIA: MAC. INDICATIONS: The patient is an 71-year-old female who presents mother with colon cancer and personal history colon polyps. Last colonoscopy 5 years. Benefits and risks were described and informed consent was obtained. DESCRIPTION OF PROCEDURE: The patient had undergone Sutab prep. The patient had been brought into the op erating room and laid in the left lateral decubitus position. After adequate intravenous sedation, the rectum was examined with 2% lidocaine jelly. No external hemorrhoids were encountered. The rectal tone was within normal limits. No lesions were palpated in the rectal vault. An Olympus colonoscope was advanced until the cecum, ileocecal valve and appendiceal orifice were clearly viewed. The prep was good. Few scattered diverticulosis were encountered. Colonic polyps were found and removed. No evidence of focal colitis was found. Retroflexion of the scope demonstrated grade 2 internal hemorrhoids without active bleeding or inflammation. The colon was desufflated. The patient had tolerated the procedure well. Withdrawal time was over 6 minutes. FINDINGS: Aronchick preparation quality scale 1+ (1-5) Internal hemorrhoids, grade 2 No external hemorrhoids, grade 4. No arteriovenous malformations. Scattered pandiverticulosis throughout: Removal of 6 polyps: - Snare polypectomy at the rectum, 5 mm tubulovillous adenoma - Snare polypectomy at descending colon 2, 4 to 8 mm flat villous adenoma - Snare polypectomy at cecum/appendiceal orifice, 12 mm flat villous adenoma - Snare polypectomy ascending colon 2, 4 to 10 mm adenoma No focal colitis. RECOMMENDATIONS: Given severity of tubular adenomas, recommend repeat colonoscopy 2 years, 2023 Plan - Discharge Summary Discharge Rx Participant: No New Discharge Prescriptions: Continue Simvastatin [Zocor] 20 mg PO HS Benazepril HCl 40 mg PO QAM Metoprolol Tartrate [Lopressor] 12.5 mg PO BID Furosemide [Lasix] 20 mg PO DAILY PRN PRN Reason: Edema Letrozole 2.5 mg PO HS hydrALAZINE HCL [Apresoline] 50 mg PO BID INSULIN ASPART (NovoLOG) [NovoLOG (formulary)] 0.01 unit SQ-PUMP CONTINUOUS Aspirin [Adult Low Dose Aspirin EC] 81 mg PO HS Cholecalciferol [Vitamin D3 (25 Mcg = 1000 Iu)] 25 mcg PO DAILY Triamterene/Hydrochlorothiazid [Triamterene-Hctz 37.5-25 mg Tb] 1 tab PO DAILY Nilotinib HCl [Tasigna] 300 mg PO BID Discharge Medication List Benazepril HCl 40 mg PO QAM 04/20/18 [History] Simvastatin [Zocor] 20 mg PO HS 04/20/18 [History] Metoprolol Tartrate [Lopressor] 12.5 mg PO BID 06/24/18 [History] Furosemide [Lasix] 20 mg PO DAILY PRN 12/29/18 [History] Letrozole 2.5 mg PO HS 02/29/20 [History] Aspirin [Adult Low Dose Aspirin EC] 81 mg PO HS 02/12/21 [History] hydrALAZINE HCL [Apresoline] 50 mg PO BID 02/12/21 [History] Cholecalciferol [Vitamin D3 (25 Mcg = 1000 Iu)] 25 mcg PO DAILY 02/17/21 [History] INSULIN ASPART (NovoLOG) [NovoLOG (formulary)] 0.01 unit SQ-PUMP CONTINUOUS 11/26/21 [History] Triamterene/Hydrochlorothiazid [Triamterene-Hctz 37.5-25 mg Tb] 1 tab PO DAILY 11/26/21 [History] Nilotinib HCl [Tasigna] 300 mg PO BID 04/16/22 [History] Follow up Appointment(s)/Referral(s): Claudai Styles MD [STAFF PHYSICIAN] - As Needed Patient Instructions/Handouts: *Surgery [facility] - (Anesthesia) Endoscopy Discharge Instructions, Diverticulosis (GEN), Colorectal Polyps (GEN), Diverticulosis Diet (GEN) Activity/Diet/Wound Care/Special Instructions: Repeat colonoscopy 2 years, 2023 Discharge Disposition: HOME SELF-CARE
== END 2022-04-18 09:17 | disposition home or self-care (01) ==
LOC: ORWHC2ENDO 06:35
PROVIDERS: ATTEND Surgery Plastic and Reconstructive Surgery
DX: Z12.11 Encounter for screening for malignant neoplasm of colon (principal); D12.8 Benign neoplasm of rectum; D12.2 Benign neoplasm of ascending colon; D12.4 Benign neoplasm of descending colon; D12.0 Benign neoplasm of cecum; K57.30 Diverticulosis of large intestine without perforation or abscess without bleeding; K64.1 Second degree hemorrhoids; I10 Essential (primary) hypertension; G47.30 Sleep apnea, unspecified; E11.36 Type 2 diabetes mellitus with diabetic cataract; Z96.642 Presence of left artificial hip joint; Z80.0 Family history of malignant neoplasm of digestive organs; Z86.010 Personal history of colon polyps; Z87.891 Personal history of nicotine dependence; Z82.49 Family history of ischemic heart disease and other diseases of the circulatory system; Z83.3 Family history of diabetes mellitus; Z79.899 Other long term (current) drug therapy
CPT/HCPCS: 88305; 45385; J2704

== ENCOUNTER → 2022-06-12 | Outpatient (CLI) | payer MEDICARE ==
[2022-06-12 10:03] VITALS: BP 130/70; PULSE 65; RESP 18; TEMP 98
--- NOTE | 2022-06-12 11:09 | P.HPOB ---
History of Present Illness H&P Date: 06/12/22 Chief Complaint: The patient is here for her routine gynecologic exam. This is a 71-year-old G0 with an LMP of 1993. The patient continues to have a cyst on the right labia. She states it occasionally drains some fluid. She denies having any pain from it. She states she has not been having the itching from the lichen sclerosus and has not needed to use the Temovate cream. She denies any postmenopausal bleeding and is otherwise without complaints. Review of Systems The patient has lost 5 pounds over the last year. She denies respiratory, cardiac, or G.I. problems. Past Medical History Past Medical History: Cancer, Diabetes Mellitus, Hypertension, Sleep Apnea/CPAP/BIPAP, Thyroid Disorder Additional Past Medical History / Comment(s): previous polyp hidden near appendix,heart murmur, Intermittent PACs,Left breast cancer 2016, Right breast cancer 2019 (both DCIS), benign thyroid goiter, diabetic retinopathy, chronic myelocytic leukemia (in remission), claustrophobic. 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 Lichen sclerosus of the vulva confirmed with biopsy in 2018. History of Any Multi-Drug Resistant Organisms: None Reported Past Surgical History: Ablation, Orthopedic Surgery, Uterine Ablation Additional Past Surgical History / Comment(s): lt breast lumpectomies ,left breast margins revision Apr 2017, right breast lumpectomy 2019, cyst removed from toe lt foot 1997, bilat eye vitrectomy and annette cataract 1991, ganglion cyst lt wrist 1968, endometrial ablation 1993, Left hip replacement 2018. Colonoscopy 2021(next after 2yr). Past Anesthesia/Blood Transfusion Reactions: No Reported Reaction Past Psychological History: No Psychological Hx Reported Additional Psychological History / Comment(s): claustrophobic Smoking Status: Former smoker Past Alcohol Use History: None Reported Additional Past Alcohol Use History / Comment(s): quit smoking 1981, smoked in college Past Drug Use History: None Reported Additional History: She has been since 1983 and is not sexually active. 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 - Past Family History Father Family Medical History: Cancer Additional Family Medical History / Comment(s): prostate, pancreatic Mother Family Medical History: CVA/TIA, Diabetes Mellitus, Myocardial Infarction ([place]) Medications and Allergies Home Medications Medication Instructions Recorded Confirmed Type Benazepril HCl 40 mg PO QAM 04/20/18 06/12/22 History Simvastatin [Zocor] 20 mg PO HS 04/20/18 06/12/22 History Metoprolol Tartrate [Lopressor] 12.5 mg PO BID 06/24/18 06/12/22 History Furosemide [Lasix] 20 mg PO DAILY PRN 12/29/18 06/12/22 History Letrozole 2.5 mg PO HS 02/29/20 06/12/22 History Aspirin [Adult Low Dose Aspirin EC] 81 mg PO HS 02/12/21 06/12/22 History hydrALAZINE HCL [Apresoline] 50 mg PO BID 02/12/21 06/12/22 History Cholecalciferol [Vitamin D3 (25 25 mcg PO DAILY 02/17/21 06/12/22 History Mcg = 1000 Iu)] INSULIN ASPART (NovoLOG) [NovoLOG 0.01 unit SQ-PUMP CONTINUOUS 11/26/21 06/12/22 History (formulary)] Triamterene/Hydrochlorothiazid 1 tab PO DAILY 11/26/21 06/12/22 History [Triamterene-Hctz 37.5-25 mg Tb] Nilotinib HCl [Tasigna] 300 mg PO BID 04/16/22 06/12/22 History Allergies Allergy/AdvReac Type Severity Reaction Status Date / Time hydrocodone [From [place]] AdvReac irreg and Verified 06/12/22 09:58 difficult breathing Exam Vital Signs Temp Pulse Resp BP Pulse Ox 06/12/22 10:00 98.0 F 65 18 130/70 97 Intake and Output 06/11/22 06/12/22 06/12/22 22:59 06:59 14:59 Other: Weight 94.801 kg Height 5 feet 3 inches, weight 209 pounds, BMI 37.0. This is a well-developed well-nourished white female who is alert and oriented times 3 in no acute distress. HEENT: Within normal limits. NECK: Supple without mass or thyromegaly. CHEST AND LUNGS: Clear to auscultation. HEART: Regular rate and rhythm. BREASTS: The breasts bilaterally are firm and very dense in nature. The right breast has a firm area approximately at the 10 o'clock position measuring 3 cm and this is near her previous lumpectomy. The left breast has a firm mass measuring approximately 4 x 5 cm at the 11 o'clock position. She states these masses are felt to be seromas and is followed closely by her breast surgeon. She saw her breast surgeon approximately 2 months ago. She has had these lumps for many years. No other discrete masses are noted. AXILLARY EXAM: Negative for adenopathy. BACK: Negative for CVA tenderness. ABDOMEN: Soft, nontender, without palpable masses. PELVIC EXAM: External genitalia reveals mild to moderate atrophy with mild generalized pallor at the labia minora which are fused to the labia majora secondary to atrophy. The right labia majora has a benign-appearing cyst which measures 2.0 x 1.5 cm. This is larger than her exam from last year. She states this occasionally will drain some fluid. The cyst is slightly fluctuant and smooth and mobile. Currently there is no drainage from the cyst. It is nontender and non-erythematous. Cervix and vagina appear normal with mild to moderate atrophy. There is no unusual discharge. There is no evidence of prolapse. The uterus is midposition, nongravid size and nontender. There are no palpable adnexal masses or tenderness. RECTAL EXAM: Rectovaginal exam is negative for mass or tenderness and is negative for occult blood. EXTREMITIES: Nontender. IMPRESSION: 1. 71-year-old menopausal female with lichen sclerosus of the vulva which has not been symptomatic. 2. Right labial cyst measuring 2.0 x 1.5 cm which appears benign and does not seem to cause the patient any significant problems. 3. History of bilateral breast cancers status post lumpectomy and radiation on the left side and status post lumpectomy on the right side. 4. Chronic bilateral breast seromas followed by her breast surgeon. 5. Lichen sclerosus of the vulva which is currently asymptomatic. She does hav e Temovate ointment available, but has not had to use it recently. PLAN: 1. Pap smear was deferred since she had a negative Pap smear on 06/12/2021. We will plan on repeating this in 1-2 years and if that is negative, we will plan on discontinuing Pap smears. 2. Self breast awareness was discussed with the patient. We have also discussed symptoms associated with inflammatory breast cancer. 3. Mammograms are done through her oncologist and will be due in August of this year. She has an order slip for this. 4. Osteoporosis prevention was discussed. I have stressed the importance of adequate calcium, vitamin D and regular exercise. Recommended amounts of calcium and vitamin D were also discussed. Her last bone density test was on 03/06/2020 and was normal. We will plan on repeating this after 4-5 years, or sooner if recommended by her oncologist. 5. We have had a long discussion regarding the right labial cyst. We've discussed options such as incision with drainage or surgical removal. Since it has a benign appearance and since it does not seem to be bothering the patient, she would like to continue with conservative management. She will try using warm to hot compresses on it to see if it can drain more completely. She was to call if she is noticing changes such as increasing in size, pain, or irregularities in its shape, or if problems. 6. She was advised to return in one year for her annual well woman exam and as needed.
== END ==
LOC: WWCWWP 09:47
PROVIDERS: ATTEND Obstetrics & Gynecology
DX: N90.4 Leukoplakia of vulva (principal); N90.7 Vulvar cyst; Z92.3 Personal history of irradiation; Z78.0 Asymptomatic menopausal state; Z88.5 Allergy status to narcotic agent; Z87.891 Personal history of nicotine dependence; Z85.3 Personal history of malignant neoplasm of breast; L76.33 Postprocedural seroma of skin and subcutaneous tissue following a dermatologic procedure

== ENCOUNTER → 2022-07-01 | Outpatient (CLI) | payer MEDICARE ==
[2022-07-01 18:51] LABS: ALT 18 U/L (8-44); AST 24 U/L (13-35); African American GFR (CKD) 44.1 (60.0-200.0); Albumin 3.9 g/dL (3.8-4.9); Albumin/Globulin Ratio 1.41 (1.60-3.17); Alkaline Phosphatase 111 U/L (41-126); BUN/Creat Ratio 21.08 Ratio (12.00-20.00); Blood Urea Nitrogen 29.3 mg/dL (9.0-27.0); Calcium 9.6 mg/dL (8.7-10.3); Carbon Dioxide 20.1 mmol/L (20.0-27.5); Chloride 105 mmol/L (96-109); Chol/HDL Ratio 2.64 Ratio; Globulin 2.8 g/dL (1.6-3.3); Glucose 130 mg/dL (70-110); LDL Cholesterol,Calculated 69.8 mg/dL (0.0-131.0); Potassium 4.5 mmol/L (3.5-5.5); Sodium 138 mmol/L (135-145); Total Protein 6.6 g/dL (6.2-8.2); VLDL Calculation 15.98 mg/dL (5.00-40.00)
== END | disposition home or self-care (01) ==
LOC: LABWHC1 10:51
PROVIDERS: ATTEND Internal Medicine Endocrinology, Diabetes & Metabolism
DX: E11.65 Type 2 diabetes mellitus with hyperglycemia (principal)
CPT/HCPCS: 36415; 80053; 80061; 83036; 84443

== ENCOUNTER → 2022-08-29 | Outpatient (CLI) | payer MEDICARE ==
--- NOTE | 2022-08-30 07:58 | MM ---
Reason for Exam: Screening (asymptomatic). Last screening mammogram was performed 12 month(s) ago. Patient History: Menarche at age 11. Patient has no children. Breast cancer, age 68. Other cancer, age 67. 2019, Lumpectomy on the Right side. 2016, Lumpectomy on the Left side. 08/20/2019, Malignant Core Biopsy on the right side. 2016, Radiation Therapy on the left side. Paternal cousin had breast cancer, age 40. Paternal uncle had breast cancer, age 27. Prior Study Comparison: 08/05/2019 Bilateral Diagnostic Mammogram, [facility]. 08/25/2020 Bilateral Diagnostic Mammogram, [facility]. 08/27/2021 Bilateral Screening Mammogram, [facility]. Tissue Density: The breast tissue is heterogeneously dense. This may lower the sensitivity of mammography. Findings: Analyzed By CAD. Multiple oil cysts are again noted bilaterally. Benign calcifications redemonstrated. No suspicious clusters seen. Overall Assessment: Benign, BI-RAD 2 Management: Screening Mammogram of both breasts in 1 year. A clinical breast exam by your physician is recommended on an annual basis and results should be correlated with mammographic findings. Electronically signed and approved by: Chidi Fischer M.D. Radiologis
== END | disposition home or self-care (01) ==
LOC: RADMAMWWP 12:24
PROVIDERS: ATTEND Surgery
DX: Z12.31 Encounter for screening mammogram for malignant neoplasm of breast (principal); Z80.3 Family history of malignant neoplasm of breast; Z98.890 Other specified postprocedural states
CPT/HCPCS: 77063; 77067

== ENCOUNTER 2023-03-27 00:31 | Inpatient (IN) | payer MEDICARE ==
[2023-03-27] MEDS ORDERED: SODIUM CHLORIDE 0.9% 1,000 ML BAG ONE (02:35)
[2023-03-27] MEDS ORDERED: MORPHINE SULFATE 4 MG/ML SYRINGE ONE (02:36)
[2023-03-27] MEDS ORDERED: HYDROmorphone 1 MG/ML 1 ML SYRINGE ONE (03:10)
[2023-03-27] MEDS ORDERED: DEXTROSE 50% SYRINGE 50 ML IVP ONE (04:45)
--- NOTE | 2023-03-27 06:26 | ED ---
Medical Decision Making - Medical Decision Making Patient was seen and evaluated treated using paper chart during EMR down time. Please see downtime documentation for further detail. Briefly, patient is 72-year-old female presents with intractable abdominal pain. She seen at [facility] or imaging and lab studies were performed. Dr. sánchez was reviewed from [facility] via fax. Labs are unremarkable at her facility. Patient will be admitted to hospitalist with consultation to general surgery for intractable abdominal pain. Disposition Clinical Impression: Intractable abdominal pain Disposition: ADMITTED IP TO THIS HOSP Condition: Fair
[2023-03-27 06:42] LABS: ALT 23 U/L (4-34); AST 29 U/L (14-36); African American GFR (CKD) 72 (>60 ml/min/1.73 sqM); Albumin 4.1 g/dL (3.5-5.0); Albumin/Globulin Ratio 1.4; Alkaline Phosphatase 111 U/L (38-126); Anion Gap 13 mmol/L; Basophils % (A) 0 %; Blood Urea Nitrogen 14 mg/dL (7-17); Calcium 9.8 mg/dL (8.4-10.2); Carbon Dioxide 21 mmol/L (22-30); Chloride 97 mmol/L (98-107); Eosinophils # (A) 0.1 k/uL (0-0.7); Eosinophils % (A) 1 %; Globulin 2.9 g/dL; Glucose 85 mg/dL (74-99); HCT 37.8 % (34.0-46.0); HGB 12.7 gm/dL (11.4-16.0); Lipase 18 U/L (23-300); Lymphocytes # (A) 1.1 k/uL (1.0-4.8); Lymphocytes % (A) 9 %; MCH 27.8 pg (25.0-35.0); MCHC 33.7 g/dL (31.0-37.0); MCV 82.5 fL (80.0-100.0); Mean Platelet Volume 9.2; Monocytes # (A) 0.7 k/uL (0-1.0); Monocytes % (A) 6 %; Neutrophils # (A) 10.4 k/uL (1.3-7.7); Neutrophils % (A) 83 %; Non-African American GFR(CKD) 62 (>60 ml/min/1.73 sqM); Platelet Count 209 k/uL (150-450); Potassium 4.1 mmol/L (3.5-5.1); RBC 4.58 m/uL (3.80-5.40); RDW 15.9 % (11.5-15.5); Sodium 131 mmol/L (137-145); Total Bilirubin 1.4 mg/dL (0.2-1.3); WBC 12.5 k/uL (3.8-10.6)
[2023-03-27 06:55] LABS: Partial Thromboplastin Time 25.2 sec (22.0-30.0); Prothrombin Time 10.7 sec (10.0-12.5)
[2023-03-27] MEDS ORDERED: ONDANSETRON 4 MG/2 ML VIAL IVP PRN (08:18)
[2023-03-27] MEDS: HYDROmorphone 1 MG/ML 1 ML SYRINGE IVP PRN ×4 (08:34→21:22)
[2023-03-27] MEDS: SODIUM CHLORIDE 0.9% 1,000 ML IV SCH ×2 (09:05→19:06)
--- NOTE | 2023-03-27 11:21 | P.GSCN ---
History of Present Illness Consult date: 03/27/23 History of present illness: CHIEF COMPLAINT: Abdominal pain HISTORY OF PRESENT ILLNESS: This is a 72-year-old female with a history of CML in remission. She reports having chronic abdominal pain similar to this about 4 times over the last couple of years. However, pain has increased within the last week with nausea and vomiting. She reports that she is on medications for her CML that causes constipation. She was recently at [facility] last week for constipation. Patient reports that they did not find anything significant on CAT scan and treated her for constipation. She does have right lower quadrant abdominal pain with dry heaves. She reports a decreased appetite. Her last bowel movement was on Friday. Patient tried Tylenol with codeine and tramadol with no improvement in her abdominal pain. She denies any fever chills or sweats. She denies any abdominal surgical history. Last colonoscopy was in April 2022 which had shown tubular adenomas, diverticulosis and internal hemorrhoids. PAST MEDICAL HISTORY: See list. PAST SURGICAL HISTORY: See list. MEDICATIONS: See list. ALLERGIES: See list. SOCIAL HISTORY: No illicit drug use. REVIEW OF SYSTEMS: CONSTITUTIONAL: Denies fever or chills. HEENT: Denies blurred vision, vision changes, or eye pain. Denies hemoptysis ENDOCRINE: Denies heat or cold intolerance. CARDIOVASCULAR: Denies chest pain or pressure. RESPIRATORY: No shortness of breath. GASTROINTESTINAL: Denies abdominal pain. Denies nausea or vomiting. NEURO: Denies history of seizures. PSYCH: No depression or suicidal ideation HEMATOLOGIC: Denies bleeding disorders. LYMPHATIC: The patient denies any lumps and bumps around the neck. GENITOURINARY: Denies any blood in urine or increased urinary frequency. MUSCULOSKELETAL: Denies myalgias. Denies joint swelling. Denies decreased range of motion beyond patients baseline. SKIN: Denies pruitis. Denies rash. PHYSICAL EXAM: VITAL SIGNS: Reviewed GENERAL: Well-developed in no acute distress. HEENT: No sclera icterus. Extraocular movements grossly intact. Moist buccal mucosa. Head is atraumatic, normocephalic. Hears conversational speech. No nasal drainage. NECK: Supple without lymphadenopathy. CHEST: Non-labored respirations and equal bilateral excursions. CARDIOVASCULAR: Palpable 2+ radial pulses. ABDOMEN: Soft. Nondistended. Tenderness to palpation in the right lower quadrant MUSCULOSKELETAL: No clubbing or cyanosis. NEUROLOGIC: No focal or lateralizing signs. Cranial nerves II through XII grossly intact. PSYCH: Appropriate affect. Alert and oriented to person, place and time. SKIN: Well perfused. Good skin turgor. LABORATORY DATA: WBC is 12.5 Hgb 12.7 platelets 209 Sodium is 131 potassium 4.1 creatinine 0.93 Lactic acid 1.8 Total bilirubin 1.4 AST 29 ALT 23 alk phos 111 Lipase 18 IMAGING: ASSESSMENT: 1. Abdominal pain with nausea and vomiting 2. Constipation 3. History of CML 4. Insulin-dependent diabetes mellitus 5. Hypertension 6. 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 Signing provider agrees with the documented findings, assessment, and plan of care. Past Medical History Past Medical History: Cancer, Diabetes Mellitus, Hypertension, Sleep Apnea/CPAP/BIPAP, Thyroid Disorder Additional Past Medical History / Comment(s): previous polyp hidden near appendix,heart murmur, Intermittent PACs,Left breast cancer 2016, Right breast cancer 2019 (both DCIS), benign thyroid goiter, diabetic retinopathy, chronic myelocytic leukemia (in remission), claustrophobic. 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 Lichen sclerosus of the vulva confirmed with biopsy in 2018. History of Any Multi-Drug Resistant Organisms: None Reported Past Surgical History: Ablation, Orthopedic Surgery, Uterine Ablation Additional Past Surgical History / Comment(s): lt breast lumpectomies ,left breast margins revision Apr 2017, right breast lumpectomy 2019, cyst removed from toe lt foot 1997, bilat eye vitrectomy and annette cataract 1991, ganglion cyst lt wrist 1968, endometrial ablation 1993, Left hip replacement 2018. Colonoscopy 2021(next after 2yr). Past Anesthesia/Blood Transfusion Reactions: No Reported Reaction Past Psychological History: No Psychological Hx Reported Additional Psychological History / Comment(s): claustrophobic Smoking Status: Former smoker Past Alcohol Use History: None Reported Additional Past Alcohol Use History / Comment(s): quit smoking 1981, smoked in college Past Drug Use History: None Reported - Past Family History Father Family Medical History: Cancer Additional Family Medical History / Comment(s): prostate, pancreatic Mother Family Medical History: CVA/TIA, Diabetes Mellitus, Myocardial Infarction ([place]) Medications and Allergies Home Medications Medication Instructions Recorded Confirmed Type Benazepril HCl 40 mg PO DAILY 04/20/18 03/27/23 History Simvastatin [Zocor] 20 mg PO HS 04/20/18 03/27/23 History Metoprolol Tartrate [Lopressor] 12.5 mg PO BID 06/24/18 03/27/23 History Aspirin [Adult Low Dose Aspirin EC] 81 mg PO HS 02/12/21 03/27/23 History hydrALAZINE HCL [Apresoline] 50 mg PO BID 02/12/21 03/27/23 History Cholecalciferol [Vitamin D3 (25 25 mcg PO DAILY 02/17/21 03/27/23 History Mcg = 1000 Iu)] INSULIN ASPART (NovoLOG) [NovoLOG 0.01 unit SQ-PUMP CONTINUOUS 11/26/21 03/27/23 History (formulary)] Triamterene/Hydrochlorothiazid 1 tab PO DAILY 11/26/21 03/27/23 History [Triamterene-Hctz 37.5-25 mg Tb] Nilotinib HCl [Tasigna] 300 mg PO BID 04/16/22 03/27/23 History ALPRAZolam [Xanax] 0.25 mg PO DAILY PRN 03/27/23 03/27/23 History Allergies Allergy/AdvReac Type Severity Reaction Status Date / Time hydrocodone [From [place]] AdvReac irreg and Verified 03/27/23 07:51 difficult breathing Surgical - Exam Vital Signs Temp Pulse Resp BP Pulse Ox 98.4 F 68 18 166/69 98 03/27/23 06:13 03/27/23 06:13 03/27/23 06:13 03/27/23 06:13 03/27/23 06:13 Results - Labs 03/27/23 01:40 03/27/23 01:40 Abnormal Lab Results - Last 24 Hours (Table) 03/27/23 03/27/23 Range/Units 01:40 01:40 WBC 12.5 H (3.8-10.6) k/uL RDW 15.9 H (11.5-15.5) % Neutrophils # 10.4 H (1.3-7.7) k/uL Sodium 131 L (137-145) mmol/L Chloride 97 L (98-107) mmol/L Carbon Dioxide 21 L (22-30) mmol/L Total Bilirubin 1.4 H (0.2-1.3) mg/dL Lipase 18 L (23-300) U/L Diabetes panel 03/27/23 Range/Units 01:40 Sodium 131 L (137-145) mmol/L Potassium 4.1 (3.5-5.1) mmol/L Chloride 97 L (98-107) mmol/L Carbon Dioxide 21 L (22-30) mmol/L BUN 14 (7-17) mg/dL Creatinine 0.93 (0.52-1.04) mg/dL Glucose 85 (74-99) mg/dL Calcium 9.8 (8.4-10.2) mg/dL AST 29 (14-36) U/L ALT 23 (4-34) U/L Alkaline Phosphatase 111 (38-126) U/L Total Protein 7.0 (6.3-8.2) g/dL Albumin 4.1 (3.5-5.0) g/dL Calcium panel 03/27/23 Range/Units 01:40 Calcium 9.8 (8.4-10.2) mg/dL Albumin 4.1 (3.5-5.0) g/dL Pituitary panel 03/27/23 Range/Units 01:40 Sodium 131 L (137-145) mmol/L Potassium 4.1 (3.5-5.1) mmol/L Chloride 97 L (98-107) mmol/L Carbon Dioxide 21 L (22-30) mmol/L BUN 14 (7-17) mg/dL Creatinine 0.93 (0.52-1.04) mg/dL Glucose 85 (74-99) mg/dL Calcium 9.8 (8.4-10.2) mg/dL Adrenal panel 03/27/23 Range/Units 01:40 Sodium 131 L (137-145) mmol/L Potassium 4.1 (3.5-5.1) mmol/L Chloride 97 L (98-107) mmol/L Carbon Dioxide 21 L (22-30) mmol/L BUN 14 (7-17) mg/dL Creatinine 0.93 (0.52-1.04) mg/dL Glucose 85 (74-99) mg/dL Calcium 9.8 (8.4-10.2) mg/dL Total Bilirubin 1.4 H (0.2-1.3) mg/dL AST 29 (14-36) U/L ALT 23 (4-34) U/L Alkaline Phosphatase 111 (38-126) U/L Total Protein 7.0 (6.3-8.2) g/dL Albumin 4.1 (3.5-5.0) g/dL
[2023-03-27 11:32] LABS: Glucose,Whole Blood 183 mg/dL (70-110)
[2023-03-27] MEDS: IOPAMIDOL CONTRAST (ORAL USE) VIAL PO PRN ×2 (12:22→13:13)
--- NOTE | 2023-03-27 14:22 | CT ---
EXAMINATION TYPE: CT abdomen pelvis w con DATE OF EXAM: 03/27/2023 COMPARISON: 02/12/2021 HISTORY: RLQ pain. CT DLP: 1518.5 mGycm Automated exposure control for dose reduction was used. CONTRAST: CT scan of the abdomen pelvis is performed with IV Contrast, patient injected with 100 mL of Isovue 3 00. FINDINGS- LUNG BASES- there is a small bilateral pleural effusion. There is basilar compressive atelectasis. C alcifications of the lung bases likely related to tiny granuloma. Small pericardial effusion. LIVER/GB- gallbladder is distended but no CT evidence of cholecystitis. Punctate tiny gallstones thompson spected. PANCREAS- atrophy of the pancreas. SPLEEN- multiple subcentimeter hypodensities too small to characterize likely relate to benign cysts . ADRENALS- subcentimeter left adrenal nodule too small to characterize but stable and likely related to benign adenoma. KIDNEYS/BLADDER- no hydronephrosis nephrolithiasis or renal mass. BOWEL- bowel gas pattern is nonspecific with no obstruction. Appendix is not seen but there is no in flammatory changes within the right lower quadrant. LYMPH NODES- No greater than 1cm abdominal or pelvic lymph nodes are appreciated. OSSEOUS STRUCTURES- postsurgical change involving the left hip. Hypertrophic and degenerative change s in the spine. Arthropathy of the right hip with diffuse osteopenia. OTHER- there is fat containing periumbilical hernia. Within the left soft tissues there is fat atten uation measuring 6.6 cm compatible with a subcutaneous lipoma. The right ovary is prominent for the patient's demographics. IMPRESSION- 1. Small bilateral pleural effusions. 2. Gallbladder distention but no CT evidence of cholecystitis. 3. There is no evidence of bowel obstruction. Appendix is not visualized but there is no inflammatory changes in the right lower quadrant. 4. The right ovary is prominent for the patient's age group would recommend a follow-up pelvic ultras ound.
[2023-03-27 15:41] LABS: Glucose,Whole Blood 63 mg/dL (70-110)
[2023-03-27 16:26] LABS: Glucose,Whole Blood 56 mg/dL (70-110)
[2023-03-27 17:07] LABS: Glucose,Whole Blood 69 mg/dL (70-110)
[2023-03-27] MEDS: lisinopriL 20 MG TAB PO SCH (18:47)
[2023-03-27 18:54] LABS: Glucose,Whole Blood 97 mg/dL (70-110)
[2023-03-27 20:12] LABS: Glucose,Whole Blood 83 mg/dL (70-110)
[2023-03-27] MEDS: hydrALAZINE HCL 50 MG TAB PO SCH (20:55)
[2023-03-27] MEDS: METOPROLOL TARTRATE 12.5 MG TAB PO SCH (20:55)
[2023-03-27] MEDS: ASPIRIN 81 MG PO SCH (20:55)
[2023-03-27] MEDS: PATIENT'S OWN (Nilotinib Hcl [Tasigna] 150 MG Capsule) PO SCH (21:00)
[2023-03-28 02:05] LABS: Glucose,Whole Blood 56 mg/dL (70-110)
[2023-03-28] MEDS: HYDROmorphone 1 MG/ML 1 ML SYRINGE IVP PRN ×6 (02:09→21:33)
[2023-03-28 02:24] LABS: Glucose,Whole Blood 65 mg/dL (70-110)
[2023-03-28 02:41] LABS: Glucose,Whole Blood 69 mg/dL (70-110)
[2023-03-28 02:59] LABS: Glucose,Whole Blood 101 mg/dL (70-110)
[2023-03-28] MEDS: SODIUM CHLORIDE 0.9% 1,000 ML IV SCH ×2 (04:12→16:21)
[2023-03-28 05:43] LABS: Glucose,Whole Blood 131 mg/dL (70-110)
--- NOTE | 2023-03-28 08:54 | P.HPIM ---
History of Present Illness H&P Date: 03/27/23 Roxanna Ortiz, is a 72-year-old female who presented to [facility] emergency room with a chief complaint of abdominal pain nausea and vomiting. Patient was recently seen at [facility] emergency room for similar symptoms with constipation computed tomography scan of the abdomen and pelvis was done at [facility], patient was treated symptomatically for constipation and was discharged home from the ER. She presented again today to [facility] with abdominal pain nausea vomiting and constipation. She has a known history of CML in remission, she also has a known history of hypertension, hyperlipidemia, obstructive sleep apnea, insulin-dep endent diabetes mellitus, history of bilateral breast cancer with bilateral lumpectomy. She was evaluated in the emergency room vital examination on presentation revealed a temperature of 98.4 pulse 68 respiration 18 blood pressure 166/69 pulse ox 98 percent on room air Laboratory data reveals a white blood count of 12.5 hemoglobin 12.7 platelet count 209 sodium 131 potassium 4.1 chloride 97 CO2 21 BUN 14 creatinine 0.93 Patient was admitted to medical floor, surgical consultation was requested Past Medical History Past Medical History: Cancer, Diabetes Mellitus, Hypertension, Sleep Apnea/CPAP/BIPAP, Thyroid Disorder Additional Past Medical History / Comment(s): previous polyp hidden near appendix,heart murmur, Intermittent PACs,Left breast cancer 2016, Right breast cancer 2019 (both DCIS), benign thyroid goiter, diabetic retinopathy, chronic myelocytic leukemia (in remission), claustrophobic. 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 Lichen sclerosus of the vulva confirmed with biopsy in 2018. History of Any Multi-Drug Resistant Organisms: None Reported Past Surgical History: Ablation, Orthopedic Surgery, Uterine Ablation Additional Past Surgical History / Comment(s): lt breast lumpectomies ,left breast margins revision Apr 2017, right breast lumpectomy 2019, cyst removed from toe lt foot 1997, bilat eye vitrectomy and annette cataract 1991, ganglion cyst lt wrist 1968, endometrial ablation 1993, Left hip replacement 2018. Colonoscopy 2021(next after 2yr). Past Anesthesia/Blood Transfusion Reactions: No Reported Reaction Past Psychological History: No Psychological Hx Reported Additional Psychological History / Comment(s): claustrophobic Smoking Status: Former smoker Past Alcohol Use History: None Reported Additional Past Alcohol Use History / Comment(s): quit smoking 1981, smoked in college Past Drug Use History: None Reported - Past Family History Father Family Medical History: Cancer Additional Family Medical History / Comment(s): prostate, pancreatic Mother Family Medical History: CVA/TIA, Diabetes Mellitus, Myocardial Infarction ([place]) Medications and Allergies Home Medications Medication Instructions Recorded Confirmed Type Benazepril HCl 40 mg PO DAILY 04/20/18 03/27/23 History Simvastatin [Zocor] 20 mg PO HS 04/20/18 03/27/23 History Metoprolol Tartrate [Lopressor] 12.5 mg PO BID 06/24/18 03/27/23 History Aspirin [Adult Low Dose Aspirin EC] 81 mg PO HS 02/12/21 03/27/23 History hydrALAZINE HCL [Apresoline] 50 mg PO BID 02/12/21 03/27/23 History Cholecalciferol [Vitamin D3 (25 25 mcg PO DAILY 02/17/21 03/27/23 History Mcg = 1000 Iu)] INSULIN ASPART (NovoLOG) [NovoLOG 0.01 unit SQ-PUMP CONTINUOUS 11/26/21 03/27/23 History (formulary)] Triamterene/Hydrochlorothiazid 1 tab PO DAILY 11/26/21 03/27/23 History [Triamterene-Hctz 37.5-25 mg Tb] Nilotinib HCl [Tasigna] 300 mg PO BID 04/16/22 03/27/23 History ALPRAZolam [Xanax] 0.25 mg PO DAILY PRN 03/27/23 03/27/23 History Allergies Allergy/AdvReac Type Severity Reaction Status Date / Time hydrocodone [From [place]] AdvReac irreg and Verified 03/27/23 07:51 difficult breathing Physical Exam Vitals: Vital Signs Temp Pulse Pulse Resp BP BP Pulse Ox 03/27/23 08:00 98.6 F 71 19 182/69 95 03/27/23 06:13 98.4 F 68 18 166/69 98 Intake and Output 03/26/23 03/27/23 03/27/23 22:59 06:59 14:59 Other: Weight 92.533 kg In general patient is alert and oriented ?-3 in no distress HEENT head normocephalic and atraumatic Neck is supple no JVD no goiter no lymphadenopathy no carotid bruit Chest examination is clear to auscultation no crackles no wheezing Cardiac exam reveals regular heart sounds S1 and S2 no gallops no murmurs Abdomen is soft with right lower quadrant abdominal tenderness no organomegaly with normal bowel sounds Extremity exam reveals no edema no cyanosis or clubbing Neurological examination reveals no gross focal deficits Results CBC & Chem 7: 03/27/23 01:40 03/27/23 01:40 Labs: Abnormal Lab Results - Last 24 Hours (Table) 03/27/23 03/27/23 03/27/23 Range/Units 01:40 01:40 11:29 WBC 12.5 H (3.8-10.6) k/uL RDW 15.9 H (11.5-15.5) % Neutrophils # 10.4 H (1.3-7.7) k/uL Sodium 131 L (137-145) mmol/L Chloride 97 L (98-107) mmol/L Carbon Dioxide 21 L (22-30) mmol/L POC Glucose (mg/dL) 183 H (70-110) mg/dL Total Bilirubin 1.4 H (0.2-1.3) mg/dL Lipase 18 L (23-300) U/L Thrombosis Risk Factor Assmnt - Choose All That Apply Any of the Below Risk Factors Present?: Yes Each Factor Represents 1 point: Obesity (BMI >25) Other Risk Factors: Yes Each Risk Factor Represents 2 Points: Age 61-74 years Thrombosis Risk Factor Assessment Total Risk Factor Score: 3 Thrombosis Risk Factor Assessment Level: Moderate Risk Assessment and Plan Plan: Abdominal pain was nausea vomiting and constipation Underlying history of CML in remission Leukocytosis on presentation Previous history of bilateral breast cancer status post lumpectomy Underlying history of hypertension Underlying history of hyperlipidemia Underlying history of obstructive sleep apnea Patient is admitted to medical floor Home medications reviewed and reordered Computed tomography scan of the abdomen and pelvis ordered Surgical consultation requested Will follow closely
[2023-03-28] MEDS ORDERED: ONDANSETRON 4 MG/2 ML VIAL IVP PRN (09:14)
[2023-03-28] MEDS: Insulin Aspart (For Pump) 100 UNIT/ML VIAL SQ-PUMP SCH (09:22)
[2023-03-28] MEDS: ENOXAPARIN 40 MG/0.4 ML SYRINGE SQ SCH (09:26)
[2023-03-28] MEDS: TRIAMTERENE-HCTZ 37.5-25MG 1 EACH TAB PO SCH (09:26)
[2023-03-28] MEDS: hydrALAZINE HCL 50 MG TAB PO SCH ×2 (09:26→21:33)
[2023-03-28] MEDS: lisinopriL 20 MG TAB PO SCH (09:26)
[2023-03-28] MEDS: METOPROLOL TARTRATE 12.5 MG TAB PO SCH ×2 (09:26→21:33)
[2023-03-28] MEDS: CHOLECALCIFEROL 25 MCG (1000 IU) TABLET PO SCH (09:26)
--- NOTE | 2023-03-28 09:32 | P.PN ---
Subjective Progress Note Date: 03/28/23 Roxanna Ortiz, is a 72-year-old female who presented to [facility] emergency room with a chief complaint of abdominal pain nausea and vomiting. Patient was recently seen at [facility] emergency room for similar symptoms with constipation computed tomography scan of the abdomen and pelvis was done at [facility], patient was treated symptomatically for constipation and was discharged home from the ER. She presented again today to [facility] with abdominal pain nausea vomiting and constipation. She has a known history of CML in remission, she also has a known history of hypertension, hyperlipidemia, obstructive sleep apnea, insulin-dependent diabetes mellitus, history of bilateral breast cancer with bilateral lumpectomy. She was evaluated in the emergency room vital examination on presentation revealed a temperature of 98.4 pulse 68 respiration 18 blood pressure 166/69 pulse ox 98 percent on room air Laboratory data reveals a white blood count of 12.5 hemoglobin 12.7 platelet count 209 sodium 131 potassium 4.1 chloride 97 CO2 21 BUN 14 creatinine 0.93 Patient was admitted to medical floor, surgical consultation was requested On 03/28/2023 patient is alert and oriented 3. Patient still having right lower quadrant abdominal pain. Patient denies nausea vomiting at this time does report some diarrhea. Will order stool for C. diff. Results for transvaginal ultrasound pending surgical services following. Current vital signs temp 97.6, heart rate 65, respiratory rate 18, blood pressure 140/74 with a pulse ox 96% Objective - Vital Signs Vital signs: Vital Signs Temp 98.3 F 03/28/23 07:32 Pulse 75 03/28/23 07:32 Resp 20 03/28/23 07:32 BP 192/102 03/28/23 07:32 Pulse Ox 96 03/28/23 07:32 FiO2 Intake & Output 03/27/23 03/28/23 03/28/23 18:59 06:59 18:59 Weight 92.533 kg Other: # Voids 5 2 - Exam In general patient is alert and oriented ?-3 in no distress HEENT head normocephalic and atraumatic Neck is supple no JVD no goiter no lymphadenopathy no carotid bruit Chest examination is clear to auscultation no crackles no wheezing Cardiac exam reveals regular heart sounds S1 and S2 no gallops no murmurs Abdomen is soft with right lower quadrant abdominal tenderness no organomegaly with normal bowel sounds Extremity exam reveals no edema no cyanosis or clubbing Neurological examination reveals no gross focal deficits - Labs CBC & Chem 7: 03/27/23 01:40 03/27/23 01:40 Labs: Abnormal Lab Results - Last 24 Hours (Table) 03/27/23 03/27/23 03/27/23 Range/Units 11:29 15:40 16:25 POC Glucose (mg/dL) 183 H 63 L 56 L (70-110) mg/dL 03/27/23 03/28/23 03/28/23 Range/Units 17:06 02:01 02:23 POC Glucose (mg/dL) 69 L 56 L 65 L (70-110) mg/dL 03/28/23 03/28/23 Range/Units 02:40 05:40 POC Glucose (mg/dL) 69 L 131 H (70-110) mg/dL Assessment and Plan Plan: Abdominal pain was nausea vomiting and constipation Underlying history of CML in remission Leukocytosis on presentation Previous history of bilateral breast cancer status post lumpectomy Underlying history of hypertension Underlying history of hyperlipidemia Underlying history of obstructive sleep apnea Patient is admitted to medical floor Home medications reviewed and reordered Computed tomography scan of the abdomen and pelvis ordered Transvaginal ultrasound ordered Stool for C. diff ordered Surgical consultation requested Will follow closely
[2023-03-28] MEDS: PATIENT'S OWN (Nilotinib Hcl [Tasigna] 150 MG Capsule) PO SCH ×2 (09:35→20:16)
--- NOTE | 2023-03-28 10:28 | US ---
EXAMINATION TYPE: US transvaginal DATE OF EXAM: 03/27/2023 COMPARISON: CT: 03/27/23 CLINICAL INDICATION: Female, 72 years old with history of prominent R ovary on CT scan; prominent rig ht ovary on CT scan. G0. Endometrial ablation in 1995. Hx of breast cancer TECHNIQUE: Transvaginal (TV). Date of LMP: 30+ years ago EXAM MEASUREMENTS: Uterus: 5.4 x 5.2 x 4.0 cm Endometrial Stripe: Not well seen Right Ovary: 3.9 x 2.7 x 2.6 cm for volume of 13.7 ml. Left Ovary: Not seen 1. Uterus: Anteverted. Not well visualized 2. Endometrium: Not well visualized 3. Right Ovary: Slightly prominent for postmenopausal patient. No obvious mass seen. F/u can be per formed. 4. Left Ovary: Not seen 5. Bilateral Adnexa: wnl, peristalsing bowel 6. Posterior cul-de-sac: wnl IMPRESSION: 1. Imperceptible endometrial stripe compatible with postmenopausal state and prior ablation. 2. Right ovary slightly prominent for postmenopausal patient. No obvious mass seen. Consider followu p ultrasound in 6 months to reassess. 3. Unable to visualize the left ovary.
[2023-03-28 11:06] LABS: Basophils # (A) 0.04 X 10*3/uL (0.00-0.10); Basophils % (A) 0.4 %; Eosinophils # (A) 0.43 X 10*3/uL (0.04-0.35); Eosinophils % (A) 3.9 %; HCT 35.3 % (37.2-46.3); HGB 11.3 d/dL (12.0-15.0); Lymphocytes # (A) 1.11 X 10*3/uL (0.90-5.00); MCV 84.4 FL (80.0-97.0); Mean Platelet Volume 11.6 FL (9.5-12.2); Monocytes # (A) 1.03 X 10*3/uL (0.20-1.00); Monocytes % (A) 9.3 %; NRBC Per 100 WBC 0 X 10*3/uL (0.00-0.01); Neutrophils # (A) 8.35 X 10*3/uL (1.80-7.70); Neutrophils % (A) 75.6 %; Platelet Count 198 X 10*3/uL (140-440); RBC 4.18 X 10*6/uL (4.10-5.20); RDW 15.9 % (11.5-14.5); WBC 11.05 X 10*3/uL (4.50-10.00)
[2023-03-28 11:11] LABS: Glucose,Whole Blood 145 mg/dL (70-110)
[2023-03-28 11:20] LABS: ALT 18 U/L (8-44); AST 22 U/L (13-35); Albumin 3.7 d/dL (3.8-4.9); Albumin/Globulin Ratio 1.76 Ratio (1.60-3.17); Alkaline Phosphatase 100 U/L (41-126); BUN/Creat Ratio 9.36 Ratio (12.00-20.00); Blood Urea Nitrogen 10.3 mg/dL (9.0-27.0); Carbon Dioxide 23.3 mmol/L (21.6-31.8); Chloride 99 mmol/L (96-109); Globulin 2.1 d/dL (1.6-3.3); Glucose 94 mg/dL (70-110); Potassium 3.8 mmol/L (3.5-5.5); Sodium 133 mmol/L (135-145); Total Bilirubin 0.5 mg/dL (0.3-1.2); Total Protein 5.8 d/dL (6.2-8.2)
--- NOTE | 2023-03-28 12:49 | P.CONS ---
History of Present Illness - Reason for Consult Consult date: 03/28/23 - Chief Complaint Right groin pain - History of Present Illness This is a pleasant 72-year-old lady with history of chronic myelocytic leukemia in remission and recent pain in the right groin and also in the right side of the lower back area. The patient had similar pain about one year ago which was treated medically at that time. Her pain in the groin area is more intense than her pain in the lower back area as she states. She denies any weakness or any numbness or tingling in the right lower extremity. She denies any exacerbating or relieving factors. The pain wakes the patient up at night. Right now the patient receives Dilaudid IV for her pain. The patient states that she saw an orthopedic surgeon one year ago with the previous episode of her symptoms for pain and he check the right hip joint and ruled out any arthritis in the right hip joint. Past Medical History Past Medical History: Cancer, Diabetes Mellitus, Hypertension, Sleep A pnea/CPAP/BIPAP, Thyroid Disorder Additional Past Medical History / Comment(s): previous polyp hidden near appendix,heart murmur, Intermittent PACs,Left breast cancer 2016, Right breast cancer 2019 (both DCIS), benign thyroid goiter, diabetic retinopathy, chronic myelocytic leukemia (in remission), claustrophobic. 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 History of Any Multi-Drug Resistant Organisms: None Reported Past Surgical History: Ablation, Orthopedic Surgery, Uterine Ablation Additional Past Surgical History / Comment(s): lt breast lumpectomies ,left breast margins revision Apr 2017, right breast lumpectomy 2019, cyst removed from toe lt foot 1997, bilat eye vitrectomy and annette cataract 1991, ganglion cyst lt wrist 1968, endometrial ablation 1993, Left hip replacement 2018. Colonoscopy 2021(next after 2yr). Past Anesthesia/Blood Transfusion Reactions: No Reported Reaction Past Psychological History: No Psychological Hx Reported Additional Psychological History / Comment(s): claustrophobic Smoking Status: Former smoker Past Alcohol Use History: None Reported Additional Past Alcohol Use History / Comment(s): quit smoking 1981, smoked in college Past Drug Use History: None Reported - Past Family History Father Family Medical History: Cancer Additional Family Medical History / Comment(s): prostate, pancreatic Mother Family Medical History: CVA/TIA, Diabetes Mellitus, Myocardial Infarction ([place]) Medications and Allergies Home Medications Medication Instructions Recorded Confirmed Type Benazepril HCl 40 mg PO DAILY 04/20/18 03/27/23 History Simvastatin [Zocor] 20 mg PO HS 04/20/18 03/27/23 History Metoprolol Tartrate [Lopressor] 12.5 mg PO BID 06/24/18 03/27/23 History Aspirin [Adult Low Dose Aspirin EC] 81 mg PO HS 02/12/21 03/27/23 History hydrALAZINE HCL [Apresoline] 50 mg PO BID 02/12/21 03/27/23 History Cholecalciferol [Vitamin D3 (25 25 mcg PO DAILY 02/17/21 03/27/23 History Mcg = 1000 Iu)] INSULIN ASPART (NovoLOG) [NovoLOG 0.01 unit SQ-PUMP CONTINUOUS 11/26/21 03/27/23 History (formulary)] Triamterene/Hydrochlorothiazid 1 tab PO DAILY 11/26/21 03/27/23 History [Triamterene-Hctz 37.5-25 mg Tb] Nilotinib HCl [Tasigna] 300 mg PO BID 04/16/22 03/27/23 History ALPRAZolam [Xanax] 0.25 mg PO DAILY PRN 03/27/23 03/27/23 History Allergies Allergy/AdvReac Type Severity Reaction Status Date / Time hydrocodone [From [place]] AdvReac irreg and Verified 03/27/23 07:51 difficult breathing Physical Exam Vitals: Vital Signs Temp Pulse Resp BP Pulse Ox 03/28/23 07:32 98.3 F 75 20 192/102 96 03/28/23 01:38 97.6 F 65 18 140/74 96 03/27/23 18:58 97.7 F 66 18 178/70 95 03/27/23 14:00 97.9 F 74 17 127/64 97 Intake and Output 03/27/23 03/28/23 03/28/23 22:59 06:59 14:59 Other: Voiding Method Toilet # Voids 5 2 - Constitutional General appearance: morbidly obese - Neurologic Neurologic: CNII-XII intact - Musculoskeletal The patient was seen sitting on the bedside chair. She has no tenderness in the right groin area however she does have significant tenderness around the right sacroiliac joint. Edison's test negative on the right side Internal and external rotation of the right hip joint did not elicit any pain - Psychiatric Psychiatric: A&O x's 3, appropriate affect, intact judgment & insight Results CBC & Chem 7: 03/28/23 06:56 03/28/23 06:56 Labs: Abnormal Lab Results - Last 24 Hours (Table) 03/27/23 03/27/23 03/27/23 Range/Units 15:40 16:25 17:06 WBC (4.50-10.00) X 10*3/uL Hgb (12.0-15.0) d/dL Hct (37.2-46.3) % RDW (11.5-14.5) % Neutrophils # (1.80-7.70) X 10*3/uL Monocytes # (0.20-1.00) X 10*3/uL Eosinophils # (0.04-0.35) X 10*3/uL Sodium (135-145) mmol/L Est GFR (CKD-EPI) (>=60) BUN/Creatinine Ratio (12.00-20.00) Ratio POC Glucose (mg/dL) 63 L 56 L 69 L (70-110) mg/dL Total Protein (6.2-8.2) d/dL Albumin (3.8-4.9) d/dL 03/28/23 03/28/23 03/28/23 Range/Units 02:01 02:23 02:40 WBC (4.50-10.00) X 10*3/uL Hgb (12.0-15.0) d/dL Hct (37.2-46.3) % RDW (11.5-14.5) % Neutrophils # (1.80-7.70) X 10*3/uL Monocytes # (0.20-1.00) X 10*3/uL Eosinophils # (0.04-0.35) X 10*3/uL Sodium (135-145) mmol/L Est GFR (CKD-EPI) (>=60) BUN/Creatinine Ratio (12.00-20.00) Ratio POC Glucose (mg/dL) 56 L 65 L 69 L (70-110) mg/dL Total Protein (6.2-8.2) d/dL Albumin (3.8-4.9) d/dL 03/28/23 03/28/23 03/28/23 Range/Units 05:40 06:56 06:56 WBC 11.05 H (4.50-10.00) X 10*3/uL Hgb 11.3 L (12.0-15.0) d/dL Hct 35.3 L (37.2-46.3) % RDW 15.9 H (11.5-14.5) % Neutrophils # 8.35 H (1.80-7.70) X 10*3/uL Monocytes # 1.03 H (0.20-1.00) X 10*3/uL Eosinophils # 0.43 H (0.04-0.35) X 10*3/uL Sodium 133 L (135-145) mmol/L Est GFR (CKD-EPI) 53 L (>=60) BUN/Creatinine Ratio 9.36 L (12.00-20.00) Ratio POC Glucose (mg/dL) 131 H (70-110) mg/dL Total Protein 5.8 L (6.2-8.2) d/dL Albumin 3.7 L (3.8-4.9) d/dL 03/28/23 Range/Units 11:09 WBC (4.50-10.00) X 10*3/uL Hgb (12.0-15.0) d/dL Hct (37.2-46.3) % RDW (11.5-14.5) % Neutrophils # (1.80-7.70) X 10*3/uL Monocytes # (0.20-1.00) X 10*3/uL Eosinophils # (0.04-0.35) X 10*3/uL Sodium (135-145) mmol/L Est GFR (CKD-EPI) (>=60) BUN/Creatinine Ratio (12.00-20.00) Ratio POC Glucose (mg/dL) 145 H (70-110) mg/dL Total Protein (6.2-8.2) d/dL Albumin (3.8-4.9) d/dL Assessment and Plan Plan: This is a 72-year-old lady with CML in remission and right groin and lower back pain. Differential diagnoses include: Right sacroiliitis. Patient may benefit from a right sacroiliac joint steroid injection however she is hesitant about that because of her history of diabetes and severe hyperglycemia after such injections previously with the steroids. 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 She might need an MRI on the lumbar spine to rule out this diagnosis. I will recommend her to have lumbar spine MRI and to start physical therapy as tolerated. She can continue using Dilaudid and will be anti-inflammatory medications if there is no contraindication. I thank you for the consultation.
--- NOTE | 2023-03-28 12:54 | P.PN ---
Subjective Progress Note Date: 03/28/23 CHIEF COMPLAINT: Abdominal pain HISTORY OF PRESENT ILLNESS: Patient continues to complain of right lower quadrant abdominal pain. She has been having diarrhea. She reports that she was constipated and took a bunch of laxatives at home and since then has had diarrhea. She also reports nausea. She has been requiring IV pain meds. Patient's pain, muscle spasms and constipation may be related to Tasigna. Patient has been having chronic symptoms since after starting this medication. Computed tomography scan abdomen and pelvis report small bilateral pleural effusions. Gallbladder distention but no CT evidence of cholecystitis. There is no evidence of bowel obstruction. Appendix is not visualized but there is no inflammatory changes of the right lower quadrant. Right ovary is prominent for the patient's age group. Transvaginal ultrasound reports right ovary slightly prominent for postmenopausal patient. No obvious mass. Afebrile. WBC down from 12.5-11.05 PHYSICAL EXAM: VITAL SIGNS: Reviewed GENERAL: Well-developed in no acute distress. HEENT: No sclera icterus. Extraocular movements grossly intact. Moist buccal mucosa. Head is atraumatic, normocephalic. Hears conversational speech. No nasal drainage. NECK: Supple without lymphadenopathy. CHEST: Non-labored respirations and equal bilateral excursions. CARDIOVASCULAR: Palpable 2+ radial pulses. ABDOMEN: Soft. Nondistended. Tender with palpation right lower quadrant MUSCULOSKELETAL: No clubbing or cyanosis. NEUROLOGIC: No focal or lateralizing signs. Cranial nerves II through XII grossly intact. PSYCH: Appropriate affect. Alert and oriented to person, place and time. SKIN: Well perfused. Good skin turgor. ASSESSMENT: 1. Right lower quadrant abdominal pain, muscle spasms 2. Constipation 3. History of CML 4. Insulin-dependent diabetes mellitus 5. Hypertension 6. History of bilateral breast cancer with lumpectomy PLAN: -Consult placed for oncology service to evaluate if Tasigna is causing patient's abdominal pain, muscle spasm and constipation -Consult pain management for patient's chronic abdominal pain -Check Rapid Covid swab to rule out COVID-19 causing patient's diarrhea -Continue supportive care -Continue regular diet Physician Sports Teacher note has been reviewed by physician. Signing provider agrees with the documented findings, assessment, and plan of care. Objective - Vital Signs Vital signs: Vital Signs Temp 98.3 F 03/28/23 07:32 Pulse 75 10/20/23 07:32 Resp 20 03/28/23 07:32 BP 192/102 03/28/23 07:32 Pulse Ox 96 03/28/23 07:32 FiO2 Intake & Output 03/27/23 03/28/23 03/28/23 18:59 06:59 18:59 Weight 92.533 kg Other: # Voids 5 2 - Labs CBC & Chem 7: 03/28/23 06:56 03/28/23 06:56 Labs: Abnormal Lab Results - Last 24 Hours (Table) 03/27/23 03/27/23 03/27/23 Range/Units 15:40 16:25 17:06 WBC (4.50-10.00) X 10*3/uL Hgb (12.0-15.0) d/dL Hct (37.2-46.3) % RDW (11.5-14.5) % Neutrophils # (1.80-7.70) X 10*3/uL Monocytes # (0.20-1.00) X 10*3/uL Eosinophils # (0.04-0.35) X 10*3/uL Sodium (135-145) mmol/L Est GFR (CKD-EPI) (>=60) BUN/Creatinine Ratio (12.00-20.00) Ratio POC Glucose (mg/dL) 63 L 56 L 69 L (70-110) mg/dL Total Protein (6.2-8.2) d/dL Albumin (3.8-4.9) d/dL 03/28/23 03/28/23 03/28/23 Range/Units 02:01 02:23 02:40 WBC (4.50-10.00) X 10*3/uL Hgb (12.0-15.0) d/dL Hct (37.2-46.3) % RDW (11.5-14.5) % Neutrophils # (1.80-7.70) X 10*3/uL Monocytes # (0.20-1.00) X 10*3/uL Eosinophils # (0.04-0.35) X 10*3/uL Sodium (135-145) mmol/L Est GFR (CKD-EPI) (>=60) BUN/Creatinine Ratio (12.00-20.00) Ratio POC Glucose (mg/dL) 56 L 65 L 69 L (70-110) mg/dL Total Protein (6.2-8.2) d/dL Albumin (3.8-4.9) d/dL 03/28/23 03/28/23 03/28/23 Range/Units 05:40 06:56 06:56 WBC 11.05 H (4.50-10.00) X 10*3/uL Hgb 11.3 L (12.0-15.0) d/dL Hct 35.3 L (37.2-46.3) % RDW 15.9 H (11.5-14.5) % Neutrophils # 8.35 H (1.80-7.70) X 10*3/uL Monocytes # 1.03 H (0.20-1.00) X 10*3/uL Eosinophils # 0.43 H (0.04-0.35) X 10*3/uL Sodium 133 L (135-145) mmol/L Est GFR (CKD-EPI) 53 L (>=60) BUN/Creatinine Ratio 9.36 L (12.00-20.00) Ratio POC Glucose (mg/dL) 131 H (70-110) mg/dL Total Protein 5.8 L (6.2-8.2) d/dL Albumin 3.7 L (3.8-4.9) d/dL 03/28/23 Range/Units 11:09 WBC (4.50-10.00) X 10*3/uL Hgb (12.0-15.0) d/dL Hct (37.2-46.3) % RDW (11.5-14.5) % Neutrophils # (1.80-7.70) X 10*3/uL Monocytes # (0.20-1.00) X 10*3/uL Eosinophils # (0.04-0.35) X 10*3/uL Sodium (135-145) mmol/L Est GFR (CKD-EPI) (>=60) BUN/Creatinine Ratio (12.00-20.00) Ratio POC Glucose (mg/dL) 145 H (70-110) mg/dL Total Protein (6.2-8.2) d/dL Albumin (3.8-4.9) d/dL
[2023-03-28 13:08] LABS: ALT 20 U/L (4-34); AST 29 U/L (14-36); African American GFR (CKD) 80 (>60 ml/min/1.73 sqM); Albumin 3.4 g/dL (3.5-5.0); Albumin/Globulin Ratio 1.3; Alkaline Phosphatase 95 U/L (38-126); Anion Gap 9 mmol/L; Blood Urea Nitrogen 11 mg/dL (7-17); Calcium 8.8 mg/dL (8.4-10.2); Carbon Dioxide 19 mmol/L (22-30); Chloride 101 mmol/L (98-107); Globulin 2.7 g/dL; Glucose 143 mg/dL (74-99); Non-African American GFR(CKD) 69 (>60 ml/min/1.73 sqM); Sodium 129 mmol/L (137-145); Total Bilirubin 0.7 mg/dL (0.2-1.3); Total Protein 6.1 g/dL (6.3-8.2)
[2023-03-28 16:34] LABS: Basophils # (A) 0.05 X 10*3/uL (0.00-0.10); Basophils % (A) 0.4 %; Eosinophils # (A) 0.46 X 10*3/uL (0.04-0.35); Eosinophils % (A) 4.1 %; HGB 11.4 d/dL (12.0-15.0); Lymphocytes # (A) 0.97 X 10*3/uL (0.90-5.00); Lymphocytes % (A) 8.6 %; MCHC 31.7 d/dL (32.0-37.0); MCV 85.1 FL (80.0-97.0); Monocytes # (A) 0.97 X 10*3/uL (0.20-1.00); Monocytes % (A) 8.6 %; NRBC Per 100 WBC 0 X 10*3/uL (0.00-0.01); Neutrophils # (A) 8.81 X 10*3/uL (1.80-7.70); Neutrophils % (A) 77.7 %; Platelet Count 194 X 10*3/uL (140-440); RBC 4.23 X 10*6/uL (4.10-5.20); WBC 11.33 X 10*3/uL (4.50-10.00)
[2023-03-28 17:05] LABS: Glucose,Whole Blood 109 mg/dL (70-110)
[2023-03-28 20:00] LABS: Glucose,Whole Blood 60 mg/dL (70-110)
[2023-03-28 20:57] LABS: Appearance,Urine Clear (Clear); Bilirubin,Urine Negative (Negative); Blood,Urine Negative (Negative); Color,Urine Colorless; Glucose,Urine (UA) Negative (Negative); Ketones,Urine Negative (Negative); Leukocyte Esterase,Urine Negative (Negative); Nitrite,Urine Negative (Negative); Protein,Urine Negative (Negative); Specific Gravity,Urine 1.008 (1.001-1.035); Urobilinogen,Urine <2.0 mg/dL (<2.0)
[2023-03-28] MEDS: ASPIRIN 81 MG PO SCH (21:33)
[2023-03-28 21:47] LABS: Glucose,Whole Blood 55 mg/dL (70-110)
[2023-03-29 00:01] LABS: Glucose,Whole Blood 70 mg/dL (70-110)
[2023-03-29] MEDS: HYDROmorphone 1 MG/ML 1 ML SYRINGE IVP PRN ×6 (01:45→21:03)
[2023-03-29] MEDS: SODIUM CHLORIDE 0.9% 1,000 ML IV SCH ×3 (01:52→14:51)
[2023-03-29 05:50] LABS: Glucose,Whole Blood 47 mg/dL (70-110)
[2023-03-29 06:08] LABS: Glucose,Whole Blood 45 mg/dL (70-110)
[2023-03-29 06:11] LABS: Anisocytosis Slight; Basophils % (A) 0 %; Eosinophils # (A) 0.5 k/uL (0-0.7); Eosinophils % (A) 5 %; HCT 37.2 % (34.0-46.0); Lymphocytes # (A) 1.1 k/uL (1.0-4.8); Lymphocytes % (A) 10 %; MCH 27.8 pg (25.0-35.0); MCHC 32.2 g/dL (31.0-37.0); MCV 86.2 fL (80.0-100.0); Mean Platelet Volume 9.2; Monocytes # (A) 0.6 k/uL (0-1.0); Monocytes % (A) 6 %; Neutrophils # (A) 8.3 k/uL (1.3-7.7); Neutrophils % (A) 78 %; Platelet Count 171 k/uL (150-450); RBC 4.31 m/uL (3.80-5.40); RDW 16.1 % (11.5-15.5); WBC 10.7 k/uL (3.8-10.6)
[2023-03-29] MEDS ORDERED: DEXTROSE 50% SYRINGE 50 ML IVP STA (06:22)
[2023-03-29 06:25] LABS: Glucose,Whole Blood 59 mg/dL (70-110)
[2023-03-29] MEDS: Insulin Aspart (For Pump) 100 UNIT/ML VIAL SQ-PUMP SCH (06:57)
[2023-03-29 07:37] LABS: Glucose,Whole Blood 188 mg/dL (70-110)
[2023-03-29] MEDS: ENOXAPARIN 40 MG/0.4 ML SYRINGE SQ SCH (09:29)
[2023-03-29] MEDS: CHOLECALCIFEROL 25 MCG (1000 IU) TABLET PO SCH (09:29)
[2023-03-29] MEDS: lisinopriL 20 MG TAB PO SCH (09:29)
[2023-03-29] MEDS: METOPROLOL TARTRATE 12.5 MG TAB PO SCH ×2 (09:29→21:02)
[2023-03-29] MEDS: hydrALAZINE HCL 50 MG TAB PO SCH ×2 (09:29→21:02)
[2023-03-29] MEDS: TRIAMTERENE-HCTZ 37.5-25MG 1 EACH TAB PO SCH (09:30)
--- NOTE | 2023-03-29 09:52 | P.CONS ---
History of Present Illness - Reason for Consult Consult date: 03/28/23 abd pain, hx CML Requesting physician: Shaina Montano - Chief Complaint abdominal pain - History of Present Illness Patient is a 72 year old female with a significant history of breast cancer and CML. She is a patient of Dr. Penaloza. She was diagnosed with left breast cancer in 11/2016. The patient had left partial mastectomy with SLNB on 03/13/17, and completed XRT to left breast. In February 2018 she referred back to the clinic for evaluation of leukocytosis and thrombocytosis. She underwent bone marrow biopsy in 04/2018 which confirmed CML. She was subsequently started on Tasigna and overall has tolerated well. Repeat BCR ABL in 12/2018 came back negative and patient has remained in complete molecular response. She was then diagnosed with right breast cancer in 09/2019. She was started on endocrine therapy, and had right partial mastectomy in November 2019 with no residual cancer noted. She has continued on femara, but this was stopped last month due to progressive osteopenia. Patient presented to the emergency room with complaints of abdominal pain and nausea vomiting. Patient reports abdominal pain is chronic in nature over the last 2-1/2 years but has worsened over the last couple weeks and over the last 1 week has been experiencing nausea vomiting with decreased oral intake. She was seen at [facility] last week for the same and was treated for constipation with no improvement in symptoms. Patient reports she has not had a bowel m ovement the last 3 days. At today's visit patient reports pain is in the right lower back upper buttocks area and right lower pelvic/groin. Patient denies abdominal pain. Patient denies any known injury. Denies urinary complaints. Denies fever and chills. Upon admission CT abdomen pelvis revealed small bilateral pleural effusions, gallbladder distention with no evidence of cholecystitis. No evidence of bowel obstruction. Appendix is not well visualized but no inflammatory changes in right lower quadrant. Right ovary is prominent. Transvaginal ultrasound showed imperceptible endometrial stripe and right ovary slightly prominent, no obvious mass seen. Admission labs revealed normal LFTs, bilirubin 1.4, lipase 18. Creatinine 0.93. WBC 11.0, hemoglobin 11.3, platelets 198,000. Review of Systems 10 point ROS is negative except as stated in the HPI Past Medical History Past Medical History: Cancer, Diabetes Mellitus, Hypertension, Sleep Apnea/CPAP/BIPAP, Thyroid Disorder Additional Past Medical History / Comment(s): previous polyp hidden near appendix,heart murmur, Intermittent PACs,Left breast cancer 2016, Right breast cancer 2019 (both DCIS), benign thyroid goiter, diabetic retinopathy, chronic myelocytic leukemia (in remission), claustrophobic. 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 Lichen sclerosus of the vulva confirmed with biopsy in 2018. History of Any Multi-Drug Resistant Organisms: None Reported Past Surgical History: Ablation, Orthopedic Surgery, Uterine Ablation Additional Past Surgical History / Comment(s): lt breast lumpectomies ,left breast margins revision Apr 2017, right breast lumpectomy 2019, cyst removed from toe lt foot 1997, bilat eye vitrectomy and annette cataract 1991, ganglion cyst lt wrist 1968, endometrial ablation 1993, Left hip replacement 2018. Colonoscopy 2021(next after 2yr). Past Anesthesia/Blood Transfusion Reactions: No Reported Reaction Past Psychological History: No Psychological Hx Reported Additional Psychological History / Comment(s): claustrophobic Smoking Status: Former smoker Past Alcohol Use History: None Reported Additional Past Alcohol Use History / Comment(s): quit smoking 1981, smoked in college Past Drug Use History: None Reported - Past Family History Father Family Medical History: Cancer Additional Family Medical History / Comment(s): prostate, pancreatic Mother Family Medical History: CVA/TIA, Diabetes Mellitus, Myocardial Infarction ([place]) Medications and Allergies Home Medications Medication Instructions Recorded Confirmed Type Benazepril HCl 40 mg PO DAILY 04/20/18 03/27/23 History Simvastatin [Zocor] 20 mg PO HS 04/20/18 03/27/23 History Metoprolol Tartrate [Lopressor] 12.5 mg PO BID 06/24/18 03/27/23 History Aspirin [Adult Low Dose Aspirin EC] 81 mg PO HS 02/12/21 03/27/23 History hydrALAZINE HCL [Apresoline] 50 mg PO BID 02/12/21 03/27/23 History Cholecalciferol [Vitamin D3 (25 25 mcg PO DAILY 02/17/21 03/27/23 History Mcg = 1000 Iu)] INSULIN ASPART (NovoLOG) [NovoLOG 0.01 unit SQ-PUMP CONTINUOUS 11/26/21 03/27/23 History (formulary)] Triamterene/Hydrochlorothiazid 1 tab PO DAILY 11/26/21 03/27/23 History [Triamterene-Hctz 37.5-25 mg Tb] Nilotinib HCl [Tasigna] 300 mg PO BID 04/16/22 03/27/23 History ALPRAZolam [Xanax] 0.25 mg PO DAILY PRN 03/27/23 03/27/23 History Allergies Allergy/AdvReac Type Severity Reaction Status Date / Time hydrocodone [From [place]] AdvReac irreg and Verified 03/27/23 07:51 difficult breathing Physical Exam Vitals: Vital Signs Temp Pulse Resp BP Pulse Ox 03/28/23 13:17 97.6 F 61 19 150/70 98 03/28/23 07:32 98.3 F 75 20 192/102 96 03/28/23 01:38 97.6 F 65 18 140/74 96 03/27/23 18:58 97.7 F 66 18 178/70 95 Intake and Output 03/28/23 03/28/23 03/28/23 06:59 14:59 22:59 Other: Voiding Method Toilet # Voids 2 - Constitutional General appearance: no acute distress, obese - EENT Eyes: anicteric sclerae, EOMI ENT: hearing grossly normal - Respiratory Respiratory: bilateral: CTA - Cardiovascular Rhythm: regular Heart sounds: normal: S1, S2 - Gastrointestinal Tenderness noted to right groin and right lateral pelvic region, no palpable masses noted on exam. No abdominal tenderness upon palpation General gastrointestinal: no distended - Musculoskeletal right lower back and right upper buttocks tenderness noted Musculoskeletal: strength equal bilaterally - Psychiatric Psychiatric: A&O x's 3, appropriate affect, intact judgment & insight Results CBC & Chem 7: 03/29/23 05:38 03/28/23 12:06 Labs: Abnormal Lab Results - Last 24 Hours (Table) 03/27/23 03/28/23 03/28/23 Range/Units 17:06 02:01 02:23 WBC (4.50-10.00) X 10*3/uL Hgb (12.0-15.0) d/dL Hct (37.2-46.3) % MCHC (32.0-37.0) d/dL RDW (11.5-14.5) % Neutrophils # (1.80-7.70) X 10*3/uL Monocytes # (0.20-1.00) X 10*3/uL Eosinophils # (0.04-0.35) X 10*3/uL Sodium (135-145) mmol/L Carbon Dioxide (22-30) mmol/L Est GFR (CKD-EPI) (>=60) BUN/Creatinine Ratio (12.00-20.00) Ratio Glucose (74-99) mg/dL POC Glucose (mg/dL) 69 L 56 L 65 L (70-110) mg/dL Total Protein (6.2-8.2) d/dL Albumin (3.8-4.9) d/dL 03/28/23 03/28/23 03/28/23 Range/Units 02:40 05:40 06:56 WBC 11.05 H (4.50-10.00) X 10*3/uL Hgb 11.3 L (12.0-15.0) d/dL Hct 35.3 L (37.2-46.3) % MCHC (32.0-37.0) d/dL RDW 15.9 H (11.5-14.5) % Neutrophils # 8.35 H (1.80-7.70) X 10*3/uL Monocytes # 1.03 H (0.20-1.00) X 10*3/uL Eosinophils # 0.43 H (0.04-0.35) X 10*3/uL Sodium (135-145) mmol/L Carbon Dioxide (22-30) mmol/L Est GFR (CKD-EPI) (>=60) BUN/Creatinine Ratio (12.00-20.00) Ratio Glucose (74-99) mg/dL POC Glucose (mg/dL) 69 L 131 H (70-110) mg/dL Total Protein (6.2-8.2) d/dL Albumin (3.8-4.9) d/dL 03/28/23 03/28/23 03/28/23 Range/Units 06:56 11:09 12:06 WBC 11.33 H (4.50-10.00) X 10*3/uL Hgb 11.4 L (12.0-15.0) d/dL Hct 36.0 L (37.2-46.3) % MCHC 31.7 L (32.0-37.0) d/dL RDW 16.0 H (11.5-14.5) % Neutrophils # 8.81 H (1.80-7.70) X 10*3/uL Monocytes # (0.20-1.00) X 10*3/uL Eosinophils # 0.46 H (0.04-0.35) X 10*3/uL Sodium 133 L (135-145) mmol/L Carbon Dioxide (22-30) mmol/L Est GFR (CKD-EPI) 53 L (>=60) BUN/Creatinine Ratio 9.36 L (12.00-20.00) Ratio Glucose (74-99) mg/dL POC Glucose (mg/dL) 145 H (70-110) mg/dL Total Protein 5.8 L (6.2-8.2) d/dL Albumin 3.7 L (3.8-4.9) d/dL 03/28/23 Range/Units 12:06 WBC (4.50-10.00) X 10*3/uL Hgb (12.0-15.0) d/dL Hct (37.2-46.3) % MCHC (32.0-37.0) d/dL RDW (11.5-14.5) % Neutrophils # (1.80-7.70) X 10*3/uL Monocytes # (0.20-1.00) X 10*3/uL Eosinophils # (0.04-0.35) X 10*3/uL Sodium 129 L (135-145) mmol/L Carbon Dioxide 19 L (22-30) mmol/L Est GFR (CKD-EPI) (>=60) BUN/Creatinine Ratio (12.00-20.00) Ratio Glucose 143 H (74-99) mg/dL POC Glucose (mg/dL) (70-110) mg/dL Total Protein 6.1 L (6.2-8.2) d/dL Albumin 3.4 L (3.8-4.9) d/dL CT scan - abdomen: report reviewed CT scan - pelvis: report reviewed US - abdomen: report reviewed Assessment and Plan (1) Intractable abdominal pain Current Visit: Yes Status: Acute Priority: High Code(s): R10.9 - UNSPECIFIED ABDOMINAL PAIN SNOMED Code(s): 70716612 (2) Chronic myelocytic leukemia in remission Current Visit: Yes Status: Acute Priority: Medium Code(s): C92.91 - MYELOID LEUKEMIA, UNSPECIFIED IN REMISSION SNOMED Code(s): 96604291 (3) HX: breast cancer Current Visit: No Status: Acute Priority: Medium Code(s): Z85.3 - PERSONAL HISTORY OF MALIGNANT NEOPLASM OF BREAST SNOMED Code(s): 793168291 Plan: Abdominal pain: -Acute on chronic. Has been having intermittent pain over the last 2.5 yrs. Upon exam pain is located to right groin and right lateral pelvic area. Abdominal exam benign. Also tender to right lower back/upper buttocks. -Patient has been seen by pain management. Right sacroiliac joint steroid inj ection was recommended but pt was hesitant due to hx of diabetes and concern for hyperglycemia. Agree with recommendation of MRI lumbar spine, and also MRI right hip may also be beneficial. Hx breast cancer/CML: -Full history in HPI -Femara stopped last month due to progressive osteopenia. She has continued on Tasigna since 2018, and overall has tolerated medication well. She has remained in complete molecular response since 2019. Last dose Tasigna was 4 days prior to admission. Will hold medication until pt acutely recovers. -Do not believe patient's acute symptoms of groin/pelvic pain is related to Tasigna. She is not experiencing any abdominal pain or tenderness. We will fol low-up outpatient and reevaluate prior to restarting medication. Will discuss case with her primary oncologist Dr. Penaloza. Pt updated on POC attests: I seen and examined patient, performed H&P, developed impression and plan of care. Discussed with dictator. Agree with documentation, dictated as a scribe
[2023-03-29 11:35] LABS: ALT 22 U/L (4-34); AST 25 U/L (14-36); African American GFR (CKD) 80 (>60 ml/min/1.73 sqM); Albumin 3.4 g/dL (3.5-5.0); Albumin/Globulin Ratio 1.3; Alkaline Phosphatase 89 U/L (38-126); Anion Gap 7 mmol/L; Blood Urea Nitrogen 10 mg/dL (7-17); Calcium 8.8 mg/dL (8.4-10.2); Carbon Dioxide 24 mmol/L (22-30); Chloride 100 mmol/L (98-107); Globulin 2.6 g/dL; Glucose 193 mg/dL (74-99); Non-African American GFR(CKD) 70 (>60 ml/min/1.73 sqM); Potassium 4.2 mmol/L (3.5-5.1); Sodium 131 mmol/L (137-145); Total Bilirubin 0.6 mg/dL (0.2-1.3)
[2023-03-29 11:43] LABS: Glucose,Whole Blood 192 mg/dL (70-110)
--- NOTE | 2023-03-29 12:26 | P.PN ---
Subjective Progress Note Date: 03/29/23 Roxanna Ortiz, is a 72-year-old female who presented to [facility] emergency room with a chief complaint of abdominal pain nausea and vomiting. Patient was recently seen at [facility] emergency room for similar symptoms with constipation computed tomography scan of the abdomen and pelvis was done at [facility], patient was treated symptomatically for constipation and was discharged home from the ER. She presented again today to [facility] with abdominal pain nausea vomiting and constipation. She has a known history of CML in remission, she also has a known history of hypertension, hyperlipidemia, obstructive sleep apnea, insulin-dependent diabetes mellitus, history of bilateral breast cancer with bilateral lumpectomy. She was evaluated in the emergency room vital examination on presentation revealed a temperature of 98.4 pulse 68 respiration 18 blood pressure 166/69 pulse ox 98 percent on room air Laboratory data reveals a white blood count of 12.5 hemoglobin 12.7 platelet count 209 sodium 131 potassium 4.1 chloride 97 CO2 21 BUN 14 creatinine 0.93 Patient was admitted to medical floor, surgical consultation was requested On 03/28/2023 patient is alert and oriented 3. Patient still having right lower quadrant abdominal pain. Patient denies nausea vomiting at this time does report some diarrhea. Will order stool for C. diff. Results for transvaginal ultrasound pending surgical services following. Current vital signs temp 97.6, heart rate 65, respiratory rate 18, blood pressure 140/74 with a pulse ox 96% On 03/29/2023 patient was seen and examined on the medical floor, she is alert and oriented 3 in no apparent distress, she is still complaining of right lower quadrant abdominal pain, otherwise she denies any complaints at this time, there is no fever or chills no headache or dizziness no chest pain no shortness of breath no cough no nausea or or vomiting, she was having some diarrhea for the last several days however she is not having any bowel movements at this time, there is no burning with urination no frequency or urgency and no hematuria, input from Gen. surgery and oncology review, will recheck labs and follow-up in a.m.. Objective - Vital Signs Vital signs: Vital Signs Temp 97.4 F L 03/29/23 08:55 Pulse 79 03/29/23 08:55 Resp 18 03/29/23 08:55 BP 152/69 10/21/23 08:55 Pulse Ox 90 L 03/29/23 08:55 FiO2 Intake & Output 03/28/23 03/29/23 03/29/23 18:59 06:59 18:59 Other: Voiding Method Toilet # Voids 3 3 1 # Bowel Movements 0 - Exam In general patient is alert and oriented 3 in no distress HEENT head normocephalic and atraumatic Neck is supple no JVD no goiter no lymphadenopathy no carotid bruit Chest examination is clear to auscultation no crackles no wheezing Cardiac exam reveals regular heart sounds S1 and S2 no gallops no murmurs Abdomen is soft with right lower quadrant abdominal tenderness no organomegaly with normal bowel sounds Extremity exam reveals no edema no cyanosis or clubbing Neurological examination reveals no gross focal deficits - Labs CBC & Chem 7: 03/29/23 05:38 03/29/23 10:44 Labs: Abnormal Lab Results - Last 24 Hours (Table) 03/28/23 03/28/23 03/28/23 Range/Units 12:06 12:06 19:59 WBC 11.33 H (4.50-10.00) X 10*3/uL Hgb 11.4 L (12.0-15.0) d/dL Hct 36.0 L (37.2-46.3) % MCHC 31.7 L (32.0-37.0) d/dL RDW 16.0 H (11.5-14.5) % Neutrophils # 8.81 H (1.80-7.70) X 10*3/uL Eosinophils # 0.46 H (0.04-0.35) X 10*3/uL Sodium 129 L (137-145) mmol/L Carbon Dioxide 19 L (22-30) mmol/L Glucose 143 H (74-99) mg/dL POC Glucose (mg/dL) 60 L (70-110) mg/dL Total Protein 6.1 L (6.3-8.2) g/dL Albumin 3.4 L (3.5-5.0) g/dL 03/28/23 03/29/23 03/29/23 Range/Units 21:45 05:38 05:48 WBC 10.7 H (4.50-10.00) X 10*3/uL Hgb (12.0-15.0) d/dL Hct (37.2-46.3) % MCHC (32.0-37.0) d/dL RDW 16.1 H (11.5-14.5) % Neutrophils # 8.3 H (1.80-7.70) X 10*3/uL Eosinophils # (0.04-0.35) X 10*3/uL Sodium (137-145) mmol/L Carbon Dioxide (22-30) mmol/L Glucose (74-99) mg/dL POC Glucose (mg/dL) 55 L 47 L (70-110) mg/dL Total Protein (6.3-8.2) g/dL Albumin (3.5-5.0) g/dL 03/29/23 03/29/23 03/29/23 Range/Units 06:07 06:24 07:35 WBC (4.50-10.00) X 10*3/uL Hgb (12.0-15.0) d/dL Hct (37.2-46.3) % MCHC (32.0-37.0) d/dL RDW (11.5-14.5) % Neutrophils # (1.80-7.70) X 10*3/uL Eosinophils # (0.04-0.35) X 10*3/uL Sodium (137-145) mmol/L Carbon Dioxide (22-30) mmol/L Glucose (74-99) mg/dL POC Glucose (mg/dL) 45 L 59 L 188 H (70-110) mg/dL Total Protein (6.3-8.2) g/dL Albumin (3.5-5.0) g/dL 03/29/23 Range/Units 10:44 WBC (4.50-10.00) X 10*3/uL Hgb (12.0-15.0) d/dL Hct (37.2-46.3) % MCHC (32.0-37.0) d/dL RDW (11.5-14.5) % Neutrophils # (1.80-7.70) X 10*3/uL Eosinophils # (0.04-0.35) X 10*3/uL Sodium 131 L (137-145) mmol/L Carbon Dioxide (22-30) mmol/L Glucose 193 H (74-99) mg/dL POC Glucose (mg/dL) (70-110) mg/dL Total Protein 6.0 L (6.3-8.2) g/dL Albumin 3.4 L (3.5-5.0) g/dL Assessment and Plan Plan: Abdominal pain with nausea vomiting and constipation Underlying history of CML in remission Leukocytosis on presentation Previous history of bilateral breast cancer status post lumpectomy Underlying history of hypertension Underlying history of hyperlipidemia Underlying history of obstructive sleep apnea Patient is admitted to medical floor Home medications reviewed and reordered Computed tomography scan of the abdomen and pelvis ordered Transvaginal ultrasound ordered Stool for C. diff ordered Surgical consultation requested Will follow closely
--- NOTE | 2023-03-29 13:05 | P.PN ---
Subjective Progress Note Date: 03/29/23 Patient seen and evaluated at bedside. Patient complaining of right groin/abdominal pain. Patient states she's had this before and feels like her intestines as twisting and knots as well. The patient does admit to recent following. Denies nausea vomiting fevers chills shortness of breath. Objective - Vital Signs Vital signs: Vital Signs Temp 97.4 F L 03/29/23 08:55 Pulse 79 03/29/23 08:55 Resp 18 03/29/23 08:55 BP 152/69 03/29/23 08:55 Pulse Ox 90 L 03/29/23 08:55 FiO2 Intake & Output 03/28/23 03/29/23 03/29/23 18:59 06:59 18:59 Other: Voiding Method Toilet # Voids 3 3 1 # Bowel Movements 0 - Exam General no acute distress Alert and oriented 3 Cardiovascular regular in rhythm Pulmonary nonlabored breathing Abdomen is soft, minimally distended, no guarding or rebound tenderness, tender to palpation in the right lower quadrant physical exam reveals patient does have excoriation underneath her pannus - Labs CBC & Chem 7: 03/29/23 05:38 03/29/23 10:44 Labs: Abnormal Lab Results - Last 24 Hours (Table) 03/28/23 03/28/23 03/28/23 Range/Units 12:06 12:06 19:59 WBC 11.33 H (4.50-10.00) X 10*3/uL Hgb 11.4 L (12.0-15.0) d/dL Hct 36.0 L (37.2-46.3) % MCHC 31.7 L (32.0-37.0) d/dL RDW 16.0 H (11.5-14.5) % Neutrophils # 8.81 H (1.80-7.70) X 10*3/uL Eosinophils # 0.46 H (0.04-0.35) X 10*3/uL Sodium 129 L (137-145) mmol/L Carbon Dioxide 19 L (22-30) mmol/L Glucose 143 H (74-99) mg/dL POC Glucose (mg/dL) 60 L (70-110) mg/dL Total Protein 6.1 L (6.3-8.2) g/dL Albumin 3.4 L (3.5-5.0) g/dL 03/28/23 03/29/23 03/29/23 Range/Units 21:45 05:38 05:48 WBC 10.7 H (4.50-10.00) X 10*3/uL Hgb (12.0-15.0) d/dL Hct (37.2-46.3) % MCHC (32.0-37.0) d/dL RDW 16.1 H (11.5-14.5) % Neutrophils # 8.3 H (1.80-7.70) X 10*3/uL Eosinophils # (0.04-0.35) X 10*3/uL Sodium (137-145) mmol/L Carbon Dioxide (22-30) mmol/L Glucose (74-99) mg/dL POC Glucose (mg/dL) 55 L 47 L (70-110) mg/dL Total Protein (6.3-8.2) g/dL Albumin (3.5-5.0) g/dL 03/29/23 03/29/23 03/29/23 Range/Units 06:07 06:24 07:35 WBC (4.50-10.00) X 10*3/uL Hgb (12.0-15.0) d/dL Hct (37.2-46.3) % MCHC (32.0-37.0) d/dL RDW (11.5-14.5) % Neutrophils # (1.80-7.70) X 10*3/uL Eosinophils # (0.04-0.35) X 10*3/uL Sodium (137-145) mmol/L Carbon Dioxide (22-30) mmol/L Glucose (74-99) mg/dL POC Glucose (mg/dL) 45 L 59 L 188 H (70-110) mg/dL Total Protein (6.3-8.2) g/dL Albumin (3.5-5.0) g/dL 03/29/23 03/29/23 Range/Units 10:44 11:42 WBC (4.50-10.00) X 10*3/uL Hgb (12.0-15.0) d/dL Hct (37.2-46.3) % MCHC (32.0-37.0) d/dL RDW (11.5-14.5) % Neutrophils # (1.80-7.70) X 10*3/uL Eosinophils # (0.04-0.35) X 10*3/uL Sodium 131 L (137-145) mmol/L Carbon Dioxide (22-30) mmol/L Glucose 193 H (74-99) mg/dL POC Glucose (mg/dL) 192 H (70-110) mg/dL Total Protein 6.0 L (6.3-8.2) g/dL Albumin 3.4 L (3.5-5.0) g/dL Assessment and Plan Assessment: 22-year-old female with nonspecific abdominal pain Computed tomography scan reviewed demonstrates a distended gallbladder, normal caliber intestines with contrast maker through the small bowel, no anal hernias appreciated. No findings contributing to patient's abdominal pain. We'll order nystatin power for pannus
[2023-03-29 16:55] LABS: Glucose,Whole Blood 114 mg/dL (70-110)
[2023-03-29] MEDS: TRIAMCINOLONE ACET 0.1% OINTMENT 80 GM TUBE TOPICAL SCH (17:04)
[2023-03-29] MEDS: NYSTATIN 100,000 UNIT/GM OINT 30 GM TUBE TOPICAL SCH (17:05)
[2023-03-29 19:06] LABS: Glucose,Whole Blood 112 mg/dL (70-110)
[2023-03-29] MEDS: ASPIRIN 81 MG PO SCH (21:02)
[2023-03-30] MEDS: SODIUM CHLORIDE 0.9% 1,000 ML IV SCH ×3 (01:10→16:37)
[2023-03-30] MEDS: ALPRAZolam 0.25 MG TAB PO PRN (01:14)
[2023-03-30 01:56] LABS: Glucose,Whole Blood 97 mg/dL (70-110)
[2023-03-30 03:32] LABS: Glucose,Whole Blood 76 mg/dL (70-110)
[2023-03-30 05:35] LABS: Glucose,Whole Blood 94 mg/dL (70-110)
[2023-03-30] MEDS: HYDROmorphone 1 MG/ML 1 ML SYRINGE IVP PRN ×5 (05:50→21:55)
[2023-03-30] MEDS: TRIAMCINOLONE ACET 0.1% OINTMENT 80 GM TUBE TOPICAL SCH ×2 (05:52→16:42)
[2023-03-30] MEDS: NYSTATIN 100,000 UNIT/GM OINT 30 GM TUBE TOPICAL SCH ×2 (05:53→16:42)
[2023-03-30] MEDS: Insulin Aspart (For Pump) 100 UNIT/ML VIAL SQ-PUMP SCH (05:55)
[2023-03-30] MEDS: hydrALAZINE HCL 50 MG TAB PO SCH ×2 (08:44→21:55)
[2023-03-30] MEDS: TRIAMTERENE-HCTZ 37.5-25MG 1 EACH TAB PO SCH (08:44)
[2023-03-30] MEDS: ENOXAPARIN 40 MG/0.4 ML SYRINGE SQ SCH (08:44)
[2023-03-30] MEDS: CHOLECALCIFEROL 25 MCG (1000 IU) TABLET PO SCH (08:44)
[2023-03-30] MEDS: lisinopriL 20 MG TAB PO SCH (08:44)
[2023-03-30] MEDS: METOPROLOL TARTRATE 12.5 MG TAB PO SCH ×2 (08:44→21:55)
--- NOTE | 2023-03-30 09:55 | P.PN ---
Subjective Progress Note Date: 03/30/23 Roxanna Ortiz, is a 72-year-old female who presented to [facility] emergency room with a chief complaint of abdominal pain nausea and vomiting. Patient was recently seen at [facility] emergency room for similar symptoms with constipation computed tomography scan of the abdomen and pelvis was done at [facility], patient was treated symptomatically for constipation and was discharged home from the ER. She presented again today to [facility] with abdominal pain nausea vomiting and constipation. She has a known history of CML in remission, she also has a known history of hypertension, hyperlipidemia, obstructive sleep apnea, insulin- dependent diabetes mellitus, history of bilateral breast cancer with bilateral lumpectomy. She was evaluated in the emergency room vital examination on presentation revealed a temperature of 98.4 pulse 68 respiration 18 blood pressure 166/69 pulse ox 98 percent on room air Laboratory data reveals a white blood count of 12.5 hemoglobin 12.7 platelet count 209 sodium 131 potassium 4.1 chloride 97 CO2 21 BUN 14 creatinine 0.93 Patient was admitted to medical floor, surgical consultation was requested On 03/28/2023 patient is alert and oriented 3. Patient still having right lower quadrant abdominal pain. Patient denies nausea vomiting at this time does report some diarrhea. Will order stool for C. diff. Results for transvaginal ultrasound pending surgical services following. Current vital signs temp 97.6, heart rate 65, respiratory rate 18, blood pressure 140/74 with a pulse ox 96% On 03/29/2023 patient was seen and examined on the medical floor, she is alert and oriented 3 in no apparent distress, she is still complaining of right lower quadrant abdominal pain, otherwise she denies any complaints at this time, there is no fever or chills no headache or dizziness no chest pain no shortness of breath no cough no nausea or or vomiting, she was having some diarrhea for the last several days however she is not having any bowel movements at this time, there is no burning with urination no frequency or urgency and no hematuria, input from Gen. surgery and oncology review, will recheck labs and follow-up in a.m.. on 03/30/2023 patient is alert and oriented 3. Patient still complaining of right lower quadrant pain. Denies any further episodes of nausea and vomiting. Patient reports she had one episode of loose stools this a.m. Patient states she has a very good appetite but still requiring Dilaudid for pain control. Patient was evaluated by pain services recommendations for possible MRI patient reports she cannot have MRI of the she is completely knocked out. Current vital signs temp 97.8, heart rate 75, respiratory 18, blood pressure 170/72 with a pulse ox of 94% Objective - Vital Signs Vital signs: Vital Signs Temp 97.8 F 03/30/23 07:39 Pulse 75 03/30/23 07:39 Resp 19 03/30/23 07:39 BP 178/72 03/30/23 07:39 Pulse Ox 94 L 03/30/23 07:39 FiO2 Intake & Output 03/29/23 03/30/23 03/30/23 18:59 06:59 18:59 Other: # Voids 1 0 1 - Exam In general patient is alert and oriented 3 in no distress HEENT head normocephalic and atraumatic Neck is supple no JVD no goiter no lymphadenopathy no carotid bruit Chest examination is clear to auscultation no crackles no wheezing Cardiac exam reveals regular heart sounds S1 and S2 no gallops no murmurs Abdomen is soft with right lower quadrant abdominal tenderness no organomegaly with normal bowel sounds Extremity exam reveals no edema no cyanosis or clubbing Neurological examination reveals no gross focal deficits - Labs CBC & Chem 7: 03/29/23 05:38 03/29/23 10:44 Labs: Abnormal Lab Results - Last 24 Hours (Table) 03/29/23 03/29/23 03/29/23 Range/Units 10:44 11:42 16:51 Sodium 131 L (137-145) mmol/L Glucose 193 H (74-99) mg/dL POC Glucose (mg/dL) 192 H 114 H (70-110) mg/dL Total Protein 6.0 L (6.3-8.2) g/dL Albumin 3.4 L (3.5-5.0) g/dL 03/29/23 Range/Units 19:04 Sodium (137-145) mmol/L Glucose (74-99) mg/dL POC Glucose (mg/dL) 112 H (70-110) mg/dL Total Protein (6.3-8.2) g/dL Albumin (3.5-5.0) g/dL Assessment and Plan Assessment: Abdominal pain with nausea vomiting and constipation Underlying history of CML in remission Leukocytosis on presentation Previous history of bilateral breast cancer status post lumpectomy Underlying history of hypertension Underlying history of hyperlipidemia Underlying history of obstructive sleep apnea Patient is admitted to medical floor Home medications reviewed and reordered CT of abdomen completed Transvaginal ultrasound completed Surgical services, oncology and pain services following
--- NOTE | 2023-03-30 10:40 | P.PN ---
Subjective Progress Note Date: 03/30/23 Principal diagnosis: Abdominal pain Patient with history of intermittent somewhat chronic right-sided abdominal pain. CAT scan shows no obvious explanation for her discomfort. Pain is still present today. She spoke with the locums surgeon yesterday about whether a hernia might be present on CAT scan. CAT scan was reviewed and shows no definite hernia other than a [place] umbilical hernia. Tolerating diet. No nausea or vomiting. She did have diarrhea yesterday. Objective - Vital Signs Vital signs: Vital Signs Temp 97.8 F 03/30/23 07:39 Pulse 75 03/30/23 07:39 Resp 19 03/30/23 07:39 BP 178/72 03/30/23 07:39 Pulse Ox 94 L 03/30/23 07:39 FiO2 Intake & Output 03/29/23 03/30/23 03/30/23 18:59 06:59 18:59 Other: # Voids 1 0 1 - Exam Abdomen: Soft, nondistended, mild right sided tenderness - Labs CBC & Chem 7: 03/29/23 05:38 03/29/23 10:44 Labs: Abnormal Lab Results - Last 24 Hours (Table) 03/29/23 03/29/23 03/29/23 Range/Units 10:44 11:42 16:51 Sodium 131 L (137-145) mmol/L Glucose 193 H (74-99) mg/dL POC Glucose (mg/dL) 192 H 114 H (70-110) mg/dL Total Protein 6.0 L (6.3-8.2) g/dL Albumin 3.4 L (3.5-5.0) g/dL 03/29/23 Range/Units 19:04 Sodium (137-145) mmol/L Glucose (74-99) mg/dL POC Glucose (mg/dL) 112 H (70-110) mg/dL Total Protein (6.3-8.2) g/dL Albumin (3.5-5.0) g/dL Assessment and Plan (1) Intractable abdominal pain Narrative/Plan: 72-year-old female with abdominal pain. Continue diet as tolerated. Continue analgesics. Dr. Glynn will resume coverage tomorrow. Current Visit: Yes Status: Acute Priority: High Code(s): R10.9 - UNSPECIFIED ABDOMINAL PAIN SNOMED Code(s): 57925611
[2023-03-30 11:45] LABS: Glucose,Whole Blood 98 mg/dL (70-110)
[2023-03-30 13:26] LABS: Basophils # (A) 0.06 X 10*3/uL (0.00-0.10); Basophils % (A) 0.6 %; Eosinophils # (A) 0.65 X 10*3/uL (0.04-0.35); Eosinophils % (A) 6.7 %; HCT 35.9 % (37.2-46.3); HGB 11.3 d/dL (12.0-15.0); Lymphocytes # (A) 1.11 X 10*3/uL (0.90-5.00); Lymphocytes % (A) 11.4 %; MCH 26.9 pg (27.0-32.0); MCHC 31.5 d/dL (32.0-37.0); MCV 85.5 FL (80.0-97.0); Monocytes # (A) 0.78 X 10*3/uL (0.20-1.00); NRBC Per 100 WBC 0 X 10*3/uL (0.00-0.01); Neutrophils # (A) 7.01 X 10*3/uL (1.80-7.70); Neutrophils % (A) 72.1 %; Platelet Count 206 X 10*3/uL (140-440); RDW 16.3 % (11.5-14.5); WBC 9.73 X 10*3/uL (4.50-10.00)
[2023-03-30 13:28] LABS: ALT 23 U/L (8-44); AST 18 U/L (13-35); Albumin 3.8 d/dL (3.8-4.9); Alkaline Phosphatase 95 U/L (41-126); Calcium 9.8 mg/dL (8.7-10.3); Carbon Dioxide 27.1 mmol/L (21.6-31.8); Chloride 104 mmol/L (96-109); Glucose 65 mg/dL (70-110); Potassium 4.3 mmol/L (3.5-5.5); Sodium 139 mmol/L (135-145); Total Bilirubin 0.4 mg/dL (0.3-1.2); Total Protein 5.8 d/dL (6.2-8.2)
[2023-03-30 16:50] LABS: Glucose,Whole Blood 119 mg/dL (70-110)
[2023-03-30 19:23] LABS: Glucose,Whole Blood 83 mg/dL (70-110)
[2023-03-30] MEDS: ASPIRIN 81 MG PO SCH (21:55)
[2023-03-31] MEDS: HYDROmorphone 1 MG/ML 1 ML SYRINGE IVP PRN ×6 (01:37→20:52)
[2023-03-31] MEDS: SODIUM CHLORIDE 0.9% 1,000 ML IV SCH ×2 (05:23→13:40)
[2023-03-31 05:40] LABS: Glucose,Whole Blood 68 mg/dL (70-110)
[2023-03-31] MEDS: Insulin Aspart (For Pump) 100 UNIT/ML VIAL SQ-PUMP SCH (07:01)
[2023-03-31] MEDS: ENOXAPARIN 40 MG/0.4 ML SYRINGE SQ SCH (08:59)
[2023-03-31] MEDS: CHOLECALCIFEROL 25 MCG (1000 IU) TABLET PO SCH (08:59)
[2023-03-31] MEDS: lisinopriL 20 MG TAB PO SCH (08:59)
[2023-03-31] MEDS: METOPROLOL TARTRATE 12.5 MG TAB PO SCH ×2 (08:59→20:52)
[2023-03-31] MEDS: hydrALAZINE HCL 50 MG TAB PO SCH ×2 (08:59→20:52)
[2023-03-31] MEDS: TRIAMTERENE-HCTZ 37.5-25MG 1 EACH TAB PO SCH (09:00)
[2023-03-31] MEDS: TRIAMCINOLONE ACET 0.1% OINTMENT 80 GM TUBE TOPICAL SCH ×2 (09:00→16:28)
[2023-03-31 09:01] LABS: ALT 25 U/L (8-44); AST 25 U/L (13-35); Albumin/Globulin Ratio 1.54 Ratio (1.60-3.17); Alkaline Phosphatase 107 U/L (41-126); BUN/Creat Ratio 11.64 Ratio (12.00-20.00); Blood Urea Nitrogen 12.8 mg/dL (9.0-27.0); Calcium 10.2 mg/dL (8.7-10.3); Carbon Dioxide 25.8 mmol/L (21.6-31.8); Chloride 102 mmol/L (96-109); Globulin 2.6 d/dL (1.6-3.3); Glucose 68 mg/dL (70-110); Potassium 4.4 mmol/L (3.5-5.5); Sodium 138 mmol/L (135-145); Total Bilirubin 0.5 mg/dL (0.3-1.2); Total Protein 6.6 d/dL (6.2-8.2)
[2023-03-31] MEDS: NYSTATIN 100,000 UNIT/GM OINT 30 GM TUBE TOPICAL SCH ×2 (09:01→16:28)
[2023-03-31 09:54] LABS: Basophils # (A) 0.05 X 10*3/uL (0.00-0.10); Basophils % (A) 0.5 %; Elliptocytes 2+; Eosinophils # (A) 0.57 X 10*3/uL (0.04-0.35); Eosinophils % (A) 5.4 %; HCT 37.9 % (37.2-46.3); HGB 12.3 d/dL (12.0-15.0); Lymphocytes # (A) 1.22 X 10*3/uL (0.90-5.00); Lymphocytes % (A) 11.5 %; MCH 27.4 pg (27.0-32.0); MCHC 32.5 d/dL (32.0-37.0); MCV 84.4 FL (80.0-97.0); Mean Platelet Volume 12.7 FL (9.5-12.2); Microcytosis (M) 2+; Monocytes # (A) 0.76 X 10*3/uL (0.20-1.00); Monocytes % (A) 7.2 %; NRBC Per 100 WBC 0 X 10*3/uL (0.00-0.01); Neutrophils # (A) 7.85 X 10*3/uL (1.80-7.70); Platelet Count 154 X 10*3/uL (140-440); RBC 4.49 X 10*6/uL (4.10-5.20); RDW 16.3 % (11.5-14.5)
--- NOTE | 2023-03-31 11:21 | P.PN ---
Subjective Progress Note Date: 03/31/23 CHIEF COMPLAINT: Abdominal pain HISTORY OF PRESENT ILLNESS: Patient continues to complain of right lower quadrant abdominal pain. She reports that it does radiate to the back at times. Last bowel movement was Friday and that was diarrhea. She does report having a small amount of flatus. She ate almost all of her breakfast. Afebrile. WBC 10.6 hgb 12.3. COVID-19 not detected. Patient seen by oncology service and felt that the Tasigna was not the cause of her symptoms. Patient seen by pain management service and patient refused steroid injection that was offered. PHYSICAL EXAM: VITAL SIGNS: Reviewed GENERAL: Well-developed in no acute distress. HEENT: No sclera icterus. Extraocular movements grossly intact. Moist buccal mucosa. Head is atraumatic, normocephalic. Hears conversational speech. No nasal drainage. NECK: Supple without lymphadenopathy. CHEST: Non-labored respirations and equal bilateral excursions. CARDIOVASCULAR: Palpable 2+ radial pulses. ABDOMEN: Soft. Nondistended. Tender with palpation right lower quadrant MUSCULOSKELETAL: No clubbing or cyanosis. NEUROLOGIC: No focal or lateralizing signs. Cranial nerves II through XII grossly intact. PSYCH: Appropriate affect. Alert and oriented to person, place and time. SKIN: Well perfused. Good skin turgor. ASSESSMENT: 1. Right lower quadrant abdominal pain 2. Chronic abdominal pain 3. Constipation 4. History of CML 5. Insulin-dependent diabetes mellitus 6. Hypertension 7. History of bilateral breast cancer with lumpectomy PLAN: -Patient was offered the option of diagnostic laparoscopy to further evaluate her abdominal pain. Patient declined procedure. -Recommend nonsurgical management -Recommend patient follows up with her PCP and pain management outpatient -Patient tolerated regular diet. Encouraged patient to increase activity level. -Patient can be discharged from surgical standpoint -Surgical service will sign off. Please call if any questions or concerns. Physician Beam Dyer Operator note has been reviewed by physician. Signing provider agrees with the documented findings, assessment, and plan of care. Objective - Vital Signs Vital signs: Vital Signs Temp 98.1 F 03/31/23 07:07 Pulse 69 03/31/23 07:07 Resp 16 03/31/23 07:07 BP 213/82 03/31/23 07:07 Pulse Ox 97 03/31/23 07:07 FiO2 Intake & Output 03/30/23 03/31/23 03/31/23 18:59 06:59 18:59 Other: # Voids 1 0 - Labs CBC & Chem 7: 03/31/23 04:49 03/31/23 04:49 Labs: Abnormal Lab Results - Last 24 Hours (Table) 03/30/23 03/30/23 03/30/23 Range/Units 06:41 06:41 16:48 WBC (4.50-10.00) X 10*3/uL Hgb 11.3 L (12.0-15.0) d/dL Hct 35.9 L (37.2-46.3) % MCH 26.9 L (27.0-32.0) pg MCHC 31.5 L (32.0-37.0) d/dL RDW 16.3 H (11.5-14.5) % MPV (9.5-12.2) FL Neutrophils # (1.80-7.70) X 10*3/uL Eosinophils # 0.65 H (0.04-0.35) X 10*3/uL Microcytosis (manual) Elliptocytes Est GFR (CKD-EPI) (>=60) BUN/Creatinine Ratio 10.00 L (12.00-20.00) Ratio Glucose 65 L (70-110) mg/dL POC Glucose (mg/dL) 119 H (70-110) mg/dL Total Protein 5.8 L (6.2-8.2) d/dL Albumin/Globulin Ratio (1.60-3.17) Ratio 03/31/23 03/31/23 03/31/23 Range/Units 04:49 04:49 05:38 WBC 10.60 H (4.50-10.00) X 10*3/uL Hgb (12.0-15.0) d/dL Hct (37.2-46.3) % MCH (27.0-32.0) pg MCHC (32.0-37.0) d/dL RDW 16.3 H (11.5-14.5) % MPV 12.7 H (9.5-12.2) FL Neutrophils # 7.85 H (1.80-7.70) X 10*3/uL Eosinophils # 0.57 H (0.04-0.35) X 10*3/uL Microcytosis (manual) 2+ A Elliptocytes 2+ A Est GFR (CKD-EPI) 53 L (>=60) BUN/Creatinine Ratio 11.64 L (12.00-20.00) Ratio Glucose 68 L (70-110) mg/dL POC Glucose (mg/dL) 68 L (70-110) mg/dL Total Protein (6.2-8.2) d/dL Albumin/Globulin Ratio 1.54 L (1.60-3.17) Ratio
[2023-03-31 11:45] LABS: Glucose,Whole Blood 181 mg/dL (70-110)
--- NOTE | 2023-03-31 15:57 | P.PN ---
Subjective Progress Note Date: 03/31/23 Principal diagnosis: History of breast cancer and CML. Admitted for groin pain In follow-up today patient continues to have the right groin pain, nothing radiating down her leg, she feels like it something in there "twisting", she denies any relief with bowel movements, the only thing that helps his pain meds. Objective - Vital Signs Vital signs: Vital Signs Temp 98.1 F 03/31/23 07:07 Pulse 67 03/31/23 13:55 Resp 16 03/31/23 13:55 BP 210/74 03/31/23 13:55 Pulse Ox 95 03/31/23 13:55 FiO2 Intake & Output 03/30/23 03/31/23 03/31/23 18:59 06:59 18:59 Intake Total 110 Balance 110 Intake: Intake, IV Titration 110 Amount Sodium Chloride 0.9% 1, 110 000 ml @ 110 mls/hr IV . Q9H6M [facility] Rx#:[id number] Other: # Voids 1 0 - Constitutional General appearance: Present: cooperative, no acute distress, obese - EENT Eyes: Present: anicteric sclerae, EOMI ENT: Present: hearing grossly normal - Respiratory Details: Respirations even and unlabored at rest - Peripheral edema leg Peripheral Edema: bilateral: Trace - Neurologic Neurologic: Present: CNII-XII intact - Musculoskeletal Musculoskeletal: Present: strength equal bilaterally - Psychiatric Psychiatric: Present: A&O x's 3, appropriate affect, intact judgment & insight - Labs CBC & Chem 7: 03/31/23 04:49 03/31/23 04:49 Labs: Abnormal Lab Results - Last 24 Hours (Table) 03/30/23 03/31/23 03/31/23 Range/Units 16:48 04:49 04:49 WBC 10.60 H (4.50-10.00) X 10*3/uL RDW 16.3 H (11.5-14.5) % MPV 12.7 H (9.5-12.2) FL Neutrophils # 7.85 H (1.80-7.70) X 10*3/uL Eosinophils # 0.57 H (0.04-0.35) X 10*3/uL Microcytosis (manual) 2+ A Elliptocytes 2+ A Est GFR (CKD-EPI) 53 L (>=60) BUN/Creatinine Ratio 11.64 L (12.00-20.00) Ratio Glucose 68 L (70-110) mg/dL POC Glucose (mg/dL) 119 H (70-110) mg/dL Albumin/Globulin Ratio 1.54 L (1.60-3.17) Ratio 03/31/23 03/31/23 Range/Units 05:38 11:44 WBC (4.50-10.00) X 10*3/uL RDW (11.5-14.5) % MPV (9.5-12.2) FL Neutrophils # (1.80-7.70) X 10*3/uL Eosinophils # (0.04-0.35) X 10*3/uL Microcytosis (manual) Elliptocytes Est GFR (CKD-EPI) (>=60) BUN/Creatinine Ratio (12.00-20.00) Ratio Glucose (70-110) mg/dL POC Glucose (mg/dL) 68 L 181 H (70-110) mg/dL Albumin/Globulin Ratio (1.60-3.17) Ratio Assessment and Plan (1) Chronic myelocytic leukemia in remission Current Visit: Yes Status: Chronic Priority: Low Code(s): C92.91 - MYELOID LEUKEMIA, UNSPECIFIED IN REMISSION SNOMED Code(s): 63961371 (2) HX: breast cancer Current Visit: No Status: Chronic Priority: Low Code(s): Z85.3 - PERSONAL HISTORY OF MALIGNANT NEOPLASM OF BREAST SNOMED Code(s): 692830978 Plan: History of breast cancer -Patient had progressive osteopenia on Femara, she did not tolerate evista so, she is currently on nothing. She is current on f/u. CML -Patient has been on Tasigna Since early 2019. Patient has done very well. -Abd pain from tasigna is 2/2 pancreatitis. Patient's lipase is normal. -Tasigna has been on hold since admission, with no improvements in her inguinal pain, not thinking they are related. Abd pain/rt inguinal pain -Patient has been worked up no underlying cause. Patient has refused exploratory laparotomy as well as steroid injections -Did see mention of possibly doing MRI of the hip and/or back. Pt reports she cannot tolerate MRI without sedation so, she has to have her scans done in [place]. Patient will have to follow-up with orthopedics to see if this is something she wants to pursue.
[2023-03-31] MEDS ORDERED: FUROSEMIDE 10 MG/ML 2 ML VIAL IV ONE (16:30)
[2023-03-31 16:36] LABS: Glucose,Whole Blood 136 mg/dL (70-110)
--- NOTE | 2023-03-31 17:24 | P.PN ---
Subjective Progress Note Date: 03/31/23 Roxanna Ortiz, is a 72-year-old female who presented to [facility] emergency room with a chief complaint of abdominal pain nausea and vomiting. Patient was recently seen at [facility] emergency room for similar symptoms with constipation computed tomography scan of the abdomen and pelvis was done at [facility], patient was treated symptomatically for constipation and was discharged home from the ER. She presented again today to [facility] with abdominal pain nausea vomiting and constipation. She has a known history of CML in remission, she also has a known history of hypertension, hyperlipidemia, obstructive sleep apnea, insulin-dependent diabetes mellitus, history of bilateral breast cancer with bilateral lumpectomy. She was evaluated in the emergency room vital examination on presentation revealed a temperature of 98.4 pulse 68 respiration 18 blood pressure 166/69 pulse ox 98 percent on room air Laboratory data reveals a white blood count of 12.5 hemoglobin 12.7 platelet count 209 sodium 131 potassium 4.1 chloride 97 CO2 21 BUN 14 creatinine 0.93 Patient was admitted to medical floor, surgical consultation was requested On 03/28/2023 patient is alert and oriented 3. Patient still having right lower quadrant abdominal pain. Patient denies nausea vomiting at this time does report some diarrhea. Will order stool for C. diff. Results for transvaginal ultrasound pending surgical services following. Current vital signs temp 97.6, heart rate 65, respiratory rate 18, blood pressure 140/74 with a pulse ox 96% On 03/29/2023 patient was seen and examined on the medical floor, she is alert and oriented 3 in no apparent distress, she is still complaining of right lower quadrant abdominal pain, otherwise she denies any complaints at this time, there is no fever or chills no headache or dizziness no chest pain no shortness of breath no cough no nausea or or vomiting, she was having some diarrhea for the last several days however she is not having any bowel movements at this time, there is no burning with urination no frequency or urgency and no hematuria, input from Gen. surgery and oncology review, will recheck labs and follow-up in a.m.. on 03/30/2023 patient is alert and oriented 3. Patient still complaining of right lower quadrant pain. Denies any further episodes of nausea and vomiting. Patient reports she had one episode of loose stools this a.m. Patient states she has a very good appetite but still requiring Dilaudid for pain control. Patient was evaluated by pain services recommendations for possible MRI patient reports she cannot have MRI of the she is completely knocked out. Current vital signs temp 97.8, heart rate 75, respiratory 18, blood pressure 170/72 with a pulse ox of 94% On 03/31/2023 patient was seen and examined on the medical floor, she is alert and oriented 3 in no apparent distress, she is still complaining of severe right lower quadrant abdominal pain, otherwise she denies any complaints, there is no nausea or vomiting at this time, there is no diarrhea, she stated that her last bowel movement was 3 days ago. She was evaluated by surgery earlier, she was offered laparoscopic surgery for diagnostic reasons of her abdominal pain, however she declined. I discussed with her repeating computed tomography scan of the abdomen and pelvis, she declined at this time. I would add lactulose to her medication regimen, will recheck in am Objective - Vital Signs Vital signs: Vital Signs Temp 98.1 F 03/31/23 07:07 Pulse 67 03/31/23 13:55 Resp 16 03/31/23 13:55 BP 210/74 03/31/23 13:55 Pulse Ox 95 03/31/23 13:55 FiO2 Intake & Output 03/30/23 03/31/23 03/31/23 18:59 06:59 18:59 Intake Total 110 Balance 110 Intake: Intake, IV Titration 110 Amount Sodium Chloride 0.9% 1, 110 000 ml @ 110 mls/hr IV . Q9H6M [facility] Rx#:[id number] Other: # Voids 1 0 - Exam In general patient is alert and oriented 3 in no distress HEENT head normocephalic and atraumatic Neck is supple no JVD no goiter no lymphadenopathy no carotid bruit Chest examination is clear to auscultation no crackles no wheezing Cardiac exam reveals regular heart sounds S1 and S2 no gallops no murmurs Abdomen is soft with right lower quadrant abdominal tenderness no organomegaly with normal bowel sounds Extremity exam reveals no edema no cyanosis or clubbing Neurological examination reveals no gross focal deficits - Labs CBC & Chem 7: 03/31/23 04:49 03/31/23 04:49 Labs: Abnormal Lab Results - Last 24 Hours (Table) 1003/31/23 03/31/23 Range/Units 04:49 04:49 05:38 WBC 10.60 H (4.50-10.00) X 10*3/uL RDW 16.3 H (11.5-14.5) % MPV 12.7 H (9.5-12.2) FL Neutrophils # 7.85 H (1.80-7.70) X 10*3/uL Eosinophils # 0.57 H (0.04-0.35) X 10*3/uL Microcytosis (manual) 2+ A Elliptocytes 2+ A Est GFR (CKD-EPI) 53 L (>=60) BUN/Creatinine Ratio 11.64 L (12.00-20.00) Ratio Glucose 68 L (70-110) mg/dL POC Glucose (mg/dL) 68 L (70-110) mg/dL Albumin/Globulin Ratio 1.54 L (1.60-3.17) Ratio 03/31/23 03/31/23 Range/Units 11:44 16:35 WBC (4.50-10.00) X 10*3/uL RDW (11.5-14.5) % MPV (9.5-12.2) FL Neutrophils # (1.80-7.70) X 10*3/uL Eosinophils # (0.04-0.35) X 10*3/uL Microcytosis (manual) Elliptocytes Est GFR (CKD-EPI) (>=60) BUN/Creatinine Ratio (12.00-20.00) Ratio Glucose (70-110) mg/dL POC Glucose (mg/dL) 181 H 136 H (70-110) mg/dL Albumin/Globulin Ratio (1.60-3.17) Ratio Assessment and Plan Plan: Abdominal pain with nausea vomiting and constipation Underlying history of CML in remission Leukocytosis on presentation Previous history of bilateral breast cancer status post lumpectomy Underlying history of hypertension Underlying history of hyperlipidemia Underlying history of obstructive sleep apnea Patient is admitted to medical floor Home medications reviewed and reordered Computed tomography scan of the abdomen and pelvis ordered Transvaginal ultrasound ordered Stool for C. diff ordered Surgical consultation requested Will follow closely
[2023-03-31] MEDS ORDERED: LACTULOSE 20 GM/30 ML CUP PO ONE (17:30)
[2023-03-31 20:28] LABS: Glucose,Whole Blood 82 mg/dL (70-110)
[2023-03-31] MEDS: ASPIRIN 81 MG PO SCH (20:52)
[2023-04-01] MEDS: HYDROmorphone 1 MG/ML 1 ML SYRINGE IVP PRN ×5 (00:37→19:43)
[2023-04-01 00:38] LABS: Glucose,Whole Blood 68 mg/dL (70-110)
[2023-04-01 01:12] LABS: Glucose,Whole Blood 65 mg/dL (70-110)
[2023-04-01 01:53] LABS: Glucose,Whole Blood 129 mg/dL (70-110)
[2023-04-01 06:07] LABS: Glucose,Whole Blood 126 mg/dL (70-110)
[2023-04-01] MEDS: TRIAMCINOLONE ACET 0.1% OINTMENT 80 GM TUBE TOPICAL SCH ×2 (06:23→17:24)
[2023-04-01] MEDS: NYSTATIN 100,000 UNIT/GM OINT 30 GM TUBE TOPICAL SCH ×2 (06:23→17:23)
[2023-04-01] MEDS: Insulin Aspart (For Pump) 100 UNIT/ML VIAL SQ-PUMP SCH (06:26)
--- NOTE | 2023-04-01 08:58 | P.PN ---
Subjective Progress Note Date: 04/01/23 Roxanna Ortiz, is a 72-year-old female who presented to [facility] emergency room with a chief complaint of abdominal pain nausea and vomiting. Patient was recently seen at [facility] emergency room for similar symptoms with constipation computed tomography scan of the abdomen and pelvis was done at [facility], patient was treated symptomatically for constipation and was discharged home from the ER. She presented again today to [facility] with abdominal pain nausea vomiting and constipation. She has a known history of CML in remission, she also has a known history of hypertension, hyperlipidemia, obstructive sleep apnea, insulin-dependent diabetes mellitus, history of bilateral breast cancer with bilateral lumpectomy. She was evaluated in the emergency room vital examination on presentation revealed a temperature of 98.4 pulse 68 respiration 18 blood pressure 166/69 pulse ox 98 percent on room air Laboratory data reveals a white blood count of 12.5 hemoglobin 12.7 platelet count 209 sodium 131 potassium 4.1 chloride 97 CO2 21 BUN 14 creatinine 0.93 Patient was admitted to medical floor, surgical consultation was requested On 03/28/2023 patient is alert and oriented 3. Patient still having right lower quadrant abdominal pain. Patient denies nausea vomiting at this time does report some diarrhea. Will order stool for C. diff. Results for transvaginal ultrasound pending surgical services following. Current vital signs temp 97.6, heart rate 65, respiratory rate 18, blood pressure 140/74 with a pulse ox 96% On 03/29/2023 patient was seen and examined on the medical floor, she is alert and oriented 3 in no apparent distress, she is still complaining of right lower quadrant abdominal pain, otherwise she denies any complaints at this time, there is no fever or chills no headache or dizziness no chest pain no shortness of breath no cough no nausea or or vomiting, she was having some diarrhea for the last several days however she is not having any bowel movements at this time, there is no burning with urination no frequency or urgency and no hematuria, input from Gen. surgery and oncology review, will recheck labs and follow-up in a.m.. on 03/30/2023 patient is alert and oriented 3. Patient still complaining of right lower quadrant pain. Denies any further episodes of nausea and vomiting. Patient reports she had one episode of loose stools this a.m. Patient states she has a very good appetite but still requiring Dilaudid for pain control. Patient was evaluated by pain services recommendations for possible MRI patient reports she cannot have MRI of the she is completely knocked out. Current vital signs temp 97.8, heart rate 75, respiratory 18, blood pressure 170/72 with a pulse ox of 94% On 03/31/2023 patient was seen and examined on the medical floor, she is alert and oriented 3 in no apparent distress, she is still complaining of severe right lower quadrant abdominal pain, otherwise she denies any complaints, there is no nausea or vomiting at this time, there is no diarrhea, she stated that her last bowel movement was 3 days ago. She was evaluated by surgery earlier, she was offered laparoscopic surgery for diagnostic reasons of her abdominal pain, however she declined. I discussed with her repeating computed tomography scan of the abdomen and pelvis, she declined at this time. I would add lactulose to her medication regimen, will recheck in am On 04/01/2023 patient is alert and oriented 3 sitting comfortably in chair. Patient still complaining of right lower quadrant abdominal pain. Patient is tolerating diet. Patient reports she has not had bowel movement. Patient was given lactulose. Per patient she does not recall any discussion per surgical services about laparoscopic procedure. Discussed with nurse to have surgical PA come back and explained to patient this possible option. Patient denies nausea or vomiting. Patient denies chest pain or shortness of breath. Patient denies any urinary burning or frequency. Vital signs temp 98.1, heart rate 68, respiratory rate 17, blood pressure 159/78 with pulse ox 98% on room air Objective - Vital Signs Vital signs: Vital Signs Temp 98.1 F 04/01/23 07:09 Pulse 68 04/01/23 07:09 Resp 17 04/01/23 07:09 BP 159/78 04/01/23 07:09 Pulse Ox 95 04/01/23 07:09 FiO2 Intake & Output 03/31/23 04/01/23 04/01/23 18:59 06:59 18:59 Intake Total 110 Balance 110 Intake: Intake, IV Titration 110 Amount Sodium Chloride 0.9% 1, 110 000 ml @ 110 mls/hr IV . Q9H6M [facility] Rx#:[id number] Other: Voiding Method Toilet # Voids 4 - Exam In general patient is alert and oriented 3 in no distress HEENT head normocephalic and atraumatic Neck is supple no JVD no goiter no lymphadenopathy no carotid bruit Chest examination is clear to auscultation no crackles no wheezing Cardiac exam reveals regular heart sounds S1 and S2 no gallops no murmurs Abdomen is soft with right lower quadrant abdominal tenderness no organomegaly with normal bowel sounds Extremity exam reveals no edema no cyanosis or clubbing Neurological examination reveals no gross focal deficits - Labs CBC & Chem 7: 03/31/23 04:49 03/31/23 04:49 Labs: Abnormal Lab Results - Last 24 Hours (Table) 03/31/23 03/31/23 03/31/23 Range/Units 04:49 04:49 11:44 WBC 10.60 H (4.50-10.00) X 10*3/uL RDW 16.3 H (11.5-14.5) % MPV 12.7 H (9.5-12.2) FL Neutrophils # 7.85 H (1.80-7.70) X 10*3/uL Eosinophils # 0.57 H (0.04-0.35) X 10*3/uL Microcytosis (manual) 2+ A Elliptocytes 2+ A Est GFR (CKD-EPI) 53 L (>=60) BUN/Creatinine Ratio 11.64 L (12.00-20.00) Ratio Glucose 68 L (70-110) mg/dL POC Glucose (mg/dL) 181 H (70-110) mg/dL Albumin/Globulin Ratio 1.54 L (1.60-3.17) Ratio 03/31/23 04/01/23 04/01/23 Range/Units 16:35 00:36 01:06 WBC (4.50-10.00) X 10*3/uL RDW (11.5-14.5) % MPV (9.5-12.2) FL Neutrophils # (1.80-7.70) X 10*3/uL Eosinophils # (0.04-0.35) X 10*3/uL Microcytosis (manual) Elliptocytes Est GFR (CKD-EPI) (>=60) BUN/Creatinine Ratio (12.00-20.00) Ratio Glucose (70-110) mg/dL POC Glucose (mg/dL) 136 H 68 L 65 L (70-110) mg/dL Albumin/Globulin Ratio (1.60-3.17) Ratio 04/01/23 04/01/23 Range/Units 01:51 06:05 WBC (4.50-10.00) X 10*3/uL RDW (11.5-14.5) % MPV (9.5-12.2) FL Neutrophils # (1.80-7.70) X 10*3/uL Eosinophils # (0.04-0.35) X 10*3/uL Microcytosis (manual) Elliptocytes Est GFR (CKD-EPI) (>=60) BUN/Creatinine Ratio (12.00-20.00) Ratio Glucose (70-110) mg/dL POC Glucose (mg/dL) 129 H 126 H (70-110) mg/dL Albumin/Globulin Ratio (1.60-3.17) Ratio Assessment and Plan Plan: Abdominal pain with nausea vomiting and constipation Underlying history of CML in remission Leukocytosis on presentation Previous history of bilateral breast cancer status post lumpectomy Underlying history of hypertension Underlying history of hyperlipidemia Underlying history of obstructive sleep apnea Patient is admitted to medical floor Home medications reviewed and reordered CT of abdomen completed Transvaginal ultrasound completed Patient declined MRI Patient declined repeat CT Patient declined exploratory lap per surgical services
[2023-04-01] MEDS: METOPROLOL TARTRATE 12.5 MG TAB PO SCH ×2 (09:13→20:30)
[2023-04-01] MEDS: lisinopriL 20 MG TAB PO SCH (09:13)
[2023-04-01] MEDS: hydrALAZINE HCL 50 MG TAB PO SCH ×2 (09:13→20:30)
[2023-04-01] MEDS: CHOLECALCIFEROL 25 MCG (1000 IU) TABLET PO SCH (09:13)
[2023-04-01] MEDS: TRIAMTERENE-HCTZ 37.5-25MG 1 EACH TAB PO SCH (09:13)
[2023-04-01] MEDS: ENOXAPARIN 40 MG/0.4 ML SYRINGE SQ SCH (09:13)
[2023-04-01] MEDS ORDERED: LACTULOSE 20 GM/30 ML CUP PO ONE (10:12)
[2023-04-01 11:13] LABS: Glucose,Whole Blood 92 mg/dL (70-110)
--- NOTE | 2023-04-01 15:00 | P.PN ---
Subjective Progress Note Date: 04/01/23 CHIEF COMPLAINT: Abdominal pain HISTORY OF PRESENT ILLNESS: Patient continues to complain of right lower quadrant abdominal pain. Patient reports she is having flatus. She denies any bowel movements. Medicine service has ordered lactulose. She denies any nausea or vomiting. Patient reports that she is now interested in the diagnostic laparoscopy for further evaluation of her abdominal pain. Patient is tolerating diet. Patient seen by oncology service and felt that the Tasigna was not the cause of her symptoms. Patient seen by pain management service and patient refused steroid injection that was offered. PHYSICAL EXAM: VITAL SIGNS: Reviewed GENERAL: Well-developed in no acute distress. HEENT: No sclera icterus. Extraocular movements grossly intact. Moist buccal mucosa. Head is atraumatic, normocephalic. Hears conversational speech. No nasal drainage. NECK: Supple without lymphadenopathy. CHEST: Non-labored respirations and equal bilateral excursions. CARDIOVASCULAR: Palpable 2+ radial pulses. ABDOMEN: Soft. Nondistended. Tender with palpation right lower quadrant MUSCULOSKELETAL: No clubbing or cyanosis. NEUROLOGIC: No focal or lateralizing signs. Cranial nerves II through XII grossly intact. PSYCH: Appropriate affect. Alert and oriented to person, place and time. SKIN: Well perfused. Good skin turgor. ASSESSMENT: 1. Right lower quadrant abdominal pain 2. Chronic abdominal pain 3. Constipation 4. History of CML 5. Insulin-dependent diabetes mellitus 6. Hypertension 7. History of bilateral breast cancer with lumpectomy PLAN: -Patient scheduled for diagnostic laparoscopy on , 04/03/[address] Styles -Continue regular diet -Encouraged patient to ambulate Physician H[employer] Commercial Salesperson note has been reviewed by physician. Signing provider agrees with the documented findings, assessment, and plan of care. Objective - Vital Signs Vital signs: Vital Signs Temp 98.1 F 04/01/23 07:09 Pulse 68 04/01/23 07:09 Resp 17 04/01/23 07:09 BP 159/78 04/01/23 07:09 Pulse Ox 95 04/01/23 07:09 FiO2 Intake & Output 03/31/23 04/01/23 04/01/23 18:59 06:59 18:59 Intake Total 110 Balance 110 Intake: Intake, IV Titration 110 Amount Sodium Chloride 0.9% 1, 110 000 ml @ 110 mls/hr IV . Q9H6M [facility] Rx#:[id number] Other: Voiding Method Toilet # Voids 4 - Labs CBC & Chem 7: 03/31/23 04:49 03/31/23 04:49 Labs: Abnormal Lab Results - Last 24 Hours (Table) 03/31/23 04/01/23 04/01/23 Range/Units 16:35 00:36 01:06 POC Glucose (mg/dL) 136 H 68 L 65 L (70-110) mg/dL 04/01/23 04/01/23 Range/Units 01:51 06:05 POC Glucose (mg/dL) 129 H 126 H (70-110) mg/dL
--- NOTE | 2023-04-01 15:42 | P.PN ---
Subjective Progress Note Date: 04/01/23 Principal diagnosis: History of breast cancer and CML. Admitted for groin pain In follow-up today patient continues to have the right groin pain, She has agreed to have the exploratory laparotomy. Objective - Vital Signs Vital signs: Vital Signs Temp 98.3 F 04/01/23 13:43 Pulse 72 04/01/23 13:43 Resp 18 04/01/23 13:43 BP 200/77 04/01/23 13:43 Pulse Ox 97 04/01/23 13:43 FiO2 Intake & Output 03/31/23 04/01/23 04/01/23 18:59 06:59 18:59 Intake Total 110 Balance 110 Intake: Intake, IV Titration 110 Amount Sodium Chloride 0.9% 1, 110 000 ml @ 110 mls/hr IV . Q9H6M [facility] Rx#:[id number] Other: Voiding Method Toilet # Voids 4 # Bowel Movements 1 - Constitutional General appearance: Present: average body habitus, cooperative, mild distress - EENT Eyes: Present: anicteric sclerae, EOMI ENT: Present: hearing grossly normal - Respiratory Details: Respirations even and unlabored at rest - Neurologic Neurologic: Present: CNII-XII intact - Musculoskeletal Musculoskeletal Comment(s): Patient is independently ambulatory without assistive device Musculoskeletal: Present: strength equal bilaterally - Psychiatric Psychiatric: Present: A&O x's 3, appropriate affect, intact judgment & insight - Labs CBC & Chem 7: 03/31/23 04:49 03/31/23 04:49 Labs: Abnormal Lab Results - Last 24 Hours (Table) 03/31/23 04/01/23 04/01/23 Range/Units 16:35 00:36 01:06 POC Glucose (mg/dL) 136 H 68 L 65 L (70-110) mg/dL 04/01/23 04/01/23 Range/Units 01:51 06:05 POC Glucose (mg/dL) 129 H 126 H (70-110) mg/dL Assessment and Plan (1) Chronic myelocytic leukemia in remission Current Visit: Yes Status: Chronic Priority: Low Code(s): C92.91 - MYELOID LEUKEMIA, UNSPECIFIED IN REMISSION SNOMED Code(s): 58731776 (2) HX: breast cancer Current Visit: No Status: Chronic Priority: Low Code(s): Z85.3 - PERSONAL HISTORY OF MALIGNANT NEOPLASM OF BREAST SNOMED Code(s): 240586575 Plan: History of breast cancer -Patient had progressive osteopenia on Femara, she did not tolerate evista so, she is currently on nothing. She is current on f/u. CML -Patient has been on Tasigna Since early 2018. Patient has done very well. -Abd pain from tasigna is 2/2 pancreatitis. Patient's lipase is normal. No other evidence on exam to suggest pancreatitis. -Tasigna has been on hold since admission, with no improvements in her inguinal pain, not thinking they are related. -Patient will continue to hold tasigna until after discharge Abd pain/rt inguinal pain -Patient has been worked up no underlying cause. -Patient has refused exploratory laparotomy but changed her mind, plan for the same soon -Pt refused steroid injections and MRI of the hip and/or back. Pending findings
[2023-04-01 17:17] LABS: Glucose,Whole Blood 76 mg/dL (70-110)
[2023-04-01] MEDS: ASPIRIN 81 MG PO SCH (20:30)
[2023-04-01 20:49] LABS: Glucose,Whole Blood 181 mg/dL (70-110)
[2023-04-01 23:25] LABS: Glucose,Whole Blood 121 mg/dL (70-110)
[2023-04-02] MEDS: HYDROmorphone 1 MG/ML 1 ML SYRINGE IVP PRN ×4 (02:01→18:13)
[2023-04-02] MEDS: ALPRAZolam 0.25 MG TAB PO PRN (03:42)
[2023-04-02 05:48] LABS: Glucose,Whole Blood 111 mg/dL (70-110)
[2023-04-02] MEDS: NYSTATIN 100,000 UNIT/GM OINT 30 GM TUBE TOPICAL SCH ×2 (06:03→18:21)
[2023-04-02] MEDS: TRIAMCINOLONE ACET 0.1% OINTMENT 80 GM TUBE TOPICAL SCH ×2 (06:03→18:21)
[2023-04-02] MEDS: Insulin Aspart (For Pump) 100 UNIT/ML VIAL SQ-PUMP SCH (06:03)
[2023-04-02] MEDS: hydrALAZINE HCL 50 MG TAB PO SCH ×3 (07:54→20:26)
[2023-04-02] MEDS: ENOXAPARIN 40 MG/0.4 ML SYRINGE SQ SCH (07:54)
[2023-04-02] MEDS: CHOLECALCIFEROL 25 MCG (1000 IU) TABLET PO SCH (07:54)
[2023-04-02] MEDS: METOPROLOL TARTRATE 12.5 MG TAB PO SCH ×2 (07:54→20:25)
[2023-04-02] MEDS: lisinopriL 20 MG TAB PO SCH (07:54)
[2023-04-02 09:09] LABS: ALT 25 U/L (8-44); AST 20 U/L (13-35); Albumin 3.9 d/dL (3.8-4.9); Alkaline Phosphatase 94 U/L (41-126); Blood Urea Nitrogen 13.3 mg/dL (9.0-27.0); Calcium 10.2 mg/dL (8.7-10.3); Carbon Dioxide 27.1 mmol/L (21.6-31.8); Chloride 100 mmol/L (96-109); Globulin 2.3 d/dL (1.6-3.3); Glucose 89 mg/dL (70-110); Sodium 139 mmol/L (135-145); Total Bilirubin 0.5 mg/dL (0.3-1.2); Total Protein 6.2 d/dL (6.2-8.2)
[2023-04-02] MEDS ORDERED: LACTULOSE 20 GM/30 ML CUP PO ONE (09:48)
--- NOTE | 2023-04-02 09:52 | P.PN ---
Subjective Progress Note Date: 04/02/23 Roxanna Ortiz, is a 72-year-old female who presented to [facility] emergency room with a chief complaint of abdominal pain nausea and vomiting. Patient was recently seen at [facility] emergency room for similar symptoms with constipation computed tomography scan of the abdomen and pelvis was done at [facility], patient was treated symptomatically for constipation and was discharged home from the ER. She presented again today to [facility] with abdominal pain nausea vomiting and constipation. She has a known history of CML in remission, she also has a known history of hypertension, hyperlipidemia, obstructive sleep apnea, insulin- dependent diabetes mellitus, history of bilateral breast cancer with bilateral lumpectomy. She was evaluated in the emergency room vital examination on presentation revealed a temperature of 98.4 pulse 68 respiration 18 blood pressure 166/69 pulse ox 98 percent on room air Laboratory data reveals a white blood count of 12.5 hemoglobin 12.7 platelet count 209 sodium 131 potassium 4.1 chloride 97 CO2 21 BUN 14 creatinine 0.93 Patient was admitted to medical floor, surgical consultation was requested On 03/28/2023 patient is alert and oriented 3. Patient still having right lower quadrant abdominal pain. Patient denies nausea vomiting at this time does report some diarrhea. Will order stool for C. diff. Results for transvaginal ultrasound pending surgical services following. Current vital signs temp 97.6, heart rate 65, respiratory rate 18, blood pressure 140/74 with a pulse ox 96% On 03/29/2023 patient was seen and examined on the medical floor, she is alert and oriented 3 in no apparent distress, she is still complaining of right lower quadrant abdominal pain, otherwise she denies any complaints at this time, there is no fever or chills no headache or dizziness no chest pain no shortness of breath no cough no nausea or or vomiting, she was having some diarrhea for the last several days however she is not having any bowel movements at this time, there is no burning with urination no frequency or urgency and no hematuria, input from Gen. surgery and oncology review, will recheck labs and follow-up in a.m.. on 03/30/2023 patient is alert and oriented 3. Patient still complaining of right lower quadrant pain. Denies any further episodes of nausea and vomiting. Patient reports she had one episode of loose stools this a.m. Patient states she has a very good appetite but still requiring Dilaudid for pain control. Patient was evaluated by pain services recommendations for possible MRI patient reports she cannot have MRI of the she is completely knocked out. Current vital signs temp 97.8, heart rate 75, respiratory 18, blood pressure 170/72 with a pulse ox of 94% On 03/31/2023 patient was seen and examined on the medical floor, she is alert and oriented 3 in no apparent distress, she is still complaining of severe right lower quadrant abdominal pain, otherwise she denies any complaints, there is no nausea or vomiting at this time, there is no diarrhea, she stated that her last bowel movement was 3 days ago. She was evaluated by surgery earlier, she was offered laparoscopic surgery for diagnostic reasons of her abdominal pain, however she declined. I discussed with her repeating computed tomography scan of the abdomen and pelvis, she declined at this time. I would add lactulose to her medication regimen, will recheck in am On 04/01/2023 patient is alert and oriented 3 sitting comfortably in chair. Patient still complaining of right lower quadrant abdominal pain. Patient is tolerating diet. Patient reports she has not had bowel movement. Patient was given lactulose. Per patient she does not recall any discussion per surgical services about laparoscopic procedure. Discussed with nurse to have surgical PA come back and explained to patient this possible option. Patient denies nausea or vomiting. Patient denies chest pain or shortness of breath. Patient denies any urinary burning or frequency. Vital signs temp 98.1, heart rate 68, respiratory rate 17, blood pressure 159/78 with pulse ox 98% on room air On 04/02/2023 patient will alert and oriented 3 sitting up in chair finishing breakfast. Patient reports she still having right lower quadrant pain still has not had bowel movement lactulose will be given again today patient declined enema at this time. Per surgical services plans for expiratory laparotomy on 04/03/2023. patient denies chest pain or shortness of breath. Patient denies nausea vomiting or diarrhea. Patient denies any urinary burning or frequency Objective - Vital Signs Vital signs: Vital Signs Temp 97.6 F 04/02/23 07:48 Pulse 71 04/02/23 07:48 Resp 19 04/02/23 07:48 BP 202/04/02/23 07:48 Pulse Ox 96 04/02/23 07:48 FiO2 Intake & Output 04/01/23 04/02/23 04/02/23 18:59 06:59 18:59 Intake Total 1080 Balance 1080 Intake: Oral 1080 Other: Voiding Method Toilet # Voids 3 2 # Bowel Movements 1 - Exam In general patient is alert and oriented 3 in no distress HEENT head normocephalic and atraumatic Neck is supple no JVD no goiter no lymphadenopathy no carotid bruit Chest examination is clear to auscultation no crackles no wheezing Cardiac exam reveals regular heart sounds S1 and S2 no gallops no murmurs Abdomen is soft with right lower quadrant abdominal tenderness no organomegaly with normal bowel sounds Extremity exam reveals no edema no cyanosis or clubbing Neurological examination reveals no gross focal deficits - Labs CBC & Chem 7: 03/31/23 04:49 04/02/23 04:50 Labs: Abnormal Lab Results - Last 24 Hours (Table) 04/01/23 04/01/23 04/02/23 Range/Units 20:47 23:24 05:47 POC Glucose (mg/dL) 181 H 121 H 111 H (70-110) mg/dL Assessment and Plan Assessment: Abdominal pain with nausea vomiting and constipation Underlying history of CML in remission Leukocytosis on presentation Previous history of bilateral breast cancer status post lumpectomy Underlying history of hypertension Underlying history of hyperlipidemia Underlying history of obstructive sleep apnea Constipation lactulose ordered Patient is admitted to medical floor Home medications reviewed and reordered CT of abdomen completed Transvaginal ultrasound completed Patient declined MRI Patient declined repeat CT Patient now in agreement for exploratory lap scheduled return lab on 04/03/2023 per surgical services
[2023-04-02 10:06] LABS: Basophils # (A) 0.06 X 10*3/uL (0.00-0.10); Basophils % (A) 0.6 %; Eosinophils # (A) 0.37 X 10*3/uL (0.04-0.35); Eosinophils % (A) 3.6 %; HCT 37.8 % (37.2-46.3); HGB 12.1 d/dL (12.0-15.0); Lymphocytes # (A) 1.18 X 10*3/uL (0.90-5.00); Lymphocytes % (A) 11.6 %; MCH 26.9 pg (27.0-32.0); MCV 84.2 FL (80.0-97.0); Mean Platelet Volume 11.7 FL (9.5-12.2); Monocytes # (A) 0.89 X 10*3/uL (0.20-1.00); Monocytes % (A) 8.8 %; NRBC Per 100 WBC 0 X 10*3/uL (0.00-0.01); Neutrophils # (A) 7.55 X 10*3/uL (1.80-7.70); Neutrophils % (A) 74.4 %; Platelet Count 245 X 10*3/uL (140-440); RBC 4.49 X 10*6/uL (4.10-5.20); RDW 16.3 % (11.5-14.5); WBC 10.15 X 10*3/uL (4.50-10.00)
[2023-04-02] MEDS: TRIAMTERENE-HCTZ 37.5-25MG 1 EACH TAB PO SCH (10:42)
--- NOTE | 2023-04-02 11:39 | P.PN ---
Subjective Progress Note Date: 04/02/23 CHIEF COMPLAINT: Abdominal pain HISTORY OF PRESENT ILLNESS: Patient continues to complain of right lower quadrant abdominal pain. Patient reports she is having flatus. She had a very, small BM. She denies any nausea or vomiting. Patient is tolerating diet. Patient seen by oncology service and felt that the Tasigna was not the cause of her symptoms. Patient seen by pain management service and patient refused steroid injection that was offered. PHYSICAL EXAM: VITAL SIGNS: Reviewed GENERAL: Well-developed in no acute distress. HEENT: No sclera icterus. Extraocular movements grossly intact. Moist buccal mucosa. Head is atraumatic, normocephalic. Hears conversational speech. No nasal drain age. NECK: Supple without lymphadenopathy. CHEST: Non-labored respirations and equal bilateral excursions. CARDIOVASCULAR: Palpable 2+ radial pulses. ABDOMEN: Soft. Nondistended. Tender with palpation right lower quadrant MUSCULOSKELETAL: No clubbing or cyanosis. NEUROLOGIC: No focal or lateralizing signs. Cranial nerves II through XII grossly intact. PSYCH: Appropriate affect. Alert and oriented to person, place and time. SKIN: Well perfused. Good skin turgor. ASSESSMENT: 1. Right lower quadrant abdominal pain 2. Chronic abdominal pain 3. Constipation 4. History of CML 5. Insulin-dependent diabetes mellitus 6. Hypertension 7. History of bilateral breast cancer with lumpectomy PLAN: -Patient scheduled for diagnostic laparoscopy on , 04/03/[address] Styles -Continue regular diet -NPO after midnight -Encouraged patient to ambulate Physician Marine Service Manager note has been reviewed by physician. Signing provider agrees with the documented findings, assessment, and plan of care. Objective - Vital Signs Vital signs: Vital Signs Temp 97.6 F 04/02/23 07:48 Pulse 71 04/02/23 08:00 Resp 19 04/02/23 08:00 BP 202/74 04/02/23 07:48 Pulse Ox 96 04/02/23 07:48 FiO2 Intake & Output 04/01/23 04/02/23 04/02/23 18:59 06:59 18:59 Intake Total 1080 Balance 1080 Intake: Oral 1080 Other: Voiding Method Toilet Toilet # Voids 3 2 # Bowel Movements 1 - Labs CBC & Chem 7: 04/02/23 04:50 04/02/23 04:50 Labs: Abnormal Lab Results - Last 24 Hours (Table) 04/01/23 04/01/23 04/02/23 Range/Units 20:47 23:24 04:50 WBC 10.15 H (4.50-10.00) X 10*3/uL MCH 26.9 L (27.0-32.0) pg RDW 16.3 H (11.5-14.5) % Eosinophils # 0.37 H (0.04-0.35) X 10*3/uL POC Glucose (mg/dL) 181 H 121 H (70-110) mg/dL 04/02/23 Range/Units 05:47 WBC (4.50-10.00) X 10*3/uL MCH (27.0-32.0) pg RDW (11.5-14.5) % Eosinophils # (0.04-0.35) X 10*3/uL POC Glucose (mg/dL) 111 H (70-110) mg/dL
[2023-04-02 11:48] LABS: Glucose,Whole Blood 176 mg/dL (70-110)
[2023-04-02 17:12] LABS: Glucose,Whole Blood 211 mg/dL (70-110)
[2023-04-02] MEDS: ASPIRIN 81 MG PO SCH (20:26)
[2023-04-02 20:29] LABS: Glucose,Whole Blood 133 mg/dL (70-110)
[2023-04-03] MEDS: HYDROmorphone 1 MG/ML 1 ML SYRINGE IVP PRN ×4 (00:23→17:20)
[2023-04-03] MEDS: ALPRAZolam 0.25 MG TAB PO PRN (00:23)
[2023-04-03 06:04] LABS: Glucose,Whole Blood 154 mg/dL (70-110)
[2023-04-03] MEDS: Insulin Aspart (For Pump) 100 UNIT/ML VIAL SQ-PUMP SCH (06:13)
[2023-04-03] MEDS: NYSTATIN 100,000 UNIT/GM OINT 30 GM TUBE TOPICAL SCH ×2 (06:14→15:55)
[2023-04-03] MEDS: TRIAMCINOLONE ACET 0.1% OINTMENT 80 GM TUBE TOPICAL SCH ×2 (06:15→15:56)
[2023-04-03] MEDS: lisinopriL 20 MG TAB PO SCH (08:46)
[2023-04-03] MEDS: hydrALAZINE HCL 50 MG TAB PO SCH ×3 (08:46→21:09)
[2023-04-03] MEDS: TRIAMTERENE-HCTZ 37.5-25MG 1 EACH TAB PO SCH (08:47)
[2023-04-03] MEDS: METOPROLOL TARTRATE 12.5 MG TAB PO SCH ×2 (08:47→21:09)
[2023-04-03] MEDS: CHOLECALCIFEROL 25 MCG (1000 IU) TABLET PO SCH (08:47)
[2023-04-03 09:06] LABS: Basophils # (A) 0.04 X 10*3/uL (0.00-0.10); Basophils % (A) 0.4 %; Eosinophils # (A) 0.36 X 10*3/uL (0.04-0.35); Eosinophils % (A) 3.9 %; HCT 38.3 % (37.2-46.3); HGB 12.4 d/dL (12.0-15.0); Lymphocytes # (A) 1.32 X 10*3/uL (0.90-5.00); Lymphocytes % (A) 14.4 %; MCH 27.1 pg (27.0-32.0); MCHC 32.4 d/dL (32.0-37.0); MCV 83.6 FL (80.0-97.0); Mean Platelet Volume 11.2 FL (9.5-12.2); Monocytes # (A) 0.95 X 10*3/uL (0.20-1.00); Monocytes % (A) 10.3 %; NRBC Per 100 WBC 0 X 10*3/uL (0.00-0.01); Neutrophils % (A) 69.8 %; Platelet Count 229 X 10*3/uL (140-440); RBC 4.58 X 10*6/uL (4.10-5.20); RDW 16.2 % (11.5-14.5); WBC 9.18 X 10*3/uL (4.50-10.00)
[2023-04-03 09:43] LABS: ALT 26 U/L (8-44); AST 22 U/L (13-35); Albumin 3.9 d/dL (3.8-4.9); Alkaline Phosphatase 92 U/L (41-126); Blood Urea Nitrogen 16.6 mg/dL (9.0-27.0); Calcium 10.6 mg/dL (8.7-10.3); Carbon Dioxide 26.8 mmol/L (21.6-31.8); Chloride 99 mmol/L (96-109); Globulin 2.3 d/dL (1.6-3.3); Glucose 151 mg/dL (70-110); Potassium 4.1 mmol/L (3.5-5.5); Sodium 137 mmol/L (135-145); Total Bilirubin 0.5 mg/dL (0.3-1.2); Total Protein 6.2 d/dL (6.2-8.2)
[2023-04-03] MEDS: ENOXAPARIN 40 MG/0.4 ML SYRINGE SQ SCH (10:06)
--- NOTE | 2023-04-03 10:34 | P.PN ---
Subjective Progress Note Date: 04/03/23 Roxanna Ortiz, is a 72-year-old female who presented to [facility] emergency room with a chief complaint of abdominal pain nausea and vomiting. Patient was recently seen at [facility] emergency room for similar symptoms with constipation computed tomography scan of the abdomen and pelvis was done at [facility], patient was treated symptomatically for constipation and was discharged home from the ER. She presented again today to [facility] with abdominal pain nausea vomiting and constipation. She has a known history of CML in remission, she also has a known history of hypertension, hyperlipidemia, obstructive sleep apnea, insulin-dependent diabetes mellitus, history of bilateral breast cancer with bilateral lumpectomy. She was evaluated in the emergency room vital examination on presentation revealed a temperature of 98.4 pulse 68 respiration 18 blood pressure 166/69 pulse ox 98 percent on room air Laboratory data reveals a white blood count of 12.5 hemoglobin 12.7 platelet count 209 sodium 131 potassium 4.1 chloride 97 CO2 21 BUN 14 creatinine 0.93 Patient was admitted to medical floor, surgical consultation was requested On 03/28/2023 patient is alert and oriented 3. Patient still having right lower quadrant abdominal pain. Patient denies nausea vomiting at this time does report some diarrhea. Will order stool for C. diff. Results for transvaginal ultrasound pending surgical services following. Current vital signs temp 97.6, heart rate 65, respiratory rate 18, blood pressure 140/74 with a pulse ox 96% On 03/29/2023 patient was seen and examined on the medical floor, she is alert and oriented 3 in no apparent distress, she is still complaining of right lower quadrant abdominal pain, otherwise she denies any complaints at this time, there is no fever or chills no headache or dizziness no chest pain no shortness of breath no cough no nausea or or vomiting, she was having some diarrhea for the last several days however she is not having any bowel movements at this time, there is no burning with urination no frequency or urgency and no hematuria, input from Gen. surgery and oncology review, will recheck labs and follow-up in a.m.. on 03/30/2023 patient is alert and oriented 3. Patient still complaining of right lower quadrant pain. Denies any further episodes of nausea and vomiting. Patient reports she had one episode of loose stools this a.m. Patient states she has a very good appetite but still requiring Dilaudid for pain control. Patient was evaluated by pain services recommendations for possible MRI patient reports she cannot have MRI of the she is completely knocked out. Current vital signs temp 97.8, heart rate 75, respiratory 18, blood pressure 170/72 with a pulse ox of 94% On 03/31/2023 patient was seen and examined on the medical floor, she is alert and oriented 3 in no apparent distress, she is still complaining of severe right lower quadrant abdominal pain, otherwise she denies any complaints, there is no nausea or vomiting at this time, there is no diarrhea, she stated that her last bowel movement was 3 days ago. She was evaluated by surgery earlier, she was offered laparoscopic surgery for diagnostic reasons of her abdominal pain, however she declined. I discussed with her repeating computed tomography scan of the abdomen and pelvis, she declined at this time. I would add lactulose to her medication regimen, will recheck in am On 04/01/2023 patient is alert and oriented 3 sitting comfortably in chair. Patient still complaining of right lower quadrant abdominal pain. Patient is tolerating diet. Patient reports she has not had bowel movement. Patient was given lactulose. Per patient she does not recall any discussion per surgical services about laparoscopic procedure. Discussed with nurse to have surgical PA come back and explained to patient this possible option. Patient denies nausea or vomiting. Patient denies chest pain or shortness of breath. Patient denies any urinary burning or frequency. Vital signs temp 98.1, heart rate 68, respiratory rate 17, blood pressure 159/78 with pulse ox 98% on room air On 04/02/2023 patient will alert and oriented 3 sitting up in chair finishing breakfast. Patient reports she still having right lower quadrant pain still has not had bowel movement lactulose will be given again today patient declined enema at this time. Per surgical services plans for expiratory laparotomy on 04/03/2023. patient denies chest pain or shortness of breath. Patient denies nausea vomiting or diarrhea. Patient denies any urinary burning or frequency On 04/03/2023 patient is currently sitting up in chair alert and oriented 3. Patient reports she did have bowel movement yesterday. Plans for exploratory lap per surgical services due to ongoing abdominal discomfort. Current vital signs temp 97.9, height 67, respiratory rate 19, blood pressure 165/68 with pulse ox of 95% on room air Objective - Vital Signs Vital signs: Vital Signs Temp 97.9 F 04/03/23 07:33 Pulse 67 04/03/23 07:33 Resp 19 04/03/23 07:33 BP 165/68 04/03/23 07:33 Pulse Ox 95 04/03/23 07:33 FiO2 Intake & Output 04/02/23 04/03/23 04/03/23 18:59 06:59 18:59 Intake Total 550 Balance 550 Intake: Oral 550 Other: Voiding Method Toilet Toilet # Voids 3 2 1 - Exam In general patient is alert and oriented 3 in no distress HEENT head normocephalic and atraumatic Neck is supple no JVD no goiter no lymphadenopathy no carotid bruit Chest examination is clear to auscultation no crackles no wheezing Cardiac exam reveals regular heart sounds S1 and S2 no gallops no murmurs Abdomen is soft with right lower quadrant abdominal tenderness no organomegaly with normal bowel sounds Extremity exam reveals no edema no cyanosis or clubbing Neurological examination reveals no gross focal deficits - Labs CBC & Chem 7: 04/03/23 05:52 04/03/23 05:52 Labs: Abnormal Lab Results - Last 24 Hours (Table) 04/02/23 04/02/23 04/02/23 Range/Units 11:47 17:08 20:27 RDW (11.5-14.5) % Eosinophils # (0.04-0.35) X 10*3/uL Glucose (70-110) mg/dL POC Glucose (mg/dL) 176 H 211 H 133 H (70-110) mg/dL Calcium (8.7-10.3) mg/dL 04/03/23 04/03/23 04/03/23 Range/Units 05:52 05:52 06:02 RDW 16.2 H (11.5-14.5) % Eosinophils # 0.36 H (0.04-0.35) X 10*3/uL Glucose 151 H (70-110) mg/dL POC Glucose (mg/dL) 154 H (70-110) mg/dL Calcium 10.6 H (8.7-10.3) mg/dL Assessment and Plan Plan: Abdominal pain with nausea vomiting and constipation Underlying history of CML in remission Leukocytosis on presentation Previous history of bilateral breast cancer status post lumpectomy Underlying history of hypertension Underlying history of hyperlipidemia Underlying history of obstructive sleep apnea Constipation. Resolved Patient is admitted to medical floor Home medications reviewed and reordered CT of abdomen completed Transvaginal ultrasound completed Patient declined MRI Patient declined repeat CT Plans for exploratory lap 04/03/2023
[2023-04-03 11:28] LABS: Glucose,Whole Blood 131 mg/dL (70-110)
[2023-04-03 11:52] VITALS: BMI 36.1
[2023-04-03 17:03] LABS: Glucose,Whole Blood 292 mg/dL (70-110)
[2023-04-03 20:15] LABS: Glucose,Whole Blood 333 mg/dL (70-110)
[2023-04-03] MEDS: ASPIRIN 81 MG PO SCH (21:07)
[2023-04-04] MEDS: HYDROmorphone 1 MG/ML 1 ML SYRINGE IVP PRN ×3 (01:23→11:58)
[2023-04-04 05:46] LABS: Glucose,Whole Blood 49 mg/dL (70-110)
[2023-04-04] MEDS ORDERED: DEXTROSE 50% SYRINGE 50 ML IVP STA (06:03)
[2023-04-04 06:05] LABS: Glucose,Whole Blood 44 mg/dL (70-110)
[2023-04-04] MEDS: TRIAMCINOLONE ACET 0.1% OINTMENT 80 GM TUBE TOPICAL SCH ×2 (06:32→14:28)
[2023-04-04] MEDS: NYSTATIN 100,000 UNIT/GM OINT 30 GM TUBE TOPICAL SCH ×2 (06:32→14:28)
[2023-04-04 06:39] LABS: Glucose,Whole Blood 143 mg/dL (70-110)
[2023-04-04] MEDS: Insulin Aspart (For Pump) 100 UNIT/ML VIAL SQ-PUMP SCH (06:57)
[2023-04-04] MEDS: lisinopriL 20 MG TAB PO SCH (07:35)
[2023-04-04] MEDS: hydrALAZINE HCL 50 MG TAB PO SCH ×2 (07:35→15:06)
[2023-04-04] MEDS: ENOXAPARIN 40 MG/0.4 ML SYRINGE SQ SCH (07:35)
[2023-04-04] MEDS: METOPROLOL TARTRATE 12.5 MG TAB PO SCH (07:35)
[2023-04-04] MEDS: CHOLECALCIFEROL 25 MCG (1000 IU) TABLET PO SCH (07:36)
[2023-04-04] MEDS: TRIAMTERENE-HCTZ 37.5-25MG 1 EACH TAB PO SCH (07:37)
--- NOTE | 2023-04-04 10:34 | P.PN ---
Subjective Progress Note Date: 04/04/23 Roxanna Ortiz, is a 72-year-old female who presented to [facility] emergency room with a chief compl on 04/04/2023 patient is alert and oriented 3. Exploratory lap was delayed yesterday until today due to surgical scheduling. Patient still complaining of right lower abdominal pain. Patient denies chest pain or shortness of breath. Patient denies nausea vomiting or diarrhea. Patient denies any urinary burning or frequencyaint of abdominal pain nausea and vomiting. Patient was recently seen at [facility] emergency room for similar symptoms with constipation computed tomography scan of the abdomen and pelvis was done at [facility], patient was treated sy mptomatically for constipation and was discharged home from the ER. She presented again today to [facility] with abdominal pain nausea vomiting and constipation. She has a known history of CML in remission, she also has a known history of hypertension, hyperlipidemia, obstructive sleep apnea, insulin-dependent diabetes mellitus, history of bilateral breast cancer with bilateral lumpectomy. She was evaluated in the emergency room vital examination on presentation revealed a temperature of 98.4 pulse 68 respiration 18 blood pressure 166/69 pulse ox 98 percent on room air Laboratory data reveals a white blood count of 12.5 hemoglobin 12.7 platelet count 209 sodium 131 potassium 4.1 chloride 97 CO2 21 BUN 14 creatinine 0.93 Patient was admitted to medical floor, surgical consultation was requested On 03/28/2023 patient is alert and oriented 3. Patient still having right lower quadrant abdominal pain. Patient denies nausea vomiting at this time does report some diarrhea. Will order stool for C. diff. Results for transvaginal ultrasound pending surgical services following. Current vital signs temp 97.6, heart rate 65, respiratory rate 18, blood pressure 140/74 with a pulse ox 96% On 03/29/2023 patient was seen and examined on the medical floor, she is alert and oriented 3 in no apparent distress, she is still complaining of right lower quadrant abdominal pain, otherwise she denies any complaints at this time, there is no fever or chills no headache or dizziness no chest pain no shortness of breath no cough no nausea or or vomiting, she was having some diarrhea for the last several days however she is not having any bowel movements at this time, there is no burning with urination no frequency or urgency and no hematuria, input from Gen. surgery and oncology review, will recheck labs and follow-up in a.m.. on 03/30/2023 patient is alert and oriented 3. Patient still complaining of right lower quadrant pain. Denies any further episodes of nausea and vomiting. Patient reports she had one episode of loose stools this a.m. Patient states s he has a very good appetite but still requiring Dilaudid for pain control. Patient was evaluated by pain services recommendations for possible MRI patient reports she cannot have MRI of the she is completely knocked out. Current vital signs temp 97.8, heart rate 75, respiratory 18, blood pressure 170/72 with a pulse ox of 94% On 03/31/2023 patient was seen and examined on the medical floor, she is alert and oriented 3 in no apparent distress, she is still complaining of severe right lower quadrant abdominal pain, otherwise she denies any complaints, there is no nausea or vomiting at this time, there is no diarrhea, she stated that her last bowel movement was 3 days ago. She was evaluated by surgery earlier, she was offered laparoscopic surgery for diagnostic reasons of her abdominal pain, however she declined. I discussed with her repeating computed tomography scan of the abdomen and pelvis, she declined at this time. I would add lactulose to her medication regimen, will recheck in am On 04/01/2023 patient is alert and oriented 3 sitting comfortably in chair. Patient still complaining of right lower quadrant abdominal pain. Patient is tolerating diet. Patient reports she has not had bowel movement. Patient was given lactulose. Per patient she does not recall any discussion per surgical services about laparoscopic procedure. Discussed with nurse to have surgical PA come back and explained to patient this possible option. Patient denies nausea or vomiting. Patient denies chest pain or shortness of breath. Patient denies any urinary burning or frequency. Vital signs temp 98.1, heart rate 68, respiratory rate 17, blood pressure 159/78 with pulse ox 98% on room air On 04/02/2023 patient will alert and oriented 3 sitting up in chair finishing breakfast. Patient reports she still having right lower quadrant pain still has not had bowel movement lactulose will be given again today patient declined enema at this time. Per surgical services plans for expiratory laparotomy on 04/03/2023. patient denies chest pain or shortness of breath. Patient denies nausea vomiting or diarrhea. Patient denies any urinary burning or frequency On 04/03/2023 patient is currently sitting up in chair alert and oriented 3. Patient reports she did have bowel movement yesterday. Plans for exploratory lap per surgical services due to ongoing abdominal discomfort. Current vital signs temp 97.9, height 67, respiratory rate 19, blood pressure 165/68 with pulse ox of 95% on room air on 04/04/2023 patient is alert and oriented 3. Exploratory lap was delayed y esterday until today due to surgical scheduling. Patient still complaining of right lower abdominal pain. Patient denies chest pain or shortness of breath. Patient denies nausea vomiting or diarrhea. Patient denies any urinary burning or frequency Objective - Vital Signs Vital signs: Vital Signs Temp 97.5 F L 04/04/23 07:17 Pulse 68 04/04/23 07:17 Resp 16 04/04/23 07:17 BP 165/72 04/04/23 07:17 Pulse Ox 97 04/04/23 07:17 FiO2 Intake & Output 04/03/23 04/04/23 04/04/23 18:59 06:59 18:59 Weight 92.533 kg Other: Voiding Method Toilet # Voids 3 3 1 - Exam In general patient is alert and oriented 3 in no distress HEENT head normocephalic and atraumatic Neck is supple no JVD no goiter no lymphadenopathy no carotid bruit Chest examination is clear to auscultation no crackles no wheezing Cardiac exam reveals regular heart sounds S1 and S2 no gallops no murmurs Abdomen is soft with right lower quadrant abdominal tenderness no organomegaly with normal bowel sounds Extremity exam reveals no edema no cyanosis or clubbing Neurological examination reveals no gross focal deficits - Labs CBC & Chem 7: 04/03/23 05:52 04/03/23 05:52 Labs: Abnormal Lab Results - Last 24 Hours (Table) 04/03/23 04/03/23 04/03/23 Range/Units 11:26 17:01 20:10 POC Glucose (mg/dL) 131 H 292 H 333 H (70-110) mg/dL 04/04/23 04/04/23 04/04/23 Range/Units 05:42 06:02 06:37 POC Glucose (mg/dL) 49 L 44 L 143 H (70-110) mg/dL Assessment and Plan Plan: Abdominal pain with nausea vomiting and constipation Underlying history of CML in remission Leukocytosis on presentation Previous history of bilateral breast cancer status post lumpectomy Underlying history of hypertension Underlying history of hyperlipidemia Underlying history of obstructive sleep apnea Constipation. Resolved Patient is admitted to medical floor Home medications reviewed and reordered CT of abdomen completed Transvaginal ultrasound completed Patient declined MRI Patient declined repeat CT Plans for exploratory lap 04/04/2023
[2023-04-04 11:22] LABS: Basophils # (A) 0.06 X 10*3/uL (0.00-0.10); Basophils % (A) 0.6 %; Eosinophils # (A) 0.25 X 10*3/uL (0.04-0.35); Eosinophils % (A) 2.5 %; HCT 38.9 % (37.2-46.3); HGB 12.6 d/dL (12.0-15.0); MCH 27.3 pg (27.0-32.0); MCHC 32.4 d/dL (32.0-37.0); MCV 84.2 FL (80.0-97.0); Mean Platelet Volume 11.7 FL (9.5-12.2); Monocytes # (A) 0.95 X 10*3/uL (0.20-1.00); Monocytes % (A) 9.5 %; NRBC Per 100 WBC 0 X 10*3/uL (0.00-0.01); Neutrophils # (A) 7.37 X 10*3/uL (1.80-7.70); Neutrophils % (A) 73.6 %; Platelet Count 245 X 10*3/uL (140-440); RBC 4.62 X 10*6/uL (4.10-5.20); RDW 16.3 % (11.5-14.5); WBC 10.01 X 10*3/uL (4.50-10.00)
[2023-04-04 11:31] LABS: Glucose,Whole Blood 76 mg/dL (70-110)
[2023-04-04 12:25] LABS: ALT 28 U/L (8-44); AST 30 U/L (13-35); Albumin 3.8 d/dL (3.8-4.9); Albumin/Globulin Ratio 1.52 Ratio (1.60-3.17); Alkaline Phosphatase 92 U/L (41-126); Blood Urea Nitrogen 20.5 mg/dL (9.0-27.0); Calcium 10.2 mg/dL (8.7-10.3); Carbon Dioxide 33.8 mmol/L (21.6-31.8); Chloride 98 mmol/L (96-109); Globulin 2.5 d/dL (1.6-3.3); Glucose 24 mg/dL (70-110); Sodium 136 mmol/L (135-145); Total Bilirubin 0.6 mg/dL (0.3-1.2); Total Protein 6.3 d/dL (6.2-8.2)
[2023-04-04 14:06] LABS: Glucose,Whole Blood 101 mg/dL (70-110)
--- NOTE | 2023-04-04 14:49 | P.PN ---
Subjective Progress Note Date: 04/04/23 Principal diagnosis: abdominal pain At today's visit patient is reporting persisting groin pain. Reports pain is adequately controlled on IV pain medication. Plan for exploratory laparotomy today Objective - Vital Signs Vital signs: Vital Signs Temp 97.5 F L 04/04/23 13:41 Pulse 70 04/04/23 13:41 Resp 18 04/04/23 13:41 BP 162/67 04/04/23 13:41 Pulse Ox 96 04/04/23 13:41 FiO2 Intake & Output 04/03/23 04/04/23 04/04/23 18:59 06:59 18:59 Weight 92.533 kg Other: Voiding Method Toilet # Voids 3 3 1 - Constitutional General appearance: Present: average body habitus, no acute distress - EENT Eyes: Present: anicteric sclerae, EOMI ENT: Present: hearing grossly normal - Respiratory Details: breathing is even and unlabored - Cardiovascular Details: skin warm and dry - Integumentary Integumentary: Absent: cyanotic, jaundiced - Neurologic Neurologic Comment(s): grossly intact - Psychiatric Psychiatric: Present: A&O x's 3, appropriate affect, intact judgment & insight - Labs CBC & Chem 7: 04/04/23 05:28 04/04/23 05:28 Labs: Abnormal Lab Results - Last 24 Hours (Table) 04/03/23 04/03/23 04/04/23 Range/Units 17:01 20:10 05:28 WBC 10.01 H (4.50-10.00) X 10*3/uL RDW 16.3 H (11.5-14.5) % Carbon Dioxide (21.6-31.8) mmol/L BUN/Creatinine Ratio (12.00-20.00) Ratio Glucose (70-110) mg/dL POC Glucose (mg/dL) 292 H 333 H (70-110) mg/dL Albumin/Globulin Ratio (1.60-3.17) Ratio 04/04/23 04/04/23 04/04/23 Range/Units 05:28 05:42 06:02 WBC (4.50-10.00) X 10*3/uL RDW (11.5-14.5) % Carbon Dioxide 33.8 H (21.6-31.8) mmol/L BUN/Creatinine Ratio 20.50 H (12.00-20.00) Ratio Glucose 24 H* (70-110) mg/dL POC Glucose (mg/dL) 49 L 44 L (70-110) mg/dL Albumin/Globulin Ratio 1.52 L (1.60-3.17) Ratio 04/04/23 Range/Units 06:37 WBC (4.50-10.00) X 10*3/uL RDW (11.5-14.5) % Carbon Dioxide (21.6-31.8) mmol/L BUN/Creatinine Ratio (12.00-20.00) Ratio Glucose (70-110) mg/dL POC Glucose (mg/dL) 143 H (70-110) mg/dL Albumin/Globulin Ratio (1.60-3.17) Ratio Assessment and Plan (1) Intractable abdominal pain Current Visit: Yes Status: Acute Priority: High Code(s): R10.9 - UNSPECIFIED ABDOMINAL PAIN SNOMED Code(s): 02996701 (2) Chronic myelocytic leukemia in remission Current Visit: Yes Status: Chronic Priority: Low Code(s): C92.91 - MYELOID LEUKEMIA, UNSPECIFIED IN REMISSION SNOMED Code(s): 58376283 (3) HX: breast cancer Current Visit: No Status: Chronic Priority: Low Code(s): Z85.3 - PERSONAL HISTORY OF MALIGNANT NEOPLASM OF BREAST SNOMED Code(s): 868597212 Plan: History of breast cancer: -Patient had progressive osteopenia on Femara, she did not tolerate evista so, she is currently on nothing. She is current on f/u. CML: -Patient has been on Tasigna Since early 2019. Patient has done very well. -Abd pain from tasigna is 2/2 pancreatitis. Patient's lipase is normal. No other evidence on exam to suggest pancreatitis. -Tasigna has been on hold since admission, with no improvements in her inguinal pain, not thinking they are related. -Patient will continue to hold tasigna until after discharge Abd pain/rt inguinal pain: -Patient has been worked up, no underlying cause. -Patient has refused exploratory laparotomy but changed her mind, scheduled for laparotomy today -Pt refused steroid injections and MRI of the hip and/or back. Pending findings
[2023-04-04] MEDS ORDERED: DEXTROSE 50% SYRINGE 50 ML IVP ONE (16:05)
[2023-04-04 16:06] LABS: Glucose,Whole Blood 44 mg/dL (70-110)
[2023-04-04 16:30] LABS: Glucose,Whole Blood 173 mg/dL (70-110)
[2023-04-04] MEDS ORDERED: ROCURONIUM 10 MG/ML (5 ML VIAL) IV ONE (18:27)
[2023-04-04] MEDS ORDERED: GLYCOPYRROLATE 0.2 MG/ML 2 ML VIAL ONE (18:27)
[2023-04-04] MEDS ORDERED: SUCCINYLCHOLINE CHLORIDE 200 MG/10 ML VIAL IV ONE (18:27)
[2023-04-04] MEDS ORDERED: fentaNYL (PF) 50 MCG/ML 2 ML AMP ONE (18:27)
[2023-04-04] MEDS ORDERED: NEOSTIGMINE 1 MG/ML 10 ML VIAL ONE (18:27)
[2023-04-04] MEDS ORDERED: HYDROmorphone (PF) 1 MG/ML ONE (18:27)
[2023-04-04] MEDS ORDERED: PROPOFOL 10 MG/ML 20 ML VIAL IV ONE (18:27)
[2023-04-04] MEDS ORDERED: LIDOCAINE 1% INJ 10MG/ML (20 ML MDV) ONE (18:27)
[2023-04-04] MEDS ORDERED: MIDAZOLAM 2 MG/2 ML VIAL ONE (18:27)
[2023-04-04 18:31] LABS: Glucose,Whole Blood 196 mg/dL (70-110)
[2023-04-04] MEDS ORDERED: SODIUM CHLORIDE 0.9% 1,000 ML IV ONE ×2 (18:32→19:38)
[2023-04-04] MEDS ORDERED: SODIUM CHLORIDE 0.9% 50 ML with ceFAZolin 2,000 MG IV ONE ×2 (18:45)
[2023-04-04] MEDS ORDERED: LIDOCAINE 2%-EPI 1:100,000 20 ML VIAL SQ ONE (19:07)
[2023-04-04 20:03] LABS: Glucose,Whole Blood 250 mg/dL (70-110)
[2023-04-04] MEDS ORDERED: INSULIN ASPART (NovoLOG) 100 UNIT/ML VIAL SQ ONE (20:09)
[2023-04-04 20:30] LABS: Glucose,Whole Blood 315 mg/dL (70-110)
--- NOTE | 2023-04-04 20:33 | P.OP ---
Date of Procedure: 04/04/23 Description of Procedure: SURGEON: DONOVAN ABRAHAM MD PREOPERATIVE DIAGNOSES: 1. Intractable right lower quadrant abdominal pain 2. Morbid obesity due to excess calories, BMI 36.1 3. Generalized anxiety disorder 4. Hypertensive heart disease 5. Hyperlipidemia 6. Diabetes type 2, insulin-dependent 7. Obstructive sleep apnea 8. History of left breast cancer 9. History of right breast cancer 10. Diabetic retinopathy 11. Chronic myelocytic leukemia POSTOPERATIVE DIAGNOSES: 1. Peritoneal lesions right lower quadrant for intractable abdominal pain 2. Morbid obesity due to excess calories, BMI 36.1 3. Generalized anxiety disorder 4. Hypertensive heart disease 5. Hyperlipidemia 6. Diabetes type 2, insulin-dependent 7. Obstructive sleep apnea 8. History of left breast cancer 9. History of right breast cancer 10. Diabetic retinopathy 11. Chronic myelocytic leukemia 12. Incarcerated umbilical hernia OPERATION: 1. Robotic-assisted da George Xi laparoscopic with lysis of adhesions 2. Robotic-assisted da George Xi laparoscopic reduction of incarcerated umbilical hernia ESTIMATED BLOOD LOSS: 20 mL. SPECIMENS REMOVED: None. COMPLICATIONS: None. OPERATIVE FINDINGS: 1. No inguinal hernias identified 2. Incarcerated umbilical hernia greater omentum, 2 cm reduced 3. Appendix unremarkable. 4. Redundant sigmoid colon for risk for sigmoid volvulus 5. Right ovary and fallopian tube unremarkable 6. Left fallopian tube unremarkable 7. Uterus unremarkable 8. Small bowel investigated from ascending colon and cecum, proximal jejunum unremarkable INDICATIONS: The patient is a 72-year-old female who presents with severe intractable right lower quadrant abdominal pain. Multiple diagnostic studies including consultants obtained with persistent symptoms. Diagnostic laparoscopy with lysis of adhesions offered for assessment. Surgical intervention with diagnostic laparoscopy, lysis of adhesions and possible left inguinal hernia repair were described. Informed consent was obtained. Robotic assisted laparoscopic approach was described. Benefits and risks of the procedure including but not limited to bleeding, infection, injury to the biliary tree was described. Informed consent was obtained. DESCRIPTION OF PROCEDURE: Patient was brought to the operating room, placed in supine position. After general induction, the abdomen had been prepped and draped in standard sterile fashion. The robotic da George XI system was primed. After a timeout protocol was performed, the patient had been prepped and draped in standard sterile fashion. The robot was docked along the right lateral abdomen. Please note prior to docking of the robot; however, a 5 mm 0 degrees laparoscopic trocar entry was performed along the left upper quadrant. Next, three 8 mm robotic ports were placed along the upper abdomen. The camera 8-mm port was maintained along the epigastrium. Please note that the ports were placed at least 10 to 15 cm away from the target anatomy. Instruments including graspers and scissors with cautery were interchanged by the assistant plant manager. I had sat at the console. Incarcerated greater omentum and umbilicus was identified and reduced. Fascial defect 2 cm confirmed. Next, right lower quadrant location of pain carefully i nvestigated. No abdominal or inguinal hernias identified. Appendix identified and unremarkable in appearance including serosa. Cecum and ascending colon with adhesive band lysed with vessel sealer. The sigmoid colon was highly redundant creating an intermittent sigmoid colon volvulus. No large or small bowel obstruction was identified. Bilateral ovaries investigated with fallopian tube unremarkable. Uterus unremarkable. The robot was undocked. All pneumoperitoneum and instruments were evacuated from the abdominal cavity. The incisions were reapproximated using 4-0 Monocryl in an interrupted subcuticular fashion. Please note along the trocar sites, local anesthetic was placed as a field block prior to insertion of all instruments. Exofin was applied to the skin. At the end of the procedure needle, sponge, and instrument count had been verified correct by the surgical assist. The patient was transferred to postanesthesia care unit in stable condition.
[2023-04-05] MEDS: HYDROmorphone 1 MG/ML 1 ML SYRINGE IVP PRN (00:09)
[2023-04-05] MEDS: METOPROLOL TARTRATE 12.5 MG TAB PO SCH ×2 (00:09→10:29)
[2023-04-05] MEDS: ASPIRIN 81 MG PO SCH (00:09)
[2023-04-05] MEDS: hydrALAZINE HCL 50 MG TAB PO SCH ×2 (00:09→10:29)
[2023-04-05 02:55] LABS: Glucose,Whole Blood 216 mg/dL (70-110)
[2023-04-05] MEDS: Insulin Aspart (For Pump) 100 UNIT/ML VIAL SQ-PUMP SCH (06:15)
[2023-04-05 06:27] LABS: Glucose,Whole Blood 124 mg/dL (70-110)
[2023-04-05] MEDS: NYSTATIN 100,000 UNIT/GM OINT 30 GM TUBE TOPICAL SCH (07:02)
[2023-04-05] MEDS: TRIAMCINOLONE ACET 0.1% OINTMENT 80 GM TUBE TOPICAL SCH (07:02)
[2023-04-05] MEDS ORDERED: LACTATED RINGERS 1,000 ML IV SCH (07:35)
[2023-04-05] MEDS ORDERED: ONDANSETRON 4 MG/2 ML VIAL IVP ONE (07:35)
[2023-04-05] MEDS ORDERED: HYDROmorphone 0.5 MG/0.5 ML SYRINGE IVP PRN (07:35)
[2023-04-05] MEDS ORDERED: DEXAMETHASONE SOD PHOSPHATE 4 MG/ML 1 ML VIAL IV ONE (07:35)
[2023-04-05 08:22] VITALS: TEMP 98.4
[2023-04-05 10:13] LABS: ALT 32 U/L (8-44); AST 32 U/L (13-35); Albumin/Globulin Ratio 1.74 Ratio (1.60-3.17); Alkaline Phosphatase 92 U/L (41-126); BUN/Creat Ratio 18.58 Ratio (12.00-20.00); Blood Urea Nitrogen 22.3 mg/dL (9.0-27.0); Calcium 9.8 mg/dL (8.7-10.3); Carbon Dioxide 23.3 mmol/L (21.6-31.8); Chloride 99 mmol/L (96-109); Globulin 2.3 d/dL (1.6-3.3); Glucose 131 mg/dL (70-110); Potassium 4.4 mmol/L (3.5-5.5); Sodium 136 mmol/L (135-145); Total Bilirubin 0.6 mg/dL (0.3-1.2); Total Protein 6.3 d/dL (6.2-8.2)
[2023-04-05 10:20] LABS: Basophils # (A) 0.06 X 10*3/uL (0.00-0.10); Basophils % (A) 0.4 %; Eosinophils # (A) 0.21 X 10*3/uL (0.04-0.35); Eosinophils % (A) 1.4 %; HCT 40.1 % (37.2-46.3); Lymphocytes # (A) 1.19 X 10*3/uL (0.90-5.00); Lymphocytes % (A) 7.8 %; MCH 27.5 pg (27.0-32.0); MCHC 32.4 d/dL (32.0-37.0); Mean Platelet Volume 11.9 FL (9.5-12.2); Monocytes # (A) 1.02 X 10*3/uL (0.20-1.00); Monocytes % (A) 6.7 %; NRBC Per 100 WBC 0 X 10*3/uL (0.00-0.01); Neutrophils # (A) 12.53 X 10*3/uL (1.80-7.70); Neutrophils % (A) 82.7 %; Platelet Count 263 X 10*3/uL (140-440); RBC 4.72 X 10*6/uL (4.10-5.20); RDW 16.3 % (11.5-14.5); WBC 15.16 X 10*3/uL (4.50-10.00)
[2023-04-05] MEDS: TRIAMTERENE-HCTZ 37.5-25MG 1 EACH TAB PO SCH (10:29)
[2023-04-05] MEDS: ENOXAPARIN 40 MG/0.4 ML SYRINGE SQ SCH (10:29)
[2023-04-05] MEDS: CHOLECALCIFEROL 25 MCG (1000 IU) TABLET PO SCH (10:29)
[2023-04-05] MEDS: lisinopriL 20 MG TAB PO SCH (10:29)
[2023-04-05 11:32] LABS: Glucose,Whole Blood 200 mg/dL (70-110)
--- NOTE | 2023-04-05 13:12 | P.PN ---
Subjective Progress Note Date: 04/05/23 She reports her abdominal pain is completely gone! Intraoperative findings including reducing umbilical hernia and removal of adhesions along the right lower quadrant reviewed. Also intermittent sigmoid volvulus reduced. Awaiting voiding. Stable for discharge from surgical standpoint. Diet as tolerated. Objective - Vital Signs Vital signs: Vital Signs Temp 98.4 F 04/05/23 07:10 Pulse 65 04/05/23 07:10 Resp 15 04/05/23 07:10 BP 146/70 04/05/23 07:10 Pulse Ox 97 04/05/23 07:10 FiO2 Intake & Output 04/04/23 04/05/23 04/05/23 18:59 06:59 18:59 Intake Total 1050 100 Output Total 20 Balance 1050 80 Intake: IV 1050 100 Output: Estimated Blood Loss 20 Other: # Voids 1 - Labs CBC & Chem 7: 04/05/23 06:16 04/05/23 06:16 Labs: Abnormal Lab Results - Last 24 Hours (Table) 04/04/23 04/04/23 04/04/23 Range/Units 16:04 16:28 18:29 WBC (4.50-10.00) X 10*3/uL RDW (11.5-14.5) % Neutrophils # (1.80-7.70) X 10*3/uL Monocytes # (0.20-1.00) X 10*3/uL Anion Gap (4.00-12.00) mmol/L Est GFR (CKD-EPI) (>=60) Glucose (70-110) mg/dL POC Glucose (mg/dL) 44 L 173 H 196 H (70-110) mg/dL 04/04/23 04/04/23 04/05/23 Range/Units 20:02 20:28 02:54 WBC (4.50-10.00) X 10*3/uL RDW (11.5-14.5) % Neutrophils # (1.80-7.70) X 10*3/uL Monocytes # (0.20-1.00) X 10*3/uL Anion Gap (4.00-12.00) mmol/L Est GFR (CKD-EPI) (>=60) Glucose (70-110) mg/dL POC Glucose (mg/dL) 250 H 315 H 216 H (70-110) mg/dL 04/05/23 04/05/23 04/05/23 Range/Units 06:16 06:16 06:26 WBC 15.16 H (4.50-10.00) X 10*3/uL RDW 16.3 H (11.5-14.5) % Neutrophils # 12.53 H (1.80-7.70) X 10*3/uL Monocytes # 1.02 H (0.20-1.00) X 10*3/uL Anion Gap 13.70 H (4.00-12.00) mmol/L Est GFR (CKD-EPI) 48 L (>=60) Glucose 131 H (70-110) mg/dL POC Glucose (mg/dL) 124 H (70-110) mg/dL 04/05/23 Range/Units 11:31 WBC (4.50-10.00) X 10*3/uL RDW (11.5-14.5) % Neutrophils # (1.80-7.70) X 10*3/uL Monocytes # (0.20-1.00) X 10*3/uL Anion Gap (4.00-12.00) mmol/L Est GFR (CKD-EPI) (>=60) Glucose (70-110) mg/dL POC Glucose (mg/dL) 200 H (70-110) mg/dL
--- NOTE | 2023-04-05 13:53 | P.DS ---
Providers Date of admission: 03/27/23 03:33 Expected date of discharge: 04/05/23 Attending physician: Navdeep Fields Consults: 03/28/23 11:38 Consult Physician Routine Consulting Provider: Sofie Penaloza Consult Reason/Comments: pain, possible side effect of Tasigna Do you want consulting provider notified?: Yes 04/01/23 09:00 Consult Physician Routine Consulting Provider: Claudia Styles Consult Reason/Comments: abd pain Do you want consulting provider notified?: Already Contacted Primary care physician: Tila Gutierrez [place] [facility] Course: Diagnosis on discharge: Abdominal pain with nausea vomiting and constipation Underlying history of CML in remission Leukocytosis on presentation Previous history of bilateral breast cancer status post lumpectomy Underlying history of hypertension Underlying history of hyperlipidemia Underlying history of obstructive sleep apnea Constipation. Resolved Hospital course: Roxanna Ortiz, is a 72-year-old female who presented to [facility] emergency room with a chief compl on 04/04/2023 patient is alert and oriented 3. Exploratory lap was delayed yesterday until today due to surgical scheduling. Patient still complaining of right lower abdominal pain. Patient denies chest pain or shortness of breath. Patient denies nausea vomiting or diarrhea. Patient denies any urinary burning or frequencyaint of abdominal pain nausea and vomiting. Patient was recently seen at [facility] emergency room for similar symptoms with constipation computed tomography scan of the abdomen and pelvis was done at [facility], patient was treated symptomatically for constipation and was discharged home from the ER. She presented again today to [facility] with abdominal pain nausea vomiting and constipation. She has a known history of CML in remission, she also has a known history of hypertension, hyperlipidemia, obstructive sleep apnea, insulin-dependent diabetes mellitus, history of bilateral breast cancer with bilateral lumpectomy. She was evaluated in the emergency room vital examination on presentation revealed a temperature of 98.4 pulse 68 respiration 18 blood pressure 166/69 pulse ox 98 percent on room air Laboratory data reveals a white blood count of 12.5 hemoglobin 12.7 platelet count 209 sodium 131 potassium 4.1 chloride 97 CO2 21 BUN 14 creatinine 0.93 Patient was admitted to medical floor, surgical consultation was requested On 03/28/2023 patient is alert and oriented 3. Patient still having right lower quadrant abdominal pain. Patient denies nausea vomiting at this time does report some diarrhea. Will order stool for C. diff. Results for transvaginal ultrasound pending surgical services following. Current vital signs temp 97.6, heart rate 65, respiratory rate 18, blood pressure 140/74 with a pulse ox 96% On 03/29/2023 patient was seen and examined on the medical floor, she is alert and oriented 3 in no apparent distress, she is still complaining of right lower quadrant abdominal pain, otherwise she denies any complaints at this time, there is no fever or chills no headache or dizziness no chest pain no shortness of breath no cough no nausea or or vomiting, she was having some diarrhea for the last several days however she is not having any bowel movements at this time, there is no burning with urination no frequency or urgency and no hematuria, input from Gen. surgery and oncology review, will recheck labs and follow-up in a.m.. on 03/30/2023 patient is alert and oriented 3. Patient still complaining of right lower quadrant pain. Denies any further episodes of nausea and vomiting. Patient reports she had one episode of loose stools this a.m. Patient states she has a very good appetite but still requiring Dilaudid for pain control. Patient was evaluated by pain services recommendations for possible MRI patient reports she cannot have MRI of the she is completely knocked out. Current vital signs temp 97.8, heart rate 75, respiratory 18, blood pressure 170/72 with a pulse ox of 94% On 03/31/2023 patient was seen and examined on the medical floor, she is alert and oriented 3 in no apparent distress, she is still complaining of severe right lower quadrant abdominal pain, otherwise she denies any complaints, there is no nausea or vomiting at this time, there is no diarrhea, she stated that her last bowel movement was 3 days ago. She was evaluated by surgery earlier, she was offered laparoscopic surgery for diagnostic reasons of her abdominal pain, however she declined. I discussed with her repeating computed tomography scan of the abdomen and pelvis, she declined at this time. I would add lactulose to her medication regimen, will recheck in am On 04/01/2023 patient is alert and oriented 3 sitting comfortably in chair. Patient still complaining of right lower quadrant abdominal pain. Patient is tolerating diet. Patient reports she has not had bowel movement. Patient was given lactulose. Per patient she does not recall any discussion per surgical services about laparoscopic procedure. Discussed with nurse to have surgical PA come back and explained to patient this possible option. Patient denies nausea or vomiting. Patient denies chest pain or shortness of breath. Patient denies any urinary burning or frequency. Vital signs temp 98.1, heart rate 68, respiratory rate 17, blood pressure 159/78 with pulse ox 98% on room air On 04/02/2023 patient will alert and oriented 3 sitting up in chair finishing breakfast. Patient reports she still having right lower quadrant pain still has not had bowel movement lactulose will be given again today patient declined enema at this time. Per surgical services plans for expiratory laparotomy on 04/03/2023. patient denies chest pain or shortness of breath. Patient denies nausea vomiting or diarrhea. Patient denies any urinary burning or frequency On 04/03/2023 patient is currently sitting up in chair alert and oriented 3. Patient reports she did have bowel movement yesterday. Plans for exploratory lap per surgical services due to ongoing abdominal discomfort. Current vital signs temp 97.9, height 67, respiratory rate 19, blood pressure 165/68 with pulse ox of 95% on room air on 04/04/2023 patient is alert and oriented 3. Exploratory lap was delayed yesterday until today due to surgical scheduling. Patient still complaining of right lower abdominal pain. Patient denies chest pain or shortness of breath. Patient denies nausea vomiting or diarrhea. Patient denies any urinary burning or frequency. On 2022 patient was seen and examined on the medical floor, she is alert and oriented 3 in no apparent distress, she is sitting up in a chair eating her meal, she stated that her abdominal pain has resolved, she denies any nausea vomiting diarrhea constipation or abdominal pain. Yesterday she underwent laparoscopic laparotomy with lysis of adhesions and reduction of incarcerated umbilical hernia. Today patient is feeling much better and stated that her abdominal pain has resolved, she was cleared by surgery to be discharged home. Patient is very eager to be discharged to home, she states that she does not need any prescription for any pain medication at this time. Patient will be discharged home, she will follow-up with her primary care physician Dr. Gutierrez within one week. Patient Condition at Discharge: Fair Plan - Discharge Summary New Discharge Prescriptions: New hydrALAZINE HCL [Apresoline] 50 mg PO TID 30 Days #90 tab Nystatin 100,000 Unit/gm Oint [Mycostatin Oint] 1 applic TOPICAL AC-BID each Continue Simvastatin [Zocor] 20 mg PO HS Benazepril HCl 40 mg PO DAILY Metoprolol Tartrate [Lopressor] 12.5 mg PO BID INSULIN ASPART (NovoLOG) [NovoLOG (formulary)] 0.01 unit SQ-PUMP CONTINUOUS Aspirin [Adult Low Dose Aspirin EC] 81 mg PO HS Cholecalciferol [Vitamin D3 (25 Mcg = 1000 Iu)] 25 mcg PO DAILY Triamterene/Hydrochlorothiazid [Triamterene-Hctz 37.5-25 mg Tb] 1 tab PO DAILY Nilotinib HCl [Tasigna] 300 mg PO BID ALPRAZolam [Xanax] 0.25 mg PO DAILY PRN PRN Reason: Anxiety Discontinued hydrALAZINE HCL [Apresoline] 50 mg PO BID Discharge Medication List Benazepril HCl 40 mg PO DAILY 04/20/18 [History] Simvastatin [Zocor] 20 mg PO HS 04/20/18 [History] Metoprolol Tartrate [Lopressor] 12.5 mg PO BID 06/24/18 [History] Aspirin [Adult Low Dose Aspirin EC] 81 mg PO HS 02/12/21 [History] Cholecalciferol [Vitamin D3 (25 Mcg = 1000 Iu)] 25 mcg PO DAILY 02/17/21 [History] INSULIN ASPART (NovoLOG) [NovoLOG (formulary)] 0.01 unit SQ-PUMP CONTINUOUS 11/26/21 [History] Triamterene/Hydrochlorothiazid [Triamterene-Hctz 37.5-25 mg Tb] 1 tab PO DAILY 11/26/21 [History] Nilotinib HCl [Tasigna] 300 mg PO BID 04/16/22 [History] ALPRAZolam [Xanax] 0.25 mg PO DAILY PRN 03/27/23 [History] Nystatin 100,000 Unit/gm Oint [Mycostatin Oint] 1 applic TOPICAL AC-BID each 04/05/23 [Rx] hydrALAZINE HCL [Apresoline] 50 mg PO TID 30 Days #90 tab 04/05/23 [Rx] Follow up Appointment(s)/Referral(s): Rachel Lowe, MALI [Nurse Practitioner] - 04/14/23 10:45 am (This appointment is at the office located behind [facility]. [address] Tila Gutierrez MD [Primary Care Provider] - 1 Week
[2023-04-05 14:08] VITALS: BP 167/84; PULSE 66; RESP 18
== END 2023-04-05 15:35 | disposition home or self-care (01) | DRG 335 ==
LOC: EC 00:31 → 4SSUR 03:33
PROVIDERS: ADMIT Internal Medicine; ATTEND Internal Medicine
PROC: 0DNK4ZZ Release Ascending Colon, Percutaneous Endoscopic Approach (ICD-10-PCS; 2023-04-04)
PROC: 0WQF4ZZ Repair Abdominal Wall, Percutaneous Endoscopic Approach (ICD-10-PCS; 2023-04-04)
PROC: 8E0W4CZ Robotic Assisted Procedure of Trunk Region, Percutaneous Endoscopic Approach (ICD-10-PCS; 2023-04-04)
PROC: 0DNH4ZZ Release Cecum, Percutaneous Endoscopic Approach (ICD-10-PCS; principal; 2023-04-04 12:40)
DX: K42.0 Umbilical hernia with obstruction, without gangrene (principal); K56.2 Volvulus; C92.11 Chronic myeloid leukemia, BCR/ABL-positive, in remission; E11.319 Type 2 diabetes mellitus with unspecified diabetic retinopathy without macular edema; E66.01 Morbid (severe) obesity due to excess calories; I11.9 Hypertensive heart disease without heart failure; E78.5 Hyperlipidemia, unspecified; K59.03 Drug induced constipation; G47.33 Obstructive sleep apnea (adult) (pediatric); F41.1 Generalized anxiety disorder; M85.80 Other specified disorders of bone density and structure, unspecified site; G89.29 Other chronic pain; T45.1X5A Adverse effect of antineoplastic and immunosuppressive drugs, initial encounter; M62.838 Other muscle spasm; N95.8 Other specified menopausal and perimenopausal disorders; S30.811A Abrasion of abdominal wall, initial encounter; E65 Localized adiposity; G47.30 Sleep apnea, unspecified; Z20.822 Contact with and (suspected) exposure to COVID-19; Z96.642 Presence of left artificial hip joint; Z79.4 Long term (current) use of insulin; Z68.36 Body mass index [BMI] 36.0-36.9, adult; Z85.3 Personal history of malignant neoplasm of breast; Z87.19 Personal history of other diseases of the digestive system; Z92.3 Personal history of irradiation; Z90.13 Acquired absence of bilateral breasts and nipples; Z79.82 Long term (current) use of aspirin; Z87.891 Personal history of nicotine dependence; Z88.5 Allergy status to narcotic agent; Z79.899 Other long term (current) drug therapy
CPT/HCPCS: 74177; 76830; 80053; 81003; 83605; 83690; 85025; 85610; 85730; 87635; 99285

== ENCOUNTER 2023-04-19 06:08 | Inpatient (IN) | payer MEDICARE ==
[2023-04-19] MEDS ORDERED: HYDROmorphone 1 MG/ML 1 ML SYRINGE IVP STA (06:25)
--- NOTE | 2023-04-19 06:37 | ED ---
Abdominal Pain HPI - General Source: patient Mode of arrival: wheelchair Limitations: no limitations - History of Present Illness MD Complaint: abdominal pain Onset/Timin -: hour(s) Location: RLQ Radiation: none Migration to: no migration Severity: severe Quality: sharp Consistency: colicky Improves With: nothing Worsens With: nothing Associated Symptoms: denies other symptoms <Lefty Escalante - Last Filed: 04/19/23 07:36> <Albaro George - Last Filed: 04/19/23 09:13> - General Chief Complaint: Abdominal Pain Stated Complaint: Abd Pain Time Seen by Provider: 04/19/23 06:13 - History of Present Illness Initial Comments: This patient is 72-year-old woman who presents to have evaluation of right lower quadrant abdominal pain that started approximately 4 hours: Woke her from sleep. The patient states that she did have surgery little over a week ago. She had lysis of adhesions and right lower quadrant hernia repair by Dr. Styles. Patient states she had been doing relatively well since the surgery and then tonight started having sharp, severe pains. She has not noted fever or chills. No vomiting. Has not noted change in urination or bowel movements. (Lefty Escalante) - Related Data Home Medications Medication Instructions Recorded Confirmed Benazepril HCl 40 mg PO DAILY 04/20/18 03/27/23 Simvastatin [Zocor] 20 mg PO HS 04/20/18 03/27/23 Metoprolol Tartrate [Lopressor] 12.5 mg PO BID 06/24/18 03/27/23 Aspirin [Adult Low Dose Aspirin EC] 81 mg PO HS 02/12/21 03/27/23 Cholecalciferol [Vitamin D3 (25 25 mcg PO DAILY 02/17/21 03/27/23 Mcg = 1000 Iu)] INSULIN ASPART (NovoLOG) [NovoLOG 0.01 unit SQ-PUMP CONTINUOUS 11/26/21 03/27/23 (formulary)] Triamterene/Hydrochlorothiazid 1 tab PO DAILY 11/26/21 03/27/23 [Triamterene-Hctz 37.5-25 mg Tb] Nilotinib HCl [Tasigna] 300 mg PO BID 04/16/22 03/27/23 ALPRAZolam [Xanax] 0.25 mg PO DAILY PRN 03/27/23 03/27/23 Previous Rx's Medication Instructions Recorded Nystatin 100,000 Unit/gm Oint 1 applic TOPICAL AC-BID each 04/05/23 [Mycostatin Oint] hydrALAZINE HCL [Apresoline] 50 mg PO TID 30 Days #90 tab 04/05/23 Allergies Allergy/AdvReac Type Severity Reaction Status Date / Time hydrocodone [From [place]] AdvReac irreg and Verified 03/27/23 07:51 difficult breathing Review of Systems ROS Other: All systems not noted in ROS Statement are negative. Constitutional: Denies: fever Respiratory: Denies: cough, dyspnea Cardiovascular: Denies: chest pain, palpitations, edema Gastrointestinal: Reports: abdominal pain. Denies: vomiting, diarrhea, constipation, melena, hematochezia Genitourinary: Denies: dysuria, hematuria Musculoskeletal: Denies: back pain Skin: Denies: rash Neurological: Denies: headache, weakness, numbness <Lefty Escalante - Last Filed: 04/19/23 07:36> ROS Other: All systems not noted in ROS Statement are negative. <Albaro George - Last Filed: 04/19/23 09:13> ROS Statement: Those systems with pertinent positive or pertinent negative responses have been documented in the HPI. Past Medical History Past Medical History: Cancer, Diabetes Mellitus, Hypertension, Sleep Apnea/CPAP/BIPAP, Thyroid Disorder Additional Past Medical History / Comment(s): previous polyp hidden near appendix,heart murmur, Intermittent PACs,Left breast cancer 2016, Right breast cancer 2019 (both DCIS), benign thyroid goiter, diabetic retinopathy, chronic myelocytic leukemia (in remission), claustrophobic. Uses bite guard for sleep apnea Past ADHESIVE SPRAYER history: Genital HSV. Lichen sclerosus of the vulva confirmed with biopsy in 2018. History of Any Multi-Drug Resistant Organisms: None Reported Past Surgical History: Ablation, Orthopedic Surgery, Uterine Ablation Additional Past Surgical History / Comment(s): lt breast lumpectomies ,left breast margins revision Apr 2017, right breast lumpectomy 2019, cyst removed from toe lt foot 1997, bilat eye vitrectomy and annette cataract 1991, ganglion cyst lt wrist 1968, endometrial ablation 1993, Left hip replacement 2018. Colonoscopy 2021(next after 2yr). Past Anesthesia/Blood Transfusion Reactions: No Reported Reaction Past Psychological History: No Psychological Hx Reported Smoking Status: Former smoker Past Alcohol Use History: None Reported Past Drug Use History: None Reported - Past Family History Father Family Medical History: Cancer Additional Family Medical History / Comment(s): prostate, pancreatic Mother Family Medical History: CVA/TIA, Diabetes Mellitus, Myocardial Infarction (AR) <AvaLefty - Last Filed: 04/19/23 07:36> General Exam Limitations: no limitations General appearance: alert, in distress (Patient does appear to be in pain related right lower quadrant abdomen.) Head exam: Present: atraumatic, normocephalic Eye exam: Present: normal appearance. Absent: scleral icterus, conjunctival injection Neck exam: Present: normal inspection, full ROM Respiratory exam: Present: normal lung sounds bilaterally. Absent: respiratory distress, wheezes, rales, rhonchi, stridor Cardiovascular Exam: Present: regular rate, normal rhythm, normal heart sounds. Absent: systolic murmur, diastolic murmur, rubs, gallop GI/Abdominal exam: Present: soft, tenderness. Absent: distended, guarding, rebound, rigid, mass, pulsatile mass Extremities exam: Present: normal inspection, normal capillary refill. Absent: pedal edema, calf tenderness Back exam: Present: normal inspection. Absent: CVA tenderness (R), CVA tenderness (L) Neurological exam: Present: alert Skin exam: Present: warm, dry, intact, normal color. Absent: rash <AvaLefty - Last Filed: 04/19/23 07:36> Course Vital Signs 04/19/23 04/19/23 04/19/23 06:10 07:45 08:40 Temperature 98.2 F Pulse Rate 76 81 71 Respiratory 20 18 18 Rate Blood Pressure 199/97 158/59 161/60 O2 Sat by Pulse 98 97 98 Oximetry Medical Decision Making - Lab Data Result diagrams: 04/19/23 07:26 04/19/23 06:43 <Albaro George - Last Filed: 04/19/23 09:13> - Medical Decision Making Was pt. sent in by a medical professional or institution (, PA, MANAGER CRITICAL CARE, urgent care, hospital, or group home...) When possible be specific @ -No Did you speak to anyone other than the patient for history (EMS, parent, family, police, friend...)? What history was obtained from this source @ -Family is providing history including paperwork that he has the back. Did you review nursing and triage notes (agree or disagree)? Why? @ -I reviewed and agree with nursing and triage notes Were old charts reviewed (outside hosp., previous admission, EMS record, old EKG, old radiological studies, urgent care reports/EKG's, group home records)? Report findings @ -Previous admission reviewed Differential Diagnosis (chest pain, altered mental status, abdominal pain women, abdominal pain men, vaginal bleeding, weakness, fever, dyspnea, syncope, headache, dizziness, GI bleed, back pain, seizure, CVA, palpatations, mental health, musculoskeletal)? @ -Differential Abdominal Pain Women: Appendicitis, Cholecystitis, diverticulosis, ischemic bowel, pancreatitis, hepatitis, UTI, gastroenteritis, AAA, incarcerated hernia, bowel obstruction, constipation, inflammatory bowel, hepatitis, peptic ulcer disease, splenic infarction, perforated viscus, vulvitis, ovarian torsion, PID, kidney stone, placenta abruption, this is not meant to be an all-inclusive list EKG interpreted by me (3pts min.). @ -As above X-rays interpreted by me (1pt min.). @ -None done CT interpreted by me (1pt min.). @ -Port reviewed U/S interpreted by me (1pt. min.). @ -None done What testing was considered but not performed or refused? (CT, X-rays, U/S, la bs)? Why? @ -None What meds were considered but not given or refused? Why? @ -None Did you discuss the management of the patient with other professionals (professionals i.e. , PA, MANAGER CRITICAL CARE, lab, RT, psych nurse, social worker masters, mail order biller, teacher, information assurance officer, case management coordinator)? Give summary @ -Case was discussed with Dr. hong. Case also discussed with Dr. Fields, will admit covering Dr. bowman. Was smoking cessation discussed for >3mins.? @ -No Was critical care preformed (if so, how long)? @ -No Were there social determinants of health that impacted care today? How? (Homelessness, low income, unemployed, alcoholism, drug addiction, transportation, low edu. Level, literacy, decrease access to med. care, nursing home, rehab)? @ -No Was there de-escalation of care discussed even if they declined (Discuss DNR or withdrawal of care, Hospice)? DNR status @ -No What co-morbidities impacted this encounter? (DM, HTN, Smoking, COPD, CAD, Can cer, CVA, ARF, Chemo, Hep., AIDS, mental health diagnosis, sleep apnea, morbid obesity)? @ -None Was patient admitted / discharged? Hospital course, mention meds given and route, prescriptions, significant lab abnormalities, going to OR and other pertinent info. @ -Patient reevaluated. Abdomen soft and mildly tender. Patient states she is still having a lot of pain and is not comfortable with discharge. Patient states if she is discharged home she will return right away. Patient is requesting admission. Patient is updated. Fluid bolus ordered for elevated lactic acid Undiagnosed new problem with uncertain prognosis? @ -No Drug Therapy requiring intensive monitoring for toxicity (Heparin, Nitro, Insulin, Cardizem)? @ -No Were any procedures done? @ -No Diagnosis/symptom? @ -Abdominal pain Acute, or Chronic, or Acute on Chronic? @ -Acute on chronic Uncomplicated (without systemic symptoms) or Complicated (systemic symptoms)? @ -default Side effects of treatment? @ -No Exacerbation, Progression, or Severe Exacerbation? @ -No Poses a threat to life or bodily function? How? (Chest pain, USA, AR, pneumonia, PE, COPD, DKA, ARF, appy, cholecystitis, CVA, Diverticulitis, Homicidal, Suicidal, threat to staff... and all critical care pts) @ -No (Albaro George) - Lab Data Lab Results 04/19/23 04/19/23 04/19/23 Range/Units 06:43 06:43 06:43 WBC (3.8-10.6) k/uL RBC (3.80-5.40) m/uL Hgb (11.4-16.0) gm/dL Hct (34.0-46.0) % MCV (80.0-100.0) fL MCH (25.0-35.0) pg MCHC (31.0-37.0) g/dL RDW (11.5-15.5) % Plt Count (150-450) k/uL MPV Neutrophils % % Lymphocytes % % Monocytes % % Eosinophils % % Basophils % % Neutrophils # (1.3-7.7) k/uL Lymphocytes # (1.0-4.8) k/uL Monocytes # (0-1.0) k/uL Eosinophils # (0-0.7) k/uL Basophils # (0-0.2) k/uL Sodium 134 L (137-145) mmol/L Potassium 4.7 (3.5-5.1) mmol/L Chloride 102 (98-107) mmol/L Carbon Dioxide 18 L (22-30) mmol/L Anion Gap 14 mmol/L BUN 25 H (7-17) mg/dL Creatinine 1.01 (0.52-1.04) mg/dL Est GFR (CKD-EPI)AfAm 64 (>60 ml/min/1.73 sqM) Est GFR (CKD-EPI)NonAf 56 (>60 ml/min/1.73 sqM) Glucose 230 H (74-99) mg/dL Plasma Lactic Acid Farhan 2.5 H* (0.7-2.0) mmol/L Calcium 10.0 (8.4-10.2) mg/dL Total Bilirubin 1.2 (0.2-1.3) mg/dL AST 40 H (14-36) U/L ALT 20 (4-34) U/L Alkaline Phosphatase 112 (38-126) U/L Total Protein 7.1 (6.3-8.2) g/dL Albumin 4.2 (3.5-5.0) g/dL Amylase 36 (30-110) U/L Lipase 14 L (23-300) U/L Urine Color Colorless Urine Appearance Clear (Clear) Urine pH 6.0 (5.0-8.0) Ur Specific [place] 1.010 (1.001-1.035) Urine Protein Negative (Negative) Urine Glucose (UA) Negative (Negative) Urine Ketones Negative (Negative) Urine Blood Negative (Negative) Urine Nitrite Negative (Negative) Urine Bilirubin Negative (Negative) Urine Urobilinogen <2.0 (<2.0) mg/dL Ur Leukocyte Esterase Negative (Negative) 04/19/23 Range/Units 07:26 WBC 12.9 H (3.8-10.6) k/uL RBC 4.54 (3.80-5.40) m/uL Hgb 12.7 (11.4-16.0) gm/dL Hct 38.5 (34.0-46.0) % MCV 84.8 (80.0-100.0) fL MCH 28.1 (25.0-35.0) pg MCHC 33.1 (31.0-37.0) g/dL RDW 15.3 (11.5-15.5) % Plt Count 254 (150-450) k/uL MPV 9.9 Neutrophils % 85 % Lymphocytes % 7 % Monocytes % 4 % Eosinophils % 3 % Basophils % 0 % Neutrophils # 11.0 H (1.3-7.7) k/uL Lymphocytes # 1.0 (1.0-4.8) k/uL Monocytes # 0.5 (0-1.0) k/uL Eosinophils # 0.3 (0-0.7) k/uL Basophils # 0.0 (0-0.2) k/uL Sodium (137-145) mmol/L Potassium (3.5-5.1) mmol/L Chloride (98-107) mmol/L Carbon Dioxide (22-30) mmol/L Anion Gap mmol/L BUN (7-17) mg/dL Creatinine (0.52-1.04) mg/dL Est GFR (CKD-EPI)AfAm (>60 ml/min/1.73 sqM) Est GFR (CKD-EPI)NonAf (>60 ml/min/1.73 sqM) Glucose (74-99) mg/dL Plasma Lactic Acid Farhan (0.7-2.0) mmol/L Calcium (8.4-10.2) mg/dL Total Bilirubin (0.2-1.3) mg/dL AST (14-36) U/L ALT (4-34) U/L Alkaline Phosphatase (38-126) U/L Total Protein (6.3-8.2) g/dL Albumin (3.5-5.0) g/dL Amylase (30-110) U/L Lipase (23-300) U/L Urine Color Urine Appearance (Clear) Urine pH (5.0-8.0) Ur Specific [place] (1.001-1.035) Urine Protein (Negative) Urine Glucose (UA) (Negative) Urine Ketones (Negative) Urine Blood (Negative) Urine Nitrite (Negative) Urine Bilirubin (Negative) Urine Urobilinogen (<2.0) mg/dL Ur Leukocyte Esterase (Negative) Disposition <Lefty Escalante - Last Filed: 04/19/23 07:36> Is patient prescribed a controlled substance at d/c from ED?: No Time of Disposition: 09:12 <Albrao George - Last Filed: 04/19/23 09:13> Clinical Impression: Abdominal pain Disposition: ADMITTED IP TO THIS HOSP Referrals: Tila Gutierrez MD [Primary Care Provider] - 1-2 days
[2023-04-19 07:24] LABS: ALT 20 U/L (4-34); AST 40 U/L (14-36); African American GFR (CKD) 64 (>60 ml/min/1.73 sqM); Albumin 4.2 g/dL (3.5-5.0); Alkaline Phosphatase 112 U/L (38-126); Amylase 36 U/L (30-110); Anion Gap 14 mmol/L; Blood Urea Nitrogen 25 mg/dL (7-17); Carbon Dioxide 18 mmol/L (22-30); Chloride 102 mmol/L (98-107); Glucose 230 mg/dL (74-99); Lipase 14 U/L (23-300); Non-African American GFR(CKD) 56 (>60 ml/min/1.73 sqM); Sodium 134 mmol/L (137-145); Total Bilirubin 1.2 mg/dL (0.2-1.3); Total Protein 7.1 g/dL (6.3-8.2)
[2023-04-19] MEDS ORDERED: LORazepam 2 MG/ML INJ IV STA (07:34)
--- NOTE | 2023-04-19 07:36 | CT ---
EXAMINATION TYPE: CT abdomen pelvis wo con CT DLP: 884.7 mGycm, Automated exposure control for dose reduction was used. DATE OF EXAM: 04/19/2023 7:14 AM COMPARISON: CT abdomen pelvis most recent from 03/27/2023. CLINICAL INDICATION:Female, 72 years old with history of abdominal pain; exploratory abd surgery one week ago. Pt. c/o increased pain in RLQ upon waking up this morning TECHNIQUE: Standard CT of the abdomen and pelvis without IV or oral contrast. Lack of IV or oral co ntrast limits evaluation of solid and hollow organ viscera. Coronal and sagittal reformats were perfo rmed. FINDINGS: LOWER CHEST: Trace left pleural effusion. Mild cardiomegaly. Small pericardial effusion. Mitral annul us calcifications. ABDOMEN LIVER: Unremarkable noncontrast appearance GALLBLADDER AND BILE DUCTS: Unremarkable noncontrast appearance PANCREAS: Unremarkable noncontrast appearance SPLEEN: Unremarkable noncontrast appearance ADRENAL GLANDS: Unremarkable noncontrast appearance. KIDNEYS AND URETERS: No evidence of hydronephrosis or renal calculus. PELVIS BLADDER: Limited evaluation due to streak artifact from hip prosthesis. Grossly unremarkable. REPRODUCTIVE: Unremarkable noncontrast appearance ABDOMEN & PELVIS STOMACH AND BOWEL: Stomach and duodenum are unremarkable. No focal bowel wall thickening or surroundi ng inflammatory changes. The appendix is within normal limits. No evidence of bowel obstruction. PERITONEUM: No evidence of pneumoperitoneum or free fluid. VASCULATURE: No evidence of aortic aneurysm. MUSCULOSKELETAL: No acute osseous abnormalities. Left total hip arthroplasty changes. LYMPH NODES: No gross evidence for lymphadenopathy. SOFT TISSUE/ABDOMINAL WALL: Few hyperdense foci within the anterior abdominal wall soft tissues likel y from medication injection versus postsurgical. Small fat filled umbilical hernia. Left lateral abdo mino wall lipoma measuring 8.9 x 1.7 cm at the level of the spleen. IMPRESSION: 1. No acute intra-abdominal/pelvic process. 2. Trace left pleural effusion.
[2023-04-19 07:42] LABS: Potassium 4.7 mmol/L (3.5-5.1)
[2023-04-19 07:52] LABS: Basophils % (A) 0 %; Eosinophils # (A) 0.3 k/uL (0-0.7); Eosinophils % (A) 3 %; HCT 38.5 % (34.0-46.0); HGB 12.7 gm/dL (11.4-16.0); Lymphocytes % (A) 7 %; MCH 28.1 pg (25.0-35.0); MCHC 33.1 g/dL (31.0-37.0); MCV 84.8 fL (80.0-100.0); Mean Platelet Volume 9.9; Monocytes # (A) 0.5 k/uL (0-1.0); Monocytes % (A) 4 %; Neutrophils % (A) 85 %; Platelet Count 254 k/uL (150-450); RBC 4.54 m/uL (3.80-5.40); RDW 15.3 % (11.5-15.5); WBC 12.9 k/uL (3.8-10.6)
[2023-04-19] MEDS ORDERED: SODIUM CHLORIDE 0.9% 1,000 ML IV ONE (07:52)
[2023-04-19 07:53] LABS: Appearance,Urine Clear (Clear); Bilirubin,Urine Negative (Negative); Blood,Urine Negative (Negative); Color,Urine Colorless; Glucose,Urine (UA) Negative (Negative); Ketones,Urine Negative (Negative); Leukocyte Esterase,Urine Negative (Negative); Nitrite,Urine Negative (Negative); Protein,Urine Negative (Negative); Urobilinogen,Urine <2.0 mg/dL (<2.0)
[2023-04-19] MEDS ORDERED: ACETAMINOPHEN TAB 325 MG TAB PO PRN (09:13)
[2023-04-19] MEDS ORDERED: ONDANSETRON 4 MG/2 ML VIAL IVP PRN (09:13)
[2023-04-19] MEDS ORDERED: NALOXONE 0.4 MG/ML 1 ML VIAL IV PRN (09:13)
[2023-04-19] MEDS: PANTOPRAZOLE 40 MG/10 ML VIAL IV SCH (11:18)
[2023-04-19] MEDS: HYDROmorphone 1 MG/ML 1 ML SYRINGE IVP PRN ×2 (11:23→14:31)
[2023-04-19] MEDS: SODIUM CHLORIDE 0.9% 1,000 ML IV SCH (11:23)
--- NOTE | 2023-04-19 12:02 | P.GSCN ---
History of Present Illness Consult date: 04/19/23 Reason for Consult: Abdominal pain. Review of Systems All systems: negative - Constitutional Reports as per HPI - Gastrointestinal Reports abdominal pain - Integumentary Reports unusual bruising Past Medical History Past Medical History: Cancer, Diabetes Mellitus, Hypertension, Sleep Apnea/CPAP/BIPAP, Thyroid Disorder Additional Past Medical History / Comment(s): previous polyp hidden near appendix,heart murmur, Intermittent PACs,Left breast cancer 2016, Right breast cancer 2019 (both DCIS), benign thyroid goiter, diabetic retinopathy, chronic myelocytic leukemia (in remission), claustrophobic. 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 Lichen sclerosus of the vulva confirmed with biopsy in 2018. History of Any Multi-Drug Resistant Organisms: None Reported Past Surgical History: Ablation, Orthopedic Surgery, Uterine Ablation Additional Past Surgical History / Comment(s): lt breast lumpectomies ,left breast margins revision Apr 2017, right breast lumpectomy 2019, cyst removed from toe lt foot 1997, bilat eye vitrectomy and annette cataract 1991, ganglion cyst lt wrist 1968, endometrial ablation 1993, Left hip replacement 2018. Colonoscopy 2021(next after 2yr). Past Anesthesia/Blood Transfusion Reactions: No Reported Reaction Past Psychological History: No Psychological Hx Reported Smoking Status: Former smoker Past Alcohol Use History: None Reported Past Drug Use History: None Reported - Past Family History Father Family Medical History: Cancer Additional Family Medical History / Comment(s): prostate, pancreatic Mother Family Medical History: CVA/TIA, Diabetes Mellitus, Myocardial Infarction ([place]) Medications and Allergies Home Medications Medication Instructions Recorded Confirmed Type Benazepril HCl 40 mg PO DAILY 04/20/18 04/19/23 History Simvastatin [Zocor] 20 mg PO HS 04/20/18 04/19/23 History Metoprolol Tartrate [Lopressor] 12.5 mg PO BID 06/24/18 04/19/23 History Aspirin [Adult Low Dose Aspirin EC] 81 mg PO HS 02/12/21 04/19/23 History Cholecalciferol [Vitamin D3 (25 25 mcg PO DAILY 02/17/21 04/19/23 History Mcg = 1000 Iu)] Triamterene/Hydrochlorothiazid 1 tab PO DAILY 11/26/21 04/19/23 History [Triamterene-Hctz 37.5-25 mg Tb] Nilotinib HCl [Tasigna] 300 mg PO BID 04/16/22 04/19/23 History ALPRAZolam [Xanax] 0.25 mg PO DAILY PRN 03/27/23 04/19/23 History Nystatin 100,000 Unit/gm Oint 1 applic TOPICAL AC-BID each 04/05/23 04/19/23 Rx [Mycostatin Oint] hydrALAZINE HCL [Apresoline] 50 mg PO TID 30 Days #90 tab 04/05/23 04/19/23 Rx Insulin Aspart (For Pump) [NovoLOG 0.01 unit SQ-PUMP CONTINUOUS 04/19/23 04/19/23 History (For Pump)] Allergies Allergy/AdvReac Type Severity Reaction Status Date / Time hydrocodone [From [place]] AdvReac irreg and Verified 04/19/23 11:04 difficult breathing Surgical - Exam Vital Signs Temp Pulse Resp BP Pulse Ox 98.2 F 76 20 199/97 98 04/19/23 06:10 04/19/23 06:10 04/19/23 06:10 04/19/23 06:10 04/19/23 06:10 Patient Seen Date: 04/19/23 Patient Seen Time: 10:30 - General moderate distress, obese - Eyes PERRL - Respiratory clear to auscultation - Cardiovascular Rhythm: regular - Abdomen Abdomen: soft, tender Hernia: reducible, umbilical Results - Labs 04/19/23 07:26 04/19/23 06:43 Abnormal Lab Results - Last 24 Hours (Table) 04/19/23 04/19/23 04/19/23 Range/Units 06:43 06:43 07:26 WBC 12.9 H (3.8-10.6) k/uL Neutrophils # 11.0 H (1.3-7.7) k/uL Sodium 134 L (137-145) mmol/L Carbon Dioxide 18 L (22-30) mmol/L BUN 25 H (7-17) mg/dL Glucose 230 H (74-99) mg/dL Plasma Lactic Acid Farhan 2.5 H* (0.7-2.0) mmol/L AST 40 H (14-36) U/L Lipase 14 L (23-300) U/L Diabetes panel 04/19/23 Range/Units 06:43 Sodium 134 L (137-145) mmol/L Potassium 4.7 (3.5-5.1) mmol/L Chloride 102 (98-107) mmol/L Carbon Dioxide 18 L (22-30) mmol/L BUN 25 H (7-17) mg/dL Creatinine 1.01 (0.52-1.04) mg/dL Glucose 230 H (74-99) mg/dL Calcium 10.0 (8.4-10.2) mg/dL AST 40 H (14-36) U/L ALT 20 (4-34) U/L Alkaline Phosphatase 112 (38-126) U/L Total Protein 7.1 (6.3-8.2) g/dL Albumin 4.2 (3.5-5.0) g/dL Calcium panel 04/19/23 Range/Units 06:43 Calcium 10.0 (8.4-10.2) mg/dL Albumin 4.2 (3.5-5.0) g/dL Pituitary panel 04/19/23 Range/Units 06:43 Sodium 134 L (137-145) mmol/L Potassium 4.7 (3.5-5.1) mmol/L Chloride 102 (98-107) mmol/L Carbon Dioxide 18 L (22-30) mmol/L BUN 25 H (7-17) mg/dL Creatinine 1.01 (0.52-1.04) mg/dL Glucose 230 H (74-99) mg/dL Calcium 10.0 (8.4-10.2) mg/dL Adrenal panel 04/19/23 Range/Units 06:43 Sodium 134 L (137-145) mmol/L Potassium 4.7 (3.5-5.1) mmol/L Chloride 102 (98-107) mmol/L Carbon Dioxide 18 L (22-30) mmol/L BUN 25 H (7-17) mg/dL Creatinine 1.01 (0.52-1.04) mg/dL Glucose 230 H (74-99) mg/dL Calcium 10.0 (8.4-10.2) mg/dL Total Bilirubin 1.2 (0.2-1.3) mg/dL AST 40 H (14-36) U/L ALT 20 (4-34) U/L Alkaline Phosphatase 112 (38-126) U/L Total Protein 7.1 (6.3-8.2) g/dL Albumin 4.2 (3.5-5.0) g/dL - Imaging CT scan - abdomen: report reviewed (Patient with recent surgical intervention no intra-abdominal pathology identified other than a mild reducible umbilical hernia. Abdominal bruising from medication injection noted.), image reviewed Assessment and Plan Assessment: Abdominal pain postoperative in nature. Plan: Increase hydration. Monitor abdominal pain. Pain control.
[2023-04-19] MEDS ORDERED: Insulin Aspart (For Pump) 100 UNIT/ML VIAL SQ-PUMP SCH (15:30)
[2023-04-19] MEDS ORDERED: INSULIN PUMP BASAL RATES 1 EACH MISC MISCELLANE PRN (15:43)
[2023-04-19] MEDS ORDERED: INSPUCOR MISCELLANE PRN (15:43)
[2023-04-19] MEDS ORDERED: INSULIN ASPART (NovoLOG) 100 UNIT/ML VIAL SQ PRN (15:43)
--- NOTE | 2023-04-19 15:51 | P.HPIM ---
History of Present Illness H&P Date: 04/19/23 Roxanna Ortiz, is a 72-year-old female who presented to [facility] emergency room with a chief complaint of abdominal pain, patient was recently admitted to [facility] with similar symptoms, she was discharged on 04/05 2023, during that admission patient underwent laparoscopic laparotomy with lysis of adhesions and reduction of incarcerated umbilical hernia, and her pain resolved after the procedure. She stated that her pain recurred last night, she denies any nausea or vomiting diarrhea or constipation. She was evaluated in the emergency room vital examination on presentation revealed a temperature of 98.2 pulse 76 respiration 20 blood pressure 199/97 pulse ox 98% on room air Laboratory data reveals a white blood count of 12.9 hemoglobin 12.7 platelet count 254 sodium 134 potassium 4.7 chloride 102 CO2 18 BUN 25 creatinine 1.01 lactic acid 2.5 Testing in the emergency room revealed, computed tomography scan of the abdomen and pelvis revealed no acute intra-abdominal or pelvic process and trace left pleural effusion. Patient was admitted to medical floor for further evaluation and treatment Past Medical History Past Medical History: Cancer, Diabetes Mellitus, Hypertension, Sleep Apnea/CPAP/BIPAP, Thyroid Disorder Additional Past Medical History / Comment(s): previous polyp hidden near appendix,heart murmur, Intermittent PACs,Left breast cancer 2016, Right breast cancer 2019 (both DCIS), benign thyroid goiter, diabetic retinopathy, chronic myelocytic leukemia (in remission), claustrophobic. 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 History of Any Multi-Drug Resistant Organisms: None Reported Past Surgical History: Ablation, Orthopedic Surgery, Uterine Ablation Additional Past Surgical History / Comment(s): lt breast lumpectomies ,left breast margins revision Apr 2017, right breast lumpectomy 2019, cyst removed from toe lt foot 1997, bilat eye vitrectomy and annette cataract 1991, ganglion cyst lt wrist 1968, endometrial ablation 1993, Left hip replacement 2018. Colonoscopy 2021(next after 2yr). Past Anesthesia/Blood Transfusion Reactions: No Reported Reaction Past Psychological History: No Psychological Hx Reported Smoking Status: Former smoker Past Alcohol Use History: None Reported Past Drug Use History: None Reported - Past Family History Father Family Medical History: Cancer Additional Family Medical History / Comment(s): prostate, pancreatic Mother Family Medical History: CVA/TIA, Diabetes Mellitus, Myocardial Infarction ([place]) Medications and Allergies Home Medications Medication Instructions Recorded Confirmed Type Benazepril HCl 40 mg PO DAILY 04/20/18 04/19/23 History Simvastatin [Zocor] 20 mg PO HS 04/20/18 04/19/23 History Metoprolol Tartrate [Lopressor] 12.5 mg PO BID 06/24/18 04/19/23 History Aspirin [Adult Low Dose Aspirin EC] 81 mg PO HS 02/12/21 04/19/23 History Cholecalciferol [Vitamin D3 (25 25 mcg PO DAILY 02/17/21 04/19/23 History Mcg = 1000 Iu)] Triamterene/Hydrochlorothiazid 1 tab PO DAILY 11/26/21 04/19/23 History [Triamterene-Hctz 37.5-25 mg Tb] Nilotinib HCl [Tasigna] 300 mg PO BID 04/16/22 04/19/23 History ALPRAZolam [Xanax] 0.25 mg PO DAILY PRN 03/27/23 04/19/23 History Nystatin 100,000 Unit/gm Oint 1 applic TOPICAL AC-BID each 04/05/23 04/19/23 Rx [Mycostatin Oint] hydrALAZINE HCL [Apresoline] 50 mg PO TID 30 Days #90 tab 04/05/23 04/19/23 Rx Insulin Aspart (For Pump) [NovoLOG 0.01 unit SQ-PUMP CONTINUOUS 04/19/2304/19 History (For Pump)] Allergies Allergy/AdvReac Type Severity Reaction Status Date / Time hydrocodone [From [place]] AdvReac irreg and Verified 04/19/23 11:04 difficult breathing Physical Exam Vitals: Vital Signs Temp Pulse Pulse Resp BP BP BP 04/19/23 15:00 98.1 F 68 16 208/69 04/19/23 14:29 182/68 04/19/23 12:44 69 18 172/64 04/19/23 11:20 74 18 109/71 04/19/23 08:40 71 18 161/60 04/19/23 07:45 81 18 158/59 04/19/23 06:10 98.2 F 76 20 199/97 Pulse Ox 04/19/23 15:00 99 04/19/23 14:29 04/19/23 12:44 98 04/19/23 11:20 96 04/19/23 08:40 98 04/19/23 07:45 97 04/19/23 06:10 98 Intake and Output 04/19/23 04/19/23 04/19/23 06:59 14:59 22:59 Other: Voiding Method Toilet Weight 89.811 kg In general patient is alert and oriented x 3 in no distress HEENT head normocephalic and atraumatic Neck is supple no JVD no goiter no lymphadenopathy no carotid bruit Chest examination is clear to auscultation no crackles no wheezing Cardiac exam reveals regular heart sounds S1 and S2 no gallops no murmurs Abdomen is soft with mild diffuse tenderness no organomegaly with normal bowel sounds Extremity exam reveals no edema no cyanosis or clubbing Neurological examination reveals no gross focal deficits Results CBC & Chem 7: 04/19/23 07:26 04/19/23 06:43 Labs: Abnormal Lab Results - Last 24 Hours (Table) 04/19/23 04/19/23 04/19/23 Range/Units 06:43 06:43 07:26 WBC 12.9 H (3.8-10.6) k/uL Neutrophils # 11.0 H (1.3-7.7) k/uL Sodium 134 L (137-145) mmol/L Carbon Dioxide 18 L (22-30) mmol/L BUN 25 H (7-17) mg/dL Glucose 230 H (74-99) mg/dL Plasma Lactic Acid Farhan 2.5 H* (0.7-2.0) mmol/L AST 40 H (14-36) U/L Lipase 14 L (23-300) U/L Assessment and Plan Plan: Abdominal pain Recent admission with abdominal pain, resolved after laparoscopic laparotomy wit h lysis of adhesions and reduction of umbilical hernia Underlying history of CML in remission Mild leukocytosis with elevated lactic acid on presentation Previous history of bilateral breast cancer Underlying history of hypertension Underlying history of hyperlipidemia Underlying history of obstructive sleep apnea At this time patient was seen and examined on the medical floor Home medications reviewed and reordered She was started on IV fluid Surgical consultation requested Pain management For DVT prophylaxis SCD stockings Will follow closely
[2023-04-19] MEDS: lisinopriL 20 MG TAB PO SCH (16:07)
[2023-04-19] MEDS: hydrALAZINE HCL 50 MG TAB PO SCH ×2 (16:07→21:07)
[2023-04-19 17:12] LABS: Glucose,Whole Blood 192 mg/dL (70-110)
[2023-04-19] MEDS: INSULIN PUMP MEAL BOLUS 1 UNIT MISC MISCELLANE SCH ×2 (17:25→20:41)
[2023-04-19] MEDS: HYDROmorphone 0.5 MG/0.5 ML SYRINGE IVP PRN ×2 (18:13→21:11)
[2023-04-19 20:24] LABS: Glucose,Whole Blood 134 mg/dL (70-110)
[2023-04-19] MEDS: METOPROLOL TARTRATE 12.5 MG TAB PO SCH (21:07)
[2023-04-19] MEDS: ASPIRIN 81 MG PO SCH (21:07)
[2023-04-20] MEDS: HYDROmorphone 0.5 MG/0.5 ML SYRINGE IVP PRN ×4 (01:02→22:09)
[2023-04-20 02:10] LABS: Glucose,Whole Blood 74 mg/dL (70-110)
[2023-04-20] MEDS: SODIUM CHLORIDE 0.9% 1,000 ML IV SCH ×2 (05:32→13:39)
[2023-04-20 06:13] LABS: Glucose,Whole Blood 70 mg/dL (70-110)
[2023-04-20] MEDS: INSULIN PUMP MEAL BOLUS 1 UNIT MISC MISCELLANE SCH ×4 (06:36→20:40)
[2023-04-20] MEDS: PANTOPRAZOLE 40 MG/10 ML VIAL IV SCH (08:51)
[2023-04-20] MEDS: CHOLECALCIFEROL 25 MCG (1000 IU) TABLET PO SCH (08:52)
[2023-04-20] MEDS: TRIAMTERENE-HCTZ 37.5-25MG 1 EACH TAB PO SCH (08:52)
[2023-04-20] MEDS: METOPROLOL TARTRATE 12.5 MG TAB PO SCH ×2 (08:52→20:16)
[2023-04-20] MEDS: lisinopriL 20 MG TAB PO SCH (08:52)
[2023-04-20] MEDS: hydrALAZINE HCL 50 MG TAB PO SCH ×3 (08:52→20:16)
[2023-04-20 10:12] LABS: ALT 15 U/L (8-44); AST 11 U/L (13-35); Albumin 3.6 g/dL (3.8-4.9); Albumin/Globulin Ratio 1.64 Ratio (1.60-3.17); Alkaline Phosphatase 99 U/L (41-126); Blood Urea Nitrogen 17.1 mg/dL (9.0-27.0); Calcium 9.4 mg/dL (8.7-10.3); Carbon Dioxide 23.5 mmol/L (21.6-31.8); Chloride 102 mmol/L (96-109); Globulin 2.2 g/dL (1.6-3.3); Glucose 77 mg/dL (70-110); Lipase 7 U/L (14-63); Potassium 4.1 mmol/L (3.5-5.5); Sodium 136 mmol/L (135-145); Total Bilirubin 0.5 mg/dL (0.3-1.2); Total Protein 5.8 g/dL (6.2-8.2)
[2023-04-20 10:13] LABS: Basophils # (A) 0.05 X 10*3/uL (0.00-0.10); Basophils % (A) 0.5 %; Eosinophils # (A) 0.62 X 10*3/uL (0.04-0.35); Eosinophils % (A) 6.1 %; HCT 35.8 % (37.2-46.3); HGB 11.2 g/dL (12.0-15.0); Lymphocytes # (A) 1.21 X 10*3/uL (0.90-5.00); Lymphocytes % (A) 11.9 %; MCH 26.9 pg (27.0-32.0); MCHC 31.3 g/dL (32.0-37.0); MCV 85.9 FL (80.0-97.0); Mean Platelet Volume 12.2 FL (9.5-12.2); Monocytes # (A) 0.77 X 10*3/uL (0.20-1.00); Monocytes % (A) 7.6 %; NRBC Per 100 WBC 0 X 10*3/uL (0.00-0.01); Neutrophils # (A) 7.46 X 10*3/uL (1.80-7.70); Neutrophils % (A) 73.2 %; Platelet Count 301 X 10*3/uL (140-440); RBC 4.17 X 10*6/uL (4.10-5.20); RDW 15.5 % (11.5-14.5); WBC 10.18 X 10*3/uL (4.50-10.00)
--- NOTE | 2023-04-20 10:42 | P.PN ---
Subjective Progress Note Date: 04/20/23 Roxanna Ortiz, is a 72-year-old female who presented to [facility] emergency room with a chief complaint of abdominal pain, patient was recently admitted to [facility] with similar symptoms, she was discharged on 04/05 2023, during that admission patient underwent laparoscopic laparotomy with lysis of adhesions and reduction of incarcerated umbilical hernia, and her pain resolved after the procedure. She stated that her pain recurred last night, she denies any nausea or vomiting diarrhea or constipation. She was evaluated in the emergency room vital examination on presentation revealed a temperature of 98.2 pulse 76 respiration 20 blood pressure 199/97 pulse ox 98% on room air Laboratory data reveals a white blood count of 12.9 hemoglobin 12.7 platelet cou nt 254 sodium 134 potassium 4.7 chloride 102 CO2 18 BUN 25 creatinine 1.01 lactic acid 2.5 Testing in the emergency room revealed, computed tomography scan of the abdomen and pelvis revealed no acute intra-abdominal or pelvic process and trace left pleural effusion. Patient was admitted to medical floor for further evaluation and treatment On 04/20/2023 patient is alert and oriented 3. Patient reports improvement with abdominal pain but still requiring IV pain medication. Patient has been t olerating diet. Patient denies nausea vomiting or diarrhea. Patient denies any urinary burning or frequency. Current vital signs temp 97.7, heart rate 64, respiratory rate 16, blood pressure 147/57 with a pulse ox of 96% on room air. Surgical services are following Objective - Vital Signs Vital signs: Vital Signs Temp 97.8 F 04/20/23 07:10 Pulse 63 04/20/23 07:10 Resp 16 04/20/23 07:10 BP 169/68 04/20/23 07:10 Pulse Ox 97 04/20/23 07:10 FiO2 Intake & Output 04/19/23 04/20/23 04/20/23 18:59 06:59 18:59 Intake Total 318 Balance 318 Weight 89.811 kg Intake: Oral 318 Other: Voiding Method Toilet Toilet # Voids 1 - Exam In general patient is alert and oriented x 3 in no distress HEENT head normocephalic and atraumatic Neck is supple no JVD no goiter no lymphadenopathy no carotid bruit Chest examination is clear to auscultation no crackles no wheezing Cardiac exam reveals regular heart sounds S1 and S2 no gallops no murmurs Abdomen is soft with mild diffuse tenderness no organomegaly with normal bowel sounds Extremity exam reveals no edema no cyanosis or clubbing Neurological examination reveals no gross focal deficits - Labs CBC & Chem 7: 04/20/23 04:12 04/20/23 04:12 Labs: Abnormal Lab Results - Last 24 Hours (Table) 04/19/23 04/19/23 04/20/23 Range/Units 17:10 20:22 04:12 WBC 10.18 H (4.50-10.00) X 10*3/uL Hgb 11.2 L (12.0-15.0) g/dL Hct 35.8 L (37.2-46.3) % MCH 26.9 L (27.0-32.0) pg MCHC 31.3 L (32.0-37.0) g/dL RDW 15.5 H (11.5-14.5) % Eosinophils # 0.62 H (0.04-0.35) X 10*3/uL POC Glucose (mg/dL) 192 H 134 H (70-110) mg/dL AST (13-35) U/L Total Protein (6.2-8.2) g/dL Albumin (3.8-4.9) g/dL Lipase (14-63) U/L 04/20/23 Range/Units 04:12 WBC (4.50-10.00) X 10*3/uL Hgb (12.0-15.0) g/dL Hct (37.2-46.3) % MCH (27.0-32.0) pg MCHC (32.0-37.0) g/dL RDW (11.5-14.5) % Eosinophils # (0.04-0.35) X 10*3/uL POC Glucose (mg/dL) (70-110) mg/dL AST 11 L (13-35) U/L Total Protein 5.8 L (6.2-8.2) g/dL Albumin 3.6 L (3.8-4.9) g/dL Lipase 7 L (14-63) U/L Assessment and Plan Assessment: Abdominal pain Recent admission with abdominal pain, resolved after laparoscopic laparotomy with lysis of adhesions and reduction of umbilical hernia Underlying history of CML in remission Mild leukocytosis with elevated lactic acid on presentation Previous history of bilateral breast cancer Underlying history of hypertension Underlying history of hyperlipidemia Underlying history of obstructive sleep apnea At this time patient was seen and examined on the medical floor Home medications reviewed and reordered She was started on IV fluid Surgical consultation requested Pain management For DVT prophylaxis SCD stockings Will follow closely
[2023-04-20 12:15] LABS: Glucose,Whole Blood 177 mg/dL (70-110)
--- NOTE | 2023-04-20 12:20 | XR ---
EXAMINATION TYPE: XR chest 1V portable DATE OF EXAM: 04/20/2023 11:55 AM CLINICAL INDICATION:Female, 72 years old with history of leukocytosis; [facility] COMPARISON: Chest radiographs from 09/17/2021. TECHNIQUE: XR chest 1V portable Frontal view of the chest. FINDINGS: Lungs/Pleura: There is no evidence of pleural effusion, focal consolidation, or pneumothorax. Pulmonary vascularity: Unremarkable. Heart/mediastinum: Cardiomediastinal silhouette is enlarged and stable. Musculoskeletal: No acute osseous pathology. IMPRESSION: Stable exam, No acute cardiopulmonary disease/process.
--- NOTE | 2023-04-20 12:35 | P.GSCN ---
History of Present Illness Consult date: 04/20/23 History of present illness: Patient comes in with recurrent severe right groin pain now with radiation from the right lower back pain to right groin now more severe in the past 2 days. Recommend pain services due to unusual presentation of pain. Patient reports she wants to go to work as soon as possible on Friday. She also discloses new information of appendiceal polyp. Due to recurrent abdominal pain, possible appendectomy also described. Past Medical History Past Medical History: Cancer, Diabetes Mellitus, Hypertension, Sleep Apnea/CPAP/BIPAP, Thyroid Disorder Additional Past Medical History / Comment(s): previous polyp hidden near appendix,heart murmur, Intermittent PACs,Left breast cancer 2016, Right breast cancer 2019 (both DCIS), benign thyroid goiter, diabetic retinopathy, chronic my elocytic leukemia (in remission), claustrophobic. 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 Lichen sclerosus of the vulva confirmed with biopsy in 2018. History of Any Multi-Drug Resistant Organisms: None Reported Past Surgical History: Ablation, Orthopedic Surgery, Uterine Ablation Additional Past Surgical History / Comment(s): lt breast lumpectomies ,left breast margins revision Apr 2017, right breast lumpectomy 2019, cyst removed from toe lt foot 1997, bilat eye vitrectomy and annette cataract 1991, ganglion cyst lt wrist 1968, endometrial ablation 1993, Left hip replacement 2018. Colonoscopy 2021(next after 2yr). Exploratory lap with lysis of adhesions and hernia repair 03/2023. Past Anesthesia/Blood Transfusion Reactions: No Reported Reaction Past Psychological History: No Psychological Hx Reported Additional Psychological History / Comment(s): claustrophobic Smoking Status: Former smoker Past Alcohol Use History: None Reported Additional Past Alcohol Use History / Comment(s): quit smoking 1981, smoked in college Past Drug Use History: None Reported - Past Family History Father Family Medical History: Cancer Additional Family Medical History / Comment(s): prostate, pancreatic Mother Family Medical History: CVA/TIA, Diabetes Mellitus, Myocardial Infarction ([place]) Medications and Allergies Home Medications Medication Instructions Recorded Confirmed Type Benazepril HCl 40 mg PO DAILY 04/20/18 04/19/23 History Simvastatin [Zocor] 20 mg PO HS 04/20/18 04/19/23 History Metoprolol Tartrate [Lopressor] 12.5 mg PO BID 06/24/18 04/19/23 History Aspirin [Adult Low Dose Aspirin EC] 81 mg PO HS 02/12/21 04/19/23 History Cholecalciferol [Vitamin D3 (25 25 mcg PO DAILY 02/17/21 04/19/23 History Mcg = 1000 Iu)] Triamterene/Hydrochlorothiazid 1 tab PO DAILY 11/26/21 04/19/23 History [Triamterene-Hctz 37.5-25 mg Tb] Nilotinib HCl [Tasigna] 300 mg PO BID 04/16/22 04/19/23 History ALPRAZolam [Xanax] 0.25 mg PO DAILY PRN 03/27/23 04/19/23 History Nystatin 100,000 Unit/gm Oint 1 applic TOPICAL AC-BID each 04/05/23 04/19/23 Rx [Mycostatin Oint] hydrALAZINE HCL [Apresoline] 50 mg PO TID 30 Days #90 tab 04/05/23 04/19/23 Rx Insulin Aspart (For Pump) [NovoLOG 0.01 unit SQ-PUMP CONTINUOUS 04/19/23 04/19/23 History (For Pump)] Allergies Allergy/AdvReac Type Severity Reaction Status Date / Time hydrocodone [From [place]] AdvReac irreg and Verified 04/19/23 11:04 difficult breathing Surgical - Exam Vital Signs Temp Pulse Resp BP Pulse Ox 98.2 F 76 20 199/97 98 04/19/23 06:10 04/19/23 06:10 04/19/23 06:10 04/19/23 06:10 04/19/23 06:10 Results - Labs 04/20/23 04:12 04/20/23 04:12 Abnormal Lab Results - Last 24 Hours (Table) 04/19/23 04/19/23 04/20/23 Range/Units 17:10 20:22 04:12 WBC 10.18 H (4.50-10.00) X 10*3/uL Hgb 11.2 L (12.0-15.0) g/dL Hct 35.8 L (37.2-46.3) % MCH 26.9 L (27.0-32.0) pg MCHC 31.3 L (32.0-37.0) g/dL RDW 15.5 H (11.5-14.5) % Eosinophils # 0.62 H (0.04-0.35) X 10*3/uL POC Glucose (mg/dL) 192 H 134 H (70-110) mg/dL AST (13-35) U/L Total Protein (6.2-8.2) g/dL Albumin (3.8-4.9) g/dL Lipase (14-63) U/L 04/20/23 04/20/23 Range/Units 04:12 12:13 WBC (4.50-10.00) X 10*3/uL Hgb (12.0-15.0) g/dL Hct (37.2-46.3) % MCH (27.0-32.0) pg MCHC (32.0-37.0) g/dL RDW (11.5-14.5) % Eosinophils # (0.04-0.35) X 10*3/uL POC Glucose (mg/dL) 177 H (70-110) mg/dL AST 11 L (13-35) U/L Total Protein 5.8 L (6.2-8.2) g/dL Albumin 3.6 L (3.8-4.9) g/dL Lipase 7 L (14-63) U/L Diabetes panel 04/20/23 Range/Units 04:12 Sodium 136 (135-145) mmol/L Potassium 4.1 (3.5-5.5) mmol/L Chloride 102 (96-109) mmol/L Carbon Dioxide 23.5 (21.6-31.8) mmol/L BUN 17.1 (9.0-27.0) mg/dL Creatinine 1.0 (0.6-1.5) mg/dL Glucose 77 (70-110) mg/dL Calcium 9.4 (8.7-10.3) mg/dL AST 11 L (13-35) U/L ALT 15 (8-44) U/L Alkaline Phosphatase 99 (41-126) U/L Total Protein 5.8 L (6.2-8.2) g/dL Albumin 3.6 L (3.8-4.9) g/dL Calcium panel 04/20/23 Range/Units 04:12 Calcium 9.4 (8.7-10.3) mg/dL Albumin 3.6 L (3.8-4.9) g/dL Pituitary panel 04/20/23 Range/Units 04:12 Sodium 136 (135-145) mmol/L Potassium 4.1 (3.5-5.5) mmol/L Chloride 102 (96-109) mmol/L Carbon Dioxide 23.5 (21.6-31.8) mmol/L BUN 17.1 (9.0-27.0) mg/dL Creatinine 1.0 (0.6-1.5) mg/dL Glucose 77 (70-110) mg/dL Calcium 9.4 (8.7-10.3) mg/dL Adrenal panel 04/20/23 Range/Units 04:12 Sodium 136 (135-145) mmol/L Potassium 4.1 (3.5-5.5) mmol/L Chloride 102 (96-109) mmol/L Carbon Dioxide 23.5 (21.6-31.8) mmol/L BUN 17.1 (9.0-27.0) mg/dL Creatinine 1.0 (0.6-1.5) mg/dL Glucose 77 (70-110) mg/dL Calcium 9.4 (8.7-10.3) mg/dL Total Bilirubin 0.5 (0.3-1.2) mg/dL AST 11 L (13-35) U/L ALT 15 (8-44) U/L Alkaline Phosphatase 99 (41-126) U/L Total Protein 5.8 L (6.2-8.2) g/dL Albumin 3.6 L (3.8-4.9) g/dL
[2023-04-20] MEDS: hydrALAZINE HCL 20 MG/ML 1 ML VIAL IVP PRN (14:45)
[2023-04-20 17:27] LABS: Glucose,Whole Blood 97 mg/dL (70-110)
[2023-04-20] MEDS: ASPIRIN 81 MG PO SCH (20:16)
[2023-04-20 20:35] LABS: Glucose,Whole Blood 137 mg/dL (70-110)
[2023-04-21 01:55] LABS: Glucose,Whole Blood 53 mg/dL (70-110)
[2023-04-21 02:44] LABS: Glucose,Whole Blood 100 mg/dL (70-110)
[2023-04-21] MEDS: HYDROmorphone 0.5 MG/0.5 ML SYRINGE IVP PRN ×7 (04:03→23:22)
[2023-04-21 06:14] LABS: Glucose,Whole Blood 56 mg/dL (70-110)
[2023-04-21] MEDS: INSULIN PUMP MEAL BOLUS 1 UNIT MISC MISCELLANE SCH ×4 (06:39→20:23)
[2023-04-21] MEDS: CHOLECALCIFEROL 25 MCG (1000 IU) TABLET PO SCH (08:20)
[2023-04-21] MEDS: METOPROLOL TARTRATE 12.5 MG TAB PO SCH ×2 (08:20→20:25)
[2023-04-21] MEDS: lisinopriL 20 MG TAB PO SCH (08:20)
[2023-04-21] MEDS: hydrALAZINE HCL 50 MG TAB PO SCH ×3 (08:20→20:25)
[2023-04-21] MEDS: TRIAMTERENE-HCTZ 37.5-25MG 1 EACH TAB PO SCH (08:21)
[2023-04-21] MEDS: PANTOPRAZOLE 40 MG/10 ML VIAL IV SCH (08:21)
[2023-04-21 09:20] LABS: ALT 16 U/L (8-44); AST 12 U/L (13-35); Albumin 3.9 g/dL (3.8-4.9); Alkaline Phosphatase 100 U/L (41-126); Blood Urea Nitrogen 12.4 mg/dL (9.0-27.0); Calcium 10.2 mg/dL (8.7-10.3); Carbon Dioxide 25.1 mmol/L (21.6-31.8); Chloride 104 mmol/L (96-109); Globulin 2.3 g/dL (1.6-3.3); Glucose 54 mg/dL (70-110); Sodium 140 mmol/L (135-145); Total Bilirubin 0.4 mg/dL (0.3-1.2); Total Protein 6.2 g/dL (6.2-8.2)
[2023-04-21 09:21] LABS: Basophils # (A) 0.04 X 10*3/uL (0.00-0.10); Basophils % (A) 0.5 %; Eosinophils # (A) 0.48 X 10*3/uL (0.04-0.35); Eosinophils % (A) 5.8 %; HGB 11.4 g/dL (12.0-15.0); Lymphocytes # (A) 1.12 X 10*3/uL (0.90-5.00); Lymphocytes % (A) 13.6 %; MCH 27.2 pg (27.0-32.0); MCHC 31.7 g/dL (32.0-37.0); MCV 85.9 FL (80.0-97.0); Mean Platelet Volume 12.2 FL (9.5-12.2); Monocytes # (A) 0.71 X 10*3/uL (0.20-1.00); Monocytes % (A) 8.6 %; NRBC Per 100 WBC 0 X 10*3/uL (0.00-0.01); Neutrophils # (A) 5.82 X 10*3/uL (1.80-7.70); Neutrophils % (A) 70.8 %; Platelet Count 268 X 10*3/uL (140-440); RBC 4.19 X 10*6/uL (4.10-5.20); RDW 15.4 % (11.5-14.5); WBC 8.23 X 10*3/uL (4.50-10.00)
--- NOTE | 2023-04-21 10:15 | P.PN ---
Subjective Progress Note Date: 04/21/23 Roxanna Ortiz, is a 72-year-old female who presented to [facility] emergency room with a chief complaint of abdominal pain, patient was recently admitted to [facility] with similar symptoms, she was discharged on 04/05 2023, during that admission patient underwent laparoscopic laparotomy with lysis of adhesions and reduction of incarcerated umbilical hernia, and her pain resolved after the procedure. She stated that her pain recurred last night, she denies any nausea or vomiting diarrhea or constipation. She was evaluated in the emergency room vital examination on presentation revealed a temperature of 98.2 pulse 76 respiration 20 blood pressure 199/97 pulse ox 98% on room air Laboratory data reveals a white blood count of 12.9 hemoglobin 12.7 platelet cou nt 254 sodium 134 potassium 4.7 chloride 102 CO2 18 BUN 25 creatinine 1.01 lactic acid 2.5 Testing in the emergency room revealed, computed tomography scan of the abdomen and pelvis revealed no acute intra-abdominal or pelvic process and trace left pleural effusion. Patient was admitted to medical floor for further evaluation and treatment On 04/20/2023 patient is alert and oriented 3. Patient reports improvement with abdominal pain but still requiring IV pain medication. Patient has been t olerating diet. Patient denies nausea vomiting or diarrhea. Patient denies any urinary burning or frequency. Current vital signs temp 97.7, heart rate 64, respiratory rate 16, blood pressure 147/57 with a pulse ox of 96% on room air. Surgical services are following On 04/21/2023 patient was seen and examined on the medical she is alert and oriented times distress, she stated that she is still having severe pain 10 out of 10 in the right lower quadrant, otherwise there is no complaints there is no fever or chills no headache or dizziness no chest pain no shortness of breath no cough no nausea or vomiting no abdominal pain no diarrhea and no urinary symptoms. At this time we are awaiting further recommendation from general surgery, consultation was placed for anesthesia for pain management. Objective - Vital Signs Vital signs: Vital Signs Temp 97.9 F 04/21/23 07:10 Pulse 63 04/21/23 07:10 Resp 16 04/21/23 07:10 BP 180/72 04/21/23 07:10 Pulse Ox 97 04/21/23 07:10 FiO2 Intake & Output 04/20/23 04/21/23 04/21/23 18:59 06:59 18:59 Intake Total 436 486 100 Balance 436 486 100 Intake: Oral 436 486 100 Other: Voiding Method Toilet Toilet # Voids 1 1 - Exam In general patient is alert and oriented x 3 in no distress HEENT head normocephalic and atraumatic Neck is supple no JVD no goiter no lymphadenopathy no carotid bruit Chest examination is clear to auscultation no crackles no wheezing Cardiac exam reveals regular heart sounds S1 and S2 no gallops no murmurs Abdomen is soft with mild diffuse tenderness no organomegaly with normal bowel sounds Extremity exam reveals no edema no cyanosis or clubbing Neurological examination reveals no gross focal deficits - Labs CBC & Chem 7: 04/21/23 06:12 04/21/23 06:12 Labs: Abnormal Lab Results - Last 24 Hours (Table) 04/20/23 04/20/23 04/20/23 Range/Units 04:12 04:12 12:13 WBC 10.18 H (4.50-10.00) X 10*3/uL Hgb 11.2 L (12.0-15.0) g/dL Hct 35.8 L (37.2-46.3) % MCH 26.9 L (27.0-32.0) pg MCHC 31.3 L (32.0-37.0) g/dL RDW 15.5 H (11.5-14.5) % Eosinophils # 0.62 H (0.04-0.35) X 10*3/uL Glucose (70-110) mg/dL POC Glucose (mg/dL) 177 H (70-110) mg/dL AST 11 L (13-35) U/L Total Protein 5.8 L (6.2-8.2) g/dL Albumin 3.6 L (3.8-4.9) g/dL Lipase 7 L (14-63) U/L 04/20/23 04/21/23 04/21/23 Range/Units 20:33 01:53 06:12 WBC (4.50-10.00) X 10*3/uL Hgb 11.4 L (12.0-15.0) g/dL Hct 36.0 L (37.2-46.3) % MCH (27.0-32.0) pg MCHC 31.7 L (32.0-37.0) g/dL RDW 15.4 H (11.5-14.5) % Eosinophils # 0.48 H (0.04-0.35) X 10*3/uL Glucose (70-110) mg/dL POC Glucose (mg/dL) 137 H 53 L (70-110) mg/dL AST (13-35) U/L Total Protein (6.2-8.2) g/dL Albumin (3.8-4.9) g/dL Lipase (14-63) U/L 04/21/23 04/21/23 Range/Units 06:12 06:12 WBC (4.50-10.00) X 10*3/uL Hgb (12.0-15.0) g/dL Hct (37.2-46.3) % MCH (27.0-32.0) pg MCHC (32.0-37.0) g/dL RDW (11.5-14.5) % Eosinophils # (0.04-0.35) X 10*3/uL Glucose 54 L (70-110) mg/dL POC Glucose (mg/dL) 56 L (70-110) mg/dL AST 12 L (13-35) U/L Total Protein (6.2-8.2) g/dL Albumin (3.8-4.9) g/dL Lipase (14-63) U/L Assessment and Plan Plan: Abdominal pain Recent admission with abdominal pain, resolved after laparoscopic laparotomy with lysis of adhesions and reduction of umbilical hernia Underlying history of CML in remission Mild leukocytosis with elevated lactic acid on presentation Previous history of bilateral breast cancer Underlying history of hypertension Underlying history of hyperlipidemia Underlying history of obstructive sleep apnea At this time patient was seen and examined on the medical floor Home medications reviewed and reordered She was started on IV fluid Surgical consultation requested Pain management For DVT prophylaxis SCD stockings Will follow closely
[2023-04-21 12:01] LABS: Glucose,Whole Blood 163 mg/dL (70-110)
--- NOTE | 2023-04-21 12:24 | P.PN ---
Subjective Progress Note Date: 04/21/23 CHIEF COMPLAINT: Abdominal pain HISTORY OF PRESENT ILLNESS: Patient continues to complain of right groin pain that radiates into the thigh and down from the right lower back. She has a history of an appendiceal polyp. She is having flatus. She is tolerating diet. Afebrile. WBC 8.23 HGB 11.4 . Patient is able to ambulate. Computed tomography scan no acute intra-abdominal findings PHYSICAL EXAM: VITAL SIGNS: Reviewed GENERAL: Well-developed in no acute distress. HEENT: No sclera icterus. Extraocular movements grossly intact. Moist buccal mucosa. Head is atraumatic, normocephalic. Hears conversational speech. No nasal drainage. NECK: Supple without lymphadenopathy. CHEST: Non-labored respirations and equal bilateral excursions. CARDIOVASCULAR: Palpable 2+ radial pulses. ABDOMEN: Soft. Nondistended. Nontender. MUSCULOSKELETAL: No clubbing or cyanosis. NEUROLOGIC: No focal or lateralizing signs. Cranial nerves II through XII grossly intact. PSYCH: Appropriate affect. Alert and oriented to person, place and time. SKIN: Well perfused. Good skin turgor. ASSESSMENT: 1. Right groin abdominal pain that radiates from the lower back and down into the thigh PLAN: -Recommend patient to be evaluated by pain service -Recommend second opinion surgical consult -Recommend that patient proceed with the steroid injection that has been offered by pain service in the past and adjust diabetes medications accordingly for elevated blood sugars -Continue supportive care Physician Psychology Professor note has been reviewed by physician. Signing provider agrees with the documented findings, assessment, and plan of care. Objective - Vital Signs Vital signs: Vital Signs Temp 97.9 F 04/21/23 07:10 Pulse 63 04/21/23 07:10 Resp 16 04/21/23 07:10 BP 180/72 04/21/23 07:10 Pulse Ox 97 04/21/23 07:10 FiO2 Intake & Output 04/20/23 04/21/23 04/21/23 18:59 06:59 18:59 Intake Total 436 486 100 Balance 436 486 100 Intake: Oral 436 486 100 Other: Voiding Method Toilet Toilet # Voids 1 1 - Labs CBC & Chem 7: 04/21/23 06:12 04/21/23 06:12 Labs: Abnormal Lab Results - Last 24 Hours (Table) 04/20/23 04/20/23 04/20/23 Range/Units 04:12 04:12 12:13 WBC 10.18 H (4.50-10.00) X 10*3/uL Hgb 11.2 L (12.0-15.0) g/dL Hct 35.8 L (37.2-46.3) % MCH 26.9 L (27.0-32.0) pg MCHC 31.3 L (32.0-37.0) g/dL RDW 15.5 H (11.5-14.5) % Eosinophils # 0.62 H (0.04-0.35) X 10*3/uL Glucose (70-110) mg/dL POC Glucose (mg/dL) 177 H (70-110) mg/dL AST 11 L (13-35) U/L Total Protein 5.8 L (6.2-8.2) g/dL Albumin 3.6 L (3.8-4.9) g/dL Lipase 7 L (14-63) U/L 04/20/23 04/21/23 04/21/23 Range/Units 20:33 01:53 06:12 WBC (4.50-10.00) X 10*3/uL Hgb 11.4 L (12.0-15.0) g/dL Hct 36.0 L (37.2-46.3) % MCH (27.0-32.0) pg MCHC 31.7 L (32.0-37.0) g/dL RDW 15.4 H (11.5-14.5) % Eosinophils # 0.48 H (0.04-0.35) X 10*3/uL Glucose (70-110) mg/dL POC Glucose (mg/dL) 137 H 53 L (70-110) mg/dL AST (13-35) U/L Total Protein (6.2-8.2) g/dL Albumin (3.8-4.9) g/dL Lipase (14-63) U/L 04/21/23 04/21/23 Range/Units 06:12 06:12 WBC (4.50-10.00) X 10*3/uL Hgb (12.0-15.0) g/dL Hct (37.2-46.3) % MCH (27.0-32.0) pg MCHC (32.0-37.0) g/dL RDW (11.5-14.5) % Eosinophils # (0.04-0.35) X 10*3/uL Glucose 54 L (70-110) mg/dL POC Glucose (mg/dL) 56 L (70-110) mg/dL AST 12 L (13-35) U/L Total Protein (6.2-8.2) g/dL Albumin (3.8-4.9) g/dL Lipase (14-63) U/L
--- NOTE | 2023-04-21 14:20 | P.GSCN ---
History of Present Illness Consult date: 04/21/23 History of present illness: CHIEF COMPLAINT: abdominal pain HISTORY OF PRESENT ILLNESS: this is a 72-year-old female with complaint of right groin abdominal pain. She reports that the pain radiates down into the thigh and had also had pain in the lower back. Patient had recent surgery with Dr. Glynn on 04/04/2023 at that time she had lysis of adhesion and reduction of incarcerated umbilical hernia. Initially patient had improvement in this right groin pain and was able to be discharged home during that hospitalization. However pain has reoccurred. She reports having bowel movements. She is tolerating full liquid diet. Denies any nausea or vomiting. Patient had computed tomography scan abdomen and pelvis with no acute intra-abdominal process. last colonoscopy was in April 2022 that had revealed tubular adenomas, diverticulosis and internal hemorrhoids.surgical service has been consulted for second opinion in regards to patient's abdominal pain. 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 Lichen sclerosus of the vulva confirmed with biopsy in 2017. PAST SURGICAL HISTORY: Ablation, Orthopedic Surgery, Uterine Ablation, left breast lumpectomies ,left breast margins revision Apr 2017, right breast lumpectomy 2019, cyst removed from toe lt foot 1997, bilat eye vitrectomy and annette cataract 1991, ganglion cyst lt wrist 1968, endometrial ablation 1993, Left hip replacement 2018. Colonoscopy 2021 MEDICATIONS: See below ALLERGIES: See below SOCIAL HISTORY: No illicit drug use. REVIEW OF SYSTEMS: CONSTITUTIONAL: Denies fever or chills. HEENT: Denies blurred vision, vision changes, or eye pain. Denies hemoptysis CARDIOVASCULAR: Denies chest pain or pressure. RESPIRATORY: No shortness of breath. GASTROINTESTINAL: See HPI for pertinent findings HEMATOLOGIC: Denies bleeding disorders. GENITOURINARY: Denies any blood in urine or increased urinary frequency. SKIN: Denies pruitis. Denies rash. PHYSICAL EXAM: VITAL SIGNS: Reviewed GENERAL: Well-developed in no acute distress. HEENT: No sclera icterus. Extraocular movements grossly intact. Moist buccal mucosa. Head is atraumatic, normocephalic. No nasal drainage. ABDOMEN: Soft. Nondistended. nontender NEUROLOGIC: Alert and oriented. Cranial nerves II through XII grossly intact. LABORATORY DATA: WBC 8.23 HGB 11.4 plt 268 Na 140 K 4.0 cr 1.0 urinalysis negative IMAGING: Computed tomography scan of pelvis no acute intra-abdominal process ASSESSMENT: 1. Right groin abdominal pain radiates into the thigh 2. Recent lysis of adhesions and reduction of incarcerated umbilical hernia on 04/04/2023 PLAN: -Recommend colonoscopy -Patient to be evaluated by a pain service -Advance diet to regular Thank you for this consultation Patient seen and examined by Dr. Crump Physician Optical Effects Line Up Person note has been reviewed by physician. Signing provider agrees with the documented findings, assessment, and plan of care. Past Medical History Past Medical History: Cancer, Diabetes Mellitus, Hypertension, Sleep Apnea/CPAP/BIPAP, Thyroid Disorder Additional Past Medical History / Comment(s): previous polyp hidden near appendix,heart murmur, Intermittent PACs,Left breast cancer 2016, Right breast cancer 2019 (both DCIS), benign thyroid goiter, diabetic retinopathy, chronic myelocytic leukemia (in remission), claustrophobic. 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 Lichen sclerosus of the vulva confirmed with biopsy in 2018. History of Any Multi-Drug Resistant Organisms: None Reported Past Surgical History: Ablation, Orthopedic Surgery, Uterine Ablation Additional Past Surgical History / Comment(s): lt breast lumpectomies ,left breast margins revision Apr 2017, right breast lumpectomy 2019, cyst removed from toe lt foot 1997, bilat eye vitrectomy and annette cataract 1991, ganglion cyst lt wrist 1968, endometrial ablation 1993, Left hip replacement 2018. Colonoscopy 2021(next after 2yr). Exploratory lap with lysis of adhesions and hernia repair 03/2023. Past Anesthesia/Blood Transfusion Reactions: No Reported Reaction Past Psychological History: No Psychological Hx Reported Additional Psychological History / Comment(s): claustrophobic Smoking Status: Former smoker Past Alcohol Use History: None Reported Additional Past Alcohol Use History / Comment(s): quit smoking 1981, smoked in college Past Drug Use History: None Reported - Past Family History Father Family Medical History: Cancer Additional Family Medical History / Comment(s): prostate, pancreatic Mother Family Medical History: CVA/TIA, Diabetes Mellitus, Myocardial Infarction ([place]) Medications and Allergies Home Medications Medication Instructions Recorded Confirmed Type Benazepril HCl 40 mg PO DAILY 04/20/18 04/19/23 History Simvastatin [Zocor] 20 mg PO HS 04/20/18 04/19/23 History Metoprolol Tartrate [Lopressor] 12.5 mg PO BID 06/24/18 04/19/23 History Aspirin [Adult Low Dose Aspirin EC] 81 mg PO HS 02/12/21 04/19/23 History Cholecalciferol [Vitamin D3 (25 25 mcg PO DAILY 02/17/21 04/19/23 History Mcg = 1000 Iu)] Triamterene/Hydrochlorothiazid 1 tab PO DAILY 11/26/21 04/19/23 History [Triamterene-Hctz 37.5-25 mg Tb] Nilotinib HCl [Tasigna] 300 mg PO BID 04/16/22 04/19/23 History ALPRAZolam [Xanax] 0.25 mg PO DAILY PRN 03/27/23 04/19/23 History Nystatin 100,000 Unit/gm Oint 1 applic TOPICAL AC-BID each 04/05/23 04/19/23 Rx [Mycostatin Oint] hydrALAZINE HCL [Apresoline] 50 mg PO TID 30 Days #90 tab 04/05/23 04/19/23 Rx Insulin Aspart (For Pump) [NovoLOG 0.01 unit SQ-PUMP CONTINUOUS 04/19/23 04/19/23 History (For Pump)] Allergies Allergy/AdvReac Type Severity Reaction Status Date / Time hydrocodone [From [facility]] AdvReac irreg and Verified 04/19/23 11:04 difficult breathing Surgical - Exam Vital Signs Temp Pulse Resp BP Pulse Ox 98.2 F 76 20 199/97 98 04/19/23 06:10 04/19/23 06:10 04/19/23 06:10 04/19/23 06:10 04/19/23 06:10 Results - Labs 04/21/23 06:12 04/21/23 06:12 Abnormal Lab Results - Last 24 Hours (Table) 04/20/23 04/21/23 04/21/23 Range/Units 20:33 01:53 06:12 Hgb 11.4 L (12.0-15.0) g/dL Hct 36.0 L (37.2-46.3) % MCHC 31.7 L (32.0-37.0) g/dL RDW 15.4 H (11.5-14.5) % Eosinophils # 0.48 H (0.04-0.35) X 10*3/uL Glucose (70-110) mg/dL POC Glucose (mg/dL) 137 H 53 L (70-110) mg/dL AST (13-35) U/L 04/21/23 04/21/23 04/21/23 Range/Units 06:12 06:12 11:59 Hgb (12.0-15.0) g/dL Hct (37.2-46.3) % MCHC (32.0-37.0) g/dL RDW (11.5-14.5) % Eosinophils # (0.04-0.35) X 10*3/uL Glucose 54 L (70-110) mg/dL POC Glucose (mg/dL) 56 L 163 H (70-110) mg/dL AST 12 L (13-35) U/L Diabetes panel 04/21/23 Range/Units 06:12 Sodium 140 (135-145) mmol/L Potassium 4.0 (3.5-5.5) mmol/L Chloride 104 (96-109) mmol/L Carbon Dioxide 25.1 (21.6-31.8) mmol/L BUN 12.4 (9.0-27.0) mg/dL Creatinine 1.0 (0.6-1.5) mg/dL Glucose 54 L (70-110) mg/dL Calcium 10.2 (8.7-10.3) mg/dL AST 12 L (13-35) U/L ALT 16 (8-44) U/L Alkaline Phosphatase 100 (41-126) U/L Total Protein 6.2 (6.2-8.2) g/dL Albumin 3.9 (3.8-4.9) g/dL Calcium panel 04/21/23 Range/Units 06:12 Calcium 10.2 (8.7-10.3) mg/dL Albumin 3.9 (3.8-4.9) g/dL Pituitary panel 04/21/23 Range/Units 06:12 Sodium 140 (135-145) mmol/L Potassium 4.0 (3.5-5.5) mmol/L Chloride 104 (96-109) mmol/L Carbon Dioxide 25.1 (21.6-31.8) mmol/L BUN 12.4 (9.0-27.0) mg/dL Creatinine 1.0 (0.6-1.5) mg/dL Glucose 54 L (70-110) mg/dL Calcium 10.2 (8.7-10.3) mg/dL Adrenal panel 04/21/23 Range/Units 06:12 Sodium 140 (135-145) mmol/L Potassium 4.0 (3.5-5.5) mmol/L Chloride 104 (96-109) mmol/L Carbon Dioxide 25.1 (21.6-31.8) mmol/L BUN 12.4 (9.0-27.0) mg/dL Creatinine 1.0 (0.6-1.5) mg/dL Glucose 54 L (70-110) mg/dL Calcium 10.2 (8.7-10.3) mg/dL Total Bilirubin 0.4 (0.3-1.2) mg/dL AST 12 L (13-35) U/L ALT 16 (8-44) U/L Alkaline Phosphatase 100 (41-126) U/L Total Protein 6.2 (6.2-8.2) g/dL Albumin 3.9 (3.8-4.9) g/dL
--- NOTE | 2023-04-21 15:31 | P.PAINPG ---
Objective - Vital Signs Vital signs: Vital Signs Temp 97.9 F 04/21/23 07:10 Pulse 63 04/21/23 07:10 Resp 16 04/21/23 07:10 BP 180/72 04/21/23 07:10 Pulse Ox 97 04/21/23 07:10 FiO2 Intake & Output 04/20/23 04/21/23 04/21/23 18:59 06:59 18:59 Intake Total 436 486 100 Balance 436 486 100 Intake: Oral 436 486 100 Other: Voiding Method Toilet Toilet # Voids 1 1 - Labs CBC & Chem 7: 04/21/23 06:12 04/21/23 06:12 Labs: Abnormal Lab Results - Last 24 Hours (Table) 04/20/23 04/20/23 04/20/23 Range/Units 04:12 04:12 12:13 WBC 10.18 H (4.50-10.00) X 10*3/uL Hgb 11.2 L (12.0-15.0) g/dL Hct 35.8 L (37.2-46.3) % MCH 26.9 L (27.0-32.0) pg MCHC 31.3 L (32.0-37.0) g/dL RDW 15.5 H (11.5-14.5) % Eosinophils # 0.62 H (0.04-0.35) X 10*3/uL Glucose (70-110) mg/dL POC Glucose (mg/dL) 177 H (70-110) mg/dL AST 11 L (13-35) U/L Total Protein 5.8 L (6.2-8.2) g/dL Albumin 3.6 L (3.8-4.9) g/dL Lipase 7 L (14-63) U/L 04/20/23 04/21/23 04/21/23 Range/Units 20:33 01:53 06:12 WBC (4.50-10.00) X 10*3/uL Hgb 11.4 L (12.0-15.0) g/dL Hct 36.0 L (37.2-46.3) % MCH (27.0-32.0) pg MCHC 31.7 L (32.0-37.0) g/dL RDW 15.4 H (11.5-14.5) % Eosinophils # 0.48 H (0.04-0.35) X 10*3/uL Glucose (70-110) mg/dL POC Glucose (mg/dL) 137 H 53 L (70-110) mg/dL AST (13-35) U/L Total Protein (6.2-8.2) g/dL Albumin (3.8-4.9) g/dL Lipase (14-63) U/L 04/21/23 04/21/23 Range/Units 06:12 06:12 WBC (4.50-10.00) X 10*3/uL Hgb (12.0-15.0) g/dL Hct (37.2-46.3) % MCH (27.0-32.0) pg MCHC (32.0-37.0) g/dL RDW (11.5-14.5) % Eosinophils # (0.04-0.35) X 10*3/uL Glucose 54 L (70-110) mg/dL POC Glucose (mg/dL) 56 L (70-110) mg/dL AST 12 L (13-35) U/L Total Protein (6.2-8.2) g/dL Albumin (3.8-4.9) g/dL Lipase (14-63) U/L PQRS Measure Charge Sheet Comment: HISTORY OF PRESENT ILLNESS: A 72 yr old inpatient female as a referral from Dr Richey presents today w severe and chronic R groin pain secondary to lysis of abdominal adhesions and umbilical hernia reduction x 1 wk ago for evaluation. Pt states pain level is provoked at 8/10 in intensity, constant, localized in the R lower abdominal quadrant/ groin, wax & wanes in intensity based on movement, stabbing in character without shooting pain. Pain is provoked by movements. Pt feels like applying pressure over the area when the pain is severe, but it doesn't seem to help. Pain is alleviated by medications (Dilaudid 0.5mg IVP q3h prn, Tyl 650mg PO q6h prn, ASA 81mg QD, Narcan prn), reclining and rest. PMH: OA, R Breast CA, L Breast CA (2017), IDDM II, HTN, RAINE, Hypothyroid Disorder, Thyroid Goiter, CML Remission, Claustrophobia PSH: BL Breast CA Lumpectomies (2016, 2019), Ablation, L Hip Replacement Surgery (2018), Uterine Ablation, Exp Lap w Lysis of Adhesions & Hernia Repair (2022), BL Eye Vitrectomies, BL Cataract Extraction (1991), L Wrist Ganglion cyst (1968), Endometrial Ablation (1993), Colonoscopy (2021) SH: Former tobacco user, No ETOH use, No illicit drug use FH: Fa- Prostate CA/ Pancreatic CA. Mo- CVA/ DM/ [place]. All: See list Meds: See list REVIEW OF ORGAN SYSTEMS: CONSTITUTIONAL: No fevers or chills. No recent weight loss. NEUROLOGICAL: + numbness and tingling along the distal extremities. No seizure disorders or headaches. MUSCULOSKELETAL: + pain PSYCHIATRIC: Denies current depression or suicidal thoughts. Physical Examinations : Constitutional : Cooperative , not in acute distress . Neurologic : Cranial nerve II to XII intact. No focal neurological deficits. Psychiatric : alert & oriented x 3. Matching mood & appropriate affect. Judgment & insight intact. Musculoskeletal : Cervical Spine Motor strength in the deltoid and biceps: Normal right side. Normal Left side Motor strength biceps and the wrist extensors: Normal right side . Normal left side Motor strength in the triceps muscle: Normal right side. Normal left side Deep tendon reflexes: Normal at the biceps. Normal at Brachioradialis. Normal at triceps Vertebral body tenderness to deep palpation over Cervical facet loading test: positive bilaterally Spurling test: positive bilaterally Neck distraction test: positive bilaterally Donita sign: positive bilaterally Lumbar spine +R groin TTP Motor strength lower extremities ,thigh and legs 5/5 Right side , 5/5 Left side Deep tendon reflexes : Normal Knee Jerk. Normal Ankle Jerk Vertebral body tenderness over Monteiro Test positive Lumbar facet Loading Test: positive Right / positive Left Range of motion of the lumbar spine Flexion 30 degrees, extension 10 degrees Straight Leg Raise test: Left/ Right positive at degree No test: positive right / positive left. Severe tenderness over the Sacroiliac joint on the Right / Left sides Gaenslen test: positive bilaterally Seated flexion test: positive bilatera lly. Sacral spine : Severe tenderness over the Sacroiliac joint: right side / left side Range of motion: Flexion of the lumbar spine <60 degrees Range of motion: Extension of the lumbar spine <20 degrees Gaenslen's Test positive No test: positive right side / left side Thigh Thrust Test Sacral Thrust Test Imaging: CT noncontrast of the abdomen from 04/19/23 reviewed Assessment/ Plan : R Anterior Femoral Cutaneous Neuralgia, R Genitofemoral Neuralgia Would benefit from a R AFCN/ R Genitofemoral nerve block, but pt needs to stop ASA for 5 days. We may likely do this on an outpatient basis. Nurse notified. All questions answered. I have spent greater than 30 minutes on patient care today. Dr Graff was available by phone for the evaluation of this patient. The time was used to review the medical records including relevant urine studies and Prescription history (MAPs), review of the available imaging, evaluation and examination of the patient, coordination of care with the medical staff and if applicable referring physicians, as well as creation of the medical record - Pain Location Right Lower Abdomen Non-Pharmacological Interventions: Distraction, Emotional/Spiritual Support, Heat, Sitting Pharmacological Interventions: Discuss Pain Med Options Pain Comment: see mAR PQRS Narrative: Smoking Status Former smoker Blood Pressure [Right Arm] 172/70 Blood Pressure [Left Arm] 180/72 Blood Pressure 172/64 Pain Intensity [Right Lower 5 Abdomen] Pain Intensity 10 Pain Scale Used Numeric (1 - 10) Scale Used JohnsonDeshawn (Faces) Home Medications: Ambulatory Orders Benazepril HCl 40 mg PO DAILY 04/20/18 Simvastatin [Zocor] 20 mg PO HS 04/20/18 Metoprolol Tartrate [Lopressor] 12.5 mg PO BID 06/24/18 Aspirin [Adult Low Dose Aspirin EC] 81 mg PO HS 02/12/21 Cholecalciferol [Vitamin D3 (25 Mcg = 1000 Iu)] 25 mcg PO DAILY 02/17/21 Triamterene/Hydrochlorothiazid [Triamterene-Hctz 37.5-25 mg Tb] 1 tab PO DAILY 11/26/21 Nilotinib HCl [Tasigna] 300 mg PO BID 04/16/22 ALPRAZolam [Xanax] 0.25 mg PO DAILY PRN 03/27/23 Nystatin 100,000 Unit/gm Oint [Mycostatin Oint] 1 applic TOPICAL AC-BID each 04/05/23 hydrALAZINE HCL [Apresoline] 50 mg PO TID 30 Days #90 tab 04/05/23 Insulin Aspart (For Pump) [NovoLOG (For Pump)] 0.01 unit SQ-PUMP CONTINUOUS 04/19/23 Controlled Substance Measures - Controlled Substance Measures Is patient prescribed a controlled substance at discharge?: No
[2023-04-21 17:53] LABS: Glucose,Whole Blood 88 mg/dL (70-110)
[2023-04-21 20:12] LABS: Glucose,Whole Blood 73 mg/dL (70-110)
[2023-04-21] MEDS: ASPIRIN 81 MG PO SCH (20:24)
[2023-04-21 20:31] LABS: Glucose,Whole Blood 79 mg/dL (70-110)
[2023-04-21 21:15] LABS: Glucose,Whole Blood 89 mg/dL (70-110)
[2023-04-21 23:06] LABS: Glucose,Whole Blood 86 mg/dL (70-110)
[2023-04-22] MEDS: HYDROmorphone 0.5 MG/0.5 ML SYRINGE IVP PRN ×7 (02:20→23:28)
[2023-04-22 02:23] LABS: Glucose,Whole Blood 122 mg/dL (70-110)
[2023-04-22] MEDS: hydrALAZINE HCL 20 MG/ML 1 ML VIAL IVP PRN ×2 (05:49→14:00)
[2023-04-22 06:10] LABS: Glucose,Whole Blood 85 mg/dL (70-110)
[2023-04-22] MEDS: INSULIN PUMP MEAL BOLUS 1 UNIT MISC MISCELLANE SCH ×4 (06:34→19:45)
[2023-04-22] MEDS: ALPRAZolam 0.25 MG TAB PO PRN (07:50)
--- NOTE | 2023-04-22 09:23 | P.PN ---
Subjective Progress Note Date: 04/22/23 Roxanna Ortiz, is a 72-year-old female who presented to [facility] emergency room with a chief complaint of abdominal pain, patient was recently admitted to [facility] with similar symptoms, she was discharged on 04/05 2023, during that admission patient underwent laparoscopic laparotomy with lysis of adhesions and reduction of incarcerated umbilical hernia, and her pain resolved after the procedure. She stated that her pain recurred last night, she denies any nausea or vomiting diarrhea or constipation. She was evaluated in the emergency room vital examination on presentation revealed a temperature of 98.2 pulse 76 respiration 20 blood pressure 199/97 pulse ox 98% on room air Laboratory data reveals a white blood count of 12.9 hemoglobin 12.7 platelet co unt 254 sodium 134 potassium 4.7 chloride 102 CO2 18 BUN 25 creatinine 1.01 lactic acid 2.5 Testing in the emergency room revealed, computed tomography scan of the abdomen and pelvis revealed no acute intra-abdominal or pelvic process and trace left pleural effusion. Patient was admitted to medical floor for further evaluation and treatment On 04/20/2023 patient is alert and oriented 3. Patient reports improvement with abdominal pain but still requiring IV pain medication. Patient has been tolerating diet. Patient denies nausea vomiting or diarrhea. Patient denies any urinary burning or frequency. Current vital signs temp 97.7, heart rate 64, respiratory rate 16, blood pressure 147/57 with a pulse ox of 96% on room air. Surgical services are following On 04/21/2023 patient was seen and examined on the medical she is alert and oriented times distress, she stated that she is still having severe pain 10 out of 10 in the right lower quadrant, otherwise there is no complaints there is no fever or chills no headache or dizziness no chest pain no shortness of breath no cough no nausea or vomiting no abdominal pain no diarrhea and no urinary symptoms. At this time we are awaiting further recommendation from general surgery, consultation was placed for anesthesia for pain management. On 04/22/2023 patient is alert and oriented 3. This time patient is tearful stating she is having continued right lower abdomen pain. Patient was evaluated by multiple surgical consults and pain services. Discussed case with surgical team Dr. Crump we'll continue to follow case Dr. Styles will sign off. Patient reports she has been tolerating her diet. Patient denies chest pain or shortness of breath. Patient denies nausea vomiting or diarrhea. Patient denies any urinary burning or frequency Objective - Vital Signs Vital signs: Vital Signs Temp 97.4 F L 04/22/23 07:30 Pulse 79 04/22/23 07:30 Resp 22 04/22/23 07:30 BP 208/99 04/22/23 07:30 Pulse Ox 95 04/22/23 07:30 FiO2 Intake & Output 04/21/23 04/22/23 04/22/23 18:59 06:59 18:59 Intake Total 454 500 Balance 454 500 Intake: Oral 454 500 Other: Voiding Method Toilet # Voids 2 2 - Exam In general patient is alert and oriented x 3 in no distress HEENT head normocephalic and atraumatic Neck is supple no JVD no goiter no lymphadenopathy no carotid bruit Chest examination is clear to auscultation no crackles no wheezing Cardiac exam reveals regular heart sounds S1 and S2 no gallops no murmurs Abdomen is soft with mild diffuse tenderness no organomegaly with normal bowel sounds Extremity exam reveals no edema no cyanosis or clubbing Neurological examination reveals no gross focal deficits - Labs CBC & Chem 7: 04/21/23 06:12 04/21/23 06:12 Labs: Abnormal Lab Results - Last 24 Hours (Table) 04/21/23 04/21/23 04/22/23 Range/Units 06:12 11:59 02:22 Hgb 11.4 L (12.0-15.0) g/dL Hct 36.0 L (37.2-46.3) % MCHC 31.7 L (32.0-37.0) g/dL RDW 15.4 H (11.5-14.5) % Eosinophils # 0.48 H (0.04-0.35) X 10*3/uL POC Glucose (mg/dL) 163 H 122 H (70-110) mg/dL Assessment and Plan Assessment: Abdominal pain Recent admission with abdominal pain, resolved after laparoscopic laparotomy wit h lysis of adhesions and reduction of umbilical hernia Underlying history of CML in remission Mild leukocytosis with elevated lactic acid on presentation Previous history of bilateral breast cancer Underlying history of hypertension Underlying history of hyperlipidemia Underlying history of obstructive sleep apnea At this time patient was seen and examined on the medical floor Home medications reviewed and reordered She was started on IV fluid Surgical consultation requested Pain management For DVT prophylaxis SCD stockings Will follow closely
[2023-04-22] MEDS: CHOLECALCIFEROL 25 MCG (1000 IU) TABLET PO SCH (09:28)
[2023-04-22] MEDS: TRIAMTERENE-HCTZ 37.5-25MG 1 EACH TAB PO SCH (09:28)
[2023-04-22] MEDS: METOPROLOL TARTRATE 12.5 MG TAB PO SCH ×2 (09:28→19:44)
[2023-04-22] MEDS: lisinopriL 20 MG TAB PO SCH (09:28)
[2023-04-22] MEDS: PANTOPRAZOLE 40 MG/10 ML VIAL IV SCH (09:28)
[2023-04-22] MEDS: hydrALAZINE HCL 50 MG TAB PO SCH ×3 (09:28→19:44)
[2023-04-22 12:16] LABS: Glucose,Whole Blood 130 mg/dL (70-110)
--- NOTE | 2023-04-22 14:25 | P.PN ---
Subjective Progress Note Date: 04/22/23 CHIEF COMPLAINT: Abdominal pain HISTORY OF PRESENT ILLNESS: Patient continues to complain of right groin pain that radiates into the thigh. She is tolerating diet. She complains that nothing is being done for her. She was seen by pain service the recommending nerve block outpatient. Patient is to be off aspirin for 5 days. Afebrile. Hypertension. PHYSICAL EXAM: VITAL SIGNS: Reviewed GENERAL: Well-developed in no acute distress. ABDOMEN: Soft. Nondistended. ASSESSMENT: 1. Right groin abdominal pain that radiates down into the thigh PLAN: -Patient scheduled for colonoscopy on , 04/24/[address] scherer -Start full liquid diet at dinner -Start clear liquid diet in a.m. -Start GoLYTELY bowel prep in a.m. Physician Imcu Specialist note has been reviewed by physician. Signing provider agrees with the documented findings, assessment, and plan of care. Objective - Vital Signs Vital signs: Vital Signs Temp 97.4 F L 04/22/23 07:30 Pulse 79 04/22/23 07:30 Resp 22 04/22/23 07:30 BP 208/99 04/22/23 07:30 Pulse Ox 95 04/22/23 07:30 FiO2 Intake & Output 04/21/23 04/22/23 04/22/23 18:59 06:59 18:59 Intake Total 454 500 180 Balance 454 500 180 Intake: Oral 454 500 180 Other: Voiding Method Toilet # Voids 2 2 - Labs CBC & Chem 7: 04/21/23 06:12 04/21/23 06:12 Labs: Abnormal Lab Results - Last 24 Hours (Table) 04/21/23 04/22/23 Range/Units 11:59 02:22 POC Glucose (mg/dL) 163 H 122 H (70-110) mg/dL
[2023-04-22] MEDS: DICYCLOMINE 10 MG CAP PO SCH ×2 (17:29→19:45)
[2023-04-22 17:49] LABS: Glucose,Whole Blood 166 mg/dL (70-110)
[2023-04-22 19:44] LABS: Glucose,Whole Blood 201 mg/dL (70-110)
[2023-04-22] MEDS: ASPIRIN 81 MG PO SCH (19:44)
[2023-04-23] MEDS: hydrALAZINE HCL 20 MG/ML 1 ML VIAL IVP PRN ×4 (01:39→14:59)
[2023-04-23 01:43] LABS: Glucose,Whole Blood 148 mg/dL (70-110)
[2023-04-23] MEDS: HYDROmorphone 0.5 MG/0.5 ML SYRINGE IVP PRN ×6 (04:24→20:58)
[2023-04-23 06:21] LABS: Glucose,Whole Blood 175 mg/dL (70-110)
[2023-04-23] MEDS: PANTOPRAZOLE 40 MG/10 ML VIAL IV SCH (07:47)
[2023-04-23] MEDS: CHOLECALCIFEROL 25 MCG (1000 IU) TABLET PO SCH (07:48)
[2023-04-23] MEDS: lisinopriL 20 MG TAB PO SCH (07:48)
[2023-04-23] MEDS: METOPROLOL TARTRATE 12.5 MG TAB PO SCH (07:48)
[2023-04-23] MEDS: DICYCLOMINE 10 MG CAP PO SCH ×3 (07:48→20:57)
[2023-04-23] MEDS: hydrALAZINE HCL 50 MG TAB PO SCH ×3 (07:48→20:58)
[2023-04-23] MEDS: TRIAMTERENE-HCTZ 37.5-25MG 1 EACH TAB PO SCH (07:49)
[2023-04-23 08:40] LABS: Basophils # (A) 0.06 X 10*3/uL (0.00-0.10); Basophils % (A) 0.7 %; Eosinophils # (A) 0.34 X 10*3/uL (0.04-0.35); Eosinophils % (A) 4.2 %; HCT 39.8 % (37.2-46.3); Lymphocytes # (A) 0.79 X 10*3/uL (0.90-5.00); Lymphocytes % (A) 9.8 %; MCH 26.8 pg (27.0-32.0); MCHC 30.2 g/dL (32.0-37.0); Mean Platelet Volume 11.9 FL (9.5-12.2); Monocytes # (A) 0.63 X 10*3/uL (0.20-1.00); Monocytes % (A) 7.8 %; NRBC Per 100 WBC 0 X 10*3/uL (0.00-0.01); Neutrophils # (A) 6.21 X 10*3/uL (1.80-7.70); Neutrophils % (A) 76.8 %; Platelet Count 232 X 10*3/uL (140-440); RBC 4.47 X 10*6/uL (4.10-5.20); RDW 15.4 % (11.5-14.5); WBC 8.09 X 10*3/uL (4.50-10.00)
[2023-04-23] MEDS ORDERED: PEG 3350 (236 GM/BTL) + LYTES 4,000 ML BOTTLE PO ONE (09:00)
[2023-04-23] MEDS ORDERED: LACTULOSE 20 GM/30 ML CUP PO ONE (09:00)
[2023-04-23 09:07] LABS: ALT 16 U/L (8-44); AST 13 U/L (13-35); Albumin/Globulin Ratio 1.74 Ratio (1.60-3.17); Alkaline Phosphatase 104 U/L (41-126); BUN/Creat Ratio 14.22 Ratio (12.00-20.00); Blood Urea Nitrogen 12.8 mg/dL (9.0-27.0); Calcium 10.5 mg/dL (8.7-10.3); Carbon Dioxide 24.9 mmol/L (21.6-31.8); Chloride 101 mmol/L (96-109); Globulin 2.3 g/dL (1.6-3.3); Glucose 178 mg/dL (70-110); Potassium 4.3 mmol/L (3.5-5.5); Sodium 138 mmol/L (135-145); Total Bilirubin 0.5 mg/dL (0.3-1.2); Total Protein 6.3 g/dL (6.2-8.2)
[2023-04-23] MEDS: INSULIN PUMP MEAL BOLUS 1 UNIT MISC MISCELLANE SCH ×4 (09:47→20:58)
--- NOTE | 2023-04-23 10:13 | P.PN ---
Subjective Progress Note Date: 04/23/23 Roxanna Ortiz, is a 72-year-old female who presented to [facility] emergency room with a chief complaint of abdominal pain, patient was recently admitted to [facility] with similar symptoms, she was discharged on 04/05 2023, during that admission patient underwent laparoscopic laparotomy with lysis of adhesions and reduction of incarcerated umbilical hernia, and her pain resolved after the procedure. She stated that her pain recurred last night, she denies any nausea or vomiting diarrhea or constipation. She was evaluated in the emergency room vital examination on presentation revealed a temperature of 98.2 pulse 76 respiration 20 blood pressure 199/97 pulse ox 98% on room air Laboratory data reveals a white blood count of 12.9 hemoglobin 12.7 platelet cou nt 254 sodium 134 potassium 4.7 chloride 102 CO2 18 BUN 25 creatinine 1.01 lactic acid 2.5 Testing in the emergency room revealed, computed tomography scan of the abdomen and pelvis revealed no acute intra-abdominal or pelvic process and trace left pleural effusion. Patient was admitted to medical floor for further evaluation and treatment On 04/20/2023 patient is alert and oriented 3. Patient reports improvement with abdominal pain but still requiring IV pain medication. Patient has been t olerating diet. Patient denies nausea vomiting or diarrhea. Patient denies any urinary burning or frequency. Current vital signs temp 97.7, heart rate 64, respiratory rate 16, blood pressure 147/57 with a pulse ox of 96% on room air. Surgical services are following On 04/21/2023 patient was seen and examined on the medical she is alert and oriented times distress, she stated that she is still having severe pain 10 out of 10 in the right lower quadrant, otherwise there is no complaints there is no fever or chills no headache or dizziness no chest pain no shortness of breath no cough no nausea or vomiting no abdominal pain no diarrhea and no urinary symptoms. At this time we are awaiting further recommendation from general surgery, consultation was placed for anesthesia for pain management. On 04/22/2023 patient is alert and oriented 3. This time patient is tearful stating she is having continued right lower abdomen pain. Patient was evaluated by multiple surgical consults and pain services. Discussed case with surgical team Dr. Crump we'll continue to follow case Dr. Styles will sign off. Patient reports she has been tolerating her diet. Patient denies chest pain or shortness of breath. Patient denies nausea vomiting or diarrhea. Patient denies any urinary burning or frequency On 04/23/2023 patient is alert and oriented 3. Per surgical services plans for colonoscopy tomorrow 04/24/2023. Patient is currently sitting on side of bed still complaining of right lower quadrant pain. Blood pressure significantly elevated Lopressor and hydralazine increased. Patient has hydralazine when necessary. At this time patient denies chest pain or shortness breath. Patient denies nausea vomiting or diarrhea. Patient denies any urinary burning or frequency Objective - Vital Signs Vital signs: Vital Signs Temp 98.4 F 04/23/23 07:00 Pulse 74 04/23/23 07:00 Resp 16 04/23/23 07:00 BP 223/73 04/23/23 07:00 Pulse Ox 96 04/23/23 07:00 FiO2 Intake & Output 04/22/23 04/23/23 04/23/23 18:59 06:59 18:59 Intake Total 416 360 Balance 416 360 Intake: Oral 416 360 Other: Voiding Method Toilet # Voids 2 3 1 - Exam In general patient is alert and oriented x 3 in no distress HEENT head normocephalic and atraumatic Neck is supple no JVD no goiter no lymphadenopathy no carotid bruit Chest examination is clear to auscultation no crackles no wheezing Cardiac exam reveals regular heart sounds S1 and S2 no gallops no murmurs Abdomen is soft with mild diffuse tenderness no organomegaly with normal bowel sounds Extremity exam reveals no edema no cyanosis or clubbing Neurological examination reveals no gross focal deficits - Labs CBC & Chem 7: 04/23/23 05:41 04/23/23 05:41 Labs: Abnormal Lab Results - Last 24 Hours (Table) 04/22/23 04/22/23 04/22/23 Range/Units 12:14 17:47 19:42 MCH (27.0-32.0) pg MCHC (32.0-37.0) g/dL RDW (11.5-14.5) % Lymphocytes # (0.90-5.00) X 10*3/uL Anion Gap (4.00-12.00) mmol/L Glucose (70-110) mg/dL POC Glucose (mg/dL) 130 H 166 H 201 H (70-110) mg/dL Calcium (8.7-10.3) mg/dL 04/23/23 04/23/23 04/23/23 Range/Units 01:42 05:41 05:41 MCH 26.8 L (27.0-32.0) pg MCHC 30.2 L (32.0-37.0) g/dL RDW 15.4 H (11.5-14.5) % Lymphocytes # 0.79 L (0.90-5.00) X 10*3/uL Anion Gap 12.10 H (4.00-12.00) mmol/L Glucose 178 H (70-110) mg/dL POC Glucose (mg/dL) 148 H (70-110) mg/dL Calcium 10.5 H (8.7-10.3) mg/dL 04/23/23 Range/Units 06:20 MCH (27.0-32.0) pg MCHC (32.0-37.0) g/dL RDW (11.5-14.5) % Lymphocytes # (0.90-5.00) X 10*3/uL Anion Gap (4.00-12.00) mmol/L Glucose (70-110) mg/dL POC Glucose (mg/dL) 175 H (70-110) mg/dL Calcium (8.7-10.3) mg/dL Assessment and Plan Plan: Abdominal pain Recent admission with abdominal pain, resolved after laparoscopic laparotomy with lysis of adhesions and reduction of umbilical hernia Underlying history of CML in remission Mild leukocytosis with elevated lactic acid on presentation Previous history of bilateral breast cancer Underlying history of hypertension Underlying history of hyperlipidemia Underlying history of obstructive sleep apnea At this time patient was seen and examined on the medical floor Home medications reviewed and reordered She was started on IV fluid Surgical consultation requested Colonoscopy planned for 04/24/2023 Pain management For DVT prophylaxis SCD stockings Will follow closely
[2023-04-23 12:25] LABS: Glucose,Whole Blood 297 mg/dL (70-110)
--- NOTE | 2023-04-23 13:04 | P.PN ---
Subjective Progress Note Date: 04/23/23 CHIEF COMPLAINT: Abdominal pain HISTORY OF PRESENT ILLNESS: Patient continues to complain of right groin pain that radiates into the thigh. She is sitting up at bedside chair. She does appear comfortable. She is to start GoLYTELY bowel prep this morning. Afebrile. Elevated blood pressure. Medicine service has adjusted BP meds. Medicine service has change patient to inpatient admission. PHYSICAL EXAM: VITAL SIGNS: Reviewed GENERAL: Well-developed in no acute distress. ABDOMEN: Soft. Nondistended. ASSESSMENT: 1. Right groin abdominal pain that radiates down into the thigh PLAN: -Patient scheduled for colonoscopy on , 04/24/[address] scherer -Start GoLYTELY bowel prep -Continue clear liquid diet -Nothing by mouth after midnight Physician Purchasing Agent note has been reviewed by physician. Signing provider agrees with the documented findings, assessment, and plan of care. Objective - Vital Signs Vital signs: Vital Signs Temp 98.4 F 04/23/23 07:00 Pulse 72 04/23/23 11:07 Resp 16 04/23/23 07:00 BP 208/79 04/23/23 11:07 Pulse Ox 97 04/23/23 11:07 FiO2 Intake & Output 04/22/23 04/23/23 04/23/23 18:59 06:59 18:59 Intake Total 416 951 Balance 416 951 Intake: Oral 416 951 Other: Voiding Method Toilet Toilet # Voids 2 3 1 # Bowel Movements 1 - Labs CBC & Chem 7: 04/23/23 05:41 04/23/23 05:41 Labs: Abnormal Lab Results - Last 24 Hours (Table) 04/22/23 04/22/23 04/23/23 Range/Units 17:47 19:42 01:42 MCH (27.0-32.0) pg MCHC (32.0-37.0) g/dL RDW (11.5-14.5) % Lymphocytes # (0.90-5.00) X 10*3/uL Anion Gap (4.00-12.00) mmol/L Glucose (70-110) mg/dL POC Glucose (mg/dL) 166 H 201 H 148 H (70-110) mg/dL Calcium (8.7-10.3) mg/dL 1104/23/23 04/23/23 Range/Units 05:41 05:41 06:20 MCH 26.8 L (27.0-32.0) pg MCHC 30.2 L (32.0-37.0) g/dL RDW 15.4 H (11.5-14.5) % Lymphocytes # 0.79 L (0.90-5.00) X 10*3/uL Anion Gap 12.10 H (4.00-12.00) mmol/L Glucose 178 H (70-110) mg/dL POC Glucose (mg/dL) 175 H (70-110) mg/dL Calcium 10.5 H (8.7-10.3) mg/dL 04/23/23 Range/Units 12:23 MCH (27.0-32.0) pg MCHC (32.0-37.0) g/dL RDW (11.5-14.5) % Lymphocytes # (0.90-5.00) X 10*3/uL Anion Gap (4.00-12.00) mmol/L Glucose (70-110) mg/dL POC Glucose (mg/dL) 297 H (70-110) mg/dL Calcium (8.7-10.3) mg/dL
[2023-04-23 14:04] LABS: Glucose,Whole Blood 236 mg/dL (70-110)
[2023-04-23 17:17] LABS: Glucose,Whole Blood 56 mg/dL (70-110)
[2023-04-23 17:38] LABS: Glucose,Whole Blood 56 mg/dL (70-110)
[2023-04-23 17:57] LABS: Glucose,Whole Blood 94 mg/dL (70-110)
[2023-04-23] MEDS: ASPIRIN 81 MG PO SCH (20:57)
[2023-04-23] MEDS: METOPROLOL TARTRATE 25 MG TAB PO SCH (20:57)
[2023-04-23 21:07] LABS: Glucose,Whole Blood 88 mg/dL (70-110)
[2023-04-24] MEDS: HYDROmorphone 0.5 MG/0.5 ML SYRINGE IVP PRN (00:01)
[2023-04-24] MEDS: ALPRAZolam 0.25 MG TAB PO PRN (00:01)
[2023-04-24 00:13] LABS: Glucose,Whole Blood 136 mg/dL (70-110)
[2023-04-24] MEDS: INSULIN PUMP MEAL BOLUS 1 UNIT MISC MISCELLANE SCH ×4 (04:52→21:28)
[2023-04-24 06:11] LABS: Glucose,Whole Blood 359 mg/dL (70-110)
[2023-04-24 06:22] LABS: HCT 42.7 % (34.0-46.0); HGB 13.8 gm/dL (11.4-16.0); MCH 27.7 pg (25.0-35.0); MCHC 32.3 g/dL (31.0-37.0); MCV 85.6 fL (80.0-100.0); Mean Platelet Volume 9.1; Platelet Count 271 k/uL (150-450); RBC 4.99 m/uL (3.80-5.40); RDW 15.1 % (11.5-15.5); WBC 14.9 k/uL (3.8-10.6)
[2023-04-24 06:32] LABS: African American GFR (CKD) 77 (>60 ml/min/1.73 sqM); Anion Gap 16 mmol/L; Blood Urea Nitrogen 15 mg/dL (7-17); Calcium 9.8 mg/dL (8.4-10.2); Carbon Dioxide 23 mmol/L (22-30); Chloride 92 mmol/L (98-107); Glucose 378 mg/dL (74-99); Non-African American GFR(CKD) 67 (>60 ml/min/1.73 sqM); Potassium 4.2 mmol/L (3.5-5.1); Sodium 131 mmol/L (137-145)
[2023-04-24] MEDS ORDERED: DEXTROSE 50% SYRINGE 50 ML IVP PRN ×2 (07:19)
[2023-04-24] MEDS: hydrALAZINE HCL 50 MG TAB PO SCH ×3 (08:31→21:49)
[2023-04-24] MEDS: DICYCLOMINE 10 MG CAP PO SCH ×3 (08:31→21:48)
[2023-04-24] MEDS: METOPROLOL TARTRATE 25 MG TAB PO SCH ×2 (08:31→21:48)
[2023-04-24] MEDS: PANTOPRAZOLE 40 MG/10 ML VIAL IV SCH (08:31)
[2023-04-24] MEDS: CHOLECALCIFEROL 25 MCG (1000 IU) TABLET PO SCH (08:31)
[2023-04-24] MEDS: lisinopriL 20 MG TAB PO SCH (08:31)
[2023-04-24 08:54] LABS: Glucose,Whole Blood 440 mg/dL (70-110)
[2023-04-24] MEDS: INSULIN ASPART (NovoLOG) 100 UNIT/ML VIAL SQ SCH ×4 (09:02→21:49)
[2023-04-24] MEDS: TRIAMTERENE-HCTZ 37.5-25MG 1 EACH CAP PO SCH (09:03)
[2023-04-24] MEDS ORDERED: LACTATED RINGERS 1,000 ML IV ONE (10:36)
[2023-04-24] MEDS ORDERED: PROPOFOL 10 MG/ML 20 ML VIAL IV ONE (10:41)
--- NOTE | 2023-04-24 10:54 | P.PN ---
Subjective Progress Note Date: 04/24/23 Patient seen at 10 AM CHIEF COMPLAINT: Abdominal pain HISTORY OF PRESENT ILLNESS: Patient scheduled for colonoscopy today. She completed bowel prep and is clear. Afebrile. Elevated BP. Patient did receive blood pressure meds PHYSICAL EXAM: VITAL SIGNS: Reviewed GENERAL: Well-developed in no acute distress. ABDOMEN: Soft. Nondistended. ASSESSMENT: 1. Right groin abdominal pain that radiates down into the thigh PLAN: -Patient scheduled for colonoscopy today Physician Comber Tender note has been reviewed by physician. Signing provider agrees with the documented findings, assessment, and plan of care. Objective - Vital Signs Vital signs: Vital Signs Temp 97.8 F 04/24/23 07:00 Pulse 83 04/24/23 07:00 Resp 20 04/24/23 07:00 BP 182/73 04/24/23 07:00 Pulse Ox 97 04/24/23 07:00 FiO2 Intake & Output 04/23/23 04/24/23 04/24/23 18:59 06:59 18:59 Intake Total 1191 Balance 1191 Intake: Oral 1191 Other: Voiding Method Toilet Toilet # Voids 3 2 # Bowel Movements 3 3 - Labs CBC & Chem 7: 04/24/23 05:42 04/24/23 05:42 Labs: Abnormal Lab Results - Last 24 Hours (Table) 04/23/23 04/23/23 04/23/23 Range/Units 12:23 14:03 17:16 WBC (3.8-10.6) k/uL Sodium (137-145) mmol/L Chloride (98-107) mmol/L Glucose (74-99) mg/dL POC Glucose (mg/dL) 297 H 236 H 56 L (70-110) mg/dL 04/23/23 04/24/23 04/24/23 Range/Units 17:36 00:12 05:42 WBC 14.9 H (3.8-10.6) k/uL Sodium (137-145) mmol/L Chloride (98-107) mmol/L Glucose (74-99) mg/dL POC Glucose (mg/dL) 56 L 136 H (70-110) mg/dL 04/24/23 04/24/23 04/24/23 Range/Units 05:42 06:09 08:52 WBC (3.8-10.6) k/uL Sodium 131 L (137-145) mmol/L Chloride 92 L (98-107) mmol/L Glucose 378 H (74-99) mg/dL POC Glucose (mg/dL) 359 H 440 H (70-110) mg/dL
--- NOTE | 2023-04-24 10:57 | P.OP ---
Date of Procedure: 04/24/23 Preoperative Diagnosis: Colonoscopy Postoperative Diagnosis: Cecal polyp Procedure(s) Performed: Colonoscopy Anesthesia: MAC Surgeon: Kashmir Crump Pathology: other (Cecal polyp) Condition: stable Disposition: PACU Description of Procedure: The patient's placed on the endoscopy table in the lateral position. She received IV sedation. Digital rectal exam was performed. This revealed no abnormalities. The possible colonoscope was then placed patient anus and passed throughout the entire colon. Ileocecal valve was visualized. Near the appendiceal orifice there was a small sessile polyp. This removed the cold forcep. The remainder the ascending colon, transverse colon and descending colon appeared normal. There was a few scattered diverticuli the descending; scope back the rectum and this appeared normal. Scope withdrawn for patient.
[2023-04-24] MEDS: amLODIPine 5 MG TAB PO SCH (11:30)
[2023-04-24 12:05] LABS: Glucose,Whole Blood 432 mg/dL (70-110)
[2023-04-24 13:05] VITALS: BMI 35.0
--- NOTE | 2023-04-24 17:27 | P.PN ---
Subjective Progress Note Date: 04/24/23 Roxanna Ortiz, is a 72-year-old female who presented to [facility] emergency room with a chief complaint of abdominal pain, patient was recently admitted to [facility] with similar symptoms, she was discharged on 04/05 2023, during that admission patient underwent laparoscopic laparotomy with lysis of adhesions and reduction of incarcerated umbilical hernia, and her pain resolved after the procedure. She stated that her pain recurred last night, she denies any nausea or vomiting diarrhea or constipation. She was evaluated in the emergency room vital examination on presentation revealed a temperature of 98.2 pulse 76 respiration 20 blood pressure 199/97 pulse ox 98% on room air Laboratory data reveals a white blood count of 12.9 hemoglobin 12.7 platelet cou nt 254 sodium 134 potassium 4.7 chloride 102 CO2 18 BUN 25 creatinine 1.01 lactic acid 2.5 Testing in the emergency room revealed, computed tomography scan of the abdomen and pelvis revealed no acute intra-abdominal or pelvic process and trace left pleural effusion. Patient was admitted to medical floor for further evaluation and treatment On 04/20/2023 patient is alert and oriented 3. Patient reports improvement with abdominal pain but still requiring IV pain medication. Patient has been t olerating diet. Patient denies nausea vomiting or diarrhea. Patient denies any urinary burning or frequency. Current vital signs temp 97.7, heart rate 64, respiratory rate 16, blood pressure 147/57 with a pulse ox of 96% on room air. Surgical services are following On 04/21/2023 patient was seen and examined on the medical she is alert and oriented times distress, she stated that she is still having severe pain 10 out of 10 in the right lower quadrant, otherwise there is no complaints there is no fever or chills no headache or dizziness no chest pain no shortness of breath no cough no nausea or vomiting no abdominal pain no diarrhea and no urinary symptoms. At this time we are awaiting further recommendation from general surgery, consultation was placed for anesthesia for pain management. On 04/22/2023 patient is alert and oriented 3. This time patient is tearful stating she is having continued right lower abdomen pain. Patient was evaluated by multiple surgical consults and pain services. Discussed case with surgical team Dr. Crump we'll continue to follow case Dr. Styles will sign off. Patient reports she has been tolerating her diet. Patient denies chest pain or shortness of breath. Patient denies nausea vomiting or diarrhea. Patient denies any urinary burning or frequency On 04/23/2023 patient is alert and oriented 3. Per surgical services plans for colonoscopy tomorrow 04/24/2023. Patient is currently sitting on side of bed still complaining of right lower quadrant pain. Blood pressure significantly elevated Lopressor and hydralazine increased. Patient has hydralazine when necessary. At this time patient denies chest pain or shortness breath. Patient denies nausea vomiting or diarrhea. Patient denies any urinary burning or frequency On 04/24/2023 patient was seen and examined on the medical floor she is alert and oriented 3 in no apparent distress there is no fever or chills no headache or dizziness no chest pain no shortness of breath no cough no nausea or vomiting, she is still having abdominal pain otherwise she denies any complaints she is scheduled for colonoscopy today Objective - Vital Signs Vital signs: Vital Signs Temp 97.8 F 04/24/23 07:00 Pulse 83 04/24/23 07:00 Resp 20 04/24/23 07:00 BP 182/73 04/24/23 07:00 Pulse Ox 97 04/24/23 07:00 FiO2 Intake & Output 04/23/23 04/24/23 04/24/23 18:59 06:59 18:59 Intake Total 1191 Balance 1191 Intake: Oral 1191 Other: Voiding Method Toilet Toilet # Voids 3 2 # Bowel Movements 3 3 - Exam In general patient is alert and oriented x 3 in no distress HEENT head normocephalic and atraumatic Neck is supple no JVD no goiter no lymphadenopathy no carotid bruit Chest examination is clear to auscultation no crackles no wheezing Cardiac exam reveals regular heart sounds S1 and S2 no gallops no murmurs Abdomen is soft with mild diffuse tenderness no organomegaly with normal bowel sounds Extremity exam reveals no edema no cyanosis or clubbing Neurological examination reveals no gross focal deficits - Labs CBC & Chem 7: 04/24/23 05:42 04/24/23 05:42 Labs: Abnormal Lab Results - Last 24 Hours (Table) 04/23/23 04/23/23 04/23/23 Range/Units 12:23 14:03 17:16 WBC (3.8-10.6) k/uL Sodium (137-145) mmol/L Chloride (98-107) mmol/L Glucose (74-99) mg/dL POC Glucose (mg/dL) 297 H 236 H 56 L (70-110) mg/dL 04/23/23 04/24/23 04/24/23 Range/Units 17:36 00:12 05:42 WBC 14.9 H (3.8-10.6) k/uL Sodium (137-145) mmol/L Chloride (98-107) mmol/L Glucose (74-99) mg/dL POC Glucose (mg/dL) 56 L 136 H (70-110) mg/dL 04/24/23 04/24/23 04/24/23 Range/Units 05:42 06:09 08:52 WBC (3.8-10.6) k/uL Sodium 131 L (137-145) mmol/L Chloride 92 L (98-107) mmol/L Glucose 378 H (74-99) mg/dL POC Glucose (mg/dL) 359 H 440 H (70-110) mg/dL Assessment and Plan Plan: Abdominal pain Recent admission with abdominal pain, resolved after laparoscopic laparotomy with lysis of adhesions and reduction of umbilical hernia Underlying history of CML in remission Mild leukocytosis with elevated lactic acid on presentation Previous history of bilateral breast cancer Underlying history of hypertension Underlying history of hyperlipidemia Underlying history of obstructive sleep apnea At this time patient was seen and examined on the medical floor Home medications reviewed and reordered She was started on IV fluid Surgical consultation requested Colonoscopy planned for 04/24/2023 Pain management For DVT prophylaxis SCD stockings Will follow closely
[2023-04-24 17:40] LABS: Glucose,Whole Blood 267 mg/dL (70-110)
[2023-04-24 19:59] LABS: Glucose,Whole Blood 174 mg/dL (70-110)
[2023-04-24] MEDS: ASPIRIN 81 MG PO SCH (21:49)
[2023-04-25 02:37] LABS: Glucose,Whole Blood 85 mg/dL (70-110)
[2023-04-25 06:15] LABS: Glucose,Whole Blood 124 mg/dL (70-110)
[2023-04-25] MEDS: INSULIN PUMP MEAL BOLUS 1 UNIT MISC MISCELLANE SCH ×2 (06:20→12:50)
[2023-04-25] MEDS: INSULIN ASPART (NovoLOG) 100 UNIT/ML VIAL SQ SCH ×2 (06:20→12:50)
[2023-04-25 09:09] VITALS: BP 149/71; PULSE 80; RESP 20; TEMP 98.1
[2023-04-25] MEDS: METOPROLOL TARTRATE 25 MG TAB PO SCH (10:04)
[2023-04-25] MEDS: lisinopriL 20 MG TAB PO SCH (10:04)
[2023-04-25] MEDS: DICYCLOMINE 10 MG CAP PO SCH (10:04)
[2023-04-25] MEDS: CHOLECALCIFEROL 25 MCG (1000 IU) TABLET PO SCH (10:05)
[2023-04-25] MEDS: PANTOPRAZOLE 40 MG/10 ML VIAL IV SCH (10:05)
[2023-04-25] MEDS: hydrALAZINE HCL 50 MG TAB PO SCH (10:05)
[2023-04-25] MEDS: amLODIPine 5 MG TAB PO SCH (10:05)
[2023-04-25] MEDS: TRIAMTERENE-HCTZ 37.5-25MG 1 EACH CAP PO SCH (10:06)
[2023-04-25 10:58] LABS: Basophils # (A) 0.06 X 10*3/uL (0.00-0.10); Basophils % (A) 0.5 %; Eosinophils # (A) 0.16 X 10*3/uL (0.04-0.35); Eosinophils % (A) 1.3 %; HGB 11.5 g/dL (12.0-15.0); Lymphocytes % (A) 10.4 %; MCH 27.3 pg (27.0-32.0); MCHC 32.9 g/dL (32.0-37.0); MCV 82.9 FL (80.0-97.0); Monocytes # (A) 0.95 X 10*3/uL (0.20-1.00); Monocytes % (A) 7.6 %; NRBC Per 100 WBC 0 X 10*3/uL (0.00-0.01); Neutrophils # (A) 9.93 X 10*3/uL (1.80-7.70); Neutrophils % (A) 79.5 %; Platelet Count 330 X 10*3/uL (140-440); RBC 4.22 X 10*6/uL (4.10-5.20); RDW 15.3 % (11.5-14.5); WBC 12.49 X 10*3/uL (4.50-10.00)
--- NOTE | 2023-04-25 11:06 | P.DS ---
Providers Date of admission: 04/23/23 11:54 Expected date of discharge: 04/25/23 Attending physician: Navdeep Fields Consults: 04/21/23 10:48 Consult Physician Routine Consulting Provider: Kashmir Crump Consult Reason/Comments: Second Opinion Do you want consulting provider notified?: Yes [facility] Course: Discharge diagnosis Abdominal pain Recent admission with abdominal pain, resolved after laparoscopic laparotomy with lysis of adhesions and reduction of umbilical hernia Underlying history of CML in remission Mild leukocytosis with elevated lactic acid on presentation Previous history of bilateral breast cancer Underlying history of hypertension Underlying history of hyperlipidemia Underlying history of obstructive sleep apnea Hospital course Roxanna Ortiz, is a 72-year-old female who presented to [facility] emergency room with a chief complaint of abdominal pain, patient was recently admitted to [facility] with similar symptoms, she was discharged on 04/05 2023, during that admission patient underwent laparoscopic laparotomy with lysis of adhesions and reduction of incarcerated umbilical hernia, and her pain resolved after the procedure. She stated that her pain recurred last night, she denies any nausea or vomiting diarrhea or constipation. She was evaluated in the emergency room vital examination on presentation revealed a temperature of 98.2 pulse 76 respiration 20 blood pressure 199/97 pulse ox 98% on room air Laboratory data reveals a white blood count of 12.9 hemoglobin 12.7 platelet count 254 sodium 134 potassium 4.7 chloride 102 CO2 18 BUN 25 creatinine 1.01 lactic acid 2.5 Testing in the emergency room revealed, computed tomography scan of the abdomen and pelvis revealed no acute intra-abdominal or pelvic process and trace left pleural effusion. Patient was admitted to medical floor for further evaluation and treatment On 04/20/2023 patient is alert and oriented 3. Patient reports improvement with abdominal pain but still requiring IV pain medication. Patient has been tolerating diet. Patient denies nausea vomiting or diarrhea. Patient denies any urinary burning or frequency. Current vital signs temp 97.7, heart rate 64, respiratory rate 16, blood pressure 147/57 with a pulse ox of 96% on room air. Surgical services are following On 04/21/2023 patient was seen and examined on the medical she is alert and oriented times distress, she stated that she is still having severe pain 10 out of 10 in the right lower quadrant, otherwise there is no complaints there is no fever or chills no headache or dizziness no chest pain no shortness of breath no cough no nausea or vomiting no abdominal pain no diarrhea and no urinary symptoms. At this time we are awaiting further recommendation from general surgery, consultation was placed for anesthesia for pain management. On 04/22/2023 patient is alert and oriented 3. This time patient is tearful stating she is having continued right lower abdomen pain. Patient was evaluated by multiple surgical consults and pain services. Discussed case with surgical team Dr. Crump we'll continue to follow case Dr. Styles will sign off. Patient reports she has been tolerating her diet. Patient denies chest pain or shortness of breath. Patient denies nausea vomiting or diarrhea. Patient denies any urinary burning or frequency On 04/23/2023 patient is alert and oriented 3. Per surgical services plans for colonoscopy tomorrow 04/24/2023. Patient is currently sitting on side of bed still complaining of right lower quadrant pain. Blood pressure significantly elevated Lopressor and hydralazine increased. Patient has hydralazine when necessary. At this time patient denies chest pain or shortness breath. Patient denies nausea vomiting or diarrhea. Patient denies any urinary burning or frequency On 04/24/2023 patient was seen and examined on the medical floor she is alert and oriented 3 in no apparent distress there is no fever or chills no headache or dizziness no chest pain no shortness of breath no cough no nausea or vomiting, she is still having abdominal pain otherwise she denies any complaints she is scheduled for colonoscopy today on 04/25/2023 patient is alert and oriented 3. Patient underwent colonoscopy findings cecal polyp. Patient will be discharged home. Patient will be DC'd on 3 days worth of MS Contin patient advised that she will need to follow-up with her PCP for further management Patient Condition at Discharge: Stable Plan - Discharge Summary Discharge Rx Participant: No New Discharge Prescriptions: New hydrALAZINE HCL [Apresoline] 100 mg PO TID 30 Days #90 tab Metoprolol Tartrate [Lopressor] 25 mg PO BID 30 Days #60 tab Morphine Sulfate ER [Ms Contin] 15 mg PO Q8H 3 Days #9 tab amLODIPine [Norvasc] 5 mg PO DAILY 30 Days #30 tab Pantoprazole Sodium [Protonix] 40 mg PO DAILY 30 Days #30 tab Continue Simvastatin [Zocor] 20 mg PO HS Benazepril HCl 40 mg PO DAILY Aspirin [Adult Low Dose Aspirin EC] 81 mg PO HS Cholecalciferol [Vitamin D3 (25 Mcg = 1000 Iu)] 25 mcg PO DAILY Triamterene/Hydrochlorothiazid [Triamterene-Hctz 37.5-25 mg Tb] 1 tab PO DAILY Nilotinib HCl [Tasigna] 300 mg PO BID ALPRAZolam [Xanax] 0.25 mg PO DAILY PRN PRN Reason: Anxiety Nystatin 100,000 Unit/gm Oint [Mycostatin Oint] 1 applic TOPICAL AC-BID each Insulin Aspart (For Pump) [NovoLOG (For Pump)] 0.01 unit SQ-PUMP CONTINUOUS Discontinued Metoprolol Tartrate [Lopressor] 12.5 mg PO BID hydrALAZINE HCL [Apresoline] 50 mg PO TID 30 Days #90 tab Discharge Medication List Benazepril HCl 40 mg PO DAILY 04/20/18 [History] Simvastatin [Zocor] 20 mg PO HS 04/20/18 [History] Aspirin [Adult Low Dose Aspirin EC] 81 mg PO HS 02/12/21 [History] Cholecalciferol [Vitamin D3 (25 Mcg = 1000 Iu)] 25 mcg PO DAILY 02/17/21 [History] Triamterene/Hydrochlorothiazid [Triamterene-Hctz 37.5-25 mg Tb] 1 tab PO DAILY 11/26/21 [History] Nilotinib HCl [Tasigna] 300 mg PO BID 04/16/22 [History] ALPRAZolam [Xanax] 0.25 mg PO DAILY PRN 03/27/23 [History] Nystatin 100,000 Unit/gm Oint [Mycostatin Oint] 1 applic TOPICAL AC-BID each 04/05/23 [Rx] Insulin Aspart (For Pump) [NovoLOG (For Pump)] 0.01 unit SQ-PUMP CONTINUOUS 04/19/23 [History] Metoprolol Tartrate [Lopressor] 25 mg PO BID 30 Days #60 tab 04/25/23 [Rx] Morphine Sulfate ER [Ms Contin] 15 mg PO Q8H 3 Days #9 tab 04/25/23 [Rx] Pantoprazole Sodium [Protonix] 40 mg PO DAILY 30 Days #30 tab 04/25/23 [Rx] amLODIPine [Norvasc] 5 mg PO DAILY 30 Days #30 tab 04/25/23 [Rx] hydrALAZINE HCL [Apresoline] 100 mg PO TID 30 Days #90 tab 04/25/23 [Rx] Follow up Appointment(s)/Referral(s): Tila Gutierrez MD [Primary Care Provider] - 1-2 days
[2023-04-25 11:11] LABS: ALT 12 U/L (8-44); AST 14 U/L (13-35); Albumin 3.4 g/dL (3.8-4.9); Alkaline Phosphatase 87 U/L (41-126); BUN/Creat Ratio 18.29 Ratio (12.00-20.00); Blood Urea Nitrogen 25.6 mg/dL (9.0-27.0); Calcium 9.7 mg/dL (8.7-10.3); Carbon Dioxide 26.4 mmol/L (21.6-31.8); Chloride 96 mmol/L (96-109); Glucose 116 mg/dL (70-110); Potassium 4.1 mmol/L (3.5-5.5); Sodium 134 mmol/L (135-145); Total Bilirubin 0.5 mg/dL (0.3-1.2); Total Protein 5.4 g/dL (6.2-8.2)
--- NOTE | 2023-04-25 12:29 | P.PN ---
Subjective Progress Note Date: 04/25/23 Patient seen at 10 AM CHIEF COMPLAINT: Abdominal pain HISTORY OF PRESENT ILLNESS: Patient is status post colonoscopy with results showing a cecal polyp. Patient reports her pain is improved. She is tolerating diet. Denies any nausea vomiting. Afebrile. Blood pressures improved. PHYSICAL EXAM: VITAL SIGNS: Reviewed GENERAL: Well-developed in no acute distress. ABDOMEN: Soft. Nondistended. ASSESSMENT: 1. Right groin abdominal pain status post colonoscopy revealing a cecal polyp PLAN: -Patient is stable for discharge surgical standpoint Physician Waste Reclaimer note has been reviewed by physician. Signing provider agrees with the documented findings, assessment, and plan of care. Objective - Vital Signs Vital signs: Vital Signs Temp 98.1 F 04/25/23 07:00 Pulse 80 04/25/23 07:00 Resp 20 04/25/23 07:00 BP 149/71 04/25/23 07:00 Pulse Ox 97 04/25/23 07:00 FiO2 Intake & Output 04/24/23 04/25/23 04/25/23 18:59 06:59 18:59 Intake Total 200 240 Balance 200 240 Weight 89.811 kg Intake: IV 100 Oral 100 240 Other: # Voids 1 3 # Bowel Movements 1 - Labs CBC & Chem 7: 04/25/23 05:56 04/25/23 05:56 Labs: Abnormal Lab Results - Last 24 Hours (Table) 04/24/23 04/24/23 04/25/23 Range/Units 17:38 19:57 05:56 WBC (4.50-10.00) X 10*3/uL Hgb (12.0-15.0) g/dL Hct (37.2-46.3) % RDW (11.5-14.5) % Neutrophils # (1.80-7.70) X 10*3/uL Sodium (135-145) mmol/L Est GFR (CKD-EPI) (>=60) Glucose (70-110) mg/dL POC Glucose (mg/dL) 267 H 174 H (70-110) mg/dL Hemoglobin A1c 6.2 H (<=6.0) % Total Protein (6.2-8.2) g/dL Albumin (3.8-4.9) g/dL 04/25/23 04/25/23 04/25/23 Range/Units 05:56 05:56 06:12 WBC 12.49 H (4.50-10.00) X 10*3/uL Hgb 11.5 L (12.0-15.0) g/dL Hct 35.0 L (37.2-46.3) % RDW 15.3 H (11.5-14.5) % Neutrophils # 9.93 H (1.80-7.70) X 10*3/uL Sodium 134 L (135-145) mmol/L Est GFR (CKD-EPI) 40 L (>=60) Glucose 116 H (70-110) mg/dL POC Glucose (mg/dL) 124 H (70-110) mg/dL Hemoglobin A1c (<=6.0) % Total Protein 5.4 L (6.2-8.2) g/dL Albumin 3.4 L (3.8-4.9) g/dL
== END 2023-04-25 12:37 | disposition home or self-care (01) | DRG 394 ==
LOC: EC 06:08 → 6NMEDSUR 09:13 → OBSVTOIN 04-23 11:54
PROVIDERS: ADMIT Internal Medicine; ATTEND Internal Medicine
PROC: 0DBH8ZZ Excision of Cecum, Via Natural or Artificial Opening Endoscopic (ICD-10-PCS; principal; 2023-04-24 11:05)
DX: K63.5 Polyp of colon (principal); C92.11 Chronic myeloid leukemia, BCR/ABL-positive, in remission; K42.0 Umbilical hernia with obstruction, without gangrene; E11.319 Type 2 diabetes mellitus with unspecified diabetic retinopathy without macular edema; I10 Essential (primary) hypertension; L90.0 Lichen sclerosus et atrophicus; E04.8 Other specified nontoxic goiter; K66.0 Peritoneal adhesions (postprocedural) (postinfection); G47.33 Obstructive sleep apnea (adult) (pediatric); E78.5 Hyperlipidemia, unspecified; Z96.642 Presence of left artificial hip joint; Z96.41 Presence of insulin pump (external) (internal); Z79.4 Long term (current) use of insulin; Z79.82 Long term (current) use of aspirin; Z79.899 Other long term (current) drug therapy; Z88.5 Allergy status to narcotic agent; Z85.3 Personal history of malignant neoplasm of breast; Z87.19 Personal history of other diseases of the digestive system; Z87.891 Personal history of nicotine dependence
CPT/HCPCS: 36415; 45380; 71045; 74176; 80048; 80053; 81003; 82150; 83036; 83605; 83690; 85025; 85027; 88305; 96361; 96374; 96375; 96376; 99285

== ENCOUNTER → 2023-06-26 | Outpatient (CLI) | payer MEDICARE ==
--- NOTE | 2023-06-26 11:07 | MM ---
Reason for Exam: Clinical finding. Last screening mammogram was performed 10 month(s) ago. Indicated Problems: Palpable abnormality of both sides. Patient History: Menarche at age 11. Patient has no children. Breast cancer, age 68. Other cancer, age 67. 2019, Lumpectomy on the Right side. 2016, Lumpectomy on the Left side. 08/20/2019, Malignant Core Biopsy on the right side. 2016, Radiation Therapy on the left side. Paternal cousin had breast cancer, age 40. Paternal uncle had breast cancer, age 27. Tissue Density: The breast tissue is heterogeneously dense. This may lower the sensitivity of mammography. Findings: Analyzed By CAD. Extensive bilateral postsurgical and posttreatment changes with extensive areas of fat necrosis calcifications and likely postoperative seroma on the left. Palpable marker left upper quadrant with underlying fat necrosis/early oil cyst. Secretory and vascular calcifications on the right. No significant change from prior exams. Overall Assessment: Incomplete: need additional imaging evaluation, BI-RAD 0 Management: Diagnostic Breast Ultrasound of both breasts. For physician palpated areas. Electronically signed and approved by: Tee Tom M.D. Radiologist
--- NOTE | 2023-06-26 11:56 | USB ---
Reason for Exam: Clinical finding. Patient History: Menarche at age 11. Patient has no children. Breast cancer, age 68. Other cancer, age 67. 2019, Lumpectomy on the Right side. 2017, Lumpectomy on the Left side. 08/20/2019, Malignant Core Biopsy on the right side. 2017, Radiation Therapy on the left side. Paternal cousin had breast cancer, age 40. Paternal uncle had breast cancer, age 27. Technique: Method: Whole Breast Handheld. Prior Study Comparison: 08/25/2020 Bilateral Diagnostic Mammogram, [facility]. 08/27/2021 Bilateral Screening Mammogram, [facility]. 08/29/2022 Bilateral MG 3D screening mammo w/cad, [facility]. Findings: The whole breast of both breasts, the axilla of both breasts and the retroareolar of both breasts were scanned. A complete US of all four quadrants of the right breast, axilla, and retro-areolar region were reviewed. * Areas of shadowing calcifications are present at 1:00. * Multiple scattered cystic areas are present with calcifications including 11:00 measuring 8 mm, 12:00 measuring 1 cm. * At the 12:00 position, 2 to 3 cm from the nipple, there is a more heterogeneous mixed solid and cystic area measuring 2.5 cm, likely area of oral cyst formation corresponding to the mammographic finding. * No other solid or cystic lesion is seen. A complete US of all four quadrants of the left breast, axilla, and retro-areolar region were reviewed. * Large hypoechoic area measuring 4 cm 11:00 5 cm from nipple, likely site of lumpectomy and either chronic scarring or postoperative seroma. * At the 12:00 position, 5 cm from the nipple, there is a heterogeneous mixed area measuring 2.5 cm just deep to the skin surface likely corresponding to the patient's palpable site and likely representing fat necrosis. * No other solid or cystic lesion is seen. Overall Assessment: Probably benign, BI-RAD 3 Management: Diagnostic Mammogram of both breasts in 1 year. Findings within the bilateral breasts likely representing extensive postsurgical changes along with areas of fat necrosis and likely a postoperative seroma on the left. A clinical breast exam by your physician is recommended on an annual basis and results should be correlated with mammographic findings. This exam should not preclude additional follow-up of suspicious palpable abnormalities. Results were given to the patient verbally at the time of exam. Electronically signed and approved by: Tee Tom M.D. Radiologist
== END | disposition home or self-care (01) ==
LOC: RADMAMWWP 09:37
PROVIDERS: ATTEND Surgery
DX: N63.10 Unspecified lump in the right breast, unspecified quadrant (principal); N63.20 Unspecified lump in the left breast, unspecified quadrant; R92.333 Mammographic heterogeneous density, bilateral breasts; Z85.3 Personal history of malignant neoplasm of breast; Z80.3 Family history of malignant neoplasm of breast
CPT/HCPCS: 77066; 76641; G0279; 77062

== ENCOUNTER → 2023-10-02 | Outpatient (CLI) | payer MEDICARE ==
--- NOTE | 2023-10-02 14:50 | US ---
EXAMINATION TYPE: US kidneys/renal and bladder DATE OF EXAM: 10/02/2023 COMPARISON: CT 2022 CLINICAL INDICATION: Female, 72 years old with history of N18.30 CKD, STAGE 3; EXAM MEASUREMENTS: Right Kidney: 8.7 x 3.9 x 4.1 cm Left Kidney: 9.1 x 4.2 x 4.6 cm Right Kidney: no hydronephrosis or masses seen Left Kidney: no hydronephrosis or masses seen Bladder: debris seen along posterior wall Bilateral Jets seen: No There is no evidence for hydronephrosis at this point in time. No nephrolithiasis is seen. No fady s are identified. The urinary bladder is anechoic. IMPRESSION: 1 .No renal mass, hydronephrosis or calculus. 2. Layering echogenic material in the posterior urinary bladder.
== END | disposition home or self-care (01) ==
LOC: RADUSWWP 11:15
PROVIDERS: ATTEND Internal Medicine Endocrinology, Diabetes & Metabolism
DX: N18.30 Chronic kidney disease, stage 3 unspecified (principal)
CPT/HCPCS: 76770

== ENCOUNTER → 2024-02-26 | Outpatient (CLI) | payer MEDICARE ==
[2024-02-26 15:14] LABS: Appearance,Urine Clear (Clear); Bilirubin,Urine Negative (Negative); Blood,Urine Negative (Negative); Color,Urine Yellow (Yellow); Ketones,Urine Negative (Negative); Nitrite,Urine Negative (Negative); Urobilinogen,Urine 0.2 E.U./DL
[2024-02-26 15:17] LABS: Bacteria,Urine Trace (None Seen)
[2024-02-26 15:33] LABS: Basophils # (A) 0.05 X 10*3/uL (0.00-0.10); Basophils % (A) 0.4 %; Eosinophils # (A) 0.36 X 10*3/uL (0.04-0.35); Eosinophils % (A) 3.1 %; HCT 42.8 % (37.2-46.3); HGB 13.9 g/dL (12.0-15.0); Lymphocytes # (A) 1.27 X 10*3/uL (0.90-5.00); Lymphocytes % (A) 11.1 %; MCH 28.8 pg (27.0-32.0); MCHC 32.5 g/dL (32.0-37.0); MCV 88.6 FL (80.0-97.0); Monocytes # (A) 0.62 X 10*3/uL (0.20-1.00); Monocytes % (A) 5.4 %; NRBC Per 100 WBC 0 X 10*3/uL (0.00-0.01); Neutrophils # (A) 9.02 X 10*3/uL (1.80-7.70); Neutrophils % (A) 78.8 %; Platelet Count 181 X 10*3/uL (140-440); RBC 4.83 X 10*6/uL (4.10-5.20); RDW 14.3 % (11.5-14.5); WBC 11.46 X 10*3/uL (4.50-10.00)
[2024-02-26 15:39] LABS: % Iron Saturation 23.83 (12.00-45.00); Albumin 4.1 g/dL (3.8-4.9); Blood Urea Nitrogen 35.1 mg/dL (9.0-27.0); Calcium 9.6 mg/dL (8.7-10.3); Carbon Dioxide 20.7 mmol/L (21.6-31.8); Chloride 108 mmol/L (96-109); Glucose 211 mg/dL (70-110); Iron 71 UG/DL (50-170); Magnesium 2.4 mg/dL (1.5-2.4); Phosphorus 3.4 mg/dL (2.4-5.1); Potassium 4.4 mmol/L (3.5-5.5); Sodium 140 mmol/L (135-145); Total Iron Binding Capacity 298 UG/DL (228-460); Uric Acid 8.8 mg/dL (2.9-7.7)
[2024-02-26 19:48] LABS: Microalbumin Creatinine Ratio <18 mg/g Cr (0-30)
== END | disposition home or self-care (01) ==
LOC: LABWHC1 09:33
PROVIDERS: ATTEND Internal Medicine Nephrology
DX: N18.30 Chronic kidney disease, stage 3 unspecified
CPT/HCPCS: 36415; 80048; 81001; 82040; 82043; 82306; 82570; 82728; 83540; 83550; 83735; 83970; 84100; 84550; 85025; 86335

== ENCOUNTER → 2024-06-12 | Outpatient (CLI) | payer MEDICARE ==
[2024-06-12 12:46] LABS: Basophils # (A) 0.04 X 10*3/uL (0.00-0.10); Basophils % (A) 0.4 %; Eosinophils # (A) 0.45 X 10*3/uL (0.04-0.35); Eosinophils % (A) 4.3 %; HCT 36.1 % (37.2-46.3); HGB 11.9 g/dL (12.0-15.0); Lymphocytes # (A) 0.98 X 10*3/uL (0.90-5.00); Lymphocytes % (A) 9.3 %; MCH 28.6 pg (27.0-32.0); MCV 86.8 FL (80.0-97.0); Mean Platelet Volume 12.6 FL (9.5-12.2); Monocytes # (A) 0.66 X 10*3/uL (0.20-1.00); Monocytes % (A) 6.3 %; NRBC Per 100 WBC 0 X 10*3/uL (0.00-0.01); Neutrophils # (A) 8.31 X 10*3/uL (1.80-7.70); Platelet Count 215 X 10*3/uL (140-440); RBC 4.16 X 10*6/uL (4.10-5.20); RDW 14.6 % (11.5-14.5); WBC 10.51 X 10*3/uL (4.50-10.00)
[2024-06-12 13:04] LABS: Chol/HDL Ratio 2.51 Ratio; Uric Acid 7.5 mg/dL (2.9-7.7)
[2024-06-12 13:05] LABS: % Iron Saturation 12.41 (12.00-45.00); ALT 19 U/L (8-44); AST 14 U/L (13-35); Albumin/Globulin Ratio 1.82 Ratio (1.60-3.17); Alkaline Phosphatase 59 U/L (41-126); BUN/Creat Ratio 15.67 Ratio (12.00-20.00); Blood Urea Nitrogen 23.5 mg/dL (9.0-27.0); Calcium 8.8 mg/dL (8.7-10.3); Carbon Dioxide 21.2 mmol/L (21.6-31.8); Chloride 110 mmol/L (96-109); Globulin 2.2 g/dL (1.6-3.3); Glucose 110 mg/dL (70-110); Iron 34 UG/DL (50-170); Potassium 4.1 mmol/L (3.5-5.5); Sodium 143 mmol/L (135-145); Total Bilirubin 0.6 mg/dL (0.3-1.2); Total Iron Binding Capacity 274 UG/DL (228-460); Total Protein 6.2 g/dL (6.2-8.2)
[2024-06-12 13:06] LABS: Urine Creatinine 75.8 mg/dL (28.0-217.0)
[2024-06-12 13:19] LABS: C-Peptide <0.02 ng/mL (0.81-3.85)
[2024-06-12 14:07] LABS: Appearance,Urine Cloudy (Clear); Bilirubin,Urine Negative (Negative); Blood,Urine Negative (Negative); Color,Urine Yellow (Yellow); Ketones,Urine Negative (Negative); Nitrite,Urine Negative (Negative); PH, Urine 5.5; Specific Gravity,Urine 1.012 (1.001-1.030)
[2024-06-12 14:29] LABS: Bacteria,Urine 2+ (None Seen); Yeast (UA) Present (None Seen)
== END | disposition home or self-care (01) ==
LOC: LABWHC1 08:39
PROVIDERS: ATTEND Internal Medicine
DX: E11.65 Type 2 diabetes mellitus with hyperglycemia (principal); E11.22 Type 2 diabetes mellitus with diabetic chronic kidney disease; N18.32 Chronic kidney disease, stage 3b; D63.1 Anemia in chronic kidney disease; M10.9 Gout, unspecified; N39.0 Urinary tract infection, site not specified; R80.9 Proteinuria, unspecified
CPT/HCPCS: 36415; 80053; 80061; 81001; 82043; 82570; 82728; 83036; 83540; 83550; 84550; 84681; 85025

== ENCOUNTER → 2024-07-09 | Outpatient (CLI) | payer MEDICARE ==
--- NOTE | 2024-07-09 16:55 | XR ---
EXAMINATION TYPE: XR chest 2V DATE OF EXAM: 07/09/2024 4:47 PM COMPARISON: Chest radiographs from 05-01 TECHNIQUE: XR chest 2V Frontal and lateral views of the chest. CLINICAL INDICATION:Female, 73 years old with history of J18.9 PNEUMONIA, UNSPECIFIED ORGANISM J90 PL EURAL; FINDINGS: Lungs/Pleura: No focal consolidation or pneumothorax. Small left pleural effusion. Pulmonary vascularity: Unremarkable. Heart/mediastinum: Cardiomediastinal silhouette is enlarged and stable. Musculoskeletal: No acute osseous pathology. Mild multilevel degenerative disc disease. IMPRESSION: Small left pleural effusion and cardiomegaly. [facility], , 07/09/2024 4:53 PM
== END | disposition home or self-care (01) ==
LOC: RADXRMAIN 16:31
PROVIDERS: ATTEND Student in an Organized Health Care Education/Training Program
DX: J18.9 Pneumonia, unspecified organism (principal); J90 Pleural effusion, not elsewhere classified; I51.7 Cardiomegaly
CPT/HCPCS: 71046

== ENCOUNTER → 2024-08-20 | Outpatient (CLI) | payer MEDICARE ==
--- NOTE | 2024-08-20 14:53 | CT ---
EXAMINATION TYPE: CT chest wo con CT DLP: 492.4 mGycm, Automated exposure control for dose reduction was used. DATE OF EXAM: 08/20/2024 2:39 PM COMPARISON: Chest radiograph 08/12/2024, CT chest 10/12/2020 CLINICAL INDICATION:Female, 73 years old with history of R06.09 OTHER FORMS OF DYSPNEA; PHH, dyspnea TECHNIQUE: Multiple axial images were obtained through the chest without IV contrast. Lack of IV or o ral contrast limits evaluation of solid and hollow organ viscera. . Coronal and sagittal reformats re viewed. FINDINGS: LUNGS/ PLEURA: Trace bilateral pleural effusions with minimal subsegmental atelectasis. Few scattered calcified granulomas. Few scattered stable pulmonary micronodules dating back to 2020. Examples inc lude an anterior right upper lobe 2 mm pulmonary nodule (series 4, image 16). Right midlung 4 mm pulm onary nodule (series 4, image 28). New right lower lobe 6.3 mm nodular opacity (series 4, image 47). AIRWAY: Patent and unremarkable.. HEART: Cardiomegaly is demonstrated.Small pericardial effusion. Mild coronary artery calcifications p resent. Calcifications within the mitral annulus. MEDIASTINUM: No gross evidence of adenopathy. VASCULATURE: No aortic aneurysm. MUSCULOSKELETAL: Mild disc degeneration changes are present throughout the thoracolumbar spine. No ac [place] osseous abnormality. SOFT TISSUES/LYMPH NODES: No axillary adenopathy. Stable left breast 2.8 x 4.4 cm mixed fat containin g lesion from 2020 benign. Dystrophic calcifications within both breasts. LOWER NECK: Macrocalcification within the left thyroid isthmus. UPPER ABDOMEN: Cholelithiasis. IMPRESSION: 1. Trace bilateral pleural effusions. 2. Cardiomegaly with similar smaller pericardial effusion. 3. Few scattered pulmonary nodules and calcified granulomas from 2020 with a new right lower lobe 6.3 mm pulmonary nodule. According to Fleischner criteria, follow-up CT at 6-12 months is recommended. [facility], , 08/20/2024 2:51 PM
== END | disposition home or self-care (01) ==
LOC: RADCTMAIN 14:14
PROVIDERS: ATTEND Internal Medicine Critical Care Medicine
DX: J90 Pleural effusion, not elsewhere classified (principal); I31.39 Other pericardial effusion (noninflammatory); R91.8 Other nonspecific abnormal finding of lung field; R06.09 Other forms of dyspnea; I51.7 Cardiomegaly
CPT/HCPCS: 71250